=== PATIENT | female | born 1965 | race Caucasian/White ===

== ENCOUNTER → 2019-12-11 15:23 | Outpatient (CLI) | payer OTHER, SELFPAY ==
--- NOTE | ~2019-12-11 | US_ITS ---
EXAMINATION: US venous doppler [facility] DATE: 12/11/2019 15:56 INDICATION: Left lower limb swelling. TECHNIQUE: Grayscale ultrasound images without and with compression and Doppler ultrasound images of the left lower extremity veins were obtained. COMPARISON: None. FINDINGS: The visualized portions of left common femoral vein, profunda (deep) femoral vein, femoral vein, popl iteal vein, peroneal veins, posterior tibial veins, and greater saphenous vein outflow are patent. IMPRESSION: 1. No deep venous thrombosis. Reviewed, dictated and finalized at location A.
== END ==
DX: M79.89 Other specified soft tissue disorders (principal)
CPT/HCPCS: 93971

== ENCOUNTER 2025-04-01 18:01 | Emergency (ER) | payer SELFPAY ==
--- NOTE | ~2025-04-01 | XR_ITS ---
EXAMINATION: XR chest 2V Exam Date/Time: 04/01/2025 18:36 CDT HISTORY: chest pain Comparison: None. RESULT: Lines, tubes, and devices: Cholecystectomy clips. Lungs and pleura: Clear. Cardiomediastinal silhouette: Unremarkable. Other: No acute osseous or upper abdominal finding. IMPRESSION: No acute cardiopulmonary process. Reviewed, dictated and finalized at location K.
--- OUTSIDE RECORDS SUMMARY | 2025-04-01 18:02 | XMS_ITS | Encounter Summary ---
Author Organization [facility] Address [address] [place] [address] Care Team Providers Care Gun Welder Name Role Phone Armando oJhnson MD Primary Care Provider [phone] Encounter Details Date Type Department Care Team (Late st Contact Info) Description 11/25/2003 Emergency [facility] Jhon Paulino MD NO ADDRESS ON FILE Er, Authorized P NO ADDRESS ON FILE PALPITATIONS (Primary Dx) Social History Tobacco Use Types Packs/Day Years Used Date Smoking Tobacco: Never Assessed Comments Unknown Sex and Gender Information Value Date Recorded Sex Assigned at Not on file Legal Sex Female 4:42 AM MOLD PRESSER Gender Identity Not on file Sexual Orientation Not on file documented as of this encounter Plan of Treatment Upcoming Encounters Date Type Department Care Team (Late st Contact Info) Description 08/10/2025 2:15 PM MOLD PRESSER Office Visit [facility] Rheumatology [place] [address] [facility] [address] [place] [address] Ruddy Sánchez [place] [address] [place] [address] documented as of this encounter Visit Diagnoses Diagnosis Palpitations- Primary documented in this encounter Care Teams Gun Welder Relationship Specialty Start Date End Date Armando Johnson MD [address] [place] [address] PCP - General Internal Medicine 11/13/22 documented as of this encounter
--- OUTSIDE RECORDS SUMMARY | 2025-04-01 18:02 | XMS_ITS | Encounter Summary ---
Author Organization [facility] Address [address] [place] [address] Care Team Providers Care Top Cager Name Role Phone Armando Johnson MD Primary Care Provider [phone] Encounter Details Date Type Department Care Team (Late st Contact Info) Description 03/16/2004 Outpatient Historical [facility] Support Serv. (Adt Cardiology-[facility]) [address] [place] [address] Barron Peres MD NO ADDRESS ON FILE Social History Tobacco Use Types Packs/Day Years Used Date Smoking Tobacco: Never Assessed Comments Unknown Sex and Gender Information Value Date Recorded Sex Assigned at Not on file Legal Sex Female 4:42 AM GLASS FORMING CREW MEMBER Gender Identity Not on file Sexual Orientation Not on file documented as of this encounter Plan of Treatment Upcoming Encounters Date Type Department Care Team (Late Contact Info) Description 08/10/2025 2:15 PM GLASS FORMING CREW MEMBER Office Visit [facility] Rheumatology [place] [address] [place] [address] Ruddy Sánchez [place] [address] [place] [address] documented as of this encounter Visit Diagnoses Not on filedocumented in this encounter Care Teams Top Cager Relationship Specialty Start Date End Date Armando Johnson MD [address] [place] [address] PCP - General Internal Medicine 11/13/22 documented as of this encounter
--- OUTSIDE RECORDS SUMMARY | 2025-04-01 18:02 | XMS_ITS | Encounter Summary ---
Author Organization [facility] Address [address] [place] [address] Care Team Providers Care Supervisor Sleeping Bag Department Name Role Phone Armando Johnson MD Primary Care Provider [phone] Encounter Details Date Type Department Care Team (Latest Contact Info) Description 01/10/2009 Outpatient Historical HIS [facility] PRUDENCE Rod, [place] [address] [place] [address] Other Screening Mammogram Social History Tobacco Use Types Packs/Day Years Used Date Smoking Tobacco: Never Alcohol Use Standard Drinks/Week Comments No 0 (1 standard drink = 0.6 oz pur e alcohol) Comments No Sex and Gender Information Value Date Recorded Sex Assigned at Not on file Legal Sex Female 4:42 AM CANVAS PRODUCTS SALES REPRESENTATIVE Gender Identity Not on file Sexual Orientation Not on file documented as of this encounter Plan of Treatment Upcoming Encounters Date Type Department Care Team (Late st Contact Info) Description 08/10/2025 2:15 PM CANVAS PRODUCTS SALES REPRESENTATIVE Office Visit [facility] [place] [address] [place] [address] Ruddy Sánchez [place] [address] [place] [address] documented as of this encounter Procedures Procedure Name Priority Date/Time Associated Diagnosis Comments MAMMO SCREEN BILAT W OR WO CAD Routine 01/10/2009 3:27 PM CDT documented in this encounter Results * MAMMO DIGITAL SCREEN BILAT (01/10/2009 3:27 PM CDT) Anatomical Region Laterality Modality Breast Bilateral Other 01/10/2009 3:27 PM CDT Narrative 01/10/2009 4:20 PM CDT [address] [address] Admit Date: 01/10/2009 JOSE PERRY Sex: F Admit Prov: LIBERTAD ROD Date: 1965 Primary Care Prov: OLGA MARTINArtemio [place] CMRN: [id number] Room: NAKITAYeyo N: [id number] IMAGING SERVICES Ordering Prov: LIBERTAD ROD Sammi Accession Number: [id number] Interpretation DIGITAL SCREENING MAMMOGRAM WITH COMPUTER-ASSISTED DIAGNOSIS Findings: The breasts were imaged with digital mammographic technique. There are scattered fibroglandular densities. No significant mass, malignant calcification or architectural distortion is noted. The CAD system does not highlight any suspicious areas. Summary: No mammographic evidence of malignancy. There has been no significant change from prior study of 12/22. Recommendations: Bilateral yearly screening mammogram is recommended. Assessment BIRADS: 1-Negative Recommendation: Normal interval follow-up Dictated by: ANIKA LOCK Electronically signed by: ANIKA LOCK 01/10/2009 16:20 Transcribed: 01/10/2009 16:20 CXZ Procedure Note Anika Song MD - 01/10/[address] [address] Admit Date: 01/10/2009 JOSE PERRY Sex: F Admit Prov: LIBERTAD ROD Date: 1965 Primary Care Prov: ELIRUSHJOSE MARTINArtemio [place]EN[place]T CMRN: [id number] Room: NORMA SSN: [id number] IMAGING SERVICES Ordering Prov: RODLIBERTAD Interpretation DIGITAL SCREENING MAMMOGRAM WITH COMPUTER-ASSISTED DIAGNOSIS Findings: The breasts were imaged with digital mammographictechnique. There are scattered fibroglandular densities. No significant mass, malignant calcification or architectural distortion is noted. The CAD system does not highlight any suspicious areas. Summary: No mammographic evidence of malignancy. There has been no significant change from prior study of 12/22. Recommendations: Bilateral yearly screening mammogram is recommended. Assessment BIRADS: 1-Negative Recommendation: Normal interval follow-up Dictated by: ANIKA LOCK Electronically signed by: ANIKA LOCK 01/10/2009 16:20 Transcribed: 01/10/2009 16:20 CXZ us Libertad Rod MD MAMMO ORDERABLES Final Result documented in this encounter Visit Diagnoses Diagnosis Other screening mammogram documented in this encounter Care Teams Supervisor Sleeping Bag Department Relationship Specialty Start Date End Date Armando Johnson MD [address] [facility] [address] [place] [address] PCP - General Internal Medicine 11/13/22 documented as of this encounter
--- OUTSIDE RECORDS SUMMARY | 2025-04-01 18:02 | XMS_ITS | Encounter Summary ---
Author Organization [facility] Address [address] [place] [address] Care Team Providers Care Rail Signal Designer Name Role Phone Armando Johnson MD Primary Care Provider [phone] Encounter Details Date Type Department Care Team (Late st Contact Info) Description 12/01/2003 Outpatient Historical [facility] Support Serv. (Adt Cardiology-[facility]) [address] [place] [place] [address] Ho Loyola MD NO ADDRESS ON FILE Social History Tobacco Use Types Packs/Day Years Used Date Smoking Tobacco: Never Assessed Comments Unknown Sex and Gender Information Value Date Recorded Sex Assigned at Not on file Legal Sex Female 4:42 AM CUSTOMER SUCCESS MANAGER Gender Identity Not on file Sexual Orientation Not on file documented as of this encounter Plan of Treatment Upcoming Encounters Date Type Department Care Team (Late Contact Info) Description 08/10/2025 2:15 PM CUSTOMER SUCCESS MANAGER Office Visit [facility] Rheumatology [place] [address] [place] [address] Ruddy Sánchez [place] [address] [place] [address] documented as of this encounter Visit Diagnoses Not on filedocumented in this encounter Care Teams Rail Signal Designer Relationship Specialty Start Date End Date Armando Johnson MD [address] [place] [address] PCP - General Internal Medicine 11/13/22 documented as of this encounter
--- OUTSIDE RECORDS SUMMARY | 2025-04-01 18:03 | XMS_ITS | Encounter Summary ---
Author Organization [facility] Address [address] [place] [address] Care Team Providers Care Silk Screen Printer Machine Name Role Phone Armando Johnson MD Primary Care Provider [phone] Encounter Details Date Type Department Care Team (Latest Contact Info) Description 07/11/2001 Outpatient Historical [facility] PRUDENCE Rod, Josué [place] [address] [place] [address] Screening mammogram for high-risk patient (Primary Dx) Social History Tobacco Use Types Packs/Day Years Used Date Smoking Tobacco: Never Assessed Comments Unknown Sex and Gender Information Value Date Recorded Sex Assigned at Not on file Legal Sex Female 4:42 AM PROJECT MANAGEMENT PROFESSOR Gender Identity Not on file Sexual Orientation Not on file documented as of this encounter Plan of Treatment Upcoming Encounters Date Type Department Care Team (Late st Contact Info) Description 08/10/2025 2:15 PM PROJECT MANAGEMENT PROFESSOR Office Visit [facility] Rheumatology [place] [address] [place] [address] Ruddy Sánchez [place] [address] [address] documented as of this encounter Visit Diagnoses Diagnosis Screening mammogram for high-risk patient- Primary documented in this encounter Care Teams Silk Screen Printer Machine Relationship Specialty Start Date End Date Armando Johnson MD [address] [place] [address] PCP - General Internal Medicine 11/13/22 documented as of this encounter
--- OUTSIDE RECORDS SUMMARY | 2025-04-01 18:03 | XMS_ITS | Encounter Summary ---
Author Organization [facility] Address [address] [place] [address] Care Team Providers Care Energy Manager Name Role Phone Armando Johnson MD Primary Care Provider [phone] Encounter Details Date Type Department Care Team (Late st Contact Info) Description 12/13/2003 Outpatient Historical [facility] Balwinder Hector MD [address] [facility] [address] [place] [address] Social History Tobacco Use Types Packs/Day Years Used Date Smoking Tobacco: Never Assessed Comments Unknown Sex and Gender Information Value Date Recorded Sex Assigned at Not on file Legal Sex Female 4:42 AM CASTING PLUG ASSEMBLER Gender Identity Not on file Sexual Orientation Not on file documented as of this encounter Plan of Treatment Upcoming Encounters Date Type Department Care Team (Late st Contact Info) Description 08/10/2025 2:15 PM CASTING PLUG ASSEMBLER Office Visit [facility] Rheumatology [place] [address] [place] [address] Ruddy Sánchez [place] [address] [place] [address] documented as of this encounter Visit Diagnoses Not on filedocumented in this encounter Care Teams Energy Manager Relationship Specialty Start Date End Date Armando Johnson MD [address] [place] [address] PCP - General Internal Medicine 11/13/22 documented as of this encounter
--- OUTSIDE RECORDS SUMMARY | 2025-04-01 18:03 | XMS_ITS | Encounter Summary ---
Author Organization [facility] Address [address] [place] [address] Care Team Providers Care Tape Deck Installer Name Role Phone Armando Johnson MD Primary Care Provider [phone] Encounter Details Date Type Department Care Team (Late st Contact Info) Description 02/13/2002 Emergency [facility] Bola Saul MD NO ADDRESS ON FILE Er, Authorized P NO ADDRESS ON FILE CONTUSION OF FOOT (Primary Dx) Social History Tobacco Use Types Packs/Day Years Used Date Smoking Tobacco: Never Assessed Comments Unknown Sex and Gender Information Value Date Recorded Sex Assigned at Not on file Legal Sex Female 4:42 AM PHYSICIAN'S ASSISTANT Gender Identity Not on file Sexual Orientation Not on file documented as of this encounter Plan of Treatment Upcoming Encounters Date Type Department Care Team (Late st Contact Info) Description 08/10/2025 2:15 PM PHYSICIAN'S ASSISTANT Office Visit [facility] Rheumatology [place] [address] [place] [address] Ruddy Sánchez [place] [address] [place] [address] documented as of this encounter Visit Diagnoses Diagnosis Contusion of foot- Primary documented in this encounter Care Teams Tape Deck Installer Relationship Specialty Start Date End Date Armando Johnson MD [address] [place] [address] PCP - General Internal Medicine 11/13/22 documented as of this encounter
--- OUTSIDE RECORDS SUMMARY | 2025-04-01 18:03 | XMS_ITS | Clinical Summary ---
Author Organization [facility] Address [address] [place] [address] Care Team Providers Care Public Message Service Supervisor Name Role Phone Unavailable Primary Care Provider Unavailabl e Source Comments [facility],non-owned Affiliates and Associated Physician Practices is amultiple site organization consisting of ambulatory clinics and hospital sitesin [place], [place], [place] and [place]. This disclosure is being madepursuant to the Care Everywhere program and may not contain all information available regarding this patient. Last updated 18.[facility] Immunizations Immunization Administration Dates Next Due INFLUENZA VACCINE, QUADR. (F LUZONE; FLULAVAL; FLUARIX; AFLURIA QUADRIVALENT; 6MO+), 0.5 ML (IIV4) 07/04/2020 Social History Tobacco Use Types Packs/Day Years Used Date Smoking Tobacco: Never Assessed Comments Unknown Sex and Gender Information Value Date Recorded Sex Assigned at Not on file Legal Sex Female 4:04 PM CDT Gender Identity Not on file Sexual Orientation Not on file Plan of Treatment Health Maintenance Due Date Last Done Comments COLOGUARD (AGES 45-75) - COL ON CA SCREENING 1965 COLON MONITORING 1965 COLONOSCOPY - COLON CA SCREENING 1964 CT COLONOGRAPHY - COLON CA SCREENING 1965 Colorectal Cancer Screening 1965 FIT - COLON CA SCREENING 1964 FLEX SIG - COLON CA SCREENING 1965 LIPID TESTING 1965 MAMMOGRAM 1965 HIV SCREENING 1979 HEPATITIS C SCREENING 07/21/1982 DTAP/TDAP/TD VACCINES (1 - Tdap) 1983 PAP SMEAR 1985 PNEUMOCOCCAL VACCINE 50+ (1 of 1 - PCV) 2014 ZOSTER VACCINE (1 of 2) 2014 COVID-19 VACCINE (1 - 2023-2 5 season) 2024 DEPRESSION SCREENING 09/16/2024 INFLUENZA VACCINE (#1) 2025 07/04/2020 Respiratory Syncytial Virus (RSV) Vaccine Pt: or over 60 yrs (1 - 1-dose 75+ series) 2039 HEPATITIS B VACCINE Aged Out No longe r eligible based on patient's age to complete this topic HIB VACCINE Aged Out No longer eligi ble based on patient's age to complete this topic HPV VACCINE Aged Out No longer eligi ble based on patient's age to complete this topic MENINGOCOCCAL (Group B) VACC INE SHARED DECISION-MAKING Aged Out No longer eligibl e based on patient's age to complete this topic MENINGOCOCCAL GROUPS A/C/Y/W VACCINE Aged Out No longer eligible b ased on patient's age to complete this topic Insurance [employer]
--- OUTSIDE RECORDS SUMMARY | 2025-04-01 18:03 | XMS_ITS | Encounter Summary ---
Author Organization [facility] Address [address] [place] [address] Care Team Providers Care Cfa Name Role Phone Armando Johnson MD Primary Care Provider [phone] Encounter Details Date Type Department Care Team (Late st Contact Info) Description 08/24/2002 Outpatient Historical [facility] Support Serv. (Adt Cardiology-[facility]) [address] [place] [address] Lucius Ward MD NO ADDRESS ON FILE Social History Tobacco Use Types Packs/Day Years Used Date Smoking Tobacco: Never Assessed Comments Unknown Sex and Gender Information Value Date Recorded Sex Assigned at Not on file Legal Sex Female 4:42 AM CLAIM MANAGER Gender Identity Not on file Sexual Orientation Not on file documented as of this encounter Plan of Treatment Upcoming Encounters Date Type Department Care Team (Late Contact Info) Description 08/10/2025 2:15 PM CLAIM MANAGER Office Visit [facility] Rheumatology [place] [address] [place] [address] Ruddy Sánchez [place] [address] [place] [address] documented as of this encounter Visit Diagnoses Not on filedocumented in this encounter Care Teams Cfa Relationship Specialty Start Date End Date Armando Johnson MD [address] [place] [address] PCP - General Internal Medicine 11/13/22 documented as of this encounter
--- OUTSIDE RECORDS SUMMARY | 2025-04-01 18:03 | XMS_ITS | Encounter Summary ---
Author Organization [facility] Address [address] [place] [address] Care Team Providers Care Wind Turbine Mechanic Name Role Phone Armando Johnson MD Primary Care Provider Encounter Details Date Type Department Care Team (Late Contact Info) Description 12/07/2003 Outpatient [facility] for [address] [place] [address] [place] [address] [place] [address] [address] Social History Tobacco Use Types Packs/Day Years Used Date Smoking Tobacco: Never Assessed Comments Unknown Sex and Gender Information Value Date Recorded Sex Assigned at Not on file Legal Sex Female 4:42 AM LOG INSPECTOR Gender Identity Not on file Sexual Orientation Not on file documented as of this encounter Plan of Treatment Upcoming Encounters Date Type Department Care Team (Late st Contact Info) Description 08/10/2025 2:15 PM LOG INSPECTOR Office Visit [facility] Rheumatology [place] [address] [place] [address] Ruddy Sánchez [place] [address] [place] [address] documented as of this encounter Visit Diagnoses Not on filedocumented in this encounter Care Teams Wind Turbine Mechanic Relationship Specialty Start Date End Date Armando Johnson MD [address] [place] [address] PCP - General Internal Medicine 11/13/22 documented as of this encounter
--- OUTSIDE RECORDS SUMMARY | 2025-04-01 18:03 | XMS_ITS | Encounter Summary ---
Author Organization [facility] Address [address] [place] [address] Care Team Providers Care Compliance Officer Name Role Phone Armando Johnson MD Primary Care Provider [phone] Encounter Details Date Type Department Care Team (Latest Contact Info) Description 08/10/2002 Outpatient Historical [facility] Nixon Perea MD [address] [facility] [address] [place], [place] [id number] ENTHESOPATHY OF HIP (Primary Dx) Social History Tobacco Use Types Packs/Day Years Used Date Smoking Tobacco: Never Assessed Comments Unknown Sex and Gender Information Value Date Recorded Sex Assigned at Not on file Legal Sex Female 4:42 AM STEAM SHOVEL RUNNER Gender Identity Not on file Sexual Orientation Not on file documented as of this encounter Plan of Treatment Upcoming Encounters Date Type Department Care Team (Late st Contact Info) Description 08/10/2025 2:15 PM STEAM SHOVEL RUNNER Office Visit [facility] Rheumatology [place] [address] [place] [address] Ruddy Sánchez [place] [address] [place] [address] documented as of this encounter Visit Diagnoses Diagnosis Enthesopathy of hip region- Primary documented in this encounter Care Teams Compliance Officer Relationship Specialty Start Date End Date Armando Johnson MD [address] [place] [address] PCP - General Internal Medicine 11/13/22 documented as of this encounter
--- OUTSIDE RECORDS SUMMARY | 2025-04-01 18:03 | XMS_ITS | Encounter Summary ---
Author Organization [facility] Address [address] [place] [address] Care Team Providers Care Jewel Bearing Polisher Name Role Phone Armando Johnson MD Primary Care Provider [phone] Encounter Details Date Type Department Care Team (Late Contact Info) Description 05/08/2006 Outpatient Historical [facility] Internal Medicine Medical [place] [facility] [address] [facility] [address] [address] Balwinder Hector MD [address] [facility] [place] [address] Other and Unspecified Hyperlipidemia (Primary Dx) Social History Tobacco Use Types Packs/Day Years Used Date Smoking Tobacco: Never Assessed Comments Unknown Sex and Gender Information Value Date Recorded Sex Assigned at Not on file Legal Sex Female 4:42 AM PIPE CREW FOREMAN Gender Identity Not on file Sexual Orientation Not on file documented as of this encounter Plan of Treatment Upcoming Encounters Date Type Department Care Team (Late st Contact Info) Description 08/10/2025 2:15 PM PIPE CREW FOREMAN Office Visit [facility] Rheumatology [place] [address] [facility] [address] [place] [address] Ruddy Sán[place] [address] [place] [address] documented as of this encounter Procedures Procedure Name Priority Date/Time Associated Diagnosis Comments TSH REFLEXIVE Routine 05/08/2006 12:18 PM CDT CBC WITH DIFFERENTIAL Routine 05/08/2006 12:18 PM CDT CBC WITH DIFFERENTIAL Routine 05/08/2006 12:18 PM CDT T4 FREE Routine 05/08/2006 12:18 PM CDT LIPID PANEL Routine 05/08/2006 12:18 PM CDT COMPREHENSIVE METABOLIC PANEL Routine 05/08/2006 12:18 PM CDT documented in this encounter Results * T4 FREE (05/08/2006 12:18 PM CDT) T4 FREE 0.9 0.9 - 1.7 ng/dL INTERFACE SYSTEM 05/08/2006 12:1 8 PM CDT Balwinder Hector MD CHEMISTRY ORDERABLES Final Resu lt Performing Organization Address [facility] de Phone Number INTERFACE SYSTEM Refer to clinic/hospital department * CBC WITH DIFFERENTIAL (05/08/2006 12:18 PM CDT) NEUTROPHILS 66 45 - 70 % INTERFAC E SYSTEM LYMPHOCYTES 26 16 - 45 % INTERFAC E SYSTEM MONOCYTES 7 3 - 13 % INTERFACE SYSTEM EOSINOPHILS 1 0 - 7 % INTERFAC E SYSTEM BASOPHILS 0 0 - 2 % INTERFACE SYSTEM NEUTROPHIL ABSOLUTE 3.51 1.90 - 7.00 K/uL INTERFACE SYSTEM LYMPHOCYTE ABSOLUTE 1.38 0.70 - 4.50 K/uL INTERFACE SYSTEM MONOCYTE ABSOLUTE 0.39 0.10 - 1.30 K/uL INTERFACE SYSTEM EOSINOPHIL ABSOLUTE 0.05 0.00 - 0.70 K/uL INTERFACE SYSTEM BASOPHILS ABSOLUTE 0.02 0.00 - 0.20 K/uL INTERFACE SYSTEM 05/08/2006 12:1 8 PM CDT Balwinder Hector MD HEMATOLOGY ORDERABLES Final Res ult Performing Organization Address [facility] de Phone Number INTERFACE SYSTEM Refer to clinic/hospital department * CBC WITH DIFFERENTIAL (05/08/2006 12:18 PM CDT) WBC 5.4 4.0 - 9.8 K/uL INTERFACE SYSTEM RBC 3.99 3.90 - 4.90 M/uL INTERFACE SYSTEM HEMOGLOBIN 11.8 11.8 - 14.8 g/dL INTERFACE SYSTEM HEMATOCRIT 35.7 35.5 - 44.0 % INTERFACE SYSTEM MCV 89.5 82.0 - 99.0 fL INTERFACE SYSTEM MCH 29.6 27.2 - 32.6 pg INTERFACE SYSTEM MCHC 33.1 31.5 - 35.5 % INTERFACE SYSTEM RDW 13.2 11.5 - 14.5 % INTERFACE SYSTEM RDW-STDEV 43.1 37.1 - 48.7 fL INTERFACE SYSTEM PLATELETS 185 140 - 350 K/uL INTERFACE SYSTEM MPV 11.9 9.3 - 12.4 fL INTERFACE SYSTEM 05/08/2006 12:1 8 PM CDT Balwinder Hector MD HEMATOLOGY ORDERABLES Final Res ult Performing Organization Address [facility] Phone Number INTERFACE SYSTEM Refer to clinic/hospital department * (ABNORMAL) TSH REFLEXIVE (05/08/2006 12:18 PM CDT) Pathologist [facility] TSH 5.84(H) 0.27 - 4.20 uU/mL INTERFACE SYSTEM 05/08/2006 12:1 8 PM CDT Balwinder Hector MD CHEMISTRY ORDERABLES Final Resu lt Performing Organization Address [facility] de Phone Number INTERFACE SYSTEM Refer to clinic/hospital department * (ABNORMAL) COMPREHENSIVE METABOLIC PANEL (05/08/2006 12:18 PM CDT) GLUCOSE 107(H) 65 - 99 mg/dL INTERFACE SYSTEM CREATININE 1.0 0.4 - 1.2 mg/dL INTERFACE SYSTEM CALCIUM 9.2 8.6 - 10.2 mg/dL INTERFACE SYSTEM ALKALINE PHOSPHATASE 78 35 - 104 U/L INTERFACE SYSTEM AST 24 12 - 32 U/L INTERFACE SYSTEM ALT 24 0 - 31 U/L INTERFACE SYSTEM TOTAL PROTEIN 7.5 6.3 - 8.6 g/dL INTERFACE SYSTEM ALBUMIN 4.4 3.4 - 4.8 g/dL INTERFACE SYSTEM BILIRUBIN TOTAL 0.3 0.2 - 1.0 mg/dL INTERFACE SYSTEM BUN 12 6 - 20 mg/dL INTERFACE SYSTEM SODIUM 140 135 - 145 mmol/L INTERFACE SYSTEM POTASSIUM 3.7 3.5 - 4.9 mmol/L INTERFACE SYSTEM CHLORIDE 103 96 - 108 mmol/L INTERFACE SYSTEM CO2 26 22 - 30 mmol/L INTERFACE SYSTEM 05/08/2006 12:1 8 PM CDT Balwinder Hector MD CHEMISTRY ORDERABLES Final Resu lt INTERFACE SYSTEM Refer to clinic/hospital department * (ABNORMAL) LIPID PANEL (05/08/2006 12:18 PM CDT) CHOLESTEROL 166 100 - 199 mg/dL INTERFACE SYSTEM TRIGLYCERIDE 153(H) 10 - 149 mg/dL INTERFACE SYSTEM HDL 50 40 - 59 mg/dL INTERFACE SYSTEM CHOL/HDL RATIO 3.3 2.0 - 5.0 INTER FACE SYSTEM LDL CALCULATED 85 <=99 mg/dL INTERFACE SYSTEM LIPID PANEL COMMENT See Below INTERFACE SYSTEM Comment: The adult ATP and pediatric NCEP classifications for lipids are available on the [facility] at: [email or web address] [email or web address] Select: Lab Policies and Procedures Select: Reference Ranges - Lipids 05/08/2006 12:1 8 PM CDT Balwinder Hector MD CHEMISTRY ORDERABLES Final Resu lt INTERFACE SYSTEM Refer to clinic/hospital department documented in this encounter Visit Diagnoses Diagnosis Other and unspecified hyperlipidemia- Primary documented in this encounter Care Teams Jewel Bearing Polisher Relationship Specialty Start Date End Date Armando Johnson MD [address] [place] [address] PCP - General Internal Medicine 11/13/22 documented as of this encounter
--- OUTSIDE RECORDS SUMMARY | 2025-04-01 18:03 | XMS_ITS | Encounter Summary ---
Author Organization [facility] Address [address] [place] [address] Care Team Providers Care [employer] Name Role Phone Armando Johnson MD Primary Care Provider Encounter Details Date Type Department Care Team (Late st Contact Info) Description 06/30/2003 Outpatient Historical HIS [facility] Balwinder Ryder MD [address] [facility] [address] [place] [address] CERVICALGIA (Primary Dx) Social History Tobacco Use Types Packs/Day Years Used Date Smoking Tobacco: Never Assessed Comments Unknown Sex and Gender Information Value Date Recorded Sex Assigned at Not on file Legal Sex Female 4:42 AM TAX COLLECTION COORDINATOR Gender Identity Not on file Sexual Orientation Not on file documented as of this encounter Plan of Treatment Upcoming Encounters Date Type Department Care Team (Late Contact Info) Description 08/10/2025 2:15 PM TAX COLLECTION COORDINATOR Office Visit [facility] Rheumatology [place] [address] [place] [address] Ruddy Sánchez [place] [address] [place] [address] documented as of this encounter Visit Diagnoses Diagnosis Cervicalgia- Primary documented in this encounter Care Teams Teacher [employer] Relationship Specialty Start Date End Date Armando Johnson MD [address] [place] [address] PCP - General Internal Medicine 11/13/22 documented as of this encounter
--- OUTSIDE RECORDS SUMMARY | 2025-04-01 18:03 | XMS_ITS | Encounter Summary ---
Author Organization [facility] Address [address] [place] [address] Care Team Providers Care Court Abstractor Name Role Phone Armando Johnson MD Primary Care Provider [phone] Encounter Details Date Type Department Care Team (Late Contact Info) Description 05/20/2007 Outpatient Historical [facility] Internal Medicine Medical [place] [facility] [address] [id number] Benjamín Haines MD [address] [place] [address] Social History Tobacco Use Types Packs/Day Years Used Date Smoking Tobacco: Never Assessed Comments Unknown Sex and Gender Information Value Date Recorded Sex Assigned at Not on file Legal Sex Female 4:42 AM PACKAGE LINER Gender Identity Not on file Sexual Orientation Not on file documented as of this encounter Plan of Treatment Upcoming Encounters Date Type Department Care Team (Late st Contact Info) Description 08/10/2025 2:15 PM PACKAGE LINER Office Visit [facility] Rheumatology [place] [address] [facility] [address] [place] [address] Ruddy Sánchez [place] [address] [place] [address] documented as of this encounter Visit Diagnoses Not on filedocumented in this encounter Care Teams Court Abstractor Relationship Specialty Start Date End Date Armando Johnson MD [address] [facility] [address] [place] [address] PCP - General Internal Medicine 11/13/22 documented as of this encounter
--- OUTSIDE RECORDS SUMMARY | 2025-04-01 18:03 | XMS_ITS | Encounter Summary ---
Author Organization [facility] Address [address] [place] [address] Care Team Providers Care Director Statistical Programming Name Role Phone Armando Johnson MD Primary Care Provider [phone] Encounter Details Date Type Department Care Team (Late Contact Info) Description 06/02/2004 Outpatient Historical HIS [facility] Balwinder Ryder MD [address] [facility] [address] [place] [address] ABDOMINAL PAIN UNSPEC SITE (Primary Dx) Social History Tobacco Use Types Packs/Day Years Used Date Smoking Tobacco: Never Assessed Comments Unknown Sex and Gender Information Value Date Recorded Sex Assigned at Not on file Legal Sex Female 4:42 AM ELEVATOR CONSTRUCTOR HYDRAULIC Gender Identity Not on file Sexual Orientation Not on file documented as of this encounter Plan of Treatment Upcoming Encounters Date Type Department Care Team (Late Contact Info) Description 08/10/2025 2:15 PM ELEVATOR CONSTRUCTOR HYDRAULIC Office Visit [facility] [place] [address] [place] [address] Ruddy Sánchez [place] [address] [place] [address] documented as of this encounter Visit Diagnoses Diagnosis Abdominal pain, unspecified site- Primary documented in this encounter Care Teams Director Statistical Programming Relationship Specialty Start Date End Date Armando Johnson MD [address] [place] [address] PCP - General Internal Medicine 11/13/22 documented as of this encounter
--- OUTSIDE RECORDS SUMMARY | 2025-04-01 18:03 | XMS_ITS | Encounter Summary ---
Author Organization [facility] Address [address] [place] [address] Care Team Providers Care Oil Burner Servicer And Installer Name Role Phone Armando Johnson MD Primary Care Provider [phone] Encounter Details Date Type Department Care Team (Latest Contact Info) Description 09/25/2004 Outpatient Historical HIS [facility] PRUDENCE Rod, Josué [place] [address] [place] [address] SCREENING MAMM-MAILG NEOPL-OTHER (Primary Dx) Social History Tobacco Use Types Packs/Day Years Used Date Smoking Tobacco: Never Assessed Comments Unknown Sex and Gender Information Value Date Recorded Sex Assigned at Not on file Legal Sex Female 4:42 AM HABILITATION TRAINING SPECIALIST Gender Identity Not on file Sexual Orientation Not on file documented as of this encounter Plan of Treatment Upcoming Encounters Date Type Department Care Team (Late st Contact Info) Description 08/10/2025 2:15 PM HABILITATION TRAINING SPECIALIST Office Visit [facility] Rheumatology [place] [address] [place] [address] Ruddy Sánchez [place] [address] [place] [address] documented as of this encounter Visit Diagnoses Diagnosis Other screening mammogram- Primary documented in this encounter Care Teams Oil Burner Servicer And Installer Relationship Specialty Start Date End Date Amrando Johnson MD [address] [place] [address] PCP - General Internal Medicine 11/13/22 documented as of this encounter
--- OUTSIDE RECORDS SUMMARY | 2025-04-01 18:03 | XMS_ITS | Encounter Summary ---
Author Organization Address [address] [place] [address] Care Team Providers Care Social Media Campaign Manager Name Role Phone Armando Johnson MD Primary Care Provider [phone] Encounter Details Date Type Department Care Team (Late st Contact Info) Description 11/25/2003 Outpatient Historical [facility] [place] [place] Support Serv. (Adt Cardiology-[facility]) [address] [place] [address] Jeny Rodríguez MD Social History Tobacco Use Types Packs/Day Years Used Date Smoking Tobacco: Never Assessed Comments Unknown Sex and Gender Information Value Date Recorded Sex Assigned at Not on file Legal Sex Female 4:42 AM CONSTRUCTION ENGINEERING MANAGER Gender Identity Not on file Sexual Orientation Not on file documented as of this encounter Plan of Treatment Upcoming Encounters Date Type Department Care Team (Late Contact Info) Description 08/10/2025 2:15 PM CONSTRUCTION ENGINEERING MANAGER Office Visit [facility] Rheumatology [place] [address] [place] [address] Ruddy Sánchez [place] [address] [place] [address] documented as of this encounter Visit Diagnoses Not on filedocumented in this encounter Care Teams Social Media Campaign Manager Relationship Specialty Start Date End Date Armando Johnson MD [address] [place] [address] PCP - General Internal Medicine 11/13/22 documented as of this encounter
--- OUTSIDE RECORDS SUMMARY | 2025-04-01 18:03 | XMS_ITS | Encounter Summary ---
Author Organization [facility] Address [address] [place] [address] Care Team Providers Care Flame Gouger Name Role Phone Armando Johnson MD Primary Care Provider [phone] Encounter Details Date Type Department Care Team (Latest Contact Info) Description 08/20/2005 Outpatient Historical HIS [facility] Starks, Wilma Coppola MD [facility] [address] ABDOMINAL PAIN LLQ (Primary Dx) Social History Tobacco Use Types Packs/Day Years Used Date Smoking Tobacco: Never Assessed Comments Unknown Sex and Gender Information Value Date Recorded Sex Assigned at Not on file Legal Sex Female 4:42 AM TEST BORING CREW CHIEF Gender Identity Not on file Sexual Orientation Not on file documented as of this encounter Plan of Treatment Upcoming Encounters Date Type Department Care Team (Late st Contact Info) Description 08/10/2025 2:15 PM TEST BORING CREW CHIEF Office Visit [facility] Rheumatology [place] [address] [facility] [address] [place] [address] Ruddy Sánchez [place] [address] [place] [address] documented as of this encounter Procedures Procedure Name Priority Date/Time Associated Diagnosis Comments CBC WITH DIFFERENTIAL Routine 08/20/2005 3:17 PM TEST BORING CREW CHIEF CBC WITH DIFFERENTIAL Routine 08/20/2005 3:17 PM TEST BORING CREW CHIEF C-REACTIVE PROTEIN Routine 08/20/2005 3: 17 PM TEST BORING CREW CHIEF HCG QUANTITATIVE, BLOOD Routine 08/20/2005 3:17 PM TEST BORING CREW CHIEF documented in this encounter Results * HCG QUANTITATIVE, BLOOD (08/20/2005 3:17 PM TEST BORING CREW CHIEF) HCG QUANT, BLOOD <5 0 - 5 mIU/mL INTERFACE SYSTEM Comment: Result of 5 - 25 mIU/mL is indeterminant for , repeat of test recommemded in 48 hours. Reference Range: Gestational Age: 3 Weeks 5.8 - 71.2 mIU/mL 4 Weeks 9.5 - 750 mIU/mL 5 Weeks 217 - 7138 mIU/mL 6 Weeks 158 - 31,795 mIU/mL 7 Weeks 3697 - 163,563 mIU/mL 8 Weeks 32,065 - 149,571 mIU/mL 9 Weeks 63,803 - 151,410 mIU/mL 10 Weeks 46,509 - 186,977 mIU/mL 12 Weeks 27,832 - 210,612 mIU/mL 14 Weeks 13,950 - 62,530 mIU/mL 15 Weeks 12,039 - 70,971 mIU/mL 16 Weeks 9040 - 56,451 mIU/mL 17 Weeks 8175 - 55,868 mIU/mL 18 Weeks 8099 - 58,176 mIU/mL Heterophile antibodies and other interfering substances in the serum of some patients may cause a false-positive result in this assay. Before making a diagnosis of malignancy or ectopic ,the result of thi s test should be confirmed with a urine HCG test and correlated with other clinical evidence. 08/20/2005 3:17 PM TEST BORING CREW CHIEF us Wilma Starks MD CHEMISTRY ORDERABLES Final R esult INTERFACE SYSTEM Refer to clinic/hospital department * CBC WITH DIFFERENTIAL (08/20/2005 3:17 PM TEST BORING CREW CHIEF) NEUTROPHILS 69 45 - 70 % INTERFAC E SYSTEM LYMPHOCYTES 24 16 - 45 % INTERFAC E SYSTEM MONOCYTES 7 3 - 13 % INTERFACE SYSTEM EOSINOPHILS 1 0 - 7 % INTERFAC E SYSTEM BASOPHILS 0 0 - 2 % INTERFACE SYSTEM NEUTROPHIL ABSOLUTE 5.47 1.90 - 7.00 K/uL INTERFACE SYSTEM LYMPHOCYTE ABSOLUTE 1.91 0.70 - 4.50 K/uL INTERFACE SYSTEM MONOCYTE ABSOLUTE 0.52 0.10 - 1.30 K/uL INTERFACE SYSTEM EOSINOPHIL ABSOLUTE 0.05 0.00 - 0.70 K/uL INTERFACE SYSTEM BASOPHILS ABSOLUTE 0.02 0.00 - 0.20 K/uL INTERFACE SYSTEM 08/20/2005 3:17 PM TEST BORING CREW CHIEF Wilma Starks MD HEMATOLOGY ORDERABLES Final Result Performing Organization Address [facility] de Phone Number INTERFACE SYSTEM Refer to clinic/hospital department * CBC WITH DIFFERENTIAL (08/20/2005 3:17 PM TEST BORING CREW CHIEF) WBC 8.0 4.0 - 9.8 K/uL INTERFACE SYSTEM RBC 4.18 3.90 - 4.90 M/uL INTERFACE SYSTEM HEMOGLOBIN 12.3 11.8 - 14.8 g/dL INTERFACE SYSTEM HEMATOCRIT 37.4 35.5 - 44.0 % INTERFACE SYSTEM MCV 89.5 82.0 - 99.0 fL INTERFACE SYSTEM MCH 29.4 27.2 - 32.6 pg INTERFACE SYSTEM MCHC 32.9 31.5 - 35.5 % INTERFACE SYSTEM RDW 12.8 11.5 - 14.5 % INTERFACE SYSTEM RDW-STDEV 41.2 37.1 - 48.7 fL INTERFACE SYSTEM PLATELETS 200 140 - 350 K/uL INTERFACE SYSTEM MPV 11.7 9.3 - 12.4 fL INTERFACE SYSTEM 08/20/2005 3:17 PM TEST BORING CREW CHIEF Wilma Starks MD HEMATOLOGY ORDERABLES Final Result Performing Organization Address [facility] de Phone Number INTERFACE SYSTEM Refer to clinic/hospital department * C-REACTIVE PROTEIN (08/20/2005 3:17 PM TEST BORING CREW CHIEF) CRP 0.5 0.0 - 0.8 mg/dL INTERFACE SYSTEM 08/20/2005 3:17 PM TEST BORING CREW CHIEF us Wilma Starks MD CHEMISTRY ORDERABLES Final R esult INTERFACE SYSTEM Refer to clinic/hospital department documented in this encounter Visit Diagnoses Diagnosis Abdominal pain, left lower quadrant- Primary documented in this encounter Care Teams Flame Gouger Relationship Specialty Start Date End Date Armando Johnson MD [address] [place] [address] PCP - General Internal Medicine 11/13/22 documented as of this encounter
--- OUTSIDE RECORDS SUMMARY | 2025-04-01 18:03 | XMS_ITS | Encounter Summary ---
Author Organization [facility] Address [address] [place] [address] Care Team Providers Care Machine Whitener Name Role Phone Armando Johnson MD Primary Care Provider [phone] Encounter Details Date Type Department Care Team (Late st Contact Info) Description 04/27/2003 Outpatient Historical HIS MRI DEPT Ludwig Gibbons MD [address] [facility] [address] [place] [address] CERVICAL DISC DISPLACMNT (Primary Dx) Social History Tobacco Use Types Packs/Day Years Used Date Smoking Tobacco: Never Assessed Comments Unknown Sex and Gender Information Value Date Recorded Sex Assigned at Not on file Legal Sex Female 4:42 AM INTELLIGENCE RESEARCH SPECIALIST Gender Identity Not on file Sexual Orientation Not on file documented as of this encounter Plan of Treatment Upcoming Encounters Date Type Department Care Team (Late Contact Info) Description 08/10/2025 2:15 PM INTELLIGENCE RESEARCH SPECIALIST Office Visit [facility] Rheumatology [place] [address] [place] [address] Ruddy Sánchez [place] [address] [place] [address] documented as of this encounter Visit Diagnoses Diagnosis Displacement of cervical intervertebral disc without myelopathy- Primary documented in this encounter Care Teams Machine Whitener Relationship Specialty Start Date End Date Armando Johnson MD [address] [place] [address] PCP - General Internal Medicine 11/13/22 documented as of this encounter
--- OUTSIDE RECORDS SUMMARY | 2025-04-01 18:03 | XMS_ITS | Encounter Summary ---
Author Organization [facility] Address [address] [place] [address] Care Team Providers Care Seasonal Clerk Name Role Phone Armando Johnson MD Primary Care Provider [phone] Encounter Details Date Type Department Care Team (Late st Contact Info) Description 06/07/2000 Outpatient Historical HIS [facility] Social History Tobacco Use Types Packs/Day Years Used Date Smoking Tobacco: Never Assessed Comments Unknown Sex and Gender Information Value Date Recorded Sex Assigned at Not on file Legal Sex Female 4:42 AM BLAST FURNACE HELPER Gender Identity Not on file Sexual Orientation Not on file documented as of this encounter Plan of Treatment Upcoming Encounters Date Type Department Care Team (Late st Contact Info) Description 08/10/2025 2:15 PM BLAST FURNACE HELPER Office Visit [facility] Rheumatology [place] [address] [place] [address] Ruddy Sánchez [place] [address] [place] [address] documented as of this encounter Visit Diagnoses Not on filedocumented in this encounter Care Teams Seasonal Clerk Relationship Specialty Start Date End Date Armando Johnson MD [address] [place] [address] PCP - General Internal Medicine 11/13/22 documented as of this encounter
--- OUTSIDE RECORDS SUMMARY | 2025-04-01 18:03 | XMS_ITS | Encounter Summary ---
Author Organization [facility] Address [address] [place] [address] Care Team Providers Care Clerk Operator Name Role Phone Armando Johnson MD Primary Care Provider [phone] Encounter Details Date Type Department Care Team (Late st Contact Info) Description 03/24/2003 Outpatient Historical [facility] Balwinder Hector MD [address] [facility] [address] [place] [address] GOITER NOS (Primary Dx) Social History Tobacco Use Types Packs/Day Years Used Date Smoking Tobacco: Never Assessed Comments Unknown Sex and Gender Information Value Date Recorded Sex Assigned at Not on file Legal Sex Female 4:42 AM TRAIN PLANNER Gender Identity Not on file Sexual Orientation Not on file documented as of this encounter Plan of Treatment Upcoming Encounters Date Type Department Care Team (Late st Contact Info) Description 08/10/2025 2:15 PM TRAIN PLANNER Office Visit [facility] Rheumatology [place] [address] [place] [address] Ruddy Sánchez [place] [address] [place] [address] documented as of this encounter Visit Diagnoses Diagnosis Goiter, unspecified- Primary documented in this encounter Care Teams Clerk Operator Relationship Specialty Start Date End Date Armando Johnson MD [address] [place] [address] PCP - General Internal Medicine 11/13/22 documented as of this encounter
--- OUTSIDE RECORDS SUMMARY | 2025-04-01 18:03 | XMS_ITS | Encounter Summary ---
Author Organization [facility] Address [address] [place] [address] Care Team Providers Care Pier Master Name Role Phone Armando Johnson MD Primary Care Provider Encounter Details Date Type Department Care Team (Latest Contact Info) Description 10/03/2004 Outpatient Historical HIS [facility] PRUDENCE Rod, Josué [place] [address] [place] [address] SOLITARY CYST OF BREAST (Primary Dx) Social History Tobacco Use Types Packs/Day Years Used Date Smoking Tobacco: Never Assessed Comments Unknown Sex and Gender Information Value Date Recorded Sex Assigned at Not on file Legal Sex Female 4:42 AM PRESIDENT ERGONOMIC CONSULTING Gender Identity Not on file Sexual Orientation Not on file documented as of this encounter Plan of Treatment Upcoming Encounters Date Type Department Care Team (Late st Contact Info) Description 08/10/2025 2:15 PM PRESIDENT ERGONOMIC CONSULTING Office Visit [facility] Rheumatology Enrique Sparks [address] [place] [address] Ruddy Sánchez [place] [address] [place] [address] documented as of this encounter Visit Diagnoses Diagnosis Solitary cyst of breast- Primary documented in this encounter Care Teams Pier Master Relationship Specialty Start Date End Date Armando Johnson MD [address] [place] [address] PCP - General Internal Medicine 11/13/22 documented as of this encounter
--- OUTSIDE RECORDS SUMMARY | 2025-04-01 18:03 | XMS_ITS | Encounter Summary ---
Author Organization [facility] Address [address] [place] [address] Care Team Providers Care Sleep Manager Name Role Phone Armando Johnson MD Primary Care Provider [phone] Encounter Details Date Type Department Care Team (Latest Contact Info) Description 10/22/2008 Outpatient Historical HIS [facility] PRUDENCE Mcdonald, Tanmay Orona MD [address] [address] Unspecified Hypothyroidism Social History Tobacco Use Types Packs/Day Years Used Date Smoking Tobacco: Never Alcohol Use Standard Drinks/Week Comments No 0 (1 standard drink = 0.6 oz pur e alcohol) Comments No Sex and Gender Information Value Date Recorded Sex Assigned at Not on file Legal Sex Female 4:42 AM COFFEE GRINDER Gender Identity Not on file Sexual Orientation Not on file documented as of this encounter Plan of Treatment Upcoming Encounters Date Type Department Care Team (Late st Contact Info) Description 08/10/2025 2:15 PM COFFEE GRINDER Office Visit [facility] Rheumatology Freedom Sparks [address] [place] [address] Ruddy Sánchez [place] [address] [place] [address] documented as of this encounter Visit Diagnoses Diagnosis Unspecified hypothyroidism documented in this encounter Care Teams Sleep Manager Relationship Specialty Start Date End Date Armando Johnson MD [address] [place] [address] PCP - General Internal Medicine 11/13/22 documented as of this encounter
--- OUTSIDE RECORDS SUMMARY | 2025-04-01 18:03 | XMS_ITS | Encounter Summary ---
Author Organization [facility] Address [address] [place] [address] Care Team Providers Care Dinkey Engine Firer Name Role Phone Armando Johnson MD Primary Care Provider [phone] Encounter Details Date Type Department Care Team (Late Contact Info) Description 12/07/2003 Outpatient [facility] for [address] [place] [address] [place] [address] [place] [address] [address] Social History Tobacco Use Types Packs/Day Years Used Date Smoking Tobacco: Never Assessed Comments Unknown Sex and Gender Information Value Date Recorded Sex Assigned at Not on file Legal Sex Female 4:42 AM ELECTROSTATIC PAINT OPERATOR Gender Identity Not on file Sexual Orientation Not on file documented as of this encounter Plan of Treatment Upcoming Encounters Date Type Department Care Team (Late st Contact Info) Description 08/10/2025 2:15 PM ELECTROSTATIC PAINT OPERATOR Office Visit [facility] Rheumatology Freedom Sparks [address] [place] [address] Ruddy Sánchez [place] [address] [place] [address] documented as of this encounter Visit Diagnoses Not on filedocumented in this encounter Care Teams Dinkey Engine Firer Relationship Specialty Start Date End Date Armando Johnson MD [address] [place] [address] PCP - General Internal Medicine 11/13/22 documented as of this encounter
--- OUTSIDE RECORDS SUMMARY | 2025-04-01 18:03 | XMS_ITS | Encounter Summary ---
Author Organization [facility] Address [address] [place] [address] Care Team Providers Care Chief General Pediatric Clinic Name Role Phone Armando Johnson MD Primary Care Provider [phone] Encounter Details Date Type Department Care Team (Late st Contact Info) Description 06/11/2003 Outpatient Historical [facility] Balwinder Hector MD [address] [facility] [address] [place] [address] Social History Tobacco Use Types Packs/Day Years Used Date Smoking Tobacco: Never Assessed Comments Unknown Sex and Gender Information Value Date Recorded Sex Assigned at Not on file Legal Sex Female 4:42 AM HONEY PRODUCER Gender Identity Not on file Sexual Orientation Not on file documented as of this encounter Plan of Treatment Upcoming Encounters Date Type Department Care Team (Late st Contact Info) Description 08/10/2025 2:15 PM HONEY PRODUCER Office Visit [facility] Rheumatology Freedom Sparks [address] [place] [address] Ruddy Sánchez [place] [address] [place] [address] documented as of this encounter Visit Diagnoses Not on filedocumented in this encounter Care Teams Chief General Pediatric Clinic Relationship Specialty Start Date End Date Armando Johnson MD [address] [place] [address] PCP - General Internal Medicine 11/13/22 documented as of this encounter
--- OUTSIDE RECORDS SUMMARY | 2025-04-01 18:03 | XMS_ITS | Encounter Summary ---
Author Organization [facility] Address [address] [place] [address] Care Team Providers Care Senior Reactor Operator Name Role Phone Armando Johnson MD Primary Care Provider [phone] Encounter Details Date Type Department Care Team (Latest Contact Info) Description 04/01/2002 Outpatient Historical [facility] [place] [address] [place] [address] DYSMENORRHEA (Primary Dx) Social History Tobacco Use Types Packs/Day Years Used Date Smoking Tobacco: Never Assessed Comments Unknown Sex and Gender Information Value Date Recorded Sex Assigned at Not on file Legal Sex Female 4:42 AM STUDENT ADMISSIONS CLERK Gender Identity Not on file Sexual Orientation Not on file documented as of this encounter Plan of Treatment Upcoming Encounters Date Type Department Care Team (Late st Contact Info) Description 08/10/2025 2:15 PM STUDENT ADMISSIONS CLERK Office Visit [facility] Rheumatology Enrique Sparks [address] [place] [address] Ruddy Sánchez [place] [address] [place] [address] documented as of this encounter Visit Diagnoses Diagnosis Dysmenorrhea- Primary documented in this encounter Care Teams Senior Reactor Operator Relationship Specialty Start Date End Date Armando Johnson MD [address] [place] [address] PCP - General Internal Medicine 11/13/22 documented as of this encounter
--- OUTSIDE RECORDS SUMMARY | 2025-04-01 18:03 | XMS_ITS | Encounter Summary ---
Author Organization [facility] Address [address] [place] [address] Care Team Providers Care Laboratory Aide Name Role Phone Armando Johnson MD Primary Care Provider [phone] Encounter Details Date Type Department Care Team (Late Contact Info) Description 05/20/2007 Outpatient Historical [facility] Internal Medicine Medical [place] A [facility] [address] [id number] Benjamín Haines MD [address] [place] [address] Social History Tobacco Use Types Packs/Day Years Used Date Smoking Tobacco: Never Assessed Comments Unknown Sex and Gender Information Value Date Recorded Sex Assigned at Not on file Legal Sex Female 4:42 AM FILM WRITER Gender Identity Not on file Sexual Orientation Not on file documented as of this encounter Plan of Treatment Upcoming Encounters Date Type Department Care Team (Late st Contact Info) Description 08/10/2025 2:15 PM FILM WRITER Office Visit [facility] Rheumatology Freedom Sparks [address] [facility] [address] [place] [address] Ruddy Sán[place] [address] [place] [address] documented as of this encounter Visit Diagnoses Not on filedocumented in this encounter Care Teams Laboratory Aide Relationship Specialty Start Date End Date Armando Johnson MD [address] [facility] [address] [place] [address] PCP - General Internal Medicine 11/13/22 documented as of this encounter
--- OUTSIDE RECORDS SUMMARY | 2025-04-01 18:03 | XMS_ITS | Encounter Summary ---
Author Organization [facility] Address [address] [place] [address] Care Team Providers Care Air Conditioning Manager Name Role Phone Armando Johnson MD Primary Care Provider [phone] Encounter Details Date Type Department Care Team (Late st Contact Info) Description 07/20/2003 Outpatient [facility] for [address] & [place] [address] Balwinder Hector MD [address] [facility] [address] [place] [address] ARTHROPATHY NOS-OTHER SITE (Primary Dx) Social History Tobacco Use Types Packs/Day Years Used Date Smoking Tobacco: Never Assessed Comments Unknown Sex and Gender Information Value Date Recorded Sex Assigned at Not on file Legal Sex Female 4:42 AM BAIL BOND AGENT Gender Identity Not on file Sexual Orientation Not on file documented as of this encounter Plan of Treatment Upcoming Encounters Date Type Department Care Team (Late st Contact Info) Description 08/10/2025 2:15 PM BAIL BOND AGENT Office Visit [facility] Rheumatology Freedom Sparks [address] [facility] [address] [place] [address] Ruddy Sánchez [place] [address] [place] [address] documented as of this encounter Visit Diagnoses Diagnosis Arthropathy, unspecified, other specified sites- Primary documented in this encounter Care Teams Air Conditioning Manager Relationship Specialty Start Date End Date Armando Johnson MD [address] [facility] [address] [place] [address] PCP - General Internal Medicine 11/13/22 documented as of this encounter
--- OUTSIDE RECORDS SUMMARY | 2025-04-01 18:03 | XMS_ITS | Encounter Summary ---
Author Organization [facility] Address [address] [place] [address] Care Team Providers Care Continuous Weld Pipe Mill Supervisor Name Role Phone Armando Johnson MD Primary Care Provider [phone] Encounter Details Date Type Department Care Team (Latest Contact Info) Description 04/28/2009 Outpatient Historical [facility], [address] Kelley Bonds MD [address] [place] [address] [place] [address] Routine Gynecological Examination Social History Tobacco Use Types Packs/Day Years Used Date Smoking Tobacco: Never Alcohol Use Standard Drinks/Week Comments No 0 (1 standard drink = 0.6 oz pur e alcohol) Comments No Sex and Gender Information Value Date Recorded Sex Assigned at Not on file Legal Sex Female 4:42 AM MIDDLE SCHOOL RESOURCE TEACHER Gender Identity Not on file Sexual Orientation Not on file documented as of this encounter Plan of Treatment Upcoming Encounters Date Type Department Care Team (Late st Contact Info) Description 08/10/2025 2:15 PM MIDDLE SCHOOL RESOURCE TEACHER Office Visit [facility] Freedom Sparks [address] [place] [address] Ruddy Sánchez [place] [address] [place] [address] documented as of this encounter Visit Diagnoses Diagnosis Routine gynecological examination documented in this encounter Care Teams Continuous Weld Pipe Mill Supervisor Relationship Specialty Start Date End Date Armando Johnson MD [address] [facility] [address] [place] [address] PCP - General Internal Medicine 11/13/22 documented as of this encounter
--- OUTSIDE RECORDS SUMMARY | 2025-04-01 18:03 | XMS_ITS | Encounter Summary ---
Author Organization [facility] Address [address] [place] [address] Care Team Providers Care Frozen Meat Cutter Name Role Phone Armando Johnson MD Primary Care Provider [phone] Encounter Details Date Type Department Care Team (Late st Contact Info) Description 05/20/2007 Orders Only [facility] Internal Medicine Medical [place] A [facility] [address] [phone] Benjamín Haines MD [address] [facility] [address] [place] [address] Social History Tobacco Use Types Packs/Day Years Used Date Smoking Tobacco: Never Assessed Comments Unknown Sex and Gender Information Value Date Recorded Sex Assigned at Not on file Legal Sex Female 4:42 AM PREMIUM CARD CANCELLATION CLERK Gender Identity Not on file Sexual Orientation Not on file documented as of this encounter Progress Notes * Benjamín Haines MD - 01/30/2008 3:39 PM CDT BLOOD PRESSURE: 110/68 Right Arm Sitting TEMPERATURE: 99.2??f Oral PULSE: 80 Right Radial, Regular WEIGHT: 203lbs NURSE NAME: Bill Beckman K ALLERGIES: No known drug allergies. TOBACCO USE Patient does not currently use tobacco. MEDICATIONS: Medication list current. CHIEF COMPLAINT right shoulder pain when lifting away from body, symptoms started 3 weeks ago. she lifts heavy things all day HISTORY: HISTORY OF PRESENT ILLNESS: JOINTS OTHER THAN KNEE: Shoulder pain noted, the right lateral area. The onset was approximately 3 weeks ago. There was no acute injury. The pain is described as shooting, moderate in degree. Stiffness is present. Symptoms are aggravated by lifting. 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 PHYSICAL EXAMINATION: CONSTITUTIONAL: GENERAL APPEARANCE: MILDLY DISTRESSED. MUSCULOSKELETAL EXAM: EXTREMITIES: RIGHT UPPER: SUBACROMIUM BURSA TENDERNESS NOTED, ESPECIALLY ANTERIORLY, WORSE WITH EXTERNAL ROTATION AND ABDUCTION. REDUCED SHOULDER INTERNAL ROTATION, REDUCED SHOULDER EXTERNAL ROTATION. OFFICE PROCEDURES: SKIN CONSENTS/PROCEDURES: An aspiration/injection was recommended. This procedure including risks and potential complications, such as bleeding and infection was explained. The patient understood andwished to proceed with the treatment. The joint to be injected is the shoulder, the skin was prepared with betadine, a 27 gauge needle was introduced, Depo Medrol was injected (1.5 ml at 40mg/ml), Lidocaine 1ml 1% solution (10mg/ml), The patient tolerated procedure well and there were no complications. Patient was instructed to call if pain, redness, swelling or increased warmth should develop. ASSESSMENT/PLAN: 726.11-PERIPHERAL ENTHESOPATHIES AND ALLIED SYNDROMES right ROTATOR CUFF TENDONITIS. ASSESSMENT: The symptoms have improved. (WITH THE LIDOCAINE AFTER 5 MINUTES) LAB ORDERS: Order number: [id number] Test Ordered: JOINT INJECTION LG JOINT Order number: [id number] Test Ordered: INJ-DEPO MEDROL 80 J1040 CLINICAL GUIDELINES: REST , STRETCHING , PHYS THERAPY IF NOT GETTING BETTER, RETURN TO WORK WRITTENFOR 05/26/07. RETURN VISIT : Patient instructed to call in 1 week if not improving. Electronically Signed by: Benjamín Haines MD on Saturday, May 21, 2007 documented in this encounter Plan of Treatment Upcoming Encounters Date Type Department Care Team (Late st Contact Info) Description 08/10/2025 2:15 PM PREMIUM CARD CANCELLATION CLERK Office Visit [facility] Rheumatology Enrique Sparks [address] [place] [address] Ruddy Sánchez [place] [address] [place] [address] documented as of this encounter Visit Diagnoses Not on filedocumented in this encounter Care Teams Frozen Meat Cutter Relationship Specialty Start Date End Date Armando Johnson MD [address] [place] [address] PCP - General Internal Medicine 11/13/22 documented as of this encounter
--- OUTSIDE RECORDS SUMMARY | 2025-04-01 18:03 | XMS_ITS | Encounter Summary ---
Author Organization [facility] Address [address] [place] [address] Care Team Providers Care Almond Huller Name Role Phone Armando Johnson MD Primary Care Provider [phone] Encounter Details Date Type Department Care Team (Late st Contact Info) Description 09/05/2004 Outpatient Historical [facility] Internal Medicine Medical [place] A [facility] [address] [facility] [address] [address] Balwinder Hector MD [address] [facility] [address] [place] [address] Social History Tobacco Use Types Packs/Day Years Used Date Smoking Tobacco: Never Assessed Comments Unknown Sex and Gender Information Value Date Recorded Sex Assigned at Not on file Legal Sex Female 4:42 AM MECHANICAL ASSEMBLY Gender Identity Not on file Sexual Orientation Not on file documented as of this encounter Last Filed Vital Signs Vital Sign Reading Time Taken Comments Blood Pressure 124/76 09/05/2004 3:45 PM MECHANICAL ASSEMBLY Pulse 84 09/05/2004 3:45 PM MECHANICAL ASSEMBLY Temperature 36.7 C (98 F) 09/05/2004 3:45 PM MECHANICAL ASSEMBLY Respiratory Rate 16 09/05/2004 3:45 PM MECHANICAL ASSEMBLY Oxygen Saturation - - Inhaled Oxygen Concentration - - Weight 86.2 kg (190 lb) 09/05/2004 3:45 PM MECHANICAL ASSEMBLY Height 175.3 cm (5' 9) 09/05/2004 3:45 PM MECHANICAL ASSEMBLY Body Mass Index 28.06 09/05/2004 3:45 PM MECHANICAL ASSEMBLY documented in this encounter Plan of Treatment Upcoming Encounters Date Type Department Care Team (Late st Contact Info) Description 08/10/2025 2:15 PM MECHANICAL ASSEMBLY [facility] Visit [facility] Rheumatology Freedom Sparks [address] [place] [address] Ruddy Sán[place] [address] [place] [address] documented as of this encounter Visit Diagnoses Not on filedocumented in this encounter Care Teams Almond Huller Relationship Specialty Start Date End Date Armando Johnson MD [address] [place] [address] PCP - General Internal Medicine 11/13/22 documented as of this encounter
--- OUTSIDE RECORDS SUMMARY | 2025-04-01 18:03 | XMS_ITS | Encounter Summary ---
Author Organization [facility] Address [address] [place] [address] Care Team Providers Care Composing Machine Operator/Tender Name Role Phone Armando Johnson MD Primary Care Provider [phone] Encounter Details Date Type Department Care Team (Latest Contact Info) Description 03/16/2004 Outpatient Historical [facility] Balwinder Hector MD [address] [facility] [address] [place] [address] PALPITATIONS (Primary Dx) Social History Tobacco Use Types Packs/Day Years Used Date Smoking Tobacco: Never Assessed Comments Unknown Sex and Gender Information Value Date Recorded Sex Assigned at Not on file Legal Sex Female 4:42 AM DINING ROOM MANAGER Gender Identity Not on file Sexual Orientation Not on file documented as of this encounter Plan of Treatment Upcoming Encounters Date Type Department Care Team (Late st Contact Info) Description 08/10/2025 2:15 PM DINING ROOM MANAGER Office Visit [facility] Rheumatology Freedom Sparks [address] [place] [address] Ruddy Sánchez [place] [address] [place] [address] documented as of this encounter Visit Diagnoses Diagnosis Palpitations- Primary documented in this encounter Care Teams Composing Machine Operator/Tender Relationship Specialty Start Date End Date Armando Johnson MD [address] [place] [address] PCP - General Internal Medicine 11/13/22 documented as of this encounter
--- OUTSIDE RECORDS SUMMARY | 2025-04-01 18:03 | XMS_ITS | Encounter Summary ---
Author Organization [facility] Address [address] [place] [address] Care Team Providers Care Detention Officer Name Role Phone Armando Johnson MD Primary Care Provider [phone] Encounter Details Date Type Department Care Team (Late Contact Info) Description 04/17/2005 Outpatient Historical [facility] Balwinder Ryder MD [address] [facility] [address] [place] [address] JOINT PAIN-FOREARM (Primary Dx) Social History Tobacco Use Types Packs/Day Years Used Date Smoking Tobacco: Never Assessed Comments Unknown Sex and Gender Information Value Date Recorded Sex Assigned at Not on file Legal Sex Female 4:42 AM COOK FRY Gender Identity Not on file Sexual Orientation Not on file documented as of this encounter Plan of Treatment Upcoming Encounters Date Type Department Care Team (Late Contact Info) Description 08/10/2025 2:15 PM COOK FRY Office Visit [facility] Rheumatology Freedom Sparks [address] [place] [address] Ruddy Sánchez [place] [address] [place] [address] documented as of this encounter Visit Diagnoses Diagnosis Pain in joint, forearm- Primary documented in this encounter Care Teams Detention Officer Relationship Specialty Start Date End Date Armando Johnson MD [address] [place] [address] PCP - General Internal Medicine 11/13/22 documented as of this encounter
--- OUTSIDE RECORDS SUMMARY | 2025-04-01 18:03 | XMS_ITS ---
Author Organization [facility] Address [address] [place], [place] [id number] Care Team Providers Care Gis Coordinator Name Role Phone Armando Johnson Primary Care Provider UnavailJosette Harris Unavailable [phone] MEDICATIONS Medication SIG (Take, Route, Fr equency, Duration) Notes Start Date End Date Status meloxicam 15 mg 1 tab(s) orally once a day for 30 day(s) 04/07/2024 Active Encounters Encounter Location Date Provider Diagnosis [facility] [address] [place], [place] [id number] 04/07/2024 Josette Cardoso PLAN OF TREATMENT Medication Medication Name Sig Start Date Stop Date Notes meloxicam 15 mg 1 tab(s) orally once a day for 30 day(s) 0 04/07/2024
--- OUTSIDE RECORDS SUMMARY | 2025-04-01 18:03 | XMS_ITS | Encounter Summary ---
Author Organization [facility] Address [address] [place] [address] Care Team Providers Care Web Site Project Manager Name Role Phone Armando Johnson MD Primary Care Provider Encounter Details Date Type Department Care Team (Late st Contact Info) Description 09/10/2001 Outpatient Historical [facility] Social History Tobacco Use Types Packs/Day Years Used Date Smoking Tobacco: Never Assessed Comments Unknown Sex and Gender Information Value Date Recorded Sex Assigned at Not on file Legal Sex Female 4:42 AM MARINE EQUIPMENT ENGINEER Gender Identity Not on file Sexual Orientation Not on file documented as of this encounter Plan of Treatment Upcoming Encounters Date Type Department Care Team (Late st Contact Info) Description 08/10/2025 2:15 PM MARINE EQUIPMENT ENGINEER Office Visit [facility] Rheumatology [place] [address] [place] [address] Ruddy Sánchez [place] [address] [place] [address] documented as of this encounter Visit Diagnoses Not on filedocumented in this encounter Care Teams Web Site Project Manager Relationship Specialty Start Date End Date Armando Johnson MD [address] [place] [address] PCP - General Internal Medicine 11/13/22 documented as of this encounter
--- OUTSIDE RECORDS SUMMARY | 2025-04-01 18:03 | XMS_ITS | Encounter Summary ---
Author Organization [facility] Address [address] [place] [address] Care Team Providers Care Radio Operator Ground Name Role Phone Armando Johnson MD Primary Care Provider [phone] Encounter Details Date Type Department Care Team (Late Contact Info) Description 05/14/2006 Outpatient Historical [facility] Internal Medicine Medical [place] [facility] [address] [facility] [address] [address] Balwinder Hector MD [address] [facility] [address] [place] [address] Social History Tobacco Use Types Packs/Day Years Used Date Smoking Tobacco: Never Assessed Comments Unknown Sex and Gender Information Value Date Recorded Sex Assigned at Not on file Legal Sex Female 4:42 AM S IRON WORKER Gender Identity Not on file Sexual Orientation Not on file documented as of this encounter Last Filed Vital Signs Vital Sign Reading Time Taken Comments Blood Pressure 120/64 05/14/2006 3:30 PM CDT Pulse 80 05/14/2006 3:30 PM CDT Temperature 36.8 C (98.2 F) 05/14/2006 3:30 PM CDT Respiratory Rate 16 05/14/2006 3:30 PM CDT Oxygen Saturation - - Inhaled Oxygen Concentration - - Weight 92.5 kg (204 lb) 05/14/2006 3:30 PM CDT Height - - Body Mass Index 30.13 08/20/2005 2:20 PM S IRON WORKER documented in this encounter Plan of Treatment Upcoming Encounters Date Type Department Care Team (Late st Contact Info) Description 08/10/2025 2:15 PM S IRON WORKER Office Visit [facility] Rheumatology [place] [address] [place] [address] Ruddy Sánchez [place] [address] [place] [address] documented as of this encounter Visit Diagnoses Not on filedocumented in this encounter Care Teams Radio Operator Ground Relationship Specialty Start Date End Date Armando Johnson MD [address] [place] [address] PCP - General Internal Medicine 11/13/22 documented as of this encounter
--- OUTSIDE RECORDS SUMMARY | 2025-04-01 18:03 | XMS_ITS | Encounter Summary ---
Author Organization [facility] Address [address] [place] [address] Care Team Providers Care Manager Battery Name Role Phone Armando Johnson MD Primary Care Provider [phone] Encounter Details Date Type Department Care Team (Late st Contact Info) Description 06/02/2004 Outpatient Historical [facility] Balwinder Hector MD [address] [facility] [facility] [address] [place] [address] Social History Tobacco Use Types Packs/Day Years Used Date Smoking Tobacco: Never Assessed Comments Unknown Sex and Gender Information Value Date Recorded Sex Assigned at Not on file Legal Sex Female 4:42 AM CLASSIFICATION ANALYST Gender Identity Not on file Sexual Orientation Not on file documented as of this encounter Plan of Treatment Upcoming Encounters Date Type Department Care Team (Late st Contact Info) Description 08/10/2025 2:15 PM CLASSIFICATION ANALYST Office Visit [facility] Rheumatology [place] [address] [place] [address] Ruddy Sánchez [place] [address] [place] [address] documented as of this encounter Visit Diagnoses Not on filedocumented in this encounter Care Teams Manager Battery Relationship Specialty Start Date End Date Armando Johnson MD [address] [place] [address] PCP - General Internal Medicine 11/13/22 documented as of this encounter
--- OUTSIDE RECORDS SUMMARY | 2025-04-01 18:03 | XMS_ITS | Encounter Summary ---
Author Organization [facility] Address [address] [place] [address] Care Team Providers Care Laboratory Sampler Name Role Phone Armando Johnson MD Primary Care Provider [phone] Encounter Details Date Type Department Care Team (Late Contact Info) Description 01/02/2024 Telephone [facility] Medicine [address] [place] [address] Jhon Cotton MD [address] [facility] [address] [place] [address] Social History Tobacco Use Types Packs/Day Years Used Date Smoking Tobacco: Never Smokeless Tobacco: Never Alcohol Use Standard Drinks/Week Comments Yes 0 (1 standard drink = 0.6 oz pur e alcohol) Comments No Sex and Gender Information Value Date Recorded Sex Assigned at Not on file Legal Sex Female 4:42 AM SALES INTERN Gender Identity Not on file Sexual Orientation Not on file 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 [address] [place] [address] Ruddy Sánchez [place] [address] [place] [address] documented as of this encounter Visit Diagnoses Not on filedocumented in this encounter Care Teams Laboratory Sampler Relationship Specialty Start Date End Date Armando Johnson MD [address] [facility] [address] [place] [address] PCP - General Internal Medicine 11/13/22 documented as of this encounter
--- OUTSIDE RECORDS SUMMARY | 2025-04-01 18:03 | XMS_ITS | Continuity of Care Document ---
Author Organization [facility] Address [address] [place] [address] Phone Care Team Providers Care Behavioral Sciences Department Chair Name Role Phone Chantal Cuadra MD Unavailable Unavailable Allergies, Adverse Reactions, Alerts Substance Reaction Status Criticality No Known Allergies Active No Inform ation Medications Medication Instructions Dosage Effective Dates (start - stop) Status Comments aspirin 325 mg tablet take 1 tablet by o ral route, BID - Active tramadol 50 mg tablet take 1 tablet by o ral route every 6 hours as needed 50 MG - Active indomethacin ER 75 mg capsule,extended release take 1 capsule by oral route 2 times every day with food 75 MG - Active Tirosint 112 mcg capsule take 1 capsule by oral route every day 112 MCG - Active Plaquenil 200 mg tablet take 1 tablet by oral route every day 200 MG - Active Procedures Procedure Date RADEX KNE 1/2 VIEWS POSTOP FOLLOW-UP VISIT RADEX KNE 1/2 VIEWS POSTOP FOLLOW-UP VISIT OFFICE/OUTPATIENT VISIT EST RADEX KNE COMPL 4/MORE VIEWS OFFICE/OUTPATIENT VISIT NEW Advance Directives Directive Yes / No Effective Date File Name No Information Encounters Encounter Description Practice Location Reason(s) For Visit Diagnoses Date Provider Providers Copied on Encounter [facility], [address], [place], [address], tel:[phone] [facility] [place] Nondisplaced fracture of lateral condyle of left femur, subsequent encounter for closed fracture with routine healing 0 Venecia Cornejo. [address], [place], [place], [id number] . tel: [phone] [facility], [address], [place], [address], tel:[phone] [facility] [place] Internal derangement of left kneeClosed nondisplaced fracture of lateral condyle of left femur, initial encounter 0 Venecia Cornejo. [address], [place], [place], [id number] . tel: [phone] OFFICE/OUTPA TIENT VISIT EST [facility], [address], [place], [address], [place] tel:[phone] [facility] No Information 0 Venecia Cornejo. [address], [place], [place], [id number] . tel: [phone] OFFICE/OUTPA TIENT VISIT NEW [facility], [address], [place], [address], tel:[phone] [facility] [place] Left knee pain, unspecified chronicityInterna l derangement of left kneeBody mass index (BMI) 32.0-32.9, adult 0 Venecia Cornejo. [address], [place], [place], [address] . tel: [phone] Family History Family Member Type Diagnosis Age At Onset Problem Family history of Nerve Prob lems Father Problem malignant neoplasm of lung Sister Problem Diabetes mellitus Mother Problem Cardiovascular disease Father Problem LUPUS Problem Family history of Anesthesia Complications Problem Family history of hypertensi on Payers Payer name Insurance type Covered republican ID Authoriza tion(s) [employer] E2 OT [id number] Social History Type Description Quantity Date Captured Comments Alcohol Use Details Caffeine Use Details Unknown Tobacco Use Status Current non-smoker 20 Smoking Status Never smoker Sex Female Chief Complaint And Reason For Visit No Information Reason For Referral Reason For Referral No Information Plan Of Treatment Date Type Action Status Referral Ordered: DXA BONE DENSITY STUDY AXIAL ordered Referral Ordered: RADEX KNE 1/2 VIEWS LT ordered Referral Ordered: MRI ANY JT LXTR C-MATRL LT knee Appointment date/timeframe: 12/28/2019 ordered Referral Ordered: RADEX KNE COMPL 4/MORE VIEWS LT ordered History Of Present Illness Encounter Date Complaint History Of Prese nt Illness No Information Functional Status Date Functional Assessmen t No Information Instructions Date Instruction Additional Infor matgrisel Discussed treatment options Rela srinivasa to Internal derangement of left knee Dietary needs education Related to Body mass index (BMI) 32.0-32.9, adult Assessments Type Assessment Date assessment Nondisplaced fractur e of lateral condyle of left femur, subsequent encounter for closed fracture with routine healing Patient Care Teams Name Effective Dates (start - stop) Status Members No Information
--- OUTSIDE RECORDS SUMMARY | 2025-04-01 18:03 | XMS_ITS | Encounter Summary ---
Author Organization [facility] Address [address] [place] [address] Care Team Providers Care Tumbling And Rolling Supervisor Name Role Phone Armando Johnson MD Primary Care Provider [phone] Encounter Details Date Type Department Care Team (Late st Contact Info) Description 02/26/2003 Outpatient Historical [facility] Balwinder Hector MD [address] [facility] [address] [place] [address] Social History Tobacco Use Types Packs/Day Years Used Date Smoking Tobacco: Never Assessed Comments Unknown Sex and Gender Information Value Date Recorded Sex Assigned at Not on file Legal Sex Female 4:42 AM WIPER BLENDER Gender Identity Not on file Sexual Orientation Not on file documented as of this encounter Plan of Treatment Upcoming Encounters Date Type Department Care Team (Late st Contact Info) Description 08/10/2025 2:15 PM WIPER BLENDER Office Visit [facility] Rheumatology [place] [address] [place] [address] Ruddy Sánchez [place] [address] [place] [address] documented as of this encounter Visit Diagnoses Not on filedocumented in this encounter Care Teams Tumbling And Rolling Supervisor Relationship Specialty Start Date End Date Armando Johnson MD [address] [place] [address] PCP - General Internal Medicine 11/13/22 documented as of this encounter
--- OUTSIDE RECORDS SUMMARY | 2025-04-01 18:03 | XMS_ITS | Encounter Summary ---
Author Organization [facility] Address [address] [place] [address] Care Team Providers Care Groundman Name Role Phone Armando Johnson MD Primary Care Provider [phone] Encounter Details Date Type Department Care Team (Latest Contact Info) Description 12/28/2006 Outpatient Historical [facility] PRUDENCE Rod, Josué [place] [address] [place] [address] Other Screening Mammogram (Primary Dx) Social History Tobacco Use Types Packs/Day Years Used Date Smoking Tobacco: Never Assessed Comments Unknown Sex and Gender Information Value Date Recorded Sex Assigned at Not on file Legal Sex Female 4:42 AM DEVELOPMENT WRITER Gender Identity Not on file Sexual Orientation Not on file documented as of this encounter Plan of Treatment Upcoming Encounters Date Type Department Care Team (Late st Contact Info) Description 08/10/2025 2:15 PM DEVELOPMENT WRITER Office Visit [facility] Rheumatology [place] [address] [place] [address] Ruddy Sánchez [place] [address] [place] [address] documented as of this encounter Visit Diagnoses Diagnosis Other screening mammogram- Primary documented in this encounter Care Teams Groundman Relationship Specialty Start Date End Date Armando Johnson MD [address] [place] [address] PCP - General Internal Medicine 11/13/22 documented as of this encounter
--- OUTSIDE RECORDS SUMMARY | 2025-04-01 18:03 | XMS_ITS | Encounter Summary ---
Author Organization [facility] [employer] [facility] Address [address] [place] [address] Care Team Providers Care System Analyst Name Role Phone Armando Johnson MD Primary Care Provider [phone] Encounter Details Date Type Department Care Team (Late st Contact Info) Description 11/28/2001 Emergency [facility] [place], Authorized P NO ADDRESS ON FILE PAIN IN LIMB (Primary Dx) Social History Tobacco Use Types Packs/Day Years Used Date Smoking Tobacco: Never Assessed Comments Unknown Sex and Gender Information Value Date Recorded Sex Assigned at Not on file Legal Sex Female 4:42 AM BIOMEDICAL INSTRUMENT TECHNICIAN Gender Identity Not on file Sexual Orientation Not on file documented as of this encounter Plan of Treatment Upcoming Encounters Date Type Department Care Team (Late st Contact Info) Description 08/10/2025 2:15 PM BIOMEDICAL INSTRUMENT TECHNICIAN Office Visit [facility] Rheumatology [place] [address] [place] [address] Ruddy Sánchez MD [address] [place] [address] documented as of this encounter Visit Diagnoses Diagnosis Pain in limb- Primary documented in this encounter Care Teams System Analyst Relationship Specialty Start Date End Date Armando Johnson MD [address] [place] [address] PCP - General Internal Medicine 11/13/22 documented as of this encounter
--- OUTSIDE RECORDS SUMMARY | 2025-04-01 18:03 | XMS_ITS | Encounter Summary ---
Author Organization [facility] Address [address] [place] [address] Care Team Providers Care Dental Cream Maker Name Role Phone Armando Johnson MD Primary Care Provider [phone] Encounter Details Date Type Department Care Team (Late Contact Info) Description 08/29/2006 Outpatient Historical [facility] Internal Medicine Medical [place] [address] [facility] [address] [address] Balwinder Hector MD [address] [facility] [address] [place] [address] Social History Tobacco Use Types Packs/Day Years Used Date Smoking Tobacco: Never Assessed Comments Unknown Sex and Gender Information Value Date Recorded Sex Assigned at Not on file Legal Sex Female 4:42 AM ELECTROPHYSIOLOGY TECHNICIAN Gender Identity Not on file Sexual Orientation Not on file documented as of this encounter Plan of Treatment Upcoming Encounters Date Type Department Care Team (Late st Contact Info) Description 08/10/2025 2:15 PM ELECTROPHYSIOLOGY TECHNICIAN Office Visit [facility] Rheumatology [place] [address] [facility] [address] [place] [address] Ruddy Sánchez [place] [address] [place] [address] documented as of this encounter Visit Diagnoses Not on filedocumented in this encounter Care Teams Dental Cream Maker Relationship Specialty Start Date End Date Armando Johnson MD [address] [place] [address] PCP - General Internal Medicine 11/13/22 documented as of this encounter
--- OUTSIDE RECORDS SUMMARY | 2025-04-01 18:03 | XMS_ITS | Encounter Summary ---
Author Organization [facility] Address [address] [place] [address] Care Team Providers Care Service Line Coordinator Name Role Phone Armando Johnson MD Primary Care Provider [phone] Encounter Details Date Type Department Care Team (Latest Contact Info) Description 07/05/2008 Outpatient Historical [facility] Amy Farrell MD NO ADDRESS ON FILE Unspecified Chest Pain Social History Tobacco Use Types Packs/Day Years Used Date Smoking Tobacco: Never Alcohol Use Standard Drinks/Week Comments Not Asked 0 (1 standard drink = 0.6 oz pur e alcohol) Comments No Sex and Gender Information Value Date Recorded Sex Assigned at Not on file Legal Sex Female 4:42 AM RIGGER SUPERVISOR Gender Identity Not on file Sexual Orientation Not on file documented as of this encounter Plan of Treatment Upcoming Encounters Date Type Department Care Team (Late st Contact Info) Description 08/10/2025 2:15 PM RIGGER SUPERVISOR Office Visit [facility] Rheumatology [address] [place] [address] Ruddy Sánchez [place] [address] [place] [address] documented as of this encounter Procedures Procedure Name Priority Date/Time Associated Diagnosis Comments ECHO STRESS TEST EXERCISE WO ECG Routine 07/06/2008 2:29 PM CDT ECHO COMPLETE Routine 07/05/2008 11:59 AM CDT documented in this encounter Results * ECHOCARDIOGRAM STRESS TEST (07/06/2008 2:29 PM CDT) Narrative INTERFACE SYSTEM - 07/06/2008 2:29 PM CDT [facility] [address] [place] [address] [email or web address] Stress Study Patient: Lupe Longoria MRN: Study ID: ADULT STRESS ECH Gender: F : 1965 Age: 42 years Race: 1 Room: Bed: Height: Study Date: July 05, 2008 Patient status: Outpatient Weight: Access. #: [id number] POC: Ordering: [place] Attending MD: [place] Admitting MD: [place] Study Conclusions: SUMMARY - Stress results : Duration of exercise was 9 min. Target heart rate was achieved. There was no chest pain during stress. The stress ECG was negative for ischemia. - Baseline : Estimated left ventricular ejection fraction was in the range of 55 % to 65 %. - Echo image interpretation : There was no diagnostic evidence for stress-induced ischemia. IMPRESSIONS - Normal study after maximal exercise without reproduction of symptoms. History and indications HISTORY - Chest pain status: chest pain. REST ECG - Normal baseline ECG. Treadmill exercise testing was performed, using the Aaron protocol. Stress and rest echocardiographic evaluation with 2D imaging was performed from multiple acoustic windows for evaluation of ventricular function. Stress results Aaron protocol HR bpm SBP mmHg DBP mmHg Symptoms ST change Rhythm/conduct Baseline 96 130 85 none none NSR, no ectopy Peak 171 150 60 none none rare PVC's Recovery 1 109 115 70 none none NSR, no ectopy STRESS RESULTS - Duration of exercise was 9 min. - The patient exercised to protocol stage 3. - Maximal work rate was 10.1 METs. - Functional capacity was normal. - Maximal heart rate during stress was 171 bpm ( 97 % of maximal predicted heart rate). - The heart rate response to stress was normal. - There was normal resting blood pressure with an appropriate response to stress. - The rate-pressure product for the peak heart rate and blood pressure was [address]. - There was no chest pain during stress. - The stress test was terminated due to protocol completion. - There were no stress arrhythmias or conduction abnormalities. - The stress ECG was negative for ischemia. Imaging data IMAGE PROPERTIES - The image quality was good. STRESS 2D ECHOCARDIOGRAPHIC RESULTS Baseline: - There was no diagnostic evidence for left ventricular regional wall motion abnormalities at baseline. - Left ventricular size was normal. - Overall left ventricular systolic function was normal. - Estimated left ventricular ejection fraction was in the range of 55 % to 65 %. Peak stress: - There was no diagnostic evidence for left ventricular regional wall motion abnormalities at peak stress. - There was an appropriate reduction in left ventricular size. - There was an appropriate augmentation in LV function. ECHO IMPRESSIONS - There was no diagnostic evidence for stress-induced ischemia. Prepared and Electronically Authenticated Ho Prince MD Confirmed July 06, 2008 14:07:27 Procedure Note Provider, Historical - 07/06/2008 [facility] [address] [place] [address] [email or web address] Stress Study Patient: Lupe Longoria MRN: Study ID: ADULT STRESS ECH Gender: F : 1965 Age: 42 years Race: 1 Room: Bed: Height: Study Date: July 05, 2008 Patient status: Outpatient Weight: Access. #: [id number] POC: Ordering: [place] Attending MD: [place] Admitting MD: [place] Study Conclusions: SUMMARY - Stress results : Duration of exercise was 9 min. Target heart ratewas achieved. There was no chest pain during stress. The stress ECG was negative for ischemia. - Baseline : Estimated left ventricular ejection fraction was in therange of 55 % to 65 %. - Echo image interpretation : There was no diagnostic evidence for stress-induced ischemia. IMPRESSIONS - Normal study after maximal exercise without reproduction of symptoms. History and indications HISTORY - Chest pain status: chest pain. REST ECG - Normal baseline ECG. Treadmill exercise testing was performed, using the Aaron protocol.Stress and rest echocardiographic evaluation with 2D imaging was performed from multiple acoustic windows for evaluation of ventricular function. Stress results Aaron protocol HR bpm SBP mmHg DBP mmHg Symptoms ST change Rhythm/conduct Baseline 96 130 85 none none NSR, no ectopy Peak 171 150 60 none none rare PVC's Recovery 1 109 115 70 none none NSR, no ectopy STRESS RESULTS - Duration of exercise was 9 min. - The patient exercised to protocol stage 3. - Maximal work rate was 10.1 METs. - Functional capacity was normal. - Maximal heart rate during stress was 171 bpm ( 97 % of maximalpredicted heart rate). - The heart rate response to stress was normal. - There was normal resting blood pressure with an appropriate responseto stress. - The rate-pressure product for the peak heart rate and blood pressurewas 20560. - There was no chest pain during stress. - The stress test was terminated due to protocol completion. - There were no stress arrhythmias or conduction abnormalities. - The stress ECG was negative for ischemia. Imaging data IMAGE PROPERTIES - The image quality was good. STRESS 2D ECHOCARDIOGRAPHIC RESULTS Baseline: - There was no diagnostic evidence for left ventricular regional wall motion abnormalities at baseline. - Left ventricular size was normal. - Overall left ventricular systolic function was normal. - Estimated left ventricular ejection fraction was in the range of 55 %to 65 %. Peak stress: - There was no diagnostic evidence for left ventricular regional wall motion abnormalities at peak stress. - There was an appropriate reduction in left ventricular size. - There was an appropriate augmentation in LV function. ECHO IMPRESSIONS - There was no diagnostic evidence for stress-induced ischemia. Prepared and Electronically Authenticated Ho Prince MD Confirmed July 06, 2008 14:07:27 us Amy Farrell MD ORDERABLES Final Result INTERFACE SYSTEM Refer to clinic/hospital department * ECHOCARDIOGRAM COMPLETE W PW/CF (07/05/2008 11:59 AM CDT) Narrative INTERFACE SYSTEM - 07/05/2008 11:59 AM CDT [facility] [address] [id number] [email or web address] Stress Study Patient: Lupe Longoria MRN: Study ID: Gender: F : 1965 Age: 42 years Race: 1 Room: Bed: Height: Study Date: July 05, 2008 Patient status: Outpatient Weight: Access. #: [id number] POC: Ordering: China Attending MD: [place] Admitting MD: [place] Study Conclusions: SUMMARY - Stress results : Duration of exercise was 9 min. Target heart rate was achieved. There was no chest pain during stress. The stress ECG was negative for ischemia. - Baseline : Estimated left ventricular ejection fraction was in the range of 55 % to 65 %. - Echo image interpretation : There was no diagnostic evidence for stress-induced ischemia. IMPRESSIONS - Normal study after maximal exercise without reproduction of symptoms. History and indications HISTORY - Chest pain status: chest pain. REST ECG - Normal baseline ECG. Treadmill exercise testing was performed, using the Aaron protocol. Stress and rest echocardiographic evaluation with 2D imaging was performed from multiple acoustic windows for evaluation of ventricular function. Stress results Aaron protocol HR bpm SBP mmHg DBP mmHg Symptoms ST change Rhythm/conduct Baseline 96 130 85 none none NSR, no ectopy Peak 171 150 60 none none rare PVC's Recovery 1 109 115 70 none none NSR, no ectopy STRESS RESULTS - Duration of exercise was 9 min. - The patient exercised to protocol stage 3. - Maximal work rate was 10.1 METs. - Functional capacity was normal. - Maximal heart rate during stress was 171 bpm ( 97 % of maximal predicted heart rate). - The heart rate response to stress was normal. - There was normal resting blood pressure with an appropriate response to stress. - The rate-pressure product for the peak heart rate and blood pressure was 85635. - There was no chest pain during stress. - The stress test was terminated due to protocol completion. - There were no stress arrhythmias or conduction abnormalities. - The stress ECG was negative for ischemia. Imaging data IMAGE PROPERTIES - The image quality was good. STRESS 2D ECHOCARDIOGRAPHIC RESULTS Baseline: - There was no diagnostic evidence for left ventricular regional wall motion abnormalities at baseline. - Left ventricular size was normal. - Overall left ventricular systolic function was normal. - Estimated left ventricular ejection fraction was in the range of 55 % to 65 %. Peak stress: - There was no diagnostic evidence for left ventricular regional wall motion abnormalities at peak stress. - There was an appropriate reduction in left ventricular size. - There was an appropriate augmentation in LV function. ECHO IMPRESSIONS - There was no diagnostic evidence for stress-induced ischemia. Prepared and Electronically Authenticated Ho Prince MD Confirmed July 05, 2008 11:37:09 Procedure Note Provider, Historical - 07/05/[address] [address] www.[email or web address] Stress Study Patient: Lupe Longoria MRN: Study ID: Gender: F : 1965 Age: 42 years Race: 1 Room: Bed: Height: Study Date: July 05, 2008 Patient status: Outpatient Weight: Access. #: [id number] POC: Ordering: [place] Attending MD: [place] Admitting MD: [place] Study Conclusions: SUMMARY - Stress results : Duration of exercise was 9 min. Target heart ratewas achieved. There was no chest pain during stress. The stress ECG was negative for ischemia. - Baseline : Estimated left ventricular ejection fraction was in therange of 55 % to 65 %. - Echo image interpretation : There was no diagnostic evidence for stress-induced ischemia. IMPRESSIONS - Normal study after maximal exercise without reproduction of symptoms. History and indications HISTORY - Chest pain status: chest pain. REST ECG - Normal baseline ECG. Treadmill exercise testing was performed, using the Aaron protocol.Stress and rest echocardiographic evaluation with 2D imaging was performed from multiple acoustic windows for evaluation of ventricular function. Stress results Aaron protocol HR bpm SBP mmHg DBP mmHg Symptoms ST change Rhythm/conduct Baseline 96 130 85 none none NSR, no ectopy Peak 171 150 60 none none rare PVC's Recovery 1 109 115 70 none none NSR, no ectopy STRESS RESULTS - Duration of exercise was 9 min. - The patient exercised to protocol stage 3. - Maximal work rate was 10.1 METs. - Functional capacity was normal. - Maximal heart rate during stress was 171 bpm ( 97 % of maximalpredicted heart rate). - The heart rate response to stress was normal. - There was normal resting blood pressure with an appropriate responseto stress. - The rate-pressure product for the peak heart rate and blood pressurewas 51008. - There was no chest pain during stress. - The stress test was terminated due to protocol completion. - There were no stress arrhythmias or conduction abnormalities. - The stress ECG was negative for ischemia. Imaging data IMAGE PROPERTIES - The image quality was good. STRESS 2D ECHOCARDIOGRAPHIC RESULTS Baseline: - There was no diagnostic evidence for left ventricular regional wall motion abnormalities at baseline. - Left ventricular size was normal. - Overall left ventricular systolic function was normal. - Estimated left ventricular ejection fraction was in the range of 55 %to 65 %. Peak stress: - There was no diagnostic evidence for left ventricular regional wall motion abnormalities at peak stress. - There was an appropriate reduction in left ventricular size. - There was an appropriate augmentation in LV function. ECHO IMPRESSIONS - There was no diagnostic evidence for stress-induced ischemia. Prepared and Electronically Authenticated Ho Prinec MD Confirmed July 05, 2008 11:37:09 Amy Farrell MD ORDERABLES Final Result INTERFACE SYSTEM Refer to clinic/hospital department documented in this encounter Visit Diagnoses Diagnosis Chest pain, unspecified documented in this encounter Care Teams Service Line Coordinator Relationship Specialty Start Date End Date Armando Johnson MD [address] [place] [address] PCP - General Internal Medicine 11/13/22 documented as of this encounter
--- OUTSIDE RECORDS SUMMARY | 2025-04-01 18:03 | XMS_ITS | Encounter Summary ---
Author Organization [facility] Address [address] [place] [address] Care Team Providers Care Electric Wheelchair Repairer Name Role Phone Armadno Johnson MD Primary Care Provider [phone] Encounter Details Date Type Department Care Team (Late st Contact Info) Description 08/29/2006 Outpatient Historical [facility] Internal Medicine Medical [place] [facility] [address] [address] Balwinder Hector MD [address] [place] [address] Palpitations (Primary Dx) Social History Tobacco Use Types Packs/Day Years Used Date Smoking Tobacco: Never Assessed Comments Unknown Sex and Gender Information Value Date Recorded Sex Assigned at Not on file Legal Sex Female 4:42 AM TABLEAU REPORT DEVELOPER Gender Identity Not on file Sexual Orientation Not on file documented as of this encounter Plan of Treatment Upcoming Encounters Date Type Department Care Team (Late st Contact Info) Description 08/10/2025 2:15 PM TABLEAU REPORT DEVELOPER Office Visit [facility] Rheumatology [place] [address] [facility] [address] [place] [address] Ruddy Sánchez [place] [address] [place] [address] documented as of this encounter Procedures Procedure Name Priority Date/Time Associated Diagnosis Comments COMPREHENSIVE METABOLIC PANEL Routine 08/29/2006 1:25 PM TABLEAU REPORT DEVELOPER documented in this encounter Results * COMPREHENSIVE METABOLIC PANEL (08/29/2006 1:25 PM TABLEAU REPORT DEVELOPER) GLUCOSE 82 65 - 99 mg/dL INTERFACE SYSTEM CREATININE 0.83 0.51 - 0.95 mg/dL INTERFACE SYSTEM Comment:Note: Effective 07/17 New Methodolgy and Reference Ranges CALCIUM 9.3 8.4 - 10.2 mg/dL INTERFACE SYSTEM ALKALINE PHOSPHATASE 75 35 - 104 U/L INTERFACE SYSTEM AST 23 12 - 32 U/L INTERFACE SYSTEM ALT 24 0 - 31 U/L INTERFACE SYSTEM TOTAL PROTEIN 8.1 6.3 - 8.6 g/dL INTERFACE SYSTEM ALBUMIN 4.6 3.4 - 4.8 g/dL INTERFACE SYSTEM BILIRUBIN TOTAL 0.3 0.2 - 1.0 mg/dL INTERFACE SYSTEM BUN 10 6 - 20 mg/dL INTERFACE SYSTEM SODIUM 140 135 - 145 mmol/L INTERFACE SYSTEM POTASSIUM 4.1 3.5 - 4.9 mmol/L INTERFACE SYSTEM CHLORIDE 103 96 - 108 mmol/L INTERFACE SYSTEM CO2 28 22 - 30 mmol/L INTERFACE SYSTEM GFR, >60 >=60 mL/min/1.7 sq meter INTERFACE SYSTEM GFR >60 >=60 mL/min/1.7 sq meter INTERFACE SYSTEM Comment: Estimated GFR rate interpretative information for both Americans and non- Americans is available on the [facility] Intranet at: [email or web address] Select: Lab Policies and Procedures Select: Reference Ranges - GFR 08/29/2006 1:25 PM TABLEAU REPORT DEVELOPER Balwinder Hector MD CHEMISTRY ORDERABLES Final Resu lt INTERFACE SYSTEM Refer to clinic/hospital department documented in this encounter Visit Diagnoses Diagnosis Palpitations- Primary documented in this encounter Care Teams Electric Wheelchair Repairer Relationship Specialty Start Date End Date Armando Johnson MD [address] [place] [address] PCP - General Internal Medicine 11/13/22 documented as of this encounter
--- OUTSIDE RECORDS SUMMARY | 2025-04-01 18:03 | XMS_ITS | Encounter Summary ---
Author Organization [facility] Address 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) Social History Tobacco Use Types Packs/Day Years Used Date Smoking Tobacco: Never Assessed Comments Unknown Sex and Gender Information Value Date Recorded Sex Assigned at Not on file Legal Sex Female 4:42 AM MEDICAID PLAN COMPLIANCE DIRECTOR Gender Identity Not on file Sexual Orientation Not on file documented as of this encounter Plan of Treatment Upcoming Encounters Date Type Department Care Team (Late st Contact Info) Description 08/10/2025 2:15 PM MEDICAID PLAN COMPLIANCE DIRECTOR Office Visit [facility] Rheumatology [place] [address] [place] [address] Ruddy Sánchez [place] [address] [place] [address] documented as of this encounter Procedures Procedure Name Priority Date/Time Associated Diagnosis Comments POC , URINE Routine 02/21/2006 6:01 AM CDT HEMOGLOBIN AND HEMATOCRIT Routine 02/19/2006 12:18 PM CDT documented in this encounter Results * POC , URINE (02/21/2006 6:01 AM CDT) HCG QUAL URINE Negative Negative INTER FACE SYSTEM SPECIFIC GRAVITY UA 1.020 1.001 - 1.035 INTERFACE SYSTEM 02/21/2006 6:01 AM CDT us Felipe Castro MD POINT OF CARE TESTING Final Res ult Performing Organization Address [facility] de Phone Number INTERFACE SYSTEM Refer to clinic/hospital department * HEMOGLOBIN AND HEMATOCRIT (02/19/2006 12:18 PM CDT) HEMOGLOBIN 12.7 11.8 - 14.8 g/dL INTERFACE SYSTEM HEMATOCRIT 38.4 35.5 - 44.0 % INTERFACE SYSTEM 02/19/2006 12:1 8 PM CDT us Felipe Castro MD HEMATOLOGY ORDERABLES Final Res ult Performing Organization Address [facility] Phone Number INTERFACE SYSTEM Refer to clinic/hospital department documented in this encounter Visit Diagnoses Diagnosis Mixed conductive and sensorineural hearing loss- Primary documented in this encounter Care Teams Carton Forming Machine Helper Relationship Specialty Start Date End Date Armando Johnson MD [address] [place] [address] PCP - General Internal Medicine 11/13/22 documented as of this encounter
--- OUTSIDE RECORDS SUMMARY | 2025-04-01 18:03 | XMS_ITS | Continuity of Care Document ---
Author Organization [facility] Address [address] [place] [address] Phone Care Team Providers Care Plugger Man Name Role Phone Jah PT, DPT, Niels Unavailable Unavailable Procedures Procedure Date Neuromuscular Re-Ed Therapeutic Exercise Neuromuscular Re-Ed Therapeutic Activities Therapeutic Exercise Neuromuscular Re-Ed Therapeutic Activities Therapeutic Exercise Therapeutic Activities Neuromuscular Re-Ed Therapeutic Exercise PT Evaluation Moderate Complexity Therapeutic Activities Neuromuscular Re-Ed Therapeutic Exercise Advance Directives Directive Yes / No Effective Date File Name No Information Encounters Encounter Description Practice Location Reason(s) For Visit Diagnoses Date Provider Providers Copied on Encounter [facility] [address], [place], [place], [id number], tel:[phone] [place] No Information 0 Jah Bowser. . Referring Provider: Faustino [address], [place], [address]. tel:[phone] [facility], [place], [place], [id number], tel:[phone] [place] No Information 0 Jah Bowser. . Referring Provider: Faustino [address], [place], [address]. tel:[phone] [facility] [address], [place], [place], [id number], tel:[phone] [place] No Information 0-202 0 Makler Luke. . Referring Provider: Chantal Cuadra, [address], [place], [address]. tel:[phone] [address] [address], [place], [place], [id number], tel:[phone] [place] No Information Dami-0 3-202 0 Makler Luke. . Referring Provider: Chantal Cuadra [address], [place], [address]. tel:[phone] [address], [place], [place], [id number], tel:[phone] [place] No Information 0 1-202 0 Makler Luke. . Referring Provider: Chantal Cuadra [address], [place], [address]. tel:[phone] Family History Family Member Type Diagnosis Age At Onset No Information Payers Payer name Insurance type Covered alliance party ID Mellisa farmer(danika Canales CI [id number] Social History Type Description Quantity Date Captured Comments Sex Female Smoking Status No Information Chief Complaint And Reason For Visit No Information Reason For Referral Reason For Referral No Information History Of Present Illness Encounter Date Complaint History Of Prese nt Illness No Information Functional Status Date Functional Assessmen t No Information Instructions Date Instruction Additional Infor tamera Giving encouragement to exercise Related to Overweight Assessments Type Assessment Date No Information Patient Care Teams Name Effective Dates (start - stop) Status Members No Information
--- OUTSIDE RECORDS SUMMARY | 2025-04-01 18:03 | XMS_ITS | Encounter Summary ---
Author Organization [facility] Address [address] [place] [address] Care Team Providers Care Cement Sack Breaker Name Role Phone Armando Johnson MD Primary Care Provider [phone] Encounter Details Date Type Department Care Team (Late Contact Info) Description 04/17/2005 Outpatient Historical [facility] Internal Medicine Medical [place] A [facility] [address] [address] [place] [address] [facility] [address] [place] [address] Social History Tobacco Use Types Packs/Day Years Used Date Smoking Tobacco: Never Assessed Comments Unknown Sex and Gender Information Value Date Recorded Sex Assigned at Not on file Legal Sex Female 4:42 AM DENTURE PACKER Gender Identity Not on file Sexual Orientation Not on file documented as of this encounter Last Filed Vital Signs Vital Sign Reading Time Taken Comments Blood Pressure 110/70 04/17/2005 10:15 AM CDT Pulse 66 04/17/2005 10:15 AM CDT Temperature 36.4 C (97.5 F) 04/17/2005 10:15 AM CDT Respiratory Rate - - Oxygen Saturation - - Inhaled Oxygen Concentration - - Weight 90.7 kg (200 lb) 04/17/2005 10:15 AM CDT Height - - Body Mass Index 29.53 09/05/2004 3:45 PM DENTURE PACKER documented in this encounter Plan of Treatment Upcoming Encounters Date Type Department Care Team (Late st Contact Info) Description 08/10/2025 2:15 PM DENTURE PACKER Office Visit [facility] Rheumatology [place] [address] [place] [address] Ruddy Sán[place] [address] [place] [address] documented as of this encounter Visit Diagnoses Not on filedocumented in this encounter Care Teams Cement Sack Breaker Relationship Specialty Start Date End Date Armando Johnson MD [address] [place] [address] PCP - General Internal Medicine 11/13/22 documented as of this encounter
--- OUTSIDE RECORDS SUMMARY | 2025-04-01 18:03 | XMS_ITS | Encounter Summary ---
Author Organization [facility] Address [address] [place] [address] Care Team Providers Care Instrument Repair Supervisor Name Role Phone Armando Johnson MD Primary Care Provider [phone] Encounter Details Date Type Department Care Team (Late Contact Info) Description 06/06/2001 Outpatient Historical [facility] Justin Gongora MD NO ADDRESS ON FILE Abdominal pain, unspecified site (Primary Dx) Social History Tobacco Use Types Packs/Day Years Used Date Smoking Tobacco: Never Assessed Comments Unknown Sex and Gender Information Value Date Recorded Sex Assigned at Not on file Legal Sex Female 4:42 AM LEARNING CENTER INSTRUCTOR Gender Identity Not on file Sexual Orientation Not on file documented as of this encounter Plan of Treatment Upcoming Encounters Date Type Department Care Team (Late st Contact Info) Description 08/10/2025 2:15 PM LEARNING CENTER INSTRUCTOR Office Visit [facility] Rheumatology [place] [address] [place] [address] Ruddy Sánchez [place] [address] [place] [address] documented as of this encounter Visit Diagnoses Diagnosis Abdominal pain, unspecified site- Primary documented in this encounter Care Teams Instrument Repair Supervisor Relationship Specialty Start Date End Date Armando Johnson MD [address] [place] [address] PCP - General Internal Medicine 11/13/22 documented as of this encounter
--- OUTSIDE RECORDS SUMMARY | 2025-04-01 18:03 | XMS_ITS | Encounter Summary ---
Author Organization [facility] Address [address] [place] [address] Care Team Providers Care Processing Manager Name Role Phone Armando Johnson MD Primary Care Provider [phone] Encounter Details Date Type Department Care Team (Latest Contact Info) Description 08/05/2001 Outpatient Historical [facility] Justin Gongora MD NO ADDRESS ON FILE CHRONIC CHOLECYSTITIS NEC (Primary Dx) Social History Tobacco Use Types Packs/Day Years Used Date Smoking Tobacco: Never Assessed Comments Unknown Sex and Gender Information Value Date Recorded Sex Assigned at Not on file Legal Sex Female 4:42 AM MARKETING INSTRUCTOR Gender Identity Not on file Sexual Orientation Not on file documented as of this encounter Plan of Treatment Upcoming Encounters Date Type Department Care Team (Late st Contact Info) Description 08/10/2025 2:15 PM MARKETING INSTRUCTOR Office Visit [facility] Rheumatology [place] [address] [place] [address] Ruddy Sánchez [place] [address] [place] [address] documented as of this encounter Visit Diagnoses Diagnosis Chronic cholecystitis- Primary documented in this encounter Care Teams Processing Manager Relationship Specialty Start Date End Date Armando Johnson MD [address] [place] [address] PCP - General Internal Medicine 11/13/22 documented as of this encounter
--- OUTSIDE RECORDS SUMMARY | 2025-04-01 18:03 | XMS_ITS | Encounter Summary ---
Author Organization [facility] Address [address] [place] [address] Care Team Providers Care Roll Up Guider Operator Name Role Phone Armando Johnson MD Primary Care Provider [phone] Encounter Details Date Type Department Care Team (Late st Contact Info) Description 03/04/2003 Outpatient Historical [facility] Balwinder Hector MD [address] [place] [address] Social History Tobacco Use Types Packs/Day Years Used Date Smoking Tobacco: Never Assessed Comments Unknown Sex and Gender Information Value Date Recorded Sex Assigned at Not on file Legal Sex Female 4:42 AM COLLATERAL ANALYST Gender Identity Not on file Sexual Orientation Not on file documented as of this encounter Plan of Treatment Upcoming Encounters Date Type Department Care Team (Late st Contact Info) Description 08/10/2025 2:15 PM COLLATERAL ANALYST Office Visit [facility] Rheumatology [place] [address] [place] [address] Ruddy Sánchez [place] [address] [place] [address] documented as of this encounter Visit Diagnoses Not on filedocumented in this encounter Care Teams Roll Up Guider Operator Relationship Specialty Start Date End Date Armando Johnson MD [address] [place] [address] PCP - General Internal Medicine 11/13/22 documented as of this encounter
--- OUTSIDE RECORDS SUMMARY | 2025-04-01 18:03 | XMS_ITS | Encounter Summary ---
Author Organization [facility] Address [address] [place] [address] Care Team Providers Care Tar Pot Man Name Role Phone Armando Johnson MD Primary Care Provider [phone] Encounter Details Date Type Department Care Team (Late Contact Info) Description 11/24/2003 Outpatient Historical [facility] Balwinder Ryder MD [address] [place] [address] HYPERLIPIDEMIA NEC/NOS (Primary Dx) Social History Tobacco Use Types Packs/Day Years Used Date Smoking Tobacco: Never Assessed Comments Unknown Sex and Gender Information Value Date Recorded Sex Assigned at Not on file Legal Sex Female 4:42 AM FEED MILLER Gender Identity Not on file Sexual Orientation Not on file documented as of this encounter Plan of Treatment Upcoming Encounters Date Type Department Care Team (Late Contact Info) Description 08/10/2025 2:15 PM FEED MILLER Office Visit [facility] Rheumatology [place] [address] [place] [address] Ruddy Sánchez [place] [address] [place] [address] documented as of this encounter Visit Diagnoses Diagnosis Other and unspecified hyperlipidemia- Primary documented in this encounter Care Teams Tar Pot Man Relationship Specialty Start Date End Date Armando Johnson MD [address] [place] [address] PCP - General Internal Medicine 11/13/22 documented as of this encounter
--- OUTSIDE RECORDS SUMMARY | 2025-04-01 18:03 | XMS_ITS | Encounter Summary ---
Author Organization [facility] Address [address] [place] [address] Care Team Providers Care Fender Repairer Name Role Phone Armando Johnson MD Primary Care Provider [phone] Encounter Details Date Type Department Care Team (Late st Contact Info) Description 01/13/2004 Outpatient Historical [facility] Balwinder Hector MD [address] [place] [address] Social History Tobacco Use Types Packs/Day Years Used Date Smoking Tobacco: Never Assessed Comments Unknown Sex and Gender Information Value Date Recorded Sex Assigned at Not on file Legal Sex Female 4:42 AM NURSERY TECHNICIAN Gender Identity Not on file Sexual Orientation Not on file documented as of this encounter Plan of Treatment Upcoming Encounters Date Type Department Care Team (Late st Contact Info) Description 08/10/2025 2:15 PM NURSERY TECHNICIAN Office Visit [facility] Rheumatology [place] [address] [place] [address] Ruddy Sánchez [place] [address] [place] [address] documented as of this encounter Visit Diagnoses Not on filedocumented in this encounter Care Teams Fender Repairer Relationship Specialty Start Date End Date Armando Johnson MD [address] [place] [address] PCP - General Internal Medicine 11/13/22 documented as of this encounter
--- OUTSIDE RECORDS SUMMARY | 2025-04-01 18:03 | XMS_ITS | Encounter Summary ---
Author Organization [facility] Address [address] [place] [address] Care Team Providers Care Cloth Finishing Range Back Tender Name Role Phone Armando Johnson MD Primary Care Provider [phone] Encounter Details Date Type Department Care Team (Late st Contact Info) Description 07/29/2006 Orders Only [facility] Internal Medicine Medical [place] [facility] [address] [address] Balwinder Hector MD [address] [facility] [address] [place] [address] Social History Tobacco Use Types Packs/Day Years Used Date Smoking Tobacco: Never Assessed Comments Unknown Sex and Gender Information Value Date Recorded Sex Assigned at Not on file Legal Sex Female 4:42 AM TOP EXECUTIVE Gender Identity Not on file Sexual Orientation Not on file documented as of this encounter Progress Notes * Cooper Hector MD - 06/29/2008 11:52 PM CDT TIME:03:54 pm PATIENT`S HOME PHONE: PATIENT`S WORK PHONE: PATIENT`S INSURANCE: [employer] [facility] WHO TOOK THE CALL: Chantale Lemon M GENERAL INFORMATION PATIENT STATUS: Established Patient. ALTERNATIVE PHONE NUMBER: WHO CALLED: Patient called. CURRENT ALLERGY LIST: NONE PROBLEMS: Patient called stating that her stomach pain is still with her.........patient states that she has horrible indigestion........patient states that she has pain in between her shoulder blades........patient states that she has stomach pain that is up high under the ribs..............Patient states that she has been taking Zantac 150 mg once a day...........patient is nauseated........patient states that when she eats, she has problems where the food gets stuck in her esophagus and doesnot want to go anywhere............patient states that this does not happen every time she eats butit happens frequently..........patient states that she has chest pain from the reflux..........Whatto do? Patient states that she is miserable.......... SECTION 1: DOCTOR`S RESPONSE: mely 07/29/06 at 04:03 pm MEDICATIONS: Call in to Pharmacy NEXIUM ORAL CAPSULE DELAYED RELEASE 40 MG, 1 Every Morning, 30 Dispensed, status: NEW PRESCRIPTION,07/29/2006. DOCTOR`S OTHER RESPONSE: this is the only recommendation I have for her. Even if her insurance willnot pay for it, she should go back on the medication. FINAL ACTION: [email or web address] 07/29/06 at 04:13 pm Spoke with patient 07/29/06 at 04:13 pm. Called pharmacy at 07/29/06 at 04:13 pm. documented in this encounter Plan of Treatment Upcoming Encounters Date Type Department Care Team (Late st Contact Info) Description 08/10/2025 2:15 PM TOP EXECUTIVE Office Visit [facility] Rheumatology [place] [address] [place] [address] Ruddy Sán[place] [address] [place] [address] [address] documented as of this encounter Visit Diagnoses Not on filedocumented in this encounter Care Teams Cloth Finishing Range Back Tender Relationship Specialty Start Date End Date Armando Johnson MD [address] [place] [address] PCP - General Internal Medicine 11/13/22 documented as of this encounter
--- OUTSIDE RECORDS SUMMARY | 2025-04-01 18:03 | XMS_ITS | Encounter Summary ---
Author Organization [facility] Address [address] [place] [address] Care Team Providers Care Work Ticket Distributor Name Role Phone Armando Johnson MD Primary Care Provider [phone] Encounter Details Date Type Department Care Team (Late st Contact Info) Description 06/25/2003 Outpatient Historical [facility] [address] [place] [address] Jeny Rodríguez MD Social History Tobacco Use Types Packs/Day Years Used Date Smoking Tobacco: Never Assessed Comments Unknown Sex and Gender Information Value Date Recorded Sex Assigned at Not on file Legal Sex Female 4:42 AM HEAD RESIDENT Gender Identity Not on file Sexual Orientation Not on file documented as of this encounter Plan of Treatment Upcoming Encounters Date Type Department Care Team (Late Contact Info) Description 08/10/2025 2:15 PM HEAD RESIDENT Office Visit [facility] Rheumatology [place] [address] [place] [address] Ruddy Sánchez [place] [address] [place] [address] documented as of this encounter Visit Diagnoses Not on filedocumented in this encounter Care Teams Work Ticket Distributor Relationship Specialty Start Date End Date Armando Johnson MD [address] [place] [address] PCP - General Internal Medicine 11/13/22 documented as of this encounter
--- OUTSIDE RECORDS SUMMARY | 2025-04-01 18:03 | XMS_ITS | Encounter Summary ---
Author Organization [facility] Address [address] [place] [address] Care Team Providers Care Supreme Court Justice Name Role Phone Armando Johnson MD Primary Care Provider [phone] Encounter Details Date Type Department Care Team (Late Contact Info) Description 08/29/2006 Outpatient Historical [facility] Internal Medicine Medical [place] [facility] [address] [address] Balwinder Hector MD [address] [place] [address] Social History Tobacco Use Types Packs/Day Years Used Date Smoking Tobacco: Never Assessed Comments Unknown Sex and Gender Information Value Date Recorded Sex Assigned at Not on file Legal Sex Female 4:42 AM STRUCTURAL ENGINEERING DRAFTING OFFICER Gender Identity Not on file Sexual Orientation Not on file documented as of this encounter Plan of Treatment Upcoming Encounters Date Type Department Care Team (Late st Contact Info) Description 08/10/2025 2:15 PM STRUCTURAL ENGINEERING DRAFTING OFFICER Office Visit [facility] Rheumatology [place] [address] [facility] [address] [place] [address] Ruddy Sánchez [place] [address] [place] [address] documented as of this encounter Visit Diagnoses Not on filedocumented in this encounter Care Teams Supreme Court Justice Relationship Specialty Start Date End Date Armando Johnson MD [address] [place] [address] PCP - General Internal Medicine 11/13/22 documented as of this encounter
--- OUTSIDE RECORDS SUMMARY | 2025-04-01 18:03 | XMS_ITS | Encounter Summary ---
Author Organization [facility] Address [address] [place] [address] Care Team Providers Care Healthcare Management Consultant Name Role Phone Armando Johnson MD Primary Care Provider [phone] Encounter Details Date Type Department Care Team (Latest Contact Info) Description 08/21/2005 Outpatient [facility] [address] [place] [address] ABDOMINAL PAIN LLQ (Primary Dx) Social History Tobacco Use Types Packs/Day Years Used Date Smoking Tobacco: Never Assessed Comments Unknown Sex and Gender Information Value Date Recorded Sex Assigned at Not on file Legal Sex Female 4:42 AM DISTRICT ASSOCIATE JUDGE Gender Identity Not on file Sexual Orientation Not on file documented as of this encounter Plan of Treatment Upcoming Encounters Date Type Department Care Team (Late st Contact Info) Description 08/10/2025 2:15 PM DISTRICT ASSOCIATE JUDGE Office Visit [facility] Rheumatology [place] [address] [place] [address] Ruddy Sánchez [place] [address] [place] [address] documented as of this encounter Visit Diagnoses Diagnosis Abdominal pain, left lower quadrant- Primary documented in this encounter Care Teams Healthcare Management Consultant Relationship Specialty Start Date End Date Armando Johnson MD [address] [place] [address] PCP - General Internal Medicine 11/13/22 documented as of this encounter
--- OUTSIDE RECORDS SUMMARY | 2025-04-01 18:03 | XMS_ITS | Encounter Summary ---
Author Organization [facility] Address [address] [place] [address] Care Team Providers Care Certified Social Workers In Health Care Name Role Phone Armando Johnson MD Primary Care Provider [phone] Encounter Details Date Type Department Care Team (Latest Contact Info) Description 06/25/2003 Outpatient Historical [facility] [place] [place] PAIN IN LIMB (Primary Dx) Social History Tobacco Use Types Packs/Day Years Used Date Smoking Tobacco: Never Assessed Comments Unknown Sex and Gender Information Value Date Recorded Sex Assigned at Not on file Legal Sex Female 4:42 AM CASHIER ASSISTANT Gender Identity Not on file Sexual Orientation Not on file documented as of this encounter Plan of Treatment Upcoming Encounters Date Type Department Care Team (Late st Contact Info) Description 08/10/2025 2:15 PM CASHIER ASSISTANT Office Visit [facility] Rheumatology [place] [address] [place] [address] Ruddy Sánchez [place] [address] [place] [address] documented as of this encounter Visit Diagnoses Diagnosis Pain in limb- Primary documented in this encounter Care Teams Certified Social Workers In Health Care Relationship Specialty Start Date End Date Armando Johnson MD [address] [place] [address] PCP - General Internal Medicine 11/13/22 documented as of this encounter
--- OUTSIDE RECORDS SUMMARY | 2025-04-01 18:03 | XMS_ITS | Encounter Summary ---
Author Organization [facility] Address [address] [place] [address] Care Team Providers Care Digital Content Manager Name Role Phone Armando Johnson MD Primary Care Provider [phone] Encounter Details Date Type Department Care Team (Late st Contact Info) Description 08/20/2005 Outpatient Historical [facility] Internal Medicine Medical [place] A [facility] [address] [facility] [address] [address] Wilma Starks MD [address] [facility] [address] [place] [address] Social History Tobacco Use Types Packs/Day Years Used Date Smoking Tobacco: Never Assessed Comments Unknown Sex and Gender Information Value Date Recorded Sex Assigned at Not on file Legal Sex Female 4:42 AM CLIENT DEVELOPMENT DIRECTOR Gender Identity Not on file Sexual Orientation Not on file documented as of this encounter Last Filed Vital Signs Vital Sign Reading Time Taken Comments Blood Pressure 140/80 08/20/2005 2:20 PM CLIENT DEVELOPMENT DIRECTOR Pulse 80 08/20/2005 2:20 PM CLIENT DEVELOPMENT DIRECTOR Temperature 36.1 C (97 F) 08/20/2005 2:20 PM CLIENT DEVELOPMENT DIRECTOR Respiratory Rate 18 08/20/2005 2:20 PM CLIENT DEVELOPMENT DIRECTOR Oxygen Saturation - - Inhaled Oxygen Concentration - - Weight 92.1 kg (203 lb) 08/20/2005 2:20 PM CLIENT DEVELOPMENT DIRECTOR Height 175.3 cm (5' 9) 08/20/2005 2:20 PM CLIENT DEVELOPMENT DIRECTOR Body Mass Index 29.98 08/20/2005 2:20 PM CLIENT DEVELOPMENT DIRECTOR documented in this encounter Plan of Treatment Upcoming Encounters Date Type Department Care Team (Late st Contact Info) Description 08/10/2025 2:15 PM CLIENT DEVELOPMENT DIRECTOR [facility] Visit [facility] [place] [address] [facility] [place] [address] Ruddy Sánchez [place] [address] [place] [address] documented as of this encounter Visit Diagnoses Not on filedocumented in this encounter Care Teams Digital Content Manager Relationship Specialty Start Date End Date Armando Johnson MD [address] [place] [address] PCP - General Internal Medicine 11/13/22 documented as of this encounter
--- OUTSIDE RECORDS SUMMARY | 2025-04-01 18:03 | XMS_ITS | Encounter Summary ---
Author Organization [facility] Address [address] [place] [address] Care Team Providers Care Ground Support Agent Name Role Phone Armando Johnson MD Primary Care Provider [phone] Encounter Details Date Type Department Care Team (Late Contact Info) Description 03/27/2007 Outpatient Historical [facility] Internal Medicine Medical [place] A [facility] [address] [address] [facility] [address] [address] Balwinder Hector MD [address] [facility] [address] [place] [address] Social History Tobacco Use Types Packs/Day Years Used Date Smoking Tobacco: Never Assessed Comments Unknown Sex and Gender Information Value Date Recorded Sex Assigned at Not on file Legal Sex Female 4:42 AM GEOLOGY TEACHER Gender Identity Not on file Sexual Orientation Not on file documented as of this encounter Last Filed Vital Signs Vital Sign Reading Time Taken Comments Blood Pressure 120/70 03/27/2007 3:30 PM CDT Pulse 68 03/27/2007 3:30 PM CDT Temperature 36.9 C (98.5 F) 03/27/2007 3:30 PM CDT Respiratory Rate 16 03/27/2007 3:30 PM CDT Oxygen Saturation - - Inhaled Oxygen Concentration - - Weight 91.2 kg (201 lb) 03/27/2007 3:30 PM CDT Height - - Body Mass Index 29.68 08/20/2005 2:20 PM GEOLOGY TEACHER documented in this encounter Plan of Treatment Upcoming Encounters Date Type Department Care Team (Late st Contact Info) Description 08/10/2025 2:15 PM GEOLOGY TEACHER [facility] Visit [facility] [place] [address] [place] [address] Ruddy Sánchez [place] [address] [place] [address] documented as of this encounter Visit Diagnoses Not on filedocumented in this encounter Care Teams Ground Support Agent Relationship Specialty Start Date End Date Armando Johnson MD [address] [place] [address] PCP - General Internal Medicine 11/13/22 documented as of this encounter
--- OUTSIDE RECORDS SUMMARY | 2025-04-01 18:03 | XMS_ITS | Encounter Summary ---
Author Organization [facility] Address [address] [place] [address] Care Team Providers Care Day Habilitation Specialist Name Role Phone Armando Johnson MD Primary Care Provider [phone] Encounter Details Date Type Department Care Team (Late st Contact Info) Description 03/24/2002 Outpatient Historical [facility] [place] [address] [place] [address] ABDOMINAL PAIN OTHER SPEC SITE (Primary Dx) Social History Tobacco Use Types Packs/Day Years Used Date Smoking Tobacco: Never Assessed Comments Unknown Sex and Gender Information Value Date Recorded Sex Assigned at Not on file Legal Sex Female 4:42 AM AWS SOLUTION ARCHITECT Gender Identity Not on file Sexual Orientation Not on file documented as of this encounter Plan of Treatment Upcoming Encounters Date Type Department Care Team (Late st Contact Info) Description 08/10/2025 2:15 PM AWS SOLUTION ARCHITECT Office Visit [facility] Rheumatology Enrique Sparks [address] [place] [address] Ruddy Sánchez [place] [address] [place] [address] documented as of this encounter Visit Diagnoses Diagnosis Abdominal pain, other specified site- Primary documented in this encounter Care Teams Day Habilitation Specialist Relationship Specialty Start Date End Date Armando Johnson MD [address] [place] [address] PCP - General Internal Medicine 11/13/22 documented as of this encounter
--- OUTSIDE RECORDS SUMMARY | 2025-04-01 18:03 | XMS_ITS | Encounter Summary ---
Author Organization [facility] Address [address] [place] [address] Care Team Providers Care Sales Floor Associate Name Role Phone Armando Johnson MD Primary Care Provider [phone] Encounter Details Date Type Department Care Team (Late st Contact Info) Description 03/16/2004 Outpatient Historical HIS [facility] PRIMARY CARE Balwinder Hector MD [address] [place] [address] Social History Tobacco Use Types Packs/Day Years Used Date Smoking Tobacco: Never Assessed Comments Unknown Sex and Gender Information Value Date Recorded Sex Assigned at Not on file Legal Sex Female 4:42 AM CRYPTOGRAPHIC CLERK Gender Identity Not on file Sexual Orientation Not on file documented as of this encounter Plan of Treatment Upcoming Encounters Date Type Department Care Team (Late st Contact Info) Description 08/10/2025 2:15 PM CRYPTOGRAPHIC CLERK Office Visit [facility] Rheumatology Freedom Sparks [address] [place] [address] Ruddy Sánchez [place] [address] [place] [address] documented as of this encounter Visit Diagnoses Not on filedocumented in this encounter Care Teams Sales Floor Associate Relationship Specialty Start Date End Date Armando Johnson MD [address] [place] [address] PCP - General Internal Medicine 11/13/22 documented as of this encounter
--- OUTSIDE RECORDS SUMMARY | 2025-04-01 18:03 | XMS_ITS | Encounter Summary ---
Author Organization [facility] Address [address] [place] [address] Care Team Providers Care Slitter Service And Setter Name Role Phone Armando Johnson MD Primary Care Provider [phone] Encounter Details Date Type Department Care Team (Late st Contact Info) Description 02/03/2001 Outpatient Historical [facility] Jayda Chinchilla MD [address] [place] [address] Social History Tobacco Use Types Packs/Day Years Used Date Smoking Tobacco: Never Assessed Comments Unknown Sex and Gender Information Value Date Recorded Sex Assigned at Not on file Legal Sex Female 4:[address] SQL DEVELOPER Gender Identity Not on file Sexual Orientation Not on file documented as of this encounter Plan of Treatment Upcoming Encounters Date Type Department Care Team (Late st Contact Info) Description 08/10/2025 2:[address] SQL DEVELOPER Office Visit [facility] Rheumatology Freedom Sparks [address] [place] [address] Ruddy Sánchez [place] [address] [place] [address] documented as of this encounter Visit Diagnoses Not on filedocumented in this encounter Care Teams Slitter Service And Setter Relationship Specialty Start Date End Date Armando Johnson MD [address] [place] [address] PCP - General Internal Medicine 11/13/22 documented as of this encounter
--- OUTSIDE RECORDS SUMMARY | 2025-04-01 18:03 | XMS_ITS | Encounter Summary ---
Author Organization [facility] Address [address] [place] [address] Care Team Providers Care A R Specialist Name Role Phone Armando Johnson MD Primary Care Provider [phone] Encounter Details Date Type Department Care Team (Late Contact Info) Description 09/17/2006 Outpatient Historical [facility] Chai Oglesby MD [address] [place] [address] [address] [place] [address] Unspecified Esophagitis (Primary Dx) Social History Tobacco Use Types Packs/Day Years Used Date Smoking Tobacco: Never Assessed Comments Unknown Sex and Gender Information Value Date Recorded Sex Assigned at Not on file Legal Sex Female 4:42 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 CASTING 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 Gender Identity Not on file Sexual Orientation Not on file documented as of this encounter Plan of Treatment Upcoming Encounters Date Type Department Care Team (Late Contact Info) Description 08/10/2025 2:15 PM ROTOR CASTING 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 Office Visit [facility] Freedom Sparks [address] [place] [address] Ruddy Sánchez [place] [address] [place] [address] documented as of this encounter Visit Diagnoses Diagnosis Esophagitis, unspecified- Primary documented in this encounter Care Teams A R Specialist Relationship Specialty Start Date End Date Armando Johnson MD [address] [place] [address] PCP - General Internal Medicine 11/13/22 documented as of this encounter
--- OUTSIDE RECORDS SUMMARY | 2025-04-01 18:03 | XMS_ITS | Encounter Summary ---
Author Organization [facility] [place] [facility] Address [address] [place] [address] Care Team Providers Care Pest Control Service Representative Name Role Phone Armando Johnson MD Primary Care Provider [phone] Encounter Details Date Type Department Care Team (Latest Contact Info) Description 12/06/2005 Outpatient Historical HIS [facility] PRUDENCE Rod, Josué [place] [address] [place] [address] Screening Mammogram for High-Risk Patient (Primary Dx) Social History Tobacco Use Types Packs/Day Years Used Date Smoking Tobacco: Never Assessed Comments Unknown Sex and Gender Information Value Date Recorded Sex Assigned at Not on file Legal Sex Female 4:42 AM CAN SEALER Gender Identity Not on file Sexual Orientation Not on file documented as of this encounter Plan of Treatment Upcoming Encounters Date Type Department Care Team (Late st Contact Info) Description 08/10/2025 2:15 PM CAN SEALER Office Visit [facility] Rheumatology Enrique Sparks [address] [place] [address] Ruddy Sánchez [place] [address] [place] [address] documented as of this encounter Visit Diagnoses Diagnosis Screening mammogram for high-risk patient- Primary documented in this encounter Care Teams Pest Control Service Representative Relationship Specialty Start Date End Date Armando Johnson MD [address] [place] [address] PCP - General Internal Medicine 11/13/22 documented as of this encounter
--- OUTSIDE RECORDS SUMMARY | 2025-04-01 18:03 | XMS_ITS | Encounter Summary ---
Author Organization [facility] Address [address] [place] [address] Care Team Providers Care Graves Registration Specialist Name Role Phone Armando Johnson MD Primary Care Provider [phone] Encounter Details Date Type Department Care Team (Late st Contact Info) Description 11/23/2003 Outpatient Historical [facility] PRIMARY CARE Balwinder Hector MD [address] [place] [address] Social History Tobacco Use Types Packs/Day Years Used Date Smoking Tobacco: Never Assessed Comments Unknown Sex and Gender Information Value Date Recorded Sex Assigned at Not on file Legal Sex Female 4:42 AM MOTION PICTURE SET WORKER Gender Identity Not on file Sexual Orientation Not on file documented as of this encounter Plan of Treatment Upcoming Encounters Date Type Department Care Team (Late st Contact Info) Description 08/10/2025 2:15 PM MOTION PICTURE SET WORKER Office Visit [facility] Rheumatology Freedom Sparks [address] [place] [address] Ruddy Sánchez [place] [address] [place] [address] documented as of this encounter Visit Diagnoses Not on filedocumented in this encounter Care Teams Graves Registration Specialist Relationship Specialty Start Date End Date Armando Johnson MD [address] [place] [address] PCP - General Internal Medicine 11/13/22 documented as of this encounter
--- OUTSIDE RECORDS SUMMARY | 2025-04-01 18:03 | XMS_ITS | Continuity of Care Document ---
Author Organization [facility] Address [address] [place] [address] Phone Care Team Providers Care Talent Director Name Role Phone Wayne MS, OTR/L, CHTArlet Unavailable Unavailable Procedures Procedure Date THERAPEUTIC EXERCISES NEUROMUSCULAR RE-ED MANUAL THERAPY FUNC ACTIVITY HOT/COLD PACK ELECTRIC STIMULATION UNATT OT RE-EVALUATION THERAPEUTIC EXERCISES NEUROMUSCULAR RE-ED MANUAL THERAPY FUNC ACTIVITY HOT/COLD PACK ELECTRIC STIMULATION UNATT THERAPEUTIC EXERCISES NEUROMUSCULAR RE-ED MANUAL THERAPY FUNC ACTIVITY HOT/COLD PACK ELECTRIC STIMULATION UNATT THERAPEUTIC EXERCISES NEUROMUSCULAR RE-ED MANUAL THERAPY FUNC ACTIVITY HOT/COLD PACK ELECTRIC STIMULATION UNATT THERAPEUTIC EXERCISES NEUROMUSCULAR RE-ED MANUAL THERAPY FUNC ACTIVITY HOT/COLD PACK ELECTRIC STIMULATION UNATT OT EVALUATION THERAPEUTIC EXERCISES NEUROMUSCULAR RE-ED MANUAL THERAPY FUNC ACTIVITY HOT/COLD PACK Advance Directives Directive Yes / No Effective Date File Name No Information Encounters Encounter Description Practice Location Reason(s) For Visit Diagnoses Date Provider Providers Copied on Encounter [facility] [address], [place], [place], [id number], tel:[phone] [place] No Information 4-201 5 Wayne Nice. [address] [place] [address], [address], [place], [facility], . tel:[phone] Referring Provider: Kwan Hernandez, [address], [place], [address]. tel:[phone] [facility] [address] [place] [address] [address], [place], [place], [id number], tel:[phone] [place] No Information 8-201 5 Wayne Nice. [address] [place] [address], [address], [place], [facility], . tel:[phone] Referring Provider: Kwan Hernandez, [address], [place], [address]. tel:[phone] [facility] [address] [place], [place] [address], [place], [place], [id number], tel:[phone] [place] Muscle weakness (generalized)Pa resthesia of skinPain in right wristPain in left wristEdema, unspecifiedCarp al tunnel syndrome, right upper limbCarpal tunnel syndrome, left upper limb Jun-0 2-201 5 Wayne Nice. [address] [place] [address], [address], [place], [place], [facility], . tel:[phone] Referring Provider: Kwan Hernandez, [address], [place], [address]. tel:[phone] [address], [place], [place], [id number], tel:[phone] [place] No Information 3 0-201 5 Wayne Nice. [address] [place] [address], [address], [place], [place], [facility], . tel:[phone] Referring Provider: Kwan Hernandez, [address] [facility] [address], [place], [address]. tel:[phone], [id number], tel:[phone] [place] No Information Sep-2 -201 5 Wayne Nice. [address] [facility], [place] [address], . tel:[phone] Referring Provider: Kwan Hernandez, [address] [facility] [address], [place], [address]. tel:[phone], [id number], tel:[phone] [place] Pain in joint involving hand Sep-2 5 Wayne Nice. [address] [facility], [facility] [address], [place], [facility], . tel:[phone] Referring Provider: Kwan Hernandez, [address] [facility] [address], [place], [address]. tel:[phone] Family History Family Member Type Diagnosis Age At Onset No Information Payers Payer name Insurance type Covered libertarian ID Authoriza tion(s) No Information Social History Type Description Quantity Date Captured Comments Sex Male Smoking Status No Information Chief Complaint And Reason For Visit No Information Reason For Referral Reason For Referral No Information History Of Present Illness Encounter Date Complaint History Of Prese nt Illness No Information Functional Status Date Functional Assessmen t No Information Instructions Date Instruction Additional Infor mation No Information Assessments Type Assessment Date No Information Patient Care Teams Name Effective Dates (start - stop) Status Members No Information
--- OUTSIDE RECORDS SUMMARY | 2025-04-01 18:03 | XMS_ITS | Encounter Summary ---
Author Organization [facility] Address [address] [place] [address] Care Team Providers Care Medical Doctor Md Name Role Phone Armando Johnson MD Primary Care Provider [phone] Encounter Details Date Type Department Care Team (Latest Contact Info) Description 01/06/2007 Outpatient Historical HIS [facility] PRUDENCE Rod, Josué [place] [address] [place] [address] Diffuse Cystic Mastopathy (Primary Dx) Social History Tobacco Use Types Packs/Day Years Used Date Smoking Tobacco: Never Assessed Comments Unknown Sex and Gender Information Value Date Recorded Sex Assigned at Not on file Legal Sex Female 4:42 AM TILE SETTER SUPERVISOR Gender Identity Not on file Sexual Orientation Not on file documented as of this encounter Plan of Treatment Upcoming Encounters Date Type Department Care Team (Late st Contact Info) Description 08/10/2025 2:15 PM TILE SETTER SUPERVISOR Office Visit [facility] Rheumatology Enrique Sparks [address] [place] [address] Ruddy Sánchez [place] [address] [place] [address] documented as of this encounter Visit Diagnoses Diagnosis Diffuse cystic mastopathy- Primary documented in this encounter Care Teams Medical Doctor Md Relationship Specialty Start Date End Date Armando Johnson MD [address] [place] [address] PCP - General Internal Medicine 11/13/22 documented as of this encounter
--- OUTSIDE RECORDS SUMMARY | 2025-04-01 18:03 | XMS_ITS | Encounter Summary ---
Author Organization [facility] Address [address] [place] [address] Care Team Providers Care Electric Truck Crane Operator Name Role Phone Armando Johnson MD Primary Care Provider [phone] Encounter Details Date Type Department Care Team (Late Contact Info) Description 08/01/2006 Outpatient Historical [facility] Internal Medicine Medical [place] [facility] [address] [facility] [address] [address] Balwinder Hector MD [address] [facility] [address] [place] [address] Unspecified Myalgia and Myositis (Primary Dx) Social History Tobacco Use Types Packs/Day Years Used Date Smoking Tobacco: Never Assessed Comments Unknown Sex and Gender Information Value Date Recorded Sex Assigned at Not on file Legal Sex Female 4:42 AM KITCHEN AIDE Gender Identity Not on file Sexual Orientation Not on file documented as of this encounter Plan of Treatment Upcoming Encounters Date Type Department Care Team (Late st Contact Info) Description 08/10/2025 2:15 PM KITCHEN AIDE Office Visit [facility] Rheumatology Freedom Sparks [address] [facility] [address] [place] [address] Ruddy Sánchez [place] [address] [place] [address] documented as of this encounter Procedures Procedure Name Priority Date/Time Associated Diagnosis Comments TSH REFLEXIVE Routine 08/01/2006 4:13 PM KITCHEN AIDE COMPREHENSIVE METABOLIC PANEL Routine 08/01/2006 4:13 PM KITCHEN AIDE documented in this encounter Results * COMPREHENSIVE METABOLIC PANEL (08/01/2006 4:13 PM KITCHEN AIDE) GLUCOSE 97 65 - 99 mg/dL INTERFACE SYSTEM CREATININE 0.80 0.51 - 0.95 mg/dL INTERFACE SYSTEM Comment:Note: Effective 07/17 New Methodolgy and Reference Ranges CALCIUM 8.8 8.4 - 10.2 mg/dL INTERFACE SYSTEM ALKALINE PHOSPHATASE 81 35 - 104 U/L INTERFACE SYSTEM AST 21 12 - 32 U/L INTERFACE SYSTEM ALT 21 0 - 31 U/L INTERFACE SYSTEM TOTAL PROTEIN 7.5 6.3 - 8.6 g/dL INTERFACE SYSTEM ALBUMIN 4.5 3.4 - 4.8 g/dL INTERFACE SYSTEM BILIRUBIN TOTAL 0.3 0.2 - 1.0 mg/dL INTERFACE SYSTEM BUN 12 6 - 20 mg/dL INTERFACE SYSTEM SODIUM 138 135 - 145 mmol/L INTERFACE SYSTEM POTASSIUM 3.6 3.5 - 4.9 mmol/L INTERFACE SYSTEM CHLORIDE 101 96 - 108 mmol/L INTERFACE SYSTEM CO2 28 22 - 30 mmol/L INTERFACE SYSTEM 08/01/2006 4:13 PM KITCHEN AIDE Balwinder Hector MD CHEMISTRY ORDERABLES Final Resu lt Performing Organization Address City/[facility] Co de Phone Number INTERFACE SYSTEM Refer to clinic/hospital department * TSH REFLEXIVE (08/01/2006 4:13 PM KITCHEN AIDE) TSH 2.20 0.27 - 4.20 uU/mL INTERFACE SYSTEM 08/01/2006 4:13 PM KITCHEN AIDE Balwinder Hector MD CHEMISTRY ORDERABLES Final Resu lt Performing Organization Address City/State/[facility] Co de Phone Number INTERFACE SYSTEM Refer to clinic/hospital department documented in this encounter Visit Diagnoses Diagnosis Myalgia and myositis, unspecified- Primary Mylagia and myositis, unspecified documented in this encounter Care Teams Electric Truck Crane Operator Relationship Specialty Start Date End Date Armando Johnson MD [address] [facility] [address] [place] [address] PCP - General Internal Medicine 11/13/22 documented as of this encounter
--- OUTSIDE RECORDS SUMMARY | 2025-04-01 18:03 | XMS_ITS | Encounter Summary ---
Author Organization [facility] Address [address] Attn: [place] [address] Care Team Providers Care Land Examiner Name Role Phone Armando Johnson MD Primary Care Provider [phone] Encounter Details Date Type Department Care Team (Late st Contact Info) Description 06/07/2000 Outpatient Historical Social History Tobacco Use Types Packs/Day Years Used Date Smoking Tobacco: Never Assessed Comments Unknown Sex and Gender Information Value Date Recorded Sex Assigned at Not on file Legal Sex Female 4:42 AM ASPHALT PLANT WORKER Gender Identity Not on file Sexual Orientation Not on file documented as of this encounter Plan of Treatment Upcoming Encounters Date Type Department Care Team (Late st Contact Info) Description 08/10/2025 2:15 PM ASPHALT PLANT WORKER Office Visit [facility] Rheumatology Freedom Sparks [address] [place] [address] Ruddy Sánchez [place] [address] [place] [address] documented as of this encounter Visit Diagnoses Not on filedocumented in this encounter Care Teams Land Examiner Relationship Specialty Start Date End Date Armando Johnson MD [address] [place] [address] PCP - General Internal Medicine 11/13/22 documented as of this encounter
--- OUTSIDE RECORDS SUMMARY | 2025-04-01 18:04 | XMS_ITS | Clinical Summary ---
Author Organization [facility] Address [address] [place] [address] Phone [email or web address] Care Team Providers Care Placement Secretary Name Role Phone Unavailable Primary Care Provider Unavailabl e Social History Tobacco Use Types Packs/Day Years Used Date Smoking Tobacco: Never Assessed Intimate Partner Violence Answer Date R ecorded Insults You Not on file 06/30/2022 Threatens You Not on file 06/30/2022 Screams at You Not on file 06/30/2022 Physically Hurt Not on file 06/30/2022 Intimate Partner Violence Score Not on file 06/30/2022 Stress Answer Date Recorded Stress in your Life Not on file 07/22/2024 Dealing with Stress 3 07/22/2024 Comments Unknown Sex and Gender Information Value Date Recorded Sex Assigned at Not on file Legal Sex Female 12:26 AM CDT Gender Identity Not on file Sexual Orientation Not on file Plan of Treatment Health Maintenance Due Date Last Done Comments Dental Cleaning/Exam 1964 HIV Screening 1964 Hepatitis C Screening 1964 Cervical Cancer Screening 1980 Annual Preventive Exam 1982 Hep B Infection Screening - Triple Screen 1982 Tetanus Diphtheria and Pertu ssis Immunization (1 - Tdap) 1983 Breast Cancer Screening 1994 Colorectal Cancer Screening 1994 Zoster Immunization (1 of 2) 2014 Covid-19 Immunization (1 - 2 season) 2024 Influenza Immunization (#1) 2025 HIB Immunization Aged Out No longer e ligible based on patient's age to complete this topic HPV Immunization Aged Out No longer e ligible based on patient's age to complete this topic Hepatitis A Immunization Aged Out No longer eligible based on patient's age to complete this topic Hepatitis B Immunization Aged Out No longer eligible based on patient's age to complete this topic Pneumococcal: Ped (0 to 5 Yr s) and At-Risk Member (6 to 64 Yrs) Aged Out No longer e ligible based on patient's age to complete this topic Polio Immunization Aged Out No longer eligible based on patient's age to complete this topic
--- OUTSIDE RECORDS SUMMARY | 2025-04-01 18:04 | XMS_ITS | Encounter Summary ---
Author Organization [facility] Address [address] [place] [address] Care Team Providers Care Jacquard Loom Carpet Weaver Name Role Phone Armando Johnson MD Primary Care Provider [phone] Encounter Details Date Type Department Care Team (Late Contact Info) Description 03/30/2025 External Device Data ST[place] ABSTRACTION Provider, Abstract NO ADDRESS ON FILE Social History Tobacco Use Types Packs/Day Years Used Date Smoking Tobacco: Never Smokeless Tobacco: Never Alcohol Use Standard Drinks/Week Comments Yes 0 (1 standard drink = 0.6 oz pur e alcohol) Comments No Sex and Gender Information Value Date Recorded Sex Assigned at Not on file Legal Sex Female 4:42 AM TYPING ELEMENT 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 Gender Identity Not on file [...] (Late Contact Info) Description 08/10/2025 2:15 PM TYPING ELEMENT 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 Office Visit [facility] Rheumatology Freedom Sparks [address] [place] [address] Ruddy Sánchez [place] [address] [place] [address] documented as of this encounter Visit Diagnoses Not on filedocumented in this encounter Care Teams Jacquard Loom Carpet Weaver Relationship Specialty Start Date End Date Armando Johnson MD [address] [place] [address] PCP - General Internal Medicine 11/13/22 documented as of this encounter
--- OUTSIDE RECORDS SUMMARY | 2025-04-01 18:04 | XMS_ITS | Encounter Summary ---
Author Organization [facility] Address [address] [place] [address] Care Team Providers Care Security System Installer Name Role Phone Armando Johnson MD Primary Care Provider [phone] Encounter Details Date Type Department Care Team (Late st Contact Info) Description 10/01/2007 Outpatient Historical [facility] Internal Medicine Medical [place] A RUST [address] [facility] [address] [address] Balwinder Hector MD [address] [facility] [address] [place] [address] Social History Tobacco Use Types Packs/Day Years Used Date Smoking Tobacco: Never Assessed Comments Unknown Sex and Gender Information Value Date Recorded Sex Assigned at Not on file Legal Sex Female 4:42 AM DOLL MAKER Gender Identity Not on file Sexual Orientation Not on file documented as of this encounter Last Filed Vital Signs Vital Sign Reading Time Taken Comments Blood Pressure 112/76 10/01/2007 3:30 PM DOLL MAKER Pulse 72 10/01/2007 3:30 PM DOLL MAKER Temperature 37.7 C (99.9 F) 10/01/2007 3:30 PM DOLL MAKER Respiratory Rate 16 10/01/2007 3:30 PM DOLL MAKER Oxygen Saturation - - Inhaled Oxygen Concentration - - Weight 91.6 kg (202 lb) 10/01/2007 3:30 PM DOLL MAKER Height - - Body Mass Index 29.83 08/20/2005 2:20 PM DOLL MAKER documented in this encounter Plan of Treatment Upcoming Encounters Date Type Department Care Team (Late st Contact Info) Description 08/10/2025 2:15 PM DOLL MAKER [facility] [place] [address] [place] [address] Ruddy Sán[place] [address] [place] [address] documented as of this encounter Visit Diagnoses Not on filedocumented in this encounter Care Teams Security System Installer Relationship Specialty Start Date End Date Armando Johnson MD [address] [place] [address] PCP - General Internal Medicine 11/13/22 documented as of this encounter
--- OUTSIDE RECORDS SUMMARY | 2025-04-01 18:04 | XMS_ITS | Encounter Summary ---
Author Organization [facility] Address [address] [place] [address] Care Team Providers Care Crane Operator Cab Name Role Phone Armando Johnson MD Primary Care Provider [phone] Encounter Details Date Type Department Care Team (Latest Contact Info) Description 08/24/2002 Outpatient Historical [facility] [place] [address] [place] [address] CHEST PAIN NOS (Primary Dx) Social History Tobacco Use Types Packs/Day Years Used Date Smoking Tobacco: Never Assessed Comments Unknown Sex and Gender Information Value Date Recorded Sex Assigned at Not on file Legal Sex Female 4:42 AM SURGICAL GARMENT INSPECTOR Gender Identity Not on file Sexual Orientation Not on file documented as of this encounter Plan of Treatment Upcoming Encounters Date Type Department Care Team (Late st Contact Info) Description 08/10/2025 2:15 PM SURGICAL GARMENT INSPECTOR Office Visit [facility] [place] [address] [place] [address] Ruddy Sánchez [place] [address] [place] [address] documented as of this encounter Visit Diagnoses Diagnosis Chest pain, unspecified- Primary documented in this encounter Care Teams Crane Operator Cab Relationship Specialty Start Date End Date Armando Johnson MD [address] [place] [address] PCP - General Internal Medicine 11/13/22 documented as of this encounter
--- OUTSIDE RECORDS SUMMARY | 2025-04-01 18:04 | XMS_ITS | Encounter Summary ---
Author Organization [facility] Address [address] [place] [address] Care Team Providers Care Treasury Consultant Name Role Phone Armando Johnson MD Primary Care Provider [phone] Encounter Details Date Type Department Care Team (Late st Contact Info) Description 11/08/2000 Outpatient Historical [facility] Marylu Mckeon MD [address] [place] [address] Social History Tobacco Use Types Packs/Day Years Used Date Smoking Tobacco: Never Assessed Comments Unknown Sex and Gender Information Value Date Recorded Sex Assigned at Not on file Legal Sex Female 4:[address] STENOGRAPHER Gender Identity Not on file Sexual Orientation Not on file documented as of this encounter Plan of Treatment Upcoming Encounters Date Type Department Care Team (Late st Contact Info) Description 08/10/2025 2:[address] STENOGRAPHER Office Visit [facility] [place] [address] [place] [address] Ruddy Sánchez [place] [address] [place] [address] documented as of this encounter Visit Diagnoses Not on filedocumented in this encounter Care Teams Treasury Consultant Relationship Specialty Start Date End Date Armando Johnson MD [address] [place] [address] PCP - General Internal Medicine 11/13/22 documented as of this encounter
--- OUTSIDE RECORDS SUMMARY | 2025-04-01 18:04 | XMS_ITS | Encounter Summary ---
Author Organization [facility] Address 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, Including Hip (Primary Dx) Social History Tobacco Use Types Packs/Day Years Used Date Smoking Tobacco: Never Assessed Comments Unknown Sex and Gender Information Value Date Recorded Sex Assigned at Not on file Legal Sex Female 4:42 AM RETAIL WORKER Gender Identity Not on file Sexual Orientation Not on file documented as of this encounter Plan of Treatment Upcoming Encounters Date Type Department Care Team (Late st Contact Info) Description 08/10/2025 2:15 PM RETAIL WORKER Office Visit [facility] [place] [address] [facility] [address] [place] [address] Ruddy Sánchez [place] [address] [place] [address] documented as of this encounter Visit Diagnoses Diagnosis 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
--- OUTSIDE RECORDS SUMMARY | 2025-04-01 18:04 | XMS_ITS | Encounter Summary ---
Author Organization [facility] Address [address] [place] [address] Care Team Providers Care Production Laborer Name Role Phone Armando Johnson MD Primary Care Provider Encounter Details Date Type Department Care Team (Latest Contact Info) Description 07/17/2000 Outpatient Historical [facility] [place] Hahn [place] [id number] [place] [address] [place] [address] Lumbago (Primary Dx) Social History Tobacco Use Types Packs/Day Years Used Date Smoking Tobacco: Never Assessed Comments Unknown Sex and Gender Information Value Date Recorded Sex Assigned at Not on file Legal Sex Female 4:42 AM CHEF & OWNER Gender Identity Not on file Sexual Orientation Not on file documented as of this encounter Plan of Treatment Upcoming Encounters Date Type Department Care Team (Late st Contact Info) Description 08/10/2025 2:15 PM CHEF & OWNER Office Visit [facility] Rheumatology [place] [address] [place] [address] Ruddy Sánchez [place] [address] [place] [address] documented as of this encounter Visit Diagnoses Diagnosis Lumbago- Primary documented in this encounter Care Teams Production Laborer Relationship Specialty Start Date End Date Armando Johnson MD [address] [place] [address] PCP - General Internal Medicine 11/13/22 documented as of this encounter
--- OUTSIDE RECORDS SUMMARY | 2025-04-01 18:04 | XMS_ITS | Encounter Summary ---
Author Organization [facility] Address [address] [place] [address] Care Team Providers Care Weave Room Supervisor Name Role Phone Armando Johnson MD Primary Care Provider [phone] Encounter Details Date Type Department Care Team (Late st Contact Info) Description 08/24/2002 Outpatient Historical [facility] Support Serv. (Adt Cardiology[facility]) [address] [place] [address] Lucius Ward MD NO ADDRESS ON FILE Social History Tobacco Use Types Packs/Day Years Used Date Smoking Tobacco: Never Assessed Comments Unknown Sex and Gender Information Value Date Recorded Sex Assigned at Not on file Legal Sex Female 4:42 AM STORE STANDARDS ASSOCIATE Gender Identity Not on file Sexual Orientation Not on file documented as of this encounter Plan of Treatment Upcoming Encounters Date Type Department Care Team (Late Contact Info) Description 08/10/2025 2:15 PM STORE STANDARDS ASSOCIATE Office Visit [facility] Rhe[facility] [place] [address] [place] [address] Ruddy Sánchez [place] [address] [place] [address] documented as of this encounter Visit Diagnoses Not on filedocumented in this encounter Care Teams Weave Room Supervisor Relationship Specialty Start Date End Date Armando Johnson MD [address] [place] [address] PCP - General Internal Medicine 11/13/22 documented as of this encounter
--- OUTSIDE RECORDS SUMMARY | 2025-04-01 18:04 | XMS_ITS | Encounter Summary ---
Author Organization [facility] Address [address] [place] [address] Care Team Providers Care Clinical Laboratory Technologist Name Role Phone Armando Johnson MD Primary Care Provider [phone] Encounter Details Date Type Department Care Team (Late st Contact Info) Description 11/22/2000 Outpatient Historical [facility] Jayda Chinchilla MD [address] [place] [address] Social History Tobacco Use Types Packs/Day Years Used Date Smoking Tobacco: Never Assessed Comments Unknown Sex and Gender Information Value Date Recorded Sex Assigned at Not on file Legal Sex Female 4:42 AM RIVER EXPEDITION GUIDE Gender Identity Not on file Sexual Orientation Not on file documented as of this encounter Plan of Treatment Upcoming Encounters Date Type Department Care Team (Late st Contact Info) Description 08/10/2025 2:15 PM RIVER EXPEDITION GUIDE Office Visit [facility] Rheumatology [place] [address] [place] [address] Ruddy Sánchez [place] [address] [place] [address] documented as of this encounter Visit Diagnoses Not on filedocumented in this encounter Care Teams Clinical Laboratory Technologist Relationship Specialty Start Date End Date Armando Johnson MD [address] [place] [address] PCP - General Internal Medicine 11/13/22 documented as of this encounter
--- OUTSIDE RECORDS SUMMARY | 2025-04-01 18:04 | XMS_ITS | Encounter Summary ---
Author Organization [facility] Address [address] [place] [address] Care Team Providers Care Book Illustrator Name Role Phone Armando Johnson MD Primary Care Provider [phone] Encounter Details Date Type Department Care Team (Late st Contact Info) Description 10/07/2007 Outpatient Historical [facility] Internal Medicine Medical [place] [facility] [address] [facility] [address] Balwinder Hector MD [address] [facility] [address] [place] [address] Other and Unspecified Hyperlipidemia Social History Tobacco Use Types Packs/Day Years Used Date Smoking Tobacco: Never Assessed Comments Unknown Sex and Gender Information Value Date Recorded Sex Assigned at Not on file Legal Sex Female 4:42 AM COMPUTER PERIPHERAL EQUIPMENT OPERATOR Gender Identity Not on file Sexual Orientation Not on file documented as of this encounter Plan of Treatment Upcoming Encounters Date Type Department Care Team (Late st Contact Info) Description 08/10/2025 2:15 PM COMPUTER PERIPHERAL EQUIPMENT OPERATOR Office Visit [facility] Rheumat[facility] [place] [address] [facility] [address] [place] [address] Ruddy Sánchez [place] [address] [place] [address] documented as of this encounter Procedures Procedure Name Priority Date/Time Associated Diagnosis Comments TSH WITH REFLEX FT4 AND FT3 Routine 10/07/2007 7:30 AM COMPUTER PERIPHERAL EQUIPMENT OPERATOR T4 FREE Routine 10/07/2007 7:30 AM COMPUTER PERIPHERAL EQUIPMENT OPERATOR LIPID PANEL Routine 10/07/2007 7:30 AM COMPUTER PERIPHERAL EQUIPMENT OPERATOR COMPREHENSIVE METABOLIC PANEL Routine 10/07/2007 7:30 AM COMPUTER PERIPHERAL EQUIPMENT OPERATOR documented in this encounter Results * T4 FREE (10/07/2007 7:30 AM COMPUTER PERIPHERAL EQUIPMENT OPERATOR) FREE T4E,THYROID SCREEN 0.9 0.9 - 1.7 ng/dL INTERFACE SYSTEM 10/07/2007 7:30 AM COMPUTER PERIPHERAL EQUIPMENT OPERATOR Balwinder Hector MD CHEMISTRY ORDERABLES Edited Performing Organization Address [facility] Phone Number INTERFACE SYSTEM Refer to clinic/hospital department * (ABNORMAL) TSH WITH REFLEX FT4 AND FT3 (10/07/2007 7:30 AM COMPUTER PERIPHERAL EQUIPMENT OPERATOR) Pathologist [facility] TSH 7.70(H) 0.27 - 4.20 uU/mL INTERFACE SYSTEM 10/07/2007 7:30 AM COMPUTER PERIPHERAL EQUIPMENT OPERATOR Balwinder Hector MD CHEMISTRY ORDERABLES Edited Performing Organization Address [facility] Phone Number INTERFACE SYSTEM Refer to clinic/hospital department * COMPREHENSIVE METABOLIC PANEL (10/07/2007 7:30 AM COMPUTER PERIPHERAL EQUIPMENT OPERATOR) GLUCOSE 88 65 - 99 mg/dL INTERFACE SYSTEM CREATININE 0.80 0.51 - 0.95 mg/dL INTERFACE SYSTEM CALCIUM 8.9 8.4 - 10.2 mg/dL INTERFACE SYSTEM ALKALINE PHOSPHATASE 59 35 - 104 U/L INTERFACE SYSTEM AST 18 12 - 32 U/L INTERFACE SYSTEM ALT 17 0 - 31 U/L INTERFACE SYSTEM TOTAL PROTEIN 7.3 6.3 - 8.6 g/dL INTERFACE SYSTEM ALBUMIN 4.2 3.4 - 4.8 g/dL INTERFACE SYSTEM BILIRUBIN TOTAL 0.4 0.2 - 1.0 mg/dL INTERFACE SYSTEM BUN 14 6 - 20 mg/dL INTERFACE SYSTEM SODIUM 139 135 - 145 mmol/L INTERFACE SYSTEM POTASSIUM 4.2 3.5 - 4.9 mmol/L INTERFACE SYSTEM CHLORIDE 105 96 - 108 mmol/L INTERFACE SYSTEM CO2 27 22 - 30 mmol/L INTERFACE SYSTEM GFR, >60 >=60 mL/min/1.7 sq meter INTERFACE SYSTEM GFR >60 >=60 mL/min/1.7 sq meter INTERFACE SYSTEM Comment: Estimated GFR rate interpretative information for both Americans and non- Americans is available on the [facility] Intranet at: [email or web address] Select: Lab Policies and Procedures Select: Reference Ranges - GFR 10/07/2007 7:30 AM COMPUTER PERIPHERAL EQUIPMENT OPERATOR Balwinder Hector MD CHEMISTRY ORDERABLES Edited Performing Organization Address [facility] Co de Phone Number INTERFACE SYSTEM Refer to clinic/hospital department * LIPID PANEL (10/07/2007 7:30 AM COMPUTER PERIPHERAL EQUIPMENT OPERATOR) CHOLESTEROL 151 100 - 199 mg/dL INTERFACE SYSTEM TRIGLYCERIDE 81 10 - 149 mg/dL INTERFACE SYSTEM HDL 41 40 - 59 mg/dL INTERFACE SYSTEM CHOL/HDL RATIO 3.7 2.0 - 5.0 INTER FACE SYSTEM LDL CALCULATED 94 <=99 mg/dL INTERFACE SYSTEM LIPID PANEL COMMENT See Below INTERFACE SYSTEM Comment: The adult ATP and pediatric NCEP classifications for lipids are available on the [facility] Intranet at: [email or web address] Select: Lab Policies and Procedures,Current Select: Lipid Panel Interpretation 10/07/2007 7:30 AM COMPUTER PERIPHERAL EQUIPMENT OPERATOR us Balwinder Hector MD CHEMISTRY ORDERABLES Edited Performing Organization Address City/[facility] Co de Phone Number INTERFACE SYSTEM Refer to clinic/hospital department documented in this encounter Visit Diagnoses Diagnosis Other and unspecified hyperlipidemia documented in this encounter Care Teams Book Illustrator Relationship Specialty Start Date End Date Armando Johnson MD [address] [place] [address] PCP - General Internal Medicine 11/13/22 documented as of this encounter
--- OUTSIDE RECORDS SUMMARY | 2025-04-01 18:04 | XMS_ITS | Encounter Summary ---
Author Organization [facility] Address [address] [place] [address] Care Team Providers Care Tank Processor Name Role Phone Armando Johnson MD Primary Care Provider Encounter Details Date Type Department Care Team (Latest Contact Info) Description 07/10/2000 Outpatient Historical HIS [facility] PRUDENCE Rod, Josué [place] [address] [place] [address] Other screening mammogram (Primary Dx) Social History Tobacco Use Types Packs/Day Years Used Date Smoking Tobacco: Never Assessed Comments Unknown Sex and Gender Information Value Date Recorded Sex Assigned at Not on file Legal Sex Female 4:42 AM AMUSEMENT RIDE INSPECTOR Gender Identity Not on file Sexual Orientation Not on file documented as of this encounter Plan of Treatment Upcoming Encounters Date Type Department Care Team (Late st Contact Info) Description 08/10/2025 2:15 PM AMUSEMENT RIDE INSPECTOR Office Visit [facility] Rheumatology [place] [address] [place] [address] Ruddy Sánchez [place] [address] [place] [address] documented as of this encounter Visit Diagnoses Diagnosis Other screening mammogram- Primary documented in this encounter Care Teams Tank Processor Relationship Specialty Start Date End Date Armando Johnson MD [address] [place] [address] PCP - General Internal Medicine 11/13/22 documented as of this encounter
--- OUTSIDE RECORDS SUMMARY | 2025-04-01 18:04 | XMS_ITS | Continuity of Care Document ---
Author Organization [facility] Address [address] [id number] Phone Care Team Providers Care Industrial Economics Teacher Name Role Phone Chai Garcia MD Unavailable Unavailable Allergies, Adverse Reactions, Alerts Substance Reaction Status Criticality No Known Allergies Active No Inform ation Medications Medication Instructions Dosage Effective Dates (start - stop) Status Comments Voltaren 1 % topical gel apply (2G) by topical route 4 times every day to the affected area(s) - Active SYNTHROID (unknown strength) Not Available - Active Procedures Procedure Date OFFICE/OUTPATIENT VISIT EST OFFICE/OUTPATIENT VISIT EST OFFICE/OUTPATIENT VISIT EST POSTOP FOLLOW-UP VISIT POSTOP FOLLOW-UP VISIT OFFICE/OUTPATIENT VISIT EST OFFICE/OUTPATIENT VISIT EST OFFICE/OUTPATIENT VISIT [facility] Advance Directives Directive Yes / No Effective Date File Name No Information Encounters Encounter Description Practice Location Reason(s) For Visit Diagnoses Date Provider Providers Copied on Encounter OFFICE/OUTPA TIENT VISIT EST [facility], [address] [place] [address], [address], [place] tel:[phone] [facility] Trigger middle finger of right handPrimary osteoarthritis of first carpometacarpal joint of left hand 6 Jose Paula. [address] [place], [place], [id number] . tel: [phone] OFFICE/OUTPA TIENT VISIT EST [facility], [address] [place] [address], [address], [place] tel:[phone] [facility] Trigger ring finger of right hand Nov-0 9-201 5 Jose Paula. [address] [place], [place], [id number] . tel: [phone] OFFICE/OUTPA TIENT VISIT EST [facility], [address] [place] [address], [address], [place] tel: [phone] [facility] Carpal tunnel syndrome on both sidesCarpal tunnel syndrome, left upper limbTrigger finger, left middle finger Oct-1 2-201 5 Jose Paula. [address] [place], [place], [id number] . tel: [phone] [facility], [address] [place] [address], [address], [place] tel: [phone] [facility] F/U B CTR'S (chief complaint) Carpal tunnel syndromeTrigger finger Sep-2 8-201 5 Jose Paula. [address] [place], [place], [id number] . tel: [phone] [facility], [address] [place] [address], [address], [place] tel: [phone] [facility] 1st post op L CTR (chief complaint) Carpal tunnel syndrome Sep-1 5-201 5 David Johnson. [address] [place] [address] [address], [place], [place], [id number] , [place]. tel: [phone] [facility], [address] [place] [address], [address], [place] tel:[phone] [facility] Carpal tunnel syndrome Aug-0 7- 5 Jose Paula. [address] [place], [place], [id number] . tel: [phone] OFFICE/OUTPA TIENT VISIT EST [facility], [address] [place] [address], [address], [place] tel:[phone] [facility] Carpal tunnel syndrome Aug-0 7-201 5 Jose Paula. [address] [place], [place], [id number] . tel: [phone] [facility], [address] [place] [address], [address], [place] [phone] [facility] emg/ncs (chief complaint) Carpal tunnel syndrome 0 5 Melanie Ferreira. [address] [place] [address], [id number] . tel: [phone] Referring Provider: Chai Garcia, [address] [facility] [address], [place], [address]. tel:[phone] [facility], [address] [place] [address], [address], [place] tel:[phone] [facility] Carpal tunnel syndrome 2 5 Jose Paula. [address] [place] [address], [id number] . tel: [phone] OFFICE/OUTPA TIENT VISIT [facility], [address] [place] [address], [address], [place] tel:[phone] [facility] Carpal tunnel syndromeArthrit is, degenerative, localized, primary, hand 5 Jose Paula. [address] [place] [address], [id number] . tel: [phone] [facility], [address] [place] [address], [address], [place] tel:[phone] [facility] Lt thumb cmc (chief complaint) Arthritis, degenerative, localized, primary, hand Jun- 4 Jose Paula. [address] [place] [address], [id number] . tel: [phone] OFFICE/OUTPA TIENT VISIT [facility], [address] [place] [address], [address], [place] tel:[phone] [facility] Arthritis, degenerative, localized, primary, hand Sep- 8 3 Jose Paula. [address] [facility], [place], [place], [id number] . tel: [phone] Family History Family Member Type Diagnosis Age At Onset No Information Payers Payer name Insurance type Covered constitution party ID Mellisa farmer(s) [facility] ASO - PPO [id number] Social History Type Description Quantity Date Captured Comments Alcohol Use Details Unknown Caffeine Use Details Unknown Tobacco Use Status No Information Smoking Status No Information Sex Female Chief Complaint And Reason For Visit No Information Reason For Referral Reason For Referral No Information Plan Of Treatment Date Type Action Status Referral Ordered: ELECTROCARDIOGRAM COMPLETE ordered Referral Ordered: MUSC TEST DONE W/N TEST COMP (EMG/NCS) RT arm ordered Referral Ordered: RADEX FNGR MINIMUM 2 VIEWS LT ordered History Of Present Illness Encounter Date Complaint History Of Prese nt Illness F/U B CTR'S 1st post op L CTR emg/ncs Lt thumb cmc Functional Status Date Functional Assessmen t No Information Instructions Date Instruction Additional Infor mation Activity as tolerated. Related t o Trigger ring finger of right hand Apply ice as instructed. Related to Trigger ring finger of right hand activity as tolerated Related to Carpal tunnel syndrome elevate higher than your heart R elated to Carpal tunnel syndrome apply heating pad or ice as tole rated Related to Carpal tunnel syndrome Activity as tolerated. Related t o Arthritis, degenerative, localized, primary, hand Apply ice as instructed. Related to Arthritis, degenerative, localized, primary, hand Wear brace as instructed Assessments Type Assessment Date assessment Trigger middle finger of right h and assessment Primary osteoarthrit is of first carpometacarpal joint of left hand Patient Care Teams Name Effective Dates (start - stop) Status Members No Information
--- OUTSIDE RECORDS SUMMARY | 2025-04-01 18:04 | XMS_ITS ---
Author Organization [facility] Address [address] [place], [place] [id number] Care Team Providers Care Snack Bar Cashier Name Role Phone EusebioSa rehanaqib Primary Care Provider UnavailJosette Harris Unavailable [phone] REASON FOR VISIT 4 mo f/u MEDICATIONS Medication SIG (Take, Route, Frequency, Duration) Notes Start Date End Date Status Synthroid 75 mcg (0.075 mg) 1 tab(s) ora lly once a day Active meloxicam 15 mg 1 tab(s) orally once a day for 30 day(s) 04/07/2024 Active metoprolol 25 mg 1 tab(s) orally once a day Active DULoxetine Hydrochloride 30 mg 1 cap(s) orally once a day 12/11/2023 Active hydroxychloroquine 200 mg 1 tab(s) orall y 2 times a day Active Encounters Encounter Location Date Provider Diagnosis [facility] [address], [facility] [address] [place], [place] [id number] 07/17/2024 Josette Cardoso Primary generalized (osteo)arthritis M15.0 ; Meron's thyroiditis E06.3 ; Positive LIZBETH R76.8 and Other diabetes solutions specialist (current) drug therapy Z79.899 ASSESSMENTS Encounter Date Diagnosis Assessment Notes Treatment Notes Treatment Clinical Notes Section Notes 07/17/2024 Primary generalized (osteo)arthritis (ICD-10 - M15.0) Hx of undiff CTD/SLE with DJD-fluctuatin g LIZBETH, with flucuating positive dsDNA, DIAMOND PICKER positive and arthritis on exam. Back on HCQ. Reminded to have an eye exam. Seeing NSG for Syrinx. Discussed that this is not related to SLE. I do not recommend use of steroids. Will add in Meloxicam 15mg for discomfort. Avoid OTC NSAIDS. Check labs today. F/u scheduled. 07/17/2024 Meron's thyroiditis (ICD-10 - E06.3) Hx of undiff CTD/SLE with DJD-fluctuatin g LIZBETH, with flucuating positive dsDNA, DIAMOND PICKER positive and arthritis on exam. Back on HCQ. Reminded to have an eye exam. Seeing NSG for Syrinx. Discussed that this is not related to SLE. I do not recommend use of steroids. Will add in Meloxicam 15mg for discomfort. Avoid OTC NSAIDS. Check labs today. F/u scheduled. 07/17/2024 Positive LIZBETH (ICD-10 - R76.8) Hx of undiff CTD/SLE with DJD-fluctuatin g LIZBETH, with flucuating positive dsDNA, DIAMOND PICKER positive and arthritis on exam. Back on HCQ. Reminded to have an eye exam. Seeing NSG for Syrinx. Discussed that this is not related to SLE. I do not recommend use of steroids. Will add in Meloxicam 15mg for discomfort. Avoid OTC NSAIDS. Check labs today. F/u scheduled. 07/17/2024 Other skilled nursing (current) drug therapy (ICD-10 - Z79.899) Hx of undiff CTD/SLE with DJD-fluctuatin g LIZBETH, with flucuating positive dsDNA, DIAMOND PICKER positive and arthritis on exam. Back on HCQ. Reminded to have an eye exam. Seeing NSG for Syrinx. Discussed that this is not related to SLE. I do not recommend use of steroids. Will add in Meloxicam 15mg for discomfort. Avoid OTC NSAIDS. Check labs today. F/u scheduled. PLAN OF TREATMENT Medication Medication Name Sig Start Date Stop Date Notes Synthroid 75 mcg (0.075 mg) 1 tab(s) orally once a day hydroxychloroquine 200 mg 1 tab(s) orally 2 times a day Next Appt Details Follow Up: 4 Months Lexie, Reason: Progress Notes * Examination Category Sub-Category Detail Notes Category Not es Rheumatology Cervical Spine normal range of motion Lumbar spine: normal forward and l ateral bending Thoracic Spine: Right paraspinal [place] to palpation Sacroiliac: normal Fibromyalgia Tender Points: none General Constitutional: No acute distress HEENT: PERRLA, Neck supple, Normal sclerae and conjunctivae Abdomen: soft, no organomegal y or masses /Rectal: not done Skin: No cutaneous lesions . No subcutaneous nodules noted in the 4 extremities Neurological: No focal neurologica l findings Heme/Lymphatic: No cervical, axillar y, or inguinal adenopathy Psych: Alert, oriented x 3, Normal affect Musculoskeletal: Normal strength. No muscle atrophy Joint Exam Shoulders No swelling. No tenderness. NROM., No instability or deformity. Elbows No swelling. No tend erness. NROM., No instability or deformity. Wrists No swelling. No tend erness. NROM. MCP2 bilateral Fullness MCP3 bilateral fullness Hips No tenderness, NROM. , No instability or deformity. Knees bilateral, Crepitus with motion Ankles No swelling, no tend erness, NROM., No instability or deformity. All IPs No swelling, no tend erness, NROM, no deformity unless noted below. All MCPs No swelling, no tend erness, no deformity unless noted below. All DIPs No swelling, no tend erness, no deformity unless noted below. All MTPs bilateral, hallux va lgus deformity History and Physical Notes * HPI (History of Present Illness) Category Sub-Category Detail Notes Category Not es Rheumatology Alopecia Lupe returns today for follow up and treatment for SLE. No issues with HCQ but is due for an eye exam. Biggest issue is back pain. She has a syrinx that has grown a bit in size. 1.8 to 2.2mm. Seeing NSG and pain mgmnt. NSG mentioned low dose prednisone, but was worried about this with her SLE. Using IBU and alternating with Tylenol does help some. She is getting trigger point injections. She is using a heating pad and taking baclofen. Both help some. Using TENS machine. She denies any rashes, mouth sores, infections, raynauds, hair loss. Does see Dr. Burciaga for hx of episcleritis- has been quiet. Chest pain Discoloration of fingers Dryness Fatigue Fevers Joint pain bilateral Joint stiffness bilateral, 2-4 hours Joint swelling Morning stiffness 30 - 60 minute Muscle ache/pain Thoracic Oral sores nasal sores also Photosensitivity Previous DMARDS Plaquenil Previous NSAIDS/Aceto Aleve, Celebrex an d Voltaren. Previous surgery Bilateral Carpal nelida nayeli Rash Raynauds phenomena Psoriasis Back pain Crohn's or Ulcerative colitis tattoos family history of rheumatic disease Sist er has Lupus Gout shortness of breath carpal tunnel
--- OUTSIDE RECORDS SUMMARY | 2025-04-01 18:04 | XMS_ITS | Encounter Summary ---
Author Organization [facility] Address [address] [place] [address] Care Team Providers Care Endoscope Technician Name Role Phone Armando Johnson MD Primary Care Provider [phone] Encounter Details Date Type Department Care Team (Late Contact Info) Description 07/03/2000 Outpatient Historical [facility] Tenzin Cheung MD [address] [facility] [address] [place] [address] Sprain of lumbar region (Primary Dx) Social History Tobacco Use Types Packs/Day Years Used Date Smoking Tobacco: Never Assessed Comments Unknown Sex and Gender Information Value Date Recorded Sex Assigned at Not on file Legal Sex Female 4:42 AM AIRCRAFT SEAT UPHOLSTERER Gender Identity Not on file Sexual Orientation Not on file documented as of this encounter Plan of Treatment Upcoming Encounters Date Type Department Care Team (Late Contact Info) Description 08/10/2025 2:15 PM AIRCRAFT SEAT UPHOLSTERER Office Visit [facility] Rheumatology Enrique Sparks [address] [place] [address] Ruddy Sán[place] [address] [place] [address] documented as of this encounter Visit Diagnoses Diagnosis Sprain of lumbar region- Primary documented in this encounter Care Teams Endoscope Technician Relationship Specialty Start Date End Date Armando Johnson MD [address] [place] [id number] PCP - General Internal Medicine 11/13/22 documented as of this encounter
--- OUTSIDE RECORDS SUMMARY | 2025-04-01 18:04 | XMS_ITS | Patient Health Record ---
Author Organization [facility] Address [address] [place] [address] Support Name Relationship Address Phone Lupe Castaneda Guarantor Unknown Allergies No Known Allergies Reason For Referral No Information Medications Medication SIG (Take, Route, Fr equency, Duration) Notes Start Date End Date Status Singulair 10 MG Oral Acti ve Synthroid 50 MCG Oral Act hipolito Omeprazole 20 MG Oral Act hipolito Tish Allergy 180 MG Oral Active Problems Problem Type SNOMED Code ICD Code Onset Dates Problem Status W/U Status Risk Notes Problem Hypothyroidism (15094412) Hypothyroidism, unspecified (E03.9) Active confirmed Plan Of Treatment No Information Insurance Providers Payer Name Payer Address Payer Phone Subscriber Number Group Number Insured Name Patient Relationship to Insured Coverage Start Date Coverage End Date DO NOT USE [id number] Lupe Crawford Self - patient is the insured 5 DO NOT USE 0 Lupe Crawford Self - patient is the insured Medical (General) History Surgical History Surgery Date(Month/Year) Gallbladder Removed; 2015-03-10 tarsal tunnel release; 2015-03-10 Hysterectomy; 2015-03-10
--- OUTSIDE RECORDS SUMMARY | 2025-04-01 18:04 | XMS_ITS | Encounter Summary ---
Author Organization [facility] Address [address] [place] [address] Care Team Providers Care Morgue Keeper Name Role Phone Armando Johnson MD Primary Care Provider [phone] Reason for Visit * Reason Comments Provider Call Encounter Details Date Type Department Care Team (Late st Contact Info) Description 10/29/2024 Telephone [facility] Internal Medicine Medical [facility] [address] [address] Armando Johnson MD [address] [place] [address] Provider Call Social History Tobacco Use Types Packs/Day Years Used Date Smoking Tobacco: Never Smokeless Tobacco: Never Alcohol Use Standard Drinks/Week Comments Yes 0 (1 standard drink = 0.6 oz pur e alcohol) Comments No Sex and Gender Information Value Date Recorded Sex Assigned at Not on file Legal Sex Female 4:42 AM EDUCATION DIAGNOSTICIAN Gender Identity Not on file Sexual Orientation Not on file 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 ATION DIAGNOSTICIAN * Telephone Encounter - Juan Wellington - 10/29/2024 1:40 PM CST Copied from [facility] #[id number]. Topic: [id number] Call >> Oct 29, 2024 1:38 PM Juan Umana wrote: Caller is requesting to speak with Clinical Care Team. Caller Name: [facility] Callback Number: [phone] Clinician Type: Other healthcare professional not listed above Call Notes: Denial letter faxed already. Would Armando Johnson MD do a peer to peer to get denial appealed? Please advise. Is this addressing an immediate patient care need? No ATION DIAGNOSTICIAN documented in this encounter Plan of Treatment Upcoming Encounters Date Type Department Care Team (Late st Contact Info) Description 08/10/2025 2:15 PM EDUCATION DIAGNOSTICIAN Office Visit [facility] Rheumatology [address] [place] [address] Ruddy Sán[place] [address] [place] [address] [address] documented as of this encounter Visit Diagnoses Not on filedocumented in this encounter Care Teams Morgue Keeper Relationship Specialty Start Date End Date Armando Johnson MD [address] [place] [id number] PCP - General Internal Medicine 11/13/22 documented as of this encounter
--- OUTSIDE RECORDS SUMMARY | 2025-04-01 18:04 | XMS_ITS | Clinical Summary ---
Author Organization [facility] Address [address] [place] [address] Phone Care Team Providers Care Senior Cost Analyst Name Role Phone Armando Johnson MD Primary Care Provider [phone] Allergies Active Allergy Reactions Criticality Noted Date Comments Doxycycline Nausea and Vomiting Low 01/03/2015 Tramadol Nausea and Vomiting Low 01/08/2020 Medications cholecalciferol, vitamin D3, 1,000 unit Take 2 Tablets (2,000 Units) by mouth daily. 04/14/20 20 Active hydrOXYchloroQUIN E (PLAQUENIL) 200 mg tabletIndications :Systemic involvement of connective tissue, unspecified Take 1 Tablet (200 mg) by mouth 2 times daily. 180 Tablet 1 09/21/19 21 Active Additional Information Patient not taking.Reported on 03/11/2025 prednisoLONE acetate (PRED FORTE) 1 % suspensionIndicat ions:Episcleritis of right eye Administer 1 Drop in right eye 3 times daily. 5 mL 1 03/02/20 21 Active Additional Information Patient not taking.Reported on 03/11/2025 lidocaine (LIDODERM) 5 % Adhesive Patch, Medicated Apply 1 Patch to affected area every 24 hours. 10 Patch 1 07/26/20 22 Active Additional Information Patient not taking.Reported on 12/08/2024 acetaminophen ER 650 mg tablet,extended release Take 650 mg by mouth every 6 hours as needed for Pain. Active ibuprofen 200 mg tablet Take 800 mg by mouth every 6 hours as needed for Pain, Mild. Active cannabidiol, CBD, product, for documentation purposes, Apply to affected area. Active baclofen (LIORESAL) 10 mg tablet Take 5 mg by mouth 2 times daily. Active Saccharomyces boulardii (FLORASTOR) 250 mg Capsule Take by mouth. Acti ve amLODIPine (Norvasc) 2.5 mg tablet Take 1 Tablet (2.5 mg) by mouth daily. 100 Tablet 3 03/11/20 25 Active levothyroxine 112 mcg tablet Take 1 Tablet (112 mcg) by mouth daily. 100 Tablet 3 03/11/20 25 Active levothyroxine 112 mcg tablet Take 1 Tablet (112 mcg) by mouth daily. 90 Tablet 3 01/09/20 025 Discontin ued(Reord er) amLODIPine (Norvasc) 2.5 mg tablet Take 1 Tablet (2.5 mg) by mouth daily. 100 Tablet 3 02/18/20 025 Discontin ued(Reord er) Active Problems Problem Noted Date Diagnosed Date HTN (hypertension), benign 03/12/2025 Other forms of systemic lupu s erythematosus (CMS/HCC) -sees rheumatology 10/22/2024 Severe obesity (BMI 35.0-39.9) with comorbidity 10/22/2024 Elevated blood pressure read ing without diagnosis of hypertension 08/19/2023 Obesity (BMI 35.0-39.9 without comorbidity) 12/2022 Osteopenia of multiple sites 01/27/2023 Hemangioma of vertebral body 11/15/2022 Syrinx of spinal cord 11/15/2022 Meron's thyroiditis 08/28/2022 Positive antinuclear antibody 08/28/2022 Polyarthritis 08/28/2022 Myalgia 08/28/2022 Idiopathic osteoarthritis 08/28/2022 Elevated d-dimer 07/20/2022 Elevated hemidiaphragm 07/20/2022 Thoracic kyphosis 07/20/2022 DDD (degenerative disc disease), cervical 2021 DDD (degenerative disc disea se), thoracic - as per CT scan chest 07/20/2022 Closed nondisplaced fracture of lateral condyle of left femur 05/08/2021 Flank pain 05/08/2021 Hair loss 10/15/2019 Chronic eczematous otitis externa of left ear Hearing loss, right 12/22/2018 Overview (12/22/2018): From trauma Thyroid nodule - advised follow-up with ENT 11/14 Connective tissue disease -a dvised follow-up with rheumatology 11/08/2017 Tarsal tunnel syndrome - S/P release 11/08/2017 S/P carpal tunnel release 09/02/2015 Hypothyroidism 09/02/2015 DOUG (generalized anxiety disorder) 03/20/2011 S/p robotic hysterectomy, 09/2209/22/2010 FHx: breast cancer in first degree relative 09/16 Allergic rhinitis 09/30/2008 GERD (gastroesophageal reflux disease) - on Rxc PRN 09/30/2008 Thoracic back pain 04/17/2005 Hyperlipidemia 09/05/2004 Resolved Problems Problem Noted Date Diagnosed Date Resolved Date Dyspnea 07/20/2022 10/19/2022 Pain of right scapula 07/20/20222022 Obesity (BMI 30.0-34.9) 07/19/2022 02/0 02/2025 Rib pain 07/19/2022 10/19/2022 Dandruff 10/15/2019 10/31/2022 Thyroid fullness 11/24/2018 10/15/2019 Hyperkalemia 11/24/2018 10/15/2019 Tendonitis 09/02/2015 10/20/2015 Cellulitis of wrist 09/02/2015 10/20/19 16 Hand pain, right 02/03/2015 10/20/2015 Hand weakness 02/03/2015 10/20/2015 Dizziness 03/27/2012 10/20/2015 Anxiety state 09/30/2008 10/09/2016 Routine general medical exam ination at a health care facility 09/30/2008 10/20/2015 Unspecified hypothyroidism 05/14/2006 0 10/20/2015 Encounters Date Type Department Care Team Description 03/30/2025 External Device Data STL ABSTRACTION Provider, Abstract 03/11/2025 3:30 PM CDT Office Visit [facility] Internal Medicine Medical [facility] [address] [address] Armando Johnson MD Obesity (BMI 35.0-39.9 without comorbidity) (Primary Dx); Severe obesity (BMI 35.0-39.9) with comorbidity (CMS/HCC); Hyperlipidemia, unspecified hyperlipidemia type; HTN (hypertension), benign; Hypothyroidism, unspecified type; Well woman exam with routine gynecological exam; Screening for colon cancer 02/17/2025 Refill [facility] Internal Medicine Medical [facility] [address] [address] Armando Johnson MD 02/11/2025 Results Follow-Up [facility] [address] [facility] [address] [place] [address] Ruddy Sánchez MD COMPLEMENT C3/C4 PANEL, DNA AUTOABS DOUBLE STRANDED, CBC WITH DIFFERENTIAL, Additional followed-up results: 2 02/10/2025 3:15 PM CDT Office Visit [facility] [address] [address] [place] [address] Armando Johnson MD Hendin, Joshua O, MD Systemic lupus erythematosus, unspecified SLE type, unspecified organ involvement status (CMS/[facility]) (Primary Dx); Syrinx [facility] spinal cord ([facility]) 02/03/2025 External Device Data STL ABSTRACTION Provider, Abstract 02/02/2025 External Device Data STL ABSTRACTION Provider, Abstract 01/06/2025 2:07 PM CDT - 01/06/2025 11:59 PM CDT Hospital Encounter [address] [facility] [address] [place] [id number] Mike Eugene MD Discharge Disposition: Home or Self Care from Last 3 Months Immunizations Immunization Administration Dates Next Due (ADACEL/BOOSTRIX)(10 YR UP) TDAP VACCINE, 0.5ML, IM 01/02/2008 (PFIZER)(12 YR UP) COVID-19 VACCINE - EMERGENCY USE AUTHORIZATION, MRNA, [id number](PF) 30 MCG/0.3 ML IM SUSP 04/29/2021 (TENIVAC)(7 YRS UP) TETANUS AND DIPHTHERIA TOXOIDS, ADSORBED (5 LF OF TETANUS TOXOID AND 2 LF OF DIPHTHERIA TOXOID), 0.5ML (PF), IM 11/24/2018 INFLUENZA VACCINE QUADRIVALE NT 6 MOS UP IM 07/14/2021 INFLUENZA VACCINE QUADRIVALE NT 6 MOS UP PF IM 06/27/2023 INFLUENZA VACCINE TRIVALENT MDCK, (6 MOS UP), 0.5ML (PF), IM 06/16/2024 Influenza Seasonal Unspecifi ed Formulation IM 06/16/2019,06/11/2019,07/10/2018,2016,06/16/2013,06/16/2012,06/13/2012,1 ,07/13/2010 Influenza Vaccine Quad Split 3+ Yrs Im 07/05/2016,06/22/2014 Influenza Vaccine Split 3+ Yrs IM 07/04/2015 Family History Medical History Relation Name Comments Blood Clots Father Diabetes Father Heart Attack Father Heart Disease Father Cataract Mother Toshia Sparuperto Diabetes Mother Toshia Sparuperto Hypertension Mother Toshia Sparuperto Lung Cancer Mother Toshia Vasquez Smoker Respiratory Disease Mother Toshia Vasquez Breast Cancer Sister 1 Karyna Kaba 38 a t 42 Thyroid Disease Sister 1 Karyna Kaba Colon Cancer Neg Hx Macular Degen Neg Hx Ovarian Cancer Neg Hx Relation Name Status Comments Father Alive Mother Toshia Vasquez Alive Sister 1 Karyna Kaba Alive Sister 2 Velma Larose Social History Tobacco Use Types Packs/Day Years Used Date Smoking Tobacco: Never Smokeless Tobacco: Never Tobacco Cessation:Counseling Given: Not Answered Alcohol Use Standard Drinks/Week Comments Yes 0 (1 standard drink = 0.6 oz pur e alcohol) Comments No Sex and Gender Information Value Date Recorded Sex Assigned at Not on file Legal Sex Female 4:42 AM SUPPLY TECH Gender Identity Not on file Sexual Orientation Not on file 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 Not on file Not on file Not on file Not on file Not on file Last Filed Vital Signs Vital Sign Reading Time Taken Comments Blood Pressure 118/70 03/11/2025 3:32 PM CDT Pulse 68 03/11/2025 3:32 PM CDT Temperature 36 C (96.8 F) 03/11/2025 3:32 PM CDT Respiratory Rate 16 03/11/2025 3:32 PM CDT Oxygen Saturation 97% 03/11/2025 3:32 PM CDT Inhaled Oxygen Concentration - - Weight 107.5 kg (237 lb) 03/11/2025 3:32 PM CDT Height 175.3 cm (5' 9) 03/11/2025 3:32 PM CDT Body Mass Index 35 03/11/2025 3:32 PM CDT Plan of Treatment Upcoming Encounters Date Type Department Care Team (Late st Contact Info) Description 08/10/2025 2:15 PM SUPPLY TECH Office Visit [facility] [place] [address] [place] [address] Ruddy Sán[place] [address] [place] [address] [address] Health Maintenance Due Date Last Done Comments ZOSTER VACCINE (1 of 2) 1983 FIT-DNA Q 3 years 2009 FIT/FOBT Q 1 year 2009 Flex Sig/CT Colonography Q 5 years 2009 COVID-19 Vaccine (2 - Pfizer risk series) 05/20/2021 04/29/2021 RSV VACCINE (60+ or ) (1 - Risk 60-74 years 1-dose series) 2024 INFLUENZA VACCINE (#1) 2025 , 06/16/2024, 06/27/2023, Additional history exists COLORECTAL SCREENING 08/15/2025 08/15/2015, 08/15/20 Colorectal Cancer Screening 08/15/2025 Preventative Visit- Commercial 10/12/2025 08/19/2023, 10/31/2022, 10/19/2022, Additional history exists Postponed from 09/16/2024 (Therapeutic Plan Prohibits) BREAST CANCER SCREENING 11/21/2025 11/22/19, 11/12/2022, 02/06/2019, Additional history exists Pre-Diabetes and Diabetes Screening 11/22/2027 11/21/2024, 05/08/2019, 05/08/2019, Additional history exists DTAP/TDAP/TD VACCINES (3 - Td or Tdap) 11/24/2028 11/24/2018, 01/02/2008 HEPATITIS B VACCINES Aged Out No long er eligible based on patient's age to complete this topic Procedures Procedure Name Priority Date/Time Associated Diagnosis Comments PROTEIN , RANDOM URINE Routine 4:30 PM CDT URINALYSIS DIPSTICK ONLY Routine 02/10/2025 4:30 PM CDT COMPREHENSIVE METABOLIC PANEL Routine 02/10/2025 4:30 PM CDT Systemic lupus erythematosus, unspecified SLE type, unspecified organ involvement status (CMS/HCC) CBC WITH DIFFERENTIAL Routine 02/10/2025 4:30 PM CDT Systemic lupus erythematosus, unspecified SLE type, unspecified organ involvement status (CMS/HCC) DNA AUTOABS DOUBLE STRANDED Routine 02/10/2025 4:30 PM CDT Systemic lupus erythematosus, unspecified SLE type, unspecified organ involvement status (CMS/HCC) COMPLEMENT C3/C4 PANEL Routine 4:30 PM CDT Systemic lupus erythematosus, unspecified SLE type, unspecified organ involvement status (CMS/HCC) US HEAD NECK TISSUES Routine 01/06/2025 2:38 PM CDT Nontoxic single thyroid nodule HEMOGLOBIN A1C Routine 11/21/2024 8:50 AM SUPPLY TECH Screening for diabetes mellitus MAMMO 3D ZEYENP SCREEN BILAT W OR WO CAD Routine 11/21/2024 8:27 AM SUPPLY TECH Encounter for mammogram to establish baseline mammogram from Last 3 Months or Most Recently Relevant to Health Maintenance Results * URINALYSIS DIPSTICK ONLY (02/10/2025 4:30 PM CDT) COLOR UA YELLOW YELLOW [facility] CLARITY UA CLEAR CLEAR [facility] SPECIFIC GRAVITY UA 1.014 1.001 - 1.035 [facility] PH UA 5.5 5.0 - 8.0 [facility] GLUCOSE UA NEGATIVE NEGATIVE [facility] BILIRUBIN UA NEGATIVE NEGATIVE [facility] KETONES UA NEGATIVE NEGATIVE [facility] BLOOD UA NEGATIVE NEGATIVE [facility] PROTEIN UA NEGATIVE NEGATIVE [facility] NITRITE UA NEGATIVE NEGATIVE [facility] LEUKOCYTE ESTERASE UA NEGATIVE NEGATIVE [facility] Comment: FASTING:NO FASTING: NO Test Performed at: [facility] [address] [place] [address] Dez Feliciano 02/10/2025 4:30 PM CDT 02/10/2025 4:31 PM CDT Ruddy Sánchez MD URINE ORDERABLES Final Result [facility] [phone] [place] [address] [place] [address] * COMPLEMENT C3/C4 PANEL (02/10/2025 4:30 PM CDT) Pathologist [facility] COMPLEMENT C3 165 83 - 193 mg/dL [facility] COMPLEMENT C4 37 15 - 57 mg/dL [facility] Comment: FASTING:NO FASTING: NO Test Performed at: [facility] [address] [place] [address] ZeinaMadeline Feliciano MD Blood 02/10/2025 4:30 PM CDT 02/10/2025 4:31 PM CDT Ruddy Sánchez MD CHEMISTRY ORDERABLES Final Re sult [facility] [phone] [facility] [address] [place] [address] * DNA AUTOABS DOUBLE STRANDED (02/10/2025 4:30 PM CDT) Pathologist [facility] DNA AUTOABS DOUBLE STRANDED 1 IU/mL [facility] Comment: IU/mL Interpretation < or = 4 Negative 5-9 Indeterminate > or = 10 Positive FASTING:NO FASTING: NO Test Performed at: [facility] [address] [place] [place] [address] ZeinaMadeline Feliciano MD Blood 02/10/2025 4:30 PM CDT 02/10/2025 4:31 PM CDT us Ruddy Sánchez MD CHEMISTRY ORDERABLES Final Re sult [facility] [phone] [facility] [address] [place] [address] * (ABNORMAL) CBC WITH DIFFERENTIAL (02/10/2025 4:30 PM CDT) Pathologist [facility] WBC 6.9 3.8 - 10.8 Thousand/ uL [facility] RBC 4.20 3.80 - 5.10 Million/u L [facility] HEMOGLOBIN 12.9 11.7 - 15.5 g/dL [facility] HEMATOCRIT 40.3 35.0 - 45.0 % [facility] MCV 96.0 80.0 - 100.0 fL [facility] MCH 30.7 27.0 - 33.0 pg [facility] MCHC 32.0 32.0 - 36.0 g/dL [facility] Comment: For adults, a slight decrease in the calculated MCHC value (in the range of 30 to 32 g/dL) is most likely not clinically significant; however, it should be interpreted with caution in correlation with other red cell parameters and the patient's clinical condition. RDW 12.4 11.0 - 15.0 % [facility] PLATELETS 186 140 - 400 Thousand/ uL [facility] MPV 12.6(H) 7.5 - 12.5 fL [facility] NEUTROPHIL ABSOLUTE 4,423 1,500 - 7,800 cells/uL [facility] LYMPHOCYTE ABSOLUTE 1,842 850 - 3,900 cells/uL [facility] MONOCYTE ABSOLUTE 524 200 - 950 cells/uL [facility] EOSINOPHIL ABSOLUTE 83 15 - 500 cells/uL [facility] BASOPHILS ABSOLUTE 28 0 - 200 cells/uL [facility] NEUTROPHIL 64.1 % [facility] LYMPHOCYTES 26.7 % [facility] MONOCYTE 7.6 % [facility] EOSINOPHILS 1.2 % [facility] BASOPHILS 0.4 % [facility] Comment: FASTING:NO FASTING: NO Test Performed at: [facility] [address] [place] [address] [facility] Blood 02/10/2025 4:30 PM CDT 02/10/2025 4:31 PM CDT Ruddy Sánchez MD HEMATOLOGY ORDERABLES Final R esult Performing Organization Address [facility] Code Phone Number [facility] [phone] [facility] [address] [place] [address] * (ABNORMAL) PROTEIN , RANDOM URINE (02/10/2025 4:30 PM CDT) CREATININE, URINE 76 20 - 275 mg/dL [facility] PROTEIN/CREATININE RATIO, URINE 53 24 - 184 mg/g creat [facility] PROTEIN/CREATININE RATIO, URINE 0.053 0.024 - 0.184 mg/mg creat [facility] PROTEIN TOTAL, URINE 4(L) 5 - 24 mg/dL [facility] Comment: FASTING:NO FASTING: NO Test Performed at: [facility] [address] [place] [address] [facility] 02/10/2025 4:30 PM CDT 02/10/2025 4:31 PM CDT Ruddy Sánchez MD URINE ORDERABLES Final Result Performing Organization Address [facility] Code Phone Number [facility] [phone] [facility] [place] [address] [place] [address] * COMPREHENSIVE METABOLIC PANEL (02/10/2025 4:30 PM CDT) GLUCOSE 84 65 - 99 mg/dL [facility] Comment: Specimen hemolyzed. The test(s) ordered were performed. Hemolysis has been known to affect the results of the following analytes: potassium, glucose, inorganic phosphorus, lactate dehydrogenase and iron. Fasting reference interval BUN 17 7 - 25 mg/dL [facility] CREATININE 0.91 0.50 - 1.05 mg/dL [facility] GFR 72 > OR = 60 mL/min/1. 73m2 [facility] BUN/CREAT RATIO SEE NOTE: 6 - 22 (calc) [facility] Comment: Not Reported: BUN and Creatinine are within reference range. SODIUM 136 135 - 146 mmol/L [facility] POTASSIUM 4.7 3.5 - 5.3 mmol/L [facility] CHLORIDE 100 98 - 110 mmol/L [facility] CO2 27 20 - 32 mmol/L [facility] CALCIUM 10.3 8.6 - 10.4 mg/dL [facility] TOTAL PROTEIN 7.7 6.1 - 8.1 g/dL [facility] ALBUMIN 4.9 3.6 - 5.1 g/dL [facility] GLOBULIN 2.8 1.9 - 3.7 g/dL (calc) [facility] ALBUMIN/GLOBULIN RATIO 1.8 1.0 - 2.5 (calc) [facility] BILIRUBIN TOTAL 0.4 0.2 - 1.2 mg/dL [facility] ALKALINE PHOSPHATASE 89 37 - 153 U/L [facility] AST 28 10 - 35 U/L [facility] ALT 25 6 - 29 U/L [facility] Comment: Test Performed at: [facility] [place] [address] [place] [address] [facility] Blood 02/10/2025 4:30 PM CDT 02/10/2025 4:31 PM CDT us Ruddy Sánchez MD CHEMISTRY ORDERABLES Final Re sult [facility] [phone] [facility] [place] [address] [place] [address] * US HEAD NECK TISSUES (01/06/2025 2:38 PM CDT) Anatomical Region Laterality Modality Head Ultrasound 01/06/2025 2:39 PM CDT Impressions 01/06/2025 5:01 PM CDT IMPRESSION: 1. Stable bilateral TI-RADS 3 and TI-RADS 4 nodules for which continued follow-up is recommended. DICTATION LOCATION: Location 1 - [facility] ACR 2017 TI-RADS Recommendations Narrative 01/06/2025 5:01 PM CDT US HEAD NECK TISSUES DATE: 01/06/2025 2:38 PM HISTORY: 59-year-old female with thyroid nodule TECHNIQUE: Thyroid ultrasound performed by an research technologist in multiple projections. COMPARISON: Ultrasound 12/10/2023 FINDINGS: Right lobe measures 5.3 x 2 x 2.7 cm (CC x AP x TRV). Left lobe measures 4.1 x 1.1 x 1.3 cm (CC x AP x TRV). Isthmus measures 0.4 cm (AP). The right lobe is enlarged. No lymphadenopathy in the adjacent neck. NODULE 1: Stable Right lobe mid pole measures 2.2 x 1.3 x 2 cm (CC x AP x TRV). Composition: Mixed cystic and solid - 1 point Echogenicity: Hypoechoic: 2 points Shape: Wider than tall: 0 points Margin: Smooth: 0 points Echogenic foci: None: 0 points Total points: 3 ACR TI-RADS risk category: TR3: 3 points - Mildly suspicious If nodule greater than or equal to 1.5 cm - followup. If nodule greater than or equal to 2.5 cm - FNA - Followup: 1, 3 and 5 years NODULE 2: Stable Right lobe inferior pole measures 2.2 x 1.6 x 2.2 cm (CC x AP x TRV). Composition: Solid or almost completely solid - 2 points Echogenicity: Hyper- or isoechoic: 1 point Shape: Wider than tall: 0 points Margin: Smooth: 0 points Echogenic foci: None: 0 points Total points: 3 ACR TI-RADS risk category: TR3: 3 points - Mildly suspicious If nodule is greater than or equal to 1.5 cm - followup If nodule is greater than or equal to 2.5 cm - FNA. - Followup: 1, 3 and 5 years NODULE 3: Left lobe superior to mid pole measures 0.9 x 0.5 x 1 cm (CC x AP x TRV). Composition: Solid or almost completely solid - 2 points Echogenicity: Hypoechoic: 2 points Shape: Wider than tall: 0 points Margin: Smooth: 0 points Echogenic foci: None: 0 points Total points: 4 ACR TI-RADS risk category: TR4: 4-6 points - Moderately suspicious If nodule is greater than or equal to 1 cm -followup. If nodule is greater than or equal to 1.5 cm - FNA. - Followup: 1, 2, 3 and 5 years Procedure Note Edmar Mckeon MD - 01/06/2025 US HEAD NECK TISSUES DATE: 01/06/2025 2:38 PM HISTORY: 59-year-old female with thyroid nodule TECHNIQUE: Thyroid ultrasound performed by an research technologist in multiple projections. COMPARISON: Ultrasound 12/10/2023 FINDINGS: Right lobe measures 5.3 x 2 x 2.7 cm (CC x AP x TRV). Left lobe measures 4.1 x 1.1 x 1.3 cm (CC x AP x TRV). Isthmus measures 0.4 cm (AP). The right lobe is enlarged. No lymphadenopathy in the adjacent neck. NODULE 1: Stable Right lobe mid pole measures 2.2 x 1.3 x 2 cm (CC x AP x TRV). Composition: Mixed cystic and solid - 1 point Echogenicity: Hypoechoic: 2 points Shape: Wider than tall: 0 points Margin: Smooth: 0 points Echogenic foci: None: 0 points Total points: 3 ACR TI-RADS risk category: TR3: 3 points - Mildly suspicious If nodule greater than or equal to 1.5 cm - followup. If nodule greater than or equal to 2.5 cm - FNA - Followup: 1, 3 and 5 years NODULE 2: Stable Right lobe inferior pole measures 2.2 x 1.6 x 2.2 cm (CC x AP x TRV). Composition: Solid or almost completely solid - 2 points Echogenicity: Hyper- or isoechoic: 1 point Shape: Wider than tall: 0 points Margin: Smooth: 0 points Echogenic foci: None: 0 points Total points: 3 ACR TI-RADS risk category: TR3: 3 points - Mildly suspicious If nodule is greater than or equal to 1.5 cm - followup If nodule is greater than or equal to 2.5 cm - FNA. - Followup: 1, 3 and 5 years NODULE 3: Left lobe superior to mid pole measures 0.9 x 0.5 x 1 cm (CC x AP x TRV). Composition: Solid or almost completely solid - 2 points Echogenicity: Hypoechoic: 2 points Shape: Wider than tall: 0 points Margin: Smooth: 0 points Echogenic foci: None: 0 points Total points: 4 ACR TI-RADS risk category: TR4: 4-6 points - Moderately suspicious If nodule is greater than or equal to 1 cm -followup. If nodule is greater than or equal to 1.5 cm - FNA. - Followup: 1, 2, 3 and 5 years IMPRESSION: 1. Stable bilateral TI-RADS 3 and TI-RADS 4 nodules for which continued follow-up is recommended. DICTATION LOCATION: Location 1 - [facility] ACR 2017 TI-RADS Recommendations Mike Eugene MD ORDERABLES Final Result * HEMOGLOBIN A1C (11/21/2024 8:50 AM SUPPLY TECH) HEMOGLOBIN A1C 5.6 <5.7 % of total Hgb [facility] Comment: For the purpose of screening for the presence of diabetes: <5.7% Consistent with the absence of diabetes 5.7-6.4% Consistent with increased risk for diabetes (prediabetes) > or =6.5% Consistent with diabetes This assay result is consistent with a decreased risk of diabetes. Currently, no consensus exists regarding use of hemoglobin A1c for diagnosis of diabetes in children. According to [place] Diabetes Association (ADA) guidelines, hemoglobin A1c <7.0% represents optimal control in non- diabetic patients. Different metrics may apply to specific patient populations. Standards of Medical Care in Diabetes(ADA). ESTIMATED AVERAGE GLUCOSE (MG/DL) 114 mg/dL [facility] ESTIMATED AVERAGE GLUCOSE (MMOL/L) 6.3 mmol/L [facility] Comment: FASTING:YES FASTING: YES Test Performed at: [facility] [address] [place] [address] Dez Morse Vo Blood 11/21/2024 8:50 AM SUPPLY TECH 11/21/2024 8:53 AM SUPPLY TECH Farida Pastor NP CHEMISTRY ORDERABLE S Final Result [facility] [phone] [facility] [address] [place] [address] * MAMMO 3D ZEYNEP SCREEN BILAT W OR WO CAD (11/21/2024 8:27 AM SUPPLY TECH) Anatomical Region Laterality Modality Breast Bilateral Mammography 11/21/2024 8:27 AM SUPPLY TECH Impressions 11/21/2024 1:55 PM SUPPLY TECH IMPRESSION: No mammographic evidence of malignancy in the bilateral breasts. Routine screening mammography is recommended in one year. OVERALL FINAL ASSESSMENT: BI-RADS CATEGORY 1 - Negative DICTATION LOCATION: [facility] Narrative 11/21/2024 1:55 PM SUPPLY TECH EXAMINATION: BILATERAL SCREENING DIGITAL MAMMOGRAPHY WITH TOMOSYNTHESIS AND CAD DATE: 11/21/2024 8:27 AM HISTORY: Routine screening mammography. COMPARISON: Mammography with dates ranging from 11/12/2022 to 08/12/2013. TECHNIQUE: A bilateral screening mammogram was performed. Low-dose full-field digital breast tomosynthesis examination was performed with 2D and 3D acquisitions. Examination is read in conjunction with computer aided detection. BREAST COMPOSITION: There are scattered areas of fibroglandular density. FINDINGS: There are no suspicious masses, suspicious calcifications, or other suspicious findings in either breast. There has been no suspicious interval change. Computer aided detection was used in the interpretation of this examination. Armando Johnson MD MAMMO ORDERABLES Final Result from Last 3 Months or Most Recently Relevant to Health Maintenance Insurance [facility] [id number] [employer] Commercial RX [employer] RX Member Subscriber Plan / Payer (Ef fective 2020-Present) Name:Longoria, Lupe Ribera Relation to Subscriber:Self Name:Longoria, Lupe Ribera Subscriber ID:Not on file Payer ID:Not on file Group ID:[id number] Type:RX Commercial Address: [place] [employer] [id number] Advance Directives For more information, please contact: [phone] * Full Code (Latest Code Status on File) Date Activated Date Inactivated Comments 09/02/2015 10:50 PM 09/03/2015 6:20 PM * Full Code Date Activated Date Inactivated Comments 08/15/2015 10:37 AM 08/15/2015 2:26 PM * Full Code Date Activated Date Inactivated Comments 09/22/2010 9:50 AM 09/23/2010 3:06 PM * Full Code Date Activated Date Inactivated Comments 09/22/2010 5:34 AM 09/22/2010 9:50 AM Care Teams Senior Cost Analyst Relationship Specialty Start Date End Date Armando Johnson MD [address] [facility] [address] [place] [address] PCP - General Internal Medicine 11/13/22
--- OUTSIDE RECORDS SUMMARY | 2025-04-01 18:04 | XMS_ITS | Encounter Summary ---
Author Organization [facility] Address [address] [place] [address] Care Team Providers Care Optometry Doctor Name Role Phone Armando Johnson MD Primary Care Provider [phone] Encounter Details Date Type Department Care Team (Late st Contact Info) Description 08/02/2000 Outpatient Historical [facility] Marylu Mckeon MD [address] [place] [address] Social History Tobacco Use Types Packs/Day Years Used Date Smoking Tobacco: Never Assessed Comments Unknown Sex and Gender Information Value Date Recorded Sex Assigned at Not on file Legal Sex Female 4:42 AM WARDROBE ASSISTANT Gender Identity Not on file Sexual Orientation Not on file documented as of this encounter Plan of Treatment Upcoming Encounters Date Type Department Care Team (Late st Contact Info) Description 08/10/2025 2:15 PM WARDROBE ASSISTANT Office Visit [facility] Rheumatology [place] [address] [place] [address] Ruddy Sánchez [place] [address] [place] [address] documented as of this encounter Visit Diagnoses Not on filedocumented in this encounter Care Teams Optometry Doctor Relationship Specialty Start Date End Date Armando Johnson MD [address] [place] [address] PCP - General Internal Medicine 11/13/22 documented as of this encounter
--- OUTSIDE RECORDS SUMMARY | 2025-04-01 18:04 | XMS_ITS | Encounter Summary ---
Author Organization [facility] Address [address] [place] [address] Care Team Providers Care Financial Aid Advisor Name Role Phone Armando Johnson MD Primary Care Provider [phone] Encounter Details Date Type Department Care Team (Late st Contact Info) Description 08/18/2000 Outpatient Historical [facility] Melba Hahn MD [address] [place] [address] [place] [address] Social History Tobacco Use Types Packs/Day Years Used Date Smoking Tobacco: Never Assessed Comments Unknown Sex and Gender Information Value Date Recorded Sex Assigned at Not on file Legal Sex Female 4:42 AM HAY CHOPPER Gender Identity Not on file Sexual Orientation Not on file documented as of this encounter Plan of Treatment Upcoming Encounters Date Type Department Care Team (Late st Contact Info) Description 08/10/2025 2:15 PM HAY CHOPPER Office Visit [facility] Rheumatology [place] [address] [place] [address] Ruddy Sánchez [place] [address] [place] [address] documented as of this encounter Visit Diagnoses Not on filedocumented in this encounter Care Teams Financial Aid Advisor Relationship Specialty Start Date End Date Armando Johnson MD [address] [place] [address] PCP - General Internal Medicine 11/13/22 documented as of this encounter
--- OUTSIDE RECORDS SUMMARY | 2025-04-01 18:04 | XMS_ITS | Encounter Summary ---
Author Organization [facility] Address [address] [place] [address] Care Team Providers Care Back Stayer Name Role Phone Armando Johnson MD Primary Care Provider [phone] Encounter Details Date Type Department Care Team (Late st Contact Info) Description 11/18/2000 Emergency [facility] Jhon Paulino MD NO ADDRESS ON FILE Er, Authorized P NO ADDRESS ON FILE Other malaise and fatigue (Primary Dx) Social History Tobacco Use Types Packs/Day Years Used Date Smoking Tobacco: Never Assessed Comments Unknown Sex and Gender Information Value Date Recorded Sex Assigned at Not on file Legal Sex Female 4:42 AM PRINTING 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 TAPE RULES Gender Identity Not on file Sexual Orientation Not on file documented as of this encounter Plan of Treatment Upcoming Encounters Date Type Department Care Team (Late st Contact Info) Description 08/10/2025 2:15 PM PRINTING 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 TAPE RULES Office Visit [facility] Rheumatology [place] [address] [place] [address] Ruddy Sánchez [place] [address] [place] [address] documented as of this encounter Visit Diagnoses Diagnosis Other malaise and fatigue- Primary documented in this encounter Care Teams Back Stayer Relationship Specialty Start Date End Date Armando Johnson MD [address] [place] [address] PCP - General Internal Medicine 11/13/22 documented as of this encounter
--- OUTSIDE RECORDS SUMMARY | 2025-04-01 18:04 | XMS_ITS | Clinical Summary ---
Author Organization [facility] [address] Address [address] [place] [address] Care Team Providers Care Vp Informatics Name Role Phone Unknown, Notinfile Primary Care Provider Unavail able Allergies Active Allergy Reactions Criticality Noted Date Comments Dicyclomine Unknown 09/21/2020 Doxycycline Nausea And Vomiting Low 01/03/2015 Tramadol Nausea And Vomiting Low 01/08/2020 Medications baclofen (LIORESAL) 10 mg tablet Take 10 mg by mouth 3 (three) times a day as needed for pain 2 Active celecoxib (CeleBREX) 200 mg capsule daily Active cholecalciferol (VITAMIN D-3) 25 mcg (1,000 unit) tablet Take 2,000 Units by mouth daily 0 Active erythromycin (ILOTYCIN) ophthalmic ointment 0.25 inches nightly as needed 1 Active levothyroxine (SYNTHROID) 112 mcg tablet TAKE 1 TABLET BY MOUTH ONCE DAILY . APPOINTMENT REQUIRED FOR FUTURE REFILLS 2 Active hydrOXYchloroQU INE (PLAQUENIL) 200 mg tablet every 12 hours 1 Active levothyroxine (SYNTHROID) 75 mcg tablet daily Active levothyroxine (SYNTHROID) 112 mcg tablet TAKE 1 TABLET BY MOUTH ONCE DAILY. 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 08/28/2022 Myalgia 08/28/2022 Polyarthritis 08/28/2022 Positive antinuclear antibody 08/28/2022 DDD (degenerative disc disease), thoracic 2021 Dyspnea 07/20/2022 Elevated d-dimer 07/20/2022 Elevated hemidiaphragm 07/20/2022 Pain of right scapula 07/20/2022 Thoracic kyphosis 07/20/2022 Obesity (BMI 30.0-34.9) 07/19/2022 Rib pain 07/19/2022 Closed nondisplaced fracture of lateral condyle of left femur 05/08/2021 Flank pain 05/08/2021 Dandruff 10/15/2019 Hair loss 10/15/2019 Chronic eczematous otitis externa of left ear Hearing loss, right 12/22/2018 Overview (08/28/2022): From trauma Thyroid nodule 12/02/2018 Systemic lupus erythematosus 11/08/2017 Tarsal tunnel syndrome 11/08/2017 Hypothyroidism (acquired) 09/02/2015 DOUG (generalized anxiety disorder) 03/20/2011 S/P hysterectomy 09/22/2010 Allergic rhinitis 09/30/2008 GERD (gastroesophageal reflux disease) 9 Thoracic back pain 04/17/2005 Hyperlipidemia 09/05/2004 Social History Tobacco Use Types Packs/Day Years Used Date Smoking Tobacco: Never Assessed Comments Unknown Sex and Gender Information Value Date Recorded Sex Assigned at Not on file Legal Sex Female 6:25 PM CHIEF OF SAFETY AND PROTECTION Gender Identity Not on file Sexual Orientation Not on file Obstetrics History Last Filed Vital Signs Vital Sign Reading Time Taken Comments Blood Pressure 126/76 08/28/2022 10:20 AM CHIEF OF SAFETY AND PROTECTION Pulse 77 08/28/2022 10:20 AM CHIEF OF SAFETY AND PROTECTION Temperature 37.2 C (99 F) 08/28/2022 10:20 AM CHIEF OF SAFETY AND PROTECTION Respiratory Rate 18 08/28/2022 10:20 AM CHIEF OF SAFETY AND PROTECTION Oxygen Saturation 98% 08/28/2022 10:20 AM CHIEF OF SAFETY AND PROTECTION Inhaled Oxygen Concentration - - Weight 105.7 kg (233 lb) 08/28/2022 10:20 AM CHIEF OF SAFETY AND PROTECTION Height 175.3 cm (5' 9) 08/28/2022 10:20 AM CHIEF OF SAFETY AND PROTECTION Body Mass Index 34.41 08/28/2022 10:20 AM CHIEF OF SAFETY AND PROTECTION Plan of Treatment Health Maintenance Due Date Last Done Comments Breast Cancer Screening-Mammogram 1964 Cervical Cancer Screening 1964 Colon Cancer Screening-Colonoscopy 1964 Depression Screening 1964 Hepatitis C Screening 1964 Hepatitis B Screening 1982 Regular Well Visit/Exam 18-64 1982 Pneumococcal vaccine <65 (1 of 2 - PCV) 1983 Zoster Vaccine (1 of 2) 1983 Covid-19 Vaccine (3 - Pfizer risk series) 06/17/2021 05/20/2021, 04/29/2021 Influenza Vaccine (Season Ended) 2025 07/14/2021, 07/04/2020, 06/16/2019, Additional history exists DTaP/Tdap/Td Vaccine (3 - Td or Tdap) 11/24/2028 11/24/2018, 01/02/2008 Insurance [facility] CHO[facility] PL[facility] Care Teams Vp Informatics Relationship Specialty Start Date End Date Unknown, Notinfile PCP - General 08/28/22
--- OUTSIDE RECORDS SUMMARY | 2025-04-01 18:04 | XMS_ITS | Encounter Summary ---
Author Organization [facility] Address [address] [place] [address] Care Team Providers Care Restaurant Hourly Manager Name Role Phone Armando Johnson MD Primary Care Provider [phone] Encounter Details Date Type Department Care Team (Latest Contact Info) Description 07/17/2000 Outpatient Historical [facility] [place] [place]ba Hahn [place] [id number] [place] [address] [place] [address] Lumbago (Primary Dx) Social History Tobacco Use Types Packs/Day Years Used Date Smoking Tobacco: Never Assessed Comments Unknown Sex and Gender Information Value Date Recorded Sex Assigned at Not on file Legal Sex Female 4:42 AM SUPERVISOR GROVE Gender Identity Not on file Sexual Orientation Not on file documented as of this encounter Plan of Treatment Upcoming Encounters Date Type Department Care Team (Late st Contact Info) Description 08/10/2025 2:15 PM SUPERVISOR GROVE Office Visit [facility] Rheumatology [place] [address] [place] [address] Ruddy Sánchez [place] [address] [place] [address] documented as of this encounter Visit Diagnoses Diagnosis Lumbago- Primary documented in this encounter Care Teams Restaurant Hourly Manager Relationship Specialty Start Date End Date Armando Johnson MD [address] [place] [address] PCP - General Internal Medicine 11/13/22 documented as of this encounter
--- OUTSIDE RECORDS SUMMARY | 2025-04-01 18:04 | XMS_ITS | Encounter Summary ---
Author Organization [facility] Address [address] [place] [address] Care Team Providers Care Cad Designer Drafter Name Role Phone Armando Johnson MD Primary Care Provider [phone] Encounter Details Date Type Department Care Team (Latest Contact Info) Description 02/11/2025 Results Follow-Up [facility] [place] [address] [facility] [address] [place] [address] Ruddy Sánchez [place] [address] [place] [address] COMPLEMENT C3/C4 PANEL, DNA AUTOABS DOUBLE STRANDED, CBC WITH DIFFERENTIAL, Additional followed-up results: 2 Social History Tobacco Use Types Packs/Day Years Used Date Smoking Tobacco: Never Smokeless Tobacco: Never Alcohol Use Standard Drinks/Week Comments Yes 0 (1 standard drink = 0.6 oz pur e alcohol) Comments No Sex and Gender Information Value Date Recorded Sex Assigned at Not on file Legal Sex Female 4:42 AM AUTOMOBILE SEAT COVER INSTALLER Gender Identity Not on file Sexual Orientation Not on file 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 Not on file Not on file Not on file Not on file Not on file documented as of this encounter Plan of Treatment Upcoming Encounters Date Type Department Care Team (Late st Contact Info) Description 08/10/2025 2:15 PM AUTOMOBILE SEAT COVER INSTALLER Office Visit [facility] [place] [address] [place] [address] Ruddy Sánchez [place] [address] [place] [address] documented as of this encounter Visit Diagnoses Not on filedocumented in this encounter Care Teams Cad Designer Drafter Relationship Specialty Start Date End Date Armando Johnson MD [address] [place] [address] PCP - General Internal Medicine 11/13/22 documented as of this encounter
--- OUTSIDE RECORDS SUMMARY | 2025-04-01 18:04 | XMS_ITS | Encounter Summary ---
Author Organization [facility] Address [address] [place] [address] Care Team Providers Care Irrigation Equipment Remover Name Role Phone Armando Johnson MD Primary Care Provider [phone] Encounter Details Date Type Department Care Team (Late Contact Info) Description 08/04/2000 Outpatient Historical [facility] Tenzin Cheung MD [address] [facility] [address] [place] [address] Sprain of lumbar region (Primary Dx) Social History Tobacco Use Types Packs/Day Years Used Date Smoking Tobacco: Never Assessed Comments Unknown Sex and Gender Information Value Date Recorded Sex Assigned at Not on file Legal Sex Female 4:42 AM MANAGER OF BROADCAST CONTENT Gender Identity Not on file Sexual Orientation Not on file documented as of this encounter Plan of Treatment Upcoming Encounters Date Type Department Care Team (Late Contact Info) Description 08/10/2025 2:15 PM MANAGER OF BROADCAST CONTENT Office Visit [facility] Rheumatology [place] [address] [place] [address] Ruddy Sánchez [place] [address] [place] [address] documented as of this encounter Visit Diagnoses Diagnosis Sprain of lumbar region- Primary documented in this encounter Care Teams Irrigation Equipment Remover Relationship Specialty Start Date End Date Armando Johnson MD [address] [place] [address] PCP - General Internal Medicine 11/13/22 documented as of this encounter
--- OUTSIDE RECORDS SUMMARY | 2025-04-01 18:05 | XMS_ITS | Encounter Summary ---
Author Organization [facility] Address [address] [place] [address] Care Team Providers Care Extruder Operator Name Role Phone Armando Johnson MD Primary Care Provider [phone] Encounter Details Date Type Department Care Team (Late Contact Info) Description 11/03/[address] [facility] Internal Medicine Medical [place] [email or web address] [address] [facility] [address] [address] Wilma Starks MD [facility] [facility] [address] [place] [address] Social History Tobacco Use Types Packs/Day Years Used Date Smoking Tobacco: Never Assessed Comments Unknown Sex and Gender Information Value Date Recorded Sex Assigned at Not on file Legal Sex Female 4:42 AM CUPOLA CHARGER Gender Identity Not on file Sexual Orientation Not on file documented as of this encounter Plan of Treatment Upcoming Encounters Date Type Department Care Team (Late st Contact Info) Description 08/10/2025 2:15 PM CUPOLA CHARGER Office Visit [facility] Rheumatology [place] [address] [facility] [[email or web address] [address] [place] [address] Ruddy Sánchez [place] [address] [place] [address] documented as of this encounter Visit Diagnoses Not on filedocumented in this encounter Care Teams Extruder Operator Relationship Specialty Start Date End Date Armando Johnson MD [address] [facility] [address] [place] [address] PCP - General Internal Medicine 11/13/22 documented as of this encounter
--- OUTSIDE RECORDS SUMMARY | 2025-04-01 18:05 | XMS_ITS | Encounter Summary ---
Author Organization [facility] Address [address] [place] [address] Care Team Providers Care Theatre Professor Name Role Phone Armando Johnson MD Primary Care Provider [phone] Encounter Details Date Type Department Care Team (Late Contact Info) Description 11/03/2007 Outpatient Historical [facility] Internal Medicine Medical [place] [facility] [address] [facility] [address] [address] Wilma Starks MD [facility] [address] [place] [address] Social History Tobacco Use Types Packs/Day Years Used Date Smoking Tobacco: Never Assessed Comments Unknown Sex and Gender Information Value Date Recorded Sex Assigned at Not on file Legal Sex Female 4:42 AM WATCHER LOOKOUT TOWER Gender Identity Not on file Sexual Orientation Not on file documented as of this encounter Plan of Treatment Upcoming Encounters Date Type Department Care Team (Late st Contact Info) Description 08/10/2025 2:15 PM WATCHER LOOKOUT TOWER Office Visit [facility] Rheumatology [place] [address] [facility] [address] [place] [address] Ruddy Sánchez [place] [address] [place] [address] documented as of this encounter Visit Diagnoses Not on filedocumented in this encounter Care Teams Theatre Professor Relationship Specialty Start Date End Date Armando Johnson MD [address] [facility] [address] [place] [address] PCP - General Internal Medicine 11/13/22 documented as of this encounter
--- OUTSIDE RECORDS SUMMARY | 2025-04-01 18:05 | XMS_ITS | Encounter Summary ---
Author Organization [facility] Address [address] [place] [address] Care Team Providers Care Tea Bag Machine Tender Name Role Phone Armando Johnson MD Primary Care Provider [phone] Encounter Details Date Type Department Care Team (Late st Contact Info) Description 02/25/2003 Outpatient Historical [facility] MRI DEPT Balwinder Hector MD [address] [facility] [address] [place] [address] JOINT PAIN-PELVIS (Primary Dx) Social History Tobacco Use Types Packs/Day Years Used Date Smoking Tobacco: Never Assessed Comments Unknown Sex and Gender Information Value Date Recorded Sex Assigned at Not on file Legal Sex Female 4:42 AM FAMILY LAW LEGAL ASSISTANT Gender Identity Not on file Sexual Orientation Not on file documented as of this encounter Plan of Treatment Upcoming Encounters Date Type Department Care Team (Late st Contact Info) Description 08/10/2025 2:15 PM FAMILY LAW LEGAL ASSISTANT Office Visit [facility] Rheumatology [place] [address] [place] [address] Ruddy Sánchez [place] [address] [place] [address] documented as of this encounter Visit Diagnoses Diagnosis Pain in joint, pelvic region and thigh- Primary documented in this encounter Care Teams Tea Bag Machine Tender Relationship Specialty Start Date End Date Armando Johnson MD [address] [place] [address] PCP - General Internal Medicine 11/13/22 documented as of this encounter
--- OUTSIDE RECORDS SUMMARY | 2025-04-01 18:05 | XMS_ITS | Encounter Summary ---
Author Organization [facility] Address [address] [place] [address] Care Team Providers Care Data Control Clerk Supervisor Name Role Phone Armando Johnson MD Primary Care Provider [phone] Encounter Details Date Type Department Care Team (Late st Contact Info) Description 01/25/2003 Outpatient Historical [facility] Balwinder Hector MD [address] [facility] [address] [place] [address] JOINT PAIN-PELVIS (Primary Dx) Social History Tobacco Use Types Packs/Day Years Used Date Smoking Tobacco: Never Assessed Comments Unknown Sex and Gender Information Value Date Recorded Sex Assigned at Not on file Legal Sex Female 4:42 AM WEB APPLICATION TESTER Gender Identity Not on file Sexual Orientation Not on file documented as of this encounter Plan of Treatment Upcoming Encounters Date Type Department Care Team (Late st Contact Info) Description 08/10/2025 2:15 PM WEB APPLICATION TESTER Office Visit [facility] Rheumatology [place] [address] [place] [address] Ruddy Sánchez [place] [address] [place] [address] documented as of this encounter Visit Diagnoses Diagnosis Pain in joint, pelvic region and thigh- Primary documented in this encounter Care Teams Data Control Clerk Supervisor Relationship Specialty Start Date End Date Armando Johnson MD [address] [place] [address] PCP - General Internal Medicine 11/13/22 documented as of this encounter
--- OUTSIDE RECORDS SUMMARY | 2025-04-01 18:05 | XMS_ITS | Encounter Summary ---
Author Organization [facility] Address [address] [place] [address] Care Team Providers Care Material Handler 2Nd Shift Name Role Phone Armando Johnson MD Primary Care Provider [phone] Encounter Details Date Type Department Care Team (Latest Contact Info) Description 01/08/2008 Outpatient Historical HIS [facility] PRUDENCE Rod, [place] [address] [place] [address] Other Screening Mammogram Social History Tobacco Use Types Packs/Day Years Used Date Smoking Tobacco: Never Assessed Comments Unknown Sex and Gender Information Value Date Recorded Sex Assigned at Not on file Legal Sex Female 4:42 AM JOB PLACEMENT COUNSELOR Gender Identity Not on file Sexual Orientation Not on file documented as of this encounter Plan of Treatment Upcoming Encounters Date Type Department Care Team (Late st Contact Info) Description 08/10/2025 2:15 PM JOB PLACEMENT COUNSELOR Office Visit [facility] Rheumatology [place] [address] [facility] [address] [place] [address] Ruddy Sánchez [place] [address] [place] [address] documented as of this encounter Procedures Procedure Name Priority Date/Time Associated Diagnosis Comments MAMMO SCREEN BILAT W OR WO CAD Routine 01/08/2008 9:03 AM CDT documented in this encounter Results * MAMMO DIGITAL SCREEN BILAT (01/08/2008 9:03 AM CDT) Anatomical Region Laterality Modality Breast Bilateral Other 01/08/2008 9:03 AM CDT Narrative 01/08/2008 4:25 PM CDT [place] [address] [place], [place] [address] Admit Date: 01/08/2008 JOSE PERRY Sex: F Admit Prov: LIBERTAD ROD Date: 1965 Primary Care Prov: BETTY CULLEN CMRN: [id number] [facility] [id number] IMAGING SERVICES Ordering Prov: LIBERTAD ROD Accession Number: [id number] Interpretation BILATERAL FULL FIELD DIGITAL SCREENING MAMMOGRAM WITH CAD. Date: 01/08/2008 History: Routine Screening. Technique: Full field digital craniocaudal and mediolateral oblique projections of both breasts were obtained. Computer aided diagnosis was performed. Comparison: 12/2006, 11/2005 Breast Parenchymal Composition: Heterogeneously dense, which lowers the sensitivity of mammography. Findings: No suspicious mass, suspicious microcalcifications, or architectural distortion in either breast is identified. Since the prior study, there has been no significant interval change. The computer aided diagnosis detects no significant abnormality. Overall Assessment: BI-RADS category 1: Negative. Recommendation: Annual mammography is recommended. Assessment BIRADS: 1-Negative Recommendation: Normal interval follow-up Dictated by: BETSEY CHADWICK Electronically signed by: BETSEY CHADWICK 01/08/2008 16:25 Transcribed: 01/08/2008 16:23 AMK Procedure Note Betsey Chadwick - 01/08/2008 [place] [address] [place], [place] [address] Admit Date: 01/08/2008 JOSE PERRY Sex: F Admit Prov: LIBERTAD ROD Date: 1965 Primary Care Prov: ALYSEBETTY PEOPLES CMRN: [id number] Room: A N: [id number] IMAGING SERVICES Ordering Prov: LIBERTAD ROD Interpretation BILATERAL FULL FIELD DIGITAL SCREENING MAMMOGRAM WITH CAD. Date: 01/08/2008 History: Routine Screening. Technique: Full field digital craniocaudal and mediolateral oblique projections of both breasts were obtained. Computer aided diagnosiswas performed. Comparison: 12/2006, 11/2005 Breast Parenchymal Composition: Heterogeneously dense, which lowersthe sensitivity of mammography. Findings: No suspicious mass, suspicious microcalcifications, or architectural distortion in either breast is identified. Since theprior study, there has been no significant interval change. The computeraided diagnosis detects no significant abnormality. Overall Assessment: BI-RADS category 1: Negative. Recommendation: Annual mammography is recommended. Assessment BIRADS: 1-Negative Recommendation: Normal interval follow-up Dictated by: BETSEY CHADWICK Electronically signed by: BETSEY CHADWICK 01/08/2008 16:25 Transcribed: 01/08/2008 16:23 AMK Libertad Rod MD MAMMO ORDERABLES Final Result documented in this encounter Visit Diagnoses Diagnosis Other screening mammogram documented in this encounter Care Teams Material Handler 2Nd Shift Relationship Specialty Start Date End Date Armando Johnson MD [address] [facility] [address] [place] [address] PCP - General Internal Medicine 11/13/22 documented as of this encounter
--- OUTSIDE RECORDS SUMMARY | 2025-04-01 18:05 | XMS_ITS | Encounter Summary ---
Author Organization [facility] Address [address] [place] [address] Care Team Providers Care Client Support Professional Name Role Phone Armando Johnson MD Primary Care Provider [phone] Encounter Details Date Type Department Care Team (Late Contact Info) Description 08/24/2002 Outpatient Historical HIS [place] [address] [facility] [address] [place] [address] [place] Denise MD NO ADDRESS ON FILE CHEST PAIN NEC (Primary Dx) Social History Tobacco Use Types Packs/Day Years Used Date Smoking Tobacco: Never Assessed Comments Unknown Sex and Gender Information Value Date Recorded Sex Assigned at Not on file Legal Sex Female 4:42 AM RECORD TABULATING CLERK Gender Identity Not on file Sexual Orientation Not on file documented as of this encounter Plan of Treatment Upcoming Encounters Date Type Department Care Team (Late Contact Info) Description 08/10/2025 2:15 PM RECORD TABULATING CLERK Office Visit [facility] Rheumatology [place] [address] [facility] [address] [place] [address] Ruddy Sánchez [place] [address] [place] [address] documented as of this encounter Visit Diagnoses Diagnosis Other chest pain- Primary documented in this encounter Care Teams Client Support Professional Relationship Specialty Start Date End Date Armando Johnson MD [address] [place] [address] PCP - General Internal Medicine 11/13/22 documented as of this encounter
--- OUTSIDE RECORDS SUMMARY | 2025-04-01 18:05 | XMS_ITS | Encounter Summary ---
Author Organization [facility] Address [address] [place] [address] Care Team Providers Care Automatic Drilling Machine Operator Name Role Phone Armando Johnson MD Primary Care Provider [phone] Encounter Details Date Type Department Care Team (Late st Contact Info) Description 12/24/2002 Outpatient Historical [facility] PRIMARY CARE Balwinder Hector MD [address] [facility] [address] [place] [address] Social History Tobacco Use Types Packs/Day Years Used Date Smoking Tobacco: Never Assessed Comments Unknown Sex and Gender Information Value Date Recorded Sex Assigned at Not on file Legal Sex Female 4:42 AM EXHIBIT DESIGNER Gender Identity Not on file Sexual Orientation Not on file documented as of this encounter Plan of Treatment Upcoming Encounters Date Type Department Care Team (Late st Contact Info) Description 08/10/2025 2:15 PM EXHIBIT DESIGNER Office Visit [facility] Rheumatology [place] [address] [place] [address] Ruddy Sánchez [place] [address] [place] [address] documented as of this encounter Visit Diagnoses Not on filedocumented in this encounter Care Teams Automatic Drilling Machine Operator Relationship Specialty Start Date End Date Armando Johnson MD [address] [place] [address] PCP - General Internal Medicine 11/13/22 documented as of this encounter
--- OUTSIDE RECORDS SUMMARY | 2025-04-01 18:05 | XMS_ITS | Encounter Summary ---
Author Organization [facility] Address [address] [place] [address] Care Team Providers Care Body Builder Apprentice Name Role Phone Armando Johnson MD Primary Care Provider [phone] Encounter Details Date Type Department Care Team (Latest Contact Info) Description 10/28/2002 Outpatient Historical HIS [facility] PRUDENCE Rod, Josué [place] [address] [place] [address] SCREENING MAMM-MAILG NEOPL-OTHER (Primary Dx) Social History Tobacco Use Types Packs/Day Years Used Date Smoking Tobacco: Never Assessed Comments Unknown Sex and Gender Information Value Date Recorded Sex Assigned at Not on file Legal Sex Female 4:42 AM POSTAL CLERK Gender Identity Not on file Sexual Orientation Not on file documented as of this encounter Plan of Treatment Upcoming Encounters Date Type Department Care Team (Late st Contact Info) Description 08/10/2025 2:15 PM POSTAL CLERK Office Visit [facility] Rheumatology [place] [address] [place] [address] Ruddy Sánchez [place] [address] [place] [address] documented as of this encounter Visit Diagnoses Diagnosis Other screening mammogram- Primary documented in this encounter Care Teams Body Builder Apprentice Relationship Specialty Start Date End Date Armando Johnson MD [address] [place] [address] PCP - General Internal Medicine 11/13/22 documented as of this encounter
--- OUTSIDE RECORDS SUMMARY | 2025-04-01 18:05 | XMS_ITS | Encounter Summary ---
Author Organization [facility] Address [address] [place] [address] Care Team Providers Care Landing Scaler Name Role Phone Armando Johnson MD Primary Care Provider [phone] Encounter Details Date Type Department Care Team (Late st Contact Info) Description 08/25/2002 Outpatient Historical [facility] Support Serv. (Adt Cardiology-[facility]) [address] [place] [address] Gurvinder Townsend Social History Tobacco Use Types Packs/Day Years Used Date Smoking Tobacco: Never Assessed Comments Unknown Sex and Gender Information Value Date Recorded Sex Assigned at Not on file Legal Sex Female 4:42 AM PLANISHING PRESS OPERATOR Gender Identity Not on file Sexual Orientation Not on file documented as of this encounter Plan of Treatment Upcoming Encounters Date Type Department Care Team (Late Contact Info) Description 08/10/2025 2:15 PM PLANISHING PRESS OPERATOR Office Visit [facility] Rheumatology [place] [address] [place] [address] Ruddy Sánchez [place] [address] [place] [address] documented as of this encounter Visit Diagnoses Not on filedocumented in this encounter Care Teams Landing Scaler Relationship Specialty Start Date End Date Armando Johnson MD [address] [place] [address] PCP - General Internal Medicine 11/13/22 documented as of this encounter
--- OUTSIDE RECORDS SUMMARY | 2025-04-01 18:05 | XMS_ITS | Encounter Summary ---
Author Organization [facility] Address [address] [place] [address] Care Team Providers Care Public Works Commissioner Name Role Phone Armando Johnson MD Primary Care Provider [phone] Encounter Details Date Type Department Care Team (Late Contact Info) Description 02/09/2003 Outpatient Historical HIS [facility] Balwinder Ryder MD [address] [facility] [address] [place] [address] JOINT PAIN-PELVIS (Primary Dx) Social History Tobacco Use Types Packs/Day Years Used Date Smoking Tobacco: Never Assessed Comments Unknown Sex and Gender Information Value Date Recorded Sex Assigned at Not on file Legal Sex Female 4:42 AM LIFT DRIVER Gender Identity Not on file Sexual Orientation Not on file documented as of this encounter Plan of Treatment Upcoming Encounters Date Type Department Care Team (Late Contact Info) Description 08/10/2025 2:15 PM LIFT DRIVER Office Visit [facility] Rheumatology [place] [address] [place] [address] Ruddy Sánchez [place] [address] [place] [address] documented as of this encounter Visit Diagnoses Diagnosis Pain in joint, pelvic region and thigh- Primary documented in this encounter Care Teams Public Works Commissioner Relationship Specialty Start Date End Date Armando Johnson MD [address] [place] [address] PCP - General Internal Medicine 11/13/22 documented as of this encounter
--- OUTSIDE RECORDS SUMMARY | 2025-04-01 18:05 | XMS_ITS | Encounter Summary ---
Author Organization [facility] Address [address] [place] [address] Care Team Providers Care Ice Sculptor Name Role Phone Armando Johnson MD Primary Care Provider [phone] Encounter Details Date Type Department Care Team (Late Contact Info) Description 11/03/2007 Outpatient Historical [facility] Internal Medicine Medical [place] [facility] [address] [facility] [address] [address] Wilma Starks MD [facility] [facility] [address] [place] [address] Social History Tobacco Use Types Packs/Day Years Used Date Smoking Tobacco: Never Assessed Comments Unknown Sex and Gender Information Value Date Recorded Sex Assigned at Not on file Legal Sex Female 4:42 AM WIRELESS SALES EXPERT Gender Identity Not on file Sexual Orientation Not on file documented as of this encounter Plan of Treatment Upcoming Encounters Date Type Department Care Team (Late st Contact Info) Description 08/10/2025 2:15 PM WIRELESS SALES EXPERT Office Visit [facility] Rheumatology [place] [address] [facility] [address] [place] [address] Ruddy Sánchez [place] [address] [place] [address] documented as of this encounter Visit Diagnoses Not on filedocumented in this encounter Care Teams Ice Sculptor Relationship Specialty Start Date End Date Armando Johnson MD [address] [facility] [address] [place] [address] PCP - General Internal Medicine 11/13/22 documented as of this encounter
--- OUTSIDE RECORDS SUMMARY | 2025-04-01 18:05 | XMS_ITS | Encounter Summary ---
Author Organization [facility] Address [address] [place] [address] Care Team Providers Care Linoleum Layer Name Role Phone Armando Johnson MD Primary Care Provider [phone] Encounter Details Date Type Department Care Team (Late st Contact Info) Description 11/26/2007 Orders Only [facility] Internal Medicine Medical [place] [facility] [address] [facility] [address] [address] [place] [address] [facility] [address] [place] [address] Social History Tobacco Use Types Packs/Day Years Used Date Smoking Tobacco: Never Assessed Comments Unknown Sex and Gender Information Value Date Recorded Sex Assigned at Not on file Legal Sex Female 4:42 AM CNA HOSPICE Gender Identity Not on file Sexual Orientation Not on file documented as of this encounter Progress Notes * Cooper Hector MD - 02/19/2008 6:08 PM CDT TIME:02:14 pm PATIENT`S HOME PHONE: PATIENT`S WORK PHONE: PATIENT`S INSURANCE: [employer] WHO TOOK THE CALL: Talia Barry GENERAL INFORMATION ALTERNATIVE PHONE NUMBER: [phone] WHO CALLED: Patient called. CURRENT ALLERGY LIST: NONE PHARMACY NUMBER: [phone] SECTION 1: Pt is calling and still having some issue with her tennis elbow. Pain is in the R and has purchase a brace and it;s not helping and has used it for about a few months. She would like something for the pain. she is taking tylenol and not helping. pt would like something generic is possible karlos DOCTOR`S RESPONSE: mely 11/26/07 at 03:11 pm MEDICATIONS: Call in to Pharmacy DICLOFENAC SODIUM ORAL TABLET ENTERIC COATED 75 MG, 1 Two Times A Day, 60 Dispensed, status: NEW PRESCRIPTION, 11/26/2007. FINAL ACTION: luca 11/26/07 at 03:56 pm Spoke with patient 11/26/07 at 03:56 pm. Called pharmacy at 11/26/07 at 03:56 pm. documented in this encounter Plan of Treatment Upcoming Encounters Date Type Department Care Team (Late st Contact Info) Description 08/10/2025 2:15 PM CNA HOSPICE Office Visit [facility] Rheumatology [place] [address] [place] [address] Ruddy Sánchez [place] [address] [place] [address] documented as of this encounter Visit Diagnoses Not on filedocumented in this encounter Care Teams Linoleum Layer Relationship Specialty Start Date End Date Armando Johnson MD [address] [place] [address] PCP - General Internal Medicine 11/13/22 documented as of this encounter
--- OUTSIDE RECORDS SUMMARY | 2025-04-01 18:05 | XMS_ITS ---
Author Organization [facility] Address [address] [place], [place] [address] Care Team Providers Care Magnetic Healer Name Role Phone rAmando Johnson Primary Care Provider Unavailabl e Josetet Cardoso Unavailable [phone] Encounters Encounter Location Date Provider Diagnosis [facility] [address] [place], [place] [id number] 09/08/2024 Josette Cardoso PLAN OF TREATMENT No Information
--- OUTSIDE RECORDS SUMMARY | 2025-04-01 18:05 | XMS_ITS | Encounter Summary ---
Author Organization [facility] Address [address] [place] [address] Care Team Providers Care Engineering Consultant Name Role Phone Armando Johnson MD Primary Care Provider [phone] Encounter Details Date Type Department Care Team (Late st Contact Info) Description 12/25/[address] [facility] Balwinder Ryder MD [address] [facility] [address] [place] [address] JOINT SYMPT NEC-UNSP JOINT (Primary Dx) Social History Tobacco Use Types Packs/Day Years Used Date Smoking Tobacco: Never Assessed Comments Unknown Sex and Gender Information Value Date Recorded Sex Assigned at Not on file Legal Sex Female 4:42 AM LOADER TECHNICIAN Gender Identity Not on file Sexual Orientation Not on file documented as of this encounter Plan of Treatment Upcoming Encounters Date Type Department Care Team (Late Contact Info) Description 08/10/2025 2:15 PM LOADER TECHNICIAN Office Visit [facility] Rheumatology [place] [address] [place] [address] Ruddy Sán[place] [address] [place] [address] [address] documented as of this encounter Visit Diagnoses Diagnosis Other symptoms referable to joint, site unspecified- Primary documented in this encounter Care Teams Engineering Consultant Relationship Specialty Start Date End Date Armando Johnson MD [address] [facility] [address] [place] [address] PCP - General Internal Medicine 11/13/22 documented as of this encounter
--- OUTSIDE RECORDS SUMMARY | 2025-04-01 18:05 | XMS_ITS | Patient Health Record ---
Author Organization [facility] Address [address] [facility] [address] [place], [place] [address] Care Team Providers Care Press Tender Name Role Phone Sa Alexqib Primary Care Provider UnavailJosette Harris Unavailable [phone] Lexie Johns Unavailable [phone] ALLERGIES Allergen (clinical drug ingredient) Drug/Non Drug Allergy documented on EMR Reaction Allergy Type Onset Date Status dicyclomine Unknown Drug Allergy Activ e RESULTS Component Value Reference Range Notes AST (SGOT) Reviewed date:04/08/2024 10:22:09 AM Interpretation: Performing Lab:[facility], [address] [place] [address], Phone - [phone], Director - [facility] Notes/Report: AST (SGOT) 25 0-40 IU/L Creatinine, Serum Reviewed date:04/08/2024 10:22:09 AM Interpretation: Performing Lab:[facility], [address] [place] [address], Phone - [phone], Director - [facility]DAsc[facility] Notes/Report: Creatinine 0.88 0.57-1.00 mg/dL eGFR 76 >59 mL/min/1.73 ALT (SGPT) Reviewed date:04/08/2024 10:22:09 AM Interpretation: Performing Lab:[facility] [place], [address] [facility], Phone - [phone], Director - PhDAsc[facility] Notes/Report: ALT (SGPT) 26 0-32 IU/L CBC With Differential/Platel et Reviewed date:04/08/2024 10:22:09 AM Interpretation: Performing [facility], [address] [place] [address], Phone - [phone], [facility] - [facility] Notes/Report: WBC 6.8 3.4-10.8 x10E3/uL RBC 4.06 3.77-5.28 x10E6/uL Hemoglobin 12.1 11.1-15.9 g/dL Hematocrit 37.3 34.0-46.6 % MCV 92 79-97 fL MCH 29.8 26.6-33.0 pg MCHC 32.4 31.5-35.7 g/dL RDW 13.1 11.7-15.4 % Platelets 223 150-450 x10E3/uL Neutrophils 63 Not Estab. % Lymphs 27 Not Estab. % Monocytes 8 Not Estab. % Eos 1 Not Estab. % Basos 0 Not Estab. % Immature Cells Neutrophils (Absolute) 4.3 1.4-7.0 x10E3/uL Lymphs (Absolute) 1.9 0.7-3.1 x10E3/uL Monocytes(Absolute) 0.6 0.1-0.9 x10E3/uL Eos (Absolute) 0.1 0.0-0.4 x10E3/uL Baso (Absolute) 0.0 0.0-0.2 x10E3/uL Immature Granulocytes 1 Not Estab. % Immature Grans (Abs) 0.0 0.0-0.1 x10E3/uL NRBC Hematology Comments: Sed Rate - [place] Reviewed date:04/08/2024 10:22:09 AM Interpretation: Performing Lab:[facility] [address], Phone - [phone], Director - [facility] Notes/Report: Sedimentation Rate-[place] 16 0-40 mm/hr C-Reactive Protein, Quant Reviewed date:04/08/2024 10:22:09 AM Interpretation: Performing Lab:[facility], Phone - [phone], Director - [facility] Notes/Report: C-Reactive Protein, Quant 6 0-10 mg/L REASON FOR REFERRAL No Information MEDICATIONS Medication SIG (Take, Route, Frequency, Duration) [...] orall y 2 times a day Active SOCIAL HISTORY Tobacco Use: Social History Observation Description Date Details (start date - stop date) Never Smoker NA - NA Sex Assigned At : Social History Observation Description Sex Assigned At Unknown Tobacco Use: Question Answer Notes Smoking Status nonsmoker PROBLEMS Problem Type ICD Code Onset Dates Problem Status W/U Status Risk SNOMED Code Notes Problem Other fdc (current) drug therapy (Z79.899) Active confirmed 160926898 Problem Connective tissue disease (M35.9) Active confirmed 066453292 Problem Polyarthritis (M13.0) Active confirmed 06264341 Problem Myalgia (M79.1) Active confirmed Myalgi a (58902478) Problem Primary generalized (osteo)arthritis (M15.0) Active confirmed 686901017 Problem Positive LIZBETH (R76.8) Active confirmed Anti-nuclear factor positive (979074552) Problem Never smoked cigarettes (Z78.9) Active confirmed 692358610 Problem SLE (systemic lupus erythematosus related syndrome) (M32.9) Active confirmed 843264928 Problem Meron's thyroiditis (E06.3) Active confirmed 44786329 VITAL SIGNS Heart Rate 76 /min 04/07/2024 Blood pressure diastolic 84 mm Hg 04/07/2024 Height 69 in 04/07/2024 Blood pressure systolic 128 mm Hg 04/07/2024 Weight 234 lbs 04/07/2024 BMI 34.55 kg/m2 04/07/2024 Encounters Encounter Location Date Provider Diagnosis [facility], [address], [address] [place], [place] [id number] 04/07/2024 Lexie Johns Primary generalized (osteo)arthritis M15.0 ; Meron's thyroiditis E06.3 ; Positive LIZBETH R76.8 and Other terminal superintendent (current) drug therapy Z79.899 [facility], [address], [address] [place], [place] [id number] 07/17/2024 Josette Cardoso Primary generalized (osteo)arthritis M15.0 ; Meron's thyroiditis E06.3 ; Positive LIZBETH R76.8 and Other fdc (current) drug therapy Z79.899 [facility] [address] [facility] [place], [place] [id number] 09/08/2024 Josette Cardoso [facility] [address] [facility], [facility] [address] [place], [place] [id number] 04/07/2024 Josette Cardoso ASSESSMENTS Encounter Date Diagnosis Assessment Notes Treatment Notes Treatment Clinical Notes Section Notes 04/07/2024 Primary generalized (osteo)arthritis (ICD-10 - M15.0) Hx of undiff CTD/SLE with DJD-fluctuatin g LIZBETH, with flucuating positive dsDNA, SHOE CASER positive and arthritis on exam. Back on HCQ. Reminded to have an eye exam. Seeing NSG for Syrinx. Discussed that this is not related to SLE. I do not recommend use of steroids. Will add in Meloxicam 15mg for discomfort. Avoid OTC NSAIDS. Check labs today. F/u scheduled. 04/07/2024 Meron's thyroiditis (ICD-10 - E06.3) Hx of undiff CTD/SLE with DJD-fluctuatin g LIZBETH, with flucuating positive dsDNA, SHOE CASER positive and arthritis on exam. Back on HCQ. Reminded to have an eye exam. Seeing NSG for Syrinx. Discussed that this is not related to SLE. I do not recommend use of steroids. Will add in Meloxicam 15mg for discomfort. Avoid OTC NSAIDS. Check labs today. F/u scheduled. 07/17/2024 Primary generalized (osteo)arthritis (ICD-10 - M15.0) Hx of undiff CTD/SLE with DJD-fluctuatin g LIZBETH, with flucuating positive dsDNA, SHOE CASER positive and arthritis on exam. Back on [...] DJD-fluctuatin g LIZBETH, with flucuating positive dsDNA, SHOE CASER positive and arthritis on exam. Back on HCQ. Reminded to have an eye exam. Seeing NSG for Syrinx. Discussed that this is not related to SLE. I do not recommend use of steroids. Will add in Meloxicam 15mg for discomfort. Avoid OTC NSAIDS. Check labs today. F/u scheduled. 04/07/2024 Positive LIZBETH (ICD-10 - R76.8) Hx of undiff CTD/SLE with DJD-fluctuatin g LIZBETH, with flucuating positive dsDNA, SHOE CASER positive and arthritis on exam. Back on [...] DJD-fluctuatin g LIZBETH, with flucuating positive dsDNA, SHOE CASER positive and arthritis on exam. Back on HCQ. Reminded to have an eye exam. Seeing NSG for Syrinx. Discussed that this is not related to SLE. I do not recommend use of steroids. Will add in Meloxicam 15mg for discomfort. Avoid OTC NSAIDS. Check labs today. F/u scheduled. 04/07/2024 Other fdc (current) drug therapy (ICD-10 - Z79.899) Hx of undiff CTD/SLE with DJD-fluctuatin g LIZBETH, with flucuating positive dsDNA, SHOE CASER positive and arthritis on exam. Back on HCQ. Reminded to have an eye exam. Seeing NSG for Syrinx. Discussed that this is not related to SLE. I do not recommend use of steroids. Will add in Meloxicam 15mg for discomfort. Avoid OTC NSAIDS. Check labs today. F/u scheduled. 07/17/2024 Other terminal superintendent (current) drug therapy (ICD-10 - Z79.899) Hx of undiff CTD/SLE with DJD-fluctuatin g LIZBETH, with flucuating positive dsDNA, SHOE CASER positive and arthritis on exam. Back on HCQ. Reminded to have an eye exam. Seeing NSG for Syrinx. Discussed that this is not related to SLE. I do not recommend use of steroids. Will add in Meloxicam 15mg for discomfort. Avoid OTC NSAIDS. Check labs today. F/u scheduled. PLAN OF TREATMENT Pending Test Test Name Order Date LIZBETH Panel (LIZBETH+GERARDO+Scl 70+SjoSSA+SjoSSB) 06/26/2016 LIZBETH Panel (LIZBETH+GERARDO+Scl 70+SjoSSA+SjoSSB) 09/19/2015 INJ TRIAMCINOLONE ACETONIDE 10 MG 2018 Joint Injection - MCP, RIGHT 03/21/2016 Eye exam - Plaquenil 06/04/2019 Eye exam - Plaquenil 07/09/2017 - dsDNA (nDNA) Scrn by Kayla 016 - dsDNA (nDNA) Scrn by Kayla 016 Lab slip given 06/04/2019 Lab slip given 07/09/2017 lab slip given 06/26/2016 lab slip given 09/19/2015 lab slip given 03/21/2016 Pulmonary Function Test (PFT) w/DLCO 09/2019 MISCELLANEOUS LAB TEST 06/04/2019 URINALYSIS 05/03/2020 DS DNA ANTIBODY, CRITHIDIA, IFA W/REFL Q UEST 09/12/2023 Insurance Providers Payer Name Payer Address Payer Phone Subscriber Number Group Number Insured Name Patient Relationship to Insured Coverage Start Date Coverage End Date [facility] CHOICE PLUS [address] [place] [address] [id number] Lupe Longoria Self - patient is the insured 3 MEDICAL (GENERAL) HISTORY Medical History History ICD Code tension headaches dizziness sinus problems thyroid disease/nodule indigestion Lack of bladder control Hot Flashes irregular heart beat irritable bowel syndrome anxiety depression Surgical History Surgery Date(Month/Year) hysterectomy Carpal Tunnel surgery both hands two ear surgerys tarsels tunnel on right foot
--- OUTSIDE RECORDS SUMMARY | 2025-04-01 18:05 | XMS_ITS | Encounter Summary ---
Author Organization [facility] Address [address] [place] [address] Care Team Providers Care Medical Housekeeper Name Role Phone Armando Johnson MD Primary Care Provider [phone] Encounter Details Date Type Department Care Team (Late Contact Info) Description 12/10/2007 Outpatient Historical [facility] Internal Medicine Medical [place] A [facility] [address] [address] Gabriella Noel MD Riordan, Tracy M, MD [address] [place] [address] Social History Tobacco Use Types Packs/Day Years Used Date Smoking Tobacco: Never Assessed Comments Unknown Sex and Gender Information Value Date Recorded Sex Assigned at Not on file Legal Sex Female 4:42 AM REPORTER ANCHOR Gender Identity Not on file Sexual Orientation Not on file documented as of this encounter Plan of Treatment Upcoming Encounters Date Type Department Care Team (Late st Contact Info) Description 08/10/2025 2:15 PM REPORTER ANCHOR Office Visit [facility] [place] [address] [facility] [address] [place] [address] Ruddy Sánchez [place] [address] [place] [address] documented as of this encounter Visit Diagnoses Not on filedocumented in this encounter Care Teams Medical Housekeeper Relationship Specialty Start Date End Date Armando Johnson MD [address] [place] [address] PCP - General Internal Medicine 11/13/22 documented as of this encounter
--- OUTSIDE RECORDS SUMMARY | 2025-04-01 18:05 | XMS_ITS | Encounter Summary ---
Author Organization [facility] Address [address] [place] [address] Care Team Providers Care Felt Hat Inspector And Packer Name Role Phone Armando Johnson MD Primary Care Provider [phone] Encounter Details Date Type Department Care Team (Late Contact Info) Description 10/12/2007 Orders Only [facility] Internal Medicine Medical [place] A [facility] [address] [address] Balwinder Hector MD [address] [facility] [address] [facility] [address] [place] [address] Social History Tobacco Use Types Packs/Day Years Used Date Smoking Tobacco: Never Assessed Comments Unknown Sex and Gender Information Value Date Recorded Sex Assigned at Not on file Legal Sex Female 4:42 AM GILL BOX TENDER Gender Identity Not on file Sexual Orientation Not on file documented as of this encounter Plan of Treatment Upcoming Encounters Date Type Department Care Team (Late st Contact Info) Description 08/10/2025 2:15 PM GILL BOX TENDER Office Visit [facility] Rheumatology [place] [address] [facility] [address] [place] [address] Ruddy Sánchez [place] [address] [place] [address] documented as of this encounter Visit Diagnoses Not on filedocumented in this encounter Care Teams Felt Hat Inspector And Packer Relationship Specialty Start Date End Date Armando Johnson MD [address] [place] [address] PCP - General Internal Medicine 11/13/22 documented as of this encounter
--- OUTSIDE RECORDS SUMMARY | 2025-04-01 18:05 | XMS_ITS | Encounter Summary ---
Author Organization [facility] Address [address] [place] [address] Care Team Providers Care Acid Polymerization Operator Name Role Phone Armando Johnson MD Primary Care Provider [phone] Encounter Details Date Type Department Care Team (Late st Contact Info) Description 12/10/2007 Outpatient Historical [facility] Internal Medicine Medical [place] A [facility] [address] [address] Gabriella Noel MD Social History Tobacco Use Types Packs/Day Years Used Date Smoking Tobacco: Never Assessed Comments Unknown Sex and Gender Information Value Date Recorded Sex Assigned at Not on file Legal Sex Female 4:42 AM BUFFING 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 SEMIAUTOMATIC Gender Identity Not on file Sexual Orientation Not on file documented as of this encounter Plan of Treatment Upcoming Encounters Date Type Department Care Team (Late st Contact Info) Description 08/10/2025 2:15 PM BUFFING 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 SEMIAUTOMATIC Office Visit [facility]umatology [place] [address] [facility] [address] [place] [address] Ruddy Sánchez [place] [address] [place] [address] documented as of this encounter Visit Diagnoses Not on filedocumented in this encounter Care Teams Acid Polymerization Operator Relationship Specialty Start Date End Date Armando Johnson MD [address] [place] [address] PCP - General Internal Medicine 11/13/22 documented as of this encounter
--- OUTSIDE RECORDS SUMMARY | 2025-04-01 18:05 | XMS_ITS | Referral Summary ---
Author Organization [facility] [address] Address [address] [place] [address] Care Team Providers Care Bicycle Repairman Name Role Phone Unknown, Notinfile Primary Care [...] on file Legal Sex Female 6:25 PM X RAY CONSULTANT Gender Identity Not on file Sexual Orientation Not on file Last Filed Vital Signs Vital Sign Reading Time Taken Comments Blood Pressure 126/76 08/28/2022 10:20 AM X RAY CONSULTANT Pulse 77 08/28/2022 10:20 AM X RAY CONSULTANT Temperature 37.2 C (99 F) 08/28/2022 10:20 AM X RAY CONSULTANT Respiratory Rate 18 08/28/2022 10:20 AM X RAY CONSULTANT Oxygen Saturation 98% 08/28/2022 10:20 AM X RAY CONSULTANT Inhaled Oxygen Concentration - - Weight 105.7 kg (233 lb) 08/28/2022 10:20 AM X RAY CONSULTANT Height 175.3 cm (5' 9) 08/28/2022 10:20 AM X RAY CONSULTANT Body Mass Index 34.41 08/28/2022 10:20 AM X RAY CONSULTANT Plan of Treatment Not on file Insurance [facility] [place] [address] Care Teams Bicycle Repairman Relationship Specialty Start Date End Date Unknown, Notinfile PCP - General 08/28/22
--- OUTSIDE RECORDS SUMMARY | 2025-04-01 18:05 | XMS_ITS | Encounter Summary ---
Author Organization [facility] Address [address] [place] [address] Care Team Providers Care Log Rafter Name Role Phone Armando Johnson MD Primary Care Provider [phone] Encounter Details Date Type Department Care Team (Late Contact Info) Description 12/10/2007 Outpatient Historical [facility] Internal Medicine Medical [place] A [facility] [address] [address] Balwinder Hector MD [address] [facility] [address] [place] [address] Unspecified Hypothyroidism Social History Tobacco Use Types Packs/Day Years Used Date Smoking Tobacco: Never Assessed Comments Unknown Sex and Gender Information Value Date Recorded Sex Assigned at Not on file Legal Sex Female 4:42 AM PREFORM PLATE MAKER Gender Identity Not on file Sexual Orientation Not on file documented as of this encounter Plan of Treatment Upcoming Encounters Date Type Department Care Team (Late st Contact Info) Description 08/10/2025 2:15 PM PREFORM PLATE MAKER Office Visit [facility] Rheumatology [place] [address] [facility] [address] [place] [address] Ruddy Sánchez [place] [address] [place] [address] documented as of this encounter Procedures Procedure Name Priority Date/Time Associated Diagnosis Comments T3 FREE Routine 12/10/2007 4:34 PM CDT TSH Routine 12/10/2007 4:34 PM CDT T4 FREE Routine 12/10/2007 4:34 PM CDT documented in this encounter Results * TSH (12/10/2007 4:34 PM CDT) TSH 2.47 0.27 - 4.20 uU/mL [facility] Blood specimen (specimen) 12/10/2007 4:34 PM CDT 12/10/2007 5:03 PM CDT us Balwinder Hector MD CHEMISTRY ORDERABLES Final Resu lt Performing Organization Address [facility] Co de Phone Number [facility] [address] [place] [address] * T3 FREE (12/10/2007 4:34 PM CDT) T3 FREE 2.8 2.5 - 4.4 pg/mL [facility] Blood specimen (specimen) 12/10/2007 4:34 PM CDT 12/10/2007 5:03 PM CDT us Balwinder Hector MD CHEMISTRY ORDERABLES Final Resu lt Performing Organization Address [facility] Co de Phone Number [facility] [address] [facility] [place] [address] * T4 FREE (12/10/2007 4:34 PM CDT) T4 FREE 1.1 0.9 - 1.7 ng/dL [facility] Blood specimen (specimen) 12/10/2007 4:34 PM CDT 12/10/2007 5:03 PM CDT us Balwinder Hector MD CHEMISTRY ORDERABLES Final Resu lt Performing Organization Address City/[facility]/ZIP Co de Phone Number [facility] [address] [place] [address] documented in this encounter Visit Diagnoses Diagnosis Unspecified hypothyroidism documented in this encounter Care Teams Log Rafter Relationship Specialty Start Date End Date Armando Johnson MD [address] [place] [address] PCP - General Internal Medicine 11/13/22 documented as of this encounter
--- OUTSIDE RECORDS SUMMARY | 2025-04-01 18:05 | XMS_ITS | Encounter Summary ---
Author Organization [facility] Address [address] [place] [address] Care Team Providers Care House Wirer Name Role Phone Armando Johnson MD Primary Care Provider [phone] Encounter Details Date Type Department Care Team (Late st Contact Info) Description 11/03/2007 Orders Only [facility] Internal Medicine Medical [place] A [facility] [address] [facility] [address] [address] Wilma Starks MD [facility] [facility] [address] [place] [address] Social History Tobacco Use Types Packs/Day Years Used Date Smoking Tobacco: Never Assessed Comments Unknown Sex and Gender Information Value Date Recorded Sex Assigned at Not on file Legal Sex Female 4:42 AM PRODUCTION GRADER Gender Identity Not on file Sexual Orientation Not on file documented as of this encounter Progress Notes * Wilma Starks MD - 01/28/2008 1:36 PM CDT BLOOD PRESSURE: 130/82 Right Arm Sitting PULSE: 60 Right Radial, Regular RESPIRATIONS: 16 TEMPERATURE: 98.5??f Oral WEIGHT: 204lbs NURSE NAME: Talia Barry ALLERGIES: No known drug allergies. MEDICATIONS: Medication list current. 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 LAB ORDERS: Order number: [id number] Test Ordered: INJ-TDAP 11 YRS OR OLDER [address] Order number: [id number] Test Ordered: IMMUNIZATION ADMIN SINGLE [id number] documented in this encounter Plan of Treatment Upcoming Encounters Date Type Department Care Team (Late st Contact Info) Description 08/10/2025 2:15 PM PRODUCTION GRADER Office Visit [facility] Rheumatology [place] [address] [place] [address] Ruddy Sánchez [place] [address] [place] [address] documented as of this encounter Visit Diagnoses Not on filedocumented in this encounter Care Teams House Wirer Relationship Specialty Start Date End Date Armando Johnson MD [address] [place] [address] PCP - General Internal Medicine 11/13/22 documented as of this encounter
--- OUTSIDE RECORDS SUMMARY | 2025-04-01 18:05 | XMS_ITS | Encounter Summary ---
Author Organization [facility] Address [address] [place] [address] Care Team Providers Care Press Hand Name Role Phone Armando Johnson MD Primary Care Provider [phone] Encounter Details Date Type Department Care Team (Late st Contact Info) Description 11/20/2007 Orders Only [facility] Internal Medicine Medical [place] A [facility] [address] [facility] [address] [address] Balwinder Hector MD [address] [facility] [address] [place] [address] Social History Tobacco Use Types Packs/Day Years Used Date Smoking Tobacco: Never Assessed Comments Unknown Sex and Gender Information Value Date Recorded Sex Assigned at Not on file Legal Sex Female 4:42 AM DIE WELDER Gender Identity Not on file Sexual Orientation Not on file documented as of this encounter Progress Notes * Cooper Hector MD - 02/19/2008 5:50 PM CDT TIME:09:16 am PATIENT`S HOME PHONE: PATIENT`S WORK PHONE: PATIENT`S INSURANCE: [employer] [facility] WHO TOOK THE CALL: Malgorzata Murphy R GENERAL INFORMATION ALTERNATIVE PHONE NUMBER: [phone] WHO CALLED: Patient called. CURRENT ALLERGY LIST: NONE PHARMACY NUMBER: [phone] PROBLEMS: has been taking wal-fed, amoxicillin...which has not helped at all. Patient was given augmentin for cat bite few weeks ago was wondering if that would be more effective or should she be seen instead. CONGESTION: Patient complains of sinus congestion. The symptoms began approximately 3 weeks ago. sinus pressure, facial & jaw pain, sinus drainage... COUGH:Patient complains of cough. The symptoms began approximately 3 weeks ago. not productive DIZZINESS:Patient complains of dizziness. FEVER: Patient complains of fever. temp was 100, sweats and chills, body aches HEADACHE: . head pounds when she bends down, light sensitive, eye pain RUNNY NOSE: Patient complains of runny nose. SHORTNESS OF BREATH: Patient complains of shortness of breath. SECTION 1: Lets go ahead and try the Augmentin DOCTOR`S RESPONSE: mely 11/20/07 at 09:41 am MEDICATIONS: Call in to Pharmacy AUGMENTIN ORAL TABLET 875-125 MG, 1 Two Times A Day, 14 Dispensed, status: NEW PRESCRIPTION, 11/20/2007. FINAL ACTION: laura 11/20/07 at 10:37 am Spoke with patient 11/20/07 at 10:37 am. Called pharmacy at 11/20/07 at 10:37 am. SECTION 2: Electronically Signed by: Alem Rutledge on November documented in this encounter Plan of Treatment Upcoming Encounters Date Type Department Care Team (Late st Contact Info) Description 08/10/2025 2:15 PM DIE WELDER Office Visit [facility] Rheumatology [place] [address] [place] [address] Ruddy Sánchez [place] [address] [place] [address] documented as of this encounter Visit Diagnoses Not on filedocumented in this encounter Care Teams Press Hand Relationship Specialty Start Date End Date Armando Johnson MD [address] [place] [address] PCP - General Internal Medicine 11/13/22 documented as of this encounter
--- OUTSIDE RECORDS SUMMARY | 2025-04-01 18:05 | XMS_ITS | Encounter Summary ---
Author Organization [facility] Address [address] [facility] Attn: Epic Prelude ADT NADIR[place] [address] Care Team Providers Care Chinese Medicine Practitioner Name Role Phone Armando Johnson MD Primary Care Provider [phone] Encounter Details Date Type Department Care Team (Latest Contact Info) Description 12/10/2007 Orders Only Gabriella Noel MD Social History Tobacco Use Types Packs/Day Years Used Date Smoking Tobacco: Never Assessed Comments Unknown Sex and Gender Information Value Date Recorded Sex Assigned at Not on file Legal Sex Female 4:42 AM DEPARTMENTAL BUYER Gender Identity Not on file Sexual Orientation Not on file documented as of this encounter Plan of Treatment Upcoming Encounters Date Type Department Care Team (Late st Contact Info) Description 08/10/2025 2:15 PM DEPARTMENTAL BUYER Office Visit [facility] Rheumatology [place] [address] [place] [address] Ruddy Sánchez [place] [address] [place] [address] documented as of this encounter Visit Diagnoses Not on filedocumented in this encounter Care Teams Chinese Medicine Practitioner Relationship Specialty Start Date End Date Armando Johnson MD [address] [place] [address] PCP - General Internal Medicine 11/13/22 documented as of this encounter
--- OUTSIDE RECORDS SUMMARY | 2025-04-01 18:05 | XMS_ITS | Encounter Summary ---
Author Organization [facility] Address [address] [place] [address] Care Team Providers Care Buttonhole Maker Hand Name Role Phone Armando Johnson MD Primary Care Provider [phone] Encounter Details Date Type Department Care Team (Late st Contact Info) Description 11/11/2007 Orders Only [facility] Internal Medicine Medical [place] A [facility] [address] [facility] [address] [address] Balwinder Hector MD [address] [facility] [address] [place] [address] Social History Tobacco Use Types Packs/Day Years Used Date Smoking Tobacco: Never Assessed Comments Unknown Sex and Gender Information Value Date Recorded Sex Assigned at Not on file Legal Sex Female 4:42 AM CREDIT RISK MODELER Gender Identity Not on file Sexual Orientation Not on file documented as of this encounter Progress Notes * Cooper Hector MD - 01/28/2008 2:40 PM CDT TIME:12:02 pm PATIENT`S HOME PHONE: PATIENT`S WORK PHONE: PATIENT`S INSURANCE: [employer] [facility] WHO TOOK THE CALL: Malgorzata Murphy R GENERAL INFORMATION ALTERNATIVE PHONE NUMBER: [phone] WHO CALLED: Patient called. CURRENT ALLERGY LIST: NONE PHARMACY NUMBER: [phone] PROBLEMS: has taken sudafed, tylenol, cough drops... CONGESTION: Patient complains of head congestion. The symptoms began approximately 6 days ago. COUGH:Patient complains of cough. The symptoms began approximately 6 days ago. severe and productive....phlegm yellow and thick DIZZINESS:Patient complains of dizziness. HEADACHE: Patient complains of tension headache. The symptoms began approximately 6 days ago. NAUSEA: Patient complains of nausea. RUNNY NOSE: Patient complains of runny nose. feels dry at times and barbour SHORTNESS OF BREATH: Patient complains of shortness of breath. SORE THROAT: Patient complains of sore throat. The sore throat began approximately 6 days ago. fromcoughing VOMITING: Patient complains of vomiting. from coughing so hard SECTION 1: DOCTOR`S RESPONSE: mely 11/11/07 at 01:18 pm MEDICATIONS: Call in to Pharmacy TESMOHAMUD PERLES ORAL CAPSULE CONVENTIONAL 100 MG, 2 Every Six Hours, As Needed, 30 Dispensed, status: NEW PRESCRIPTION, 11/11/2007. AMOXICILLIN ORAL TABLET 500 MG, 1 Three Times A Day, 30 Dispensed, status: NEW PRESCRIPTION, 11/11/2007. FINAL ACTION: goodm1 11/11/07 at 01:36 pm Spoke with patient 11/11/07 at 01:36 pm. Called pharmacy at 11/11/07 at 01:36 pm. documented in this encounter Plan of Treatment Upcoming Encounters Date Type Department Care Team (Late st Contact Info) Description 08/10/2025 2:15 PM CREDIT RISK MODELER Office Visit [facility] Rheumatology [place] [address] [facility] [address] [place] [address] Ruddy Sánchez [place] [address] [place] [address] documented as of this encounter Visit Diagnoses Not on filedocumented in this encounter Care Teams Buttonhole Maker Hand Relationship Specialty Start Date End Date Armando Johnson MD [address] [place] [address] PCP - General Internal Medicine 11/13/22 documented as of this encounter
--- OUTSIDE RECORDS SUMMARY | 2025-04-01 18:05 | XMS_ITS | Encounter Summary ---
Author Organization [facility] Address [address] [place] [address] Care Team Providers Care Wheel Press Operator Name Role Phone Armando Johnson MD Primary Care Provider [phone] Encounter Details Date Type Department Care Team (Late st Contact Info) Description 09/11/2002 Outpatient Historical [facility] Nixon Perea MD [address] [facility] [address] [place], [place] [id number] Social History Tobacco Use Types Packs/Day Years Used Date Smoking Tobacco: Never Assessed Comments Unknown Sex and Gender Information Value Date Recorded Sex Assigned at Not on file Legal Sex Female 4:42 AM FOOD SAFETY OFFICER Gender Identity Not on file Sexual Orientation Not on file documented as of this encounter Plan of Treatment Upcoming Encounters Date Type Department Care Team (Late st Contact Info) Description 08/10/2025 2:15 PM FOOD SAFETY OFFICER Office Visit [facility] Rheumatology [place] [address] [place] [address] Ruddy Sánchez [place] [address] [place] [address] documented as of this encounter Visit Diagnoses Not on filedocumented in this encounter Care Teams Wheel Press Operator Relationship Specialty Start Date End Date Armando Johnson MD [address] [place] [address] PCP - General Internal Medicine 11/13/22 documented as of this encounter
--- NOTE | 2025-04-01 18:09 | ECG_ITS ---
Test Date: 2025-04-01 18:13:27 Measurements Intervals [place] Rate: 77 P: 44 NC: 172 QRS: 1 QRSD: 86 T: 48 QT: 358 QTc: 407 Interpretive Statements SINUS RHYTHM NORMAL ELECTROCARDIOGRAM No previous ECG available for comparison Electronically Signed On 04-02-2025 07:38:20 CDT by Jordan Astorga M.D.
[2025-04-01 18:30] VITALS: BP 165/93; PULSE 80; RESP 16; TEMP 36.7; O2SAT 100
[2025-04-01 18:39] LABS: Hematocrit 37.1 % (37.0-47.0); Hemoglobin 12.3 g/dL (12.0-15.0); Immature Granulocyte Percent A 0.4 % (0-0.5); Lymphocytes Absolute Auto 1.99 K/mm3 (0.9-3.2); Mean Corpuscular HGB Conc 33.2 g/dl (32-36); Mean Corpuscular Hemoglobin 30.2 pg (26-34); Mean Corpuscular Volume 91.2 fl (80-100); Nucleated Red Blood Cells Absolute Auto 0.000 K/mm3 (0.0-0.012); Nucleated Red Blood Cells Perc 0.0 % (0.0-0.2); Platelet Count Result 196 k/mm3 (150-375); Red Blood Count 4.07 M/mm3 (4.2-5.4); White Blood Count 7.4 K/mm3 (4.5-10.0)
[2025-04-01 18:51] LABS: INR 0.9; Prothrombin Time 12.7 Seconds (11.1-14.7)
[2025-04-01 18:52] LABS: Partial Thromboplastin Time 31.5 Seconds (22.3-36.8)
[2025-04-01 20:00] LABS: Alanine Aminotransferase 39 U/L (6-35); Albumin Level 4.6 g/dL (3.5-5.1); Alkaline Phosphatase 78 U/L (38-126); Anion Gap 12 mmol/L (4-12); Aspartate Amino Transferase 40 U/L (14-36); Bilirubin,Total 0.4 mg/dL (0.2-1.3); Blood Urea Nitrogen 10 mg/dL (7-17); Calcium 10.3 mg/dL (8.4-10.2); Carbon Dioxide 24 mmol/L (22-30); Chloride 105 mmol/L (98-107); Estimated CRCL calculation 78 ml/min; Estimated Glomerular Filt Rate > 60; Glucose 107 mg/dL (65-110); Lipase 99 U/L (23-300); Potassium 4.1 mmol/L (3.4-5.0); Sodium 141 mmol/L (137-145); Total Protein 8.2 g/dL (6.3-8.2)
[2025-04-01 20:12] LABS: Troponin I < 0.012 ng/mL (0.000-0.034)
--- NOTE | 2025-04-01 21:43 | PC.NURSE ---
Pt ambulatory to intake desk with steady gait. Pt asks lead vulcanizing operator for a wait time. RN explained we don't give out wait times. Pt states multiple people are just sitting here. This RN states all ER rooms are full at this time and we are doing the best we can to get pts back. Pt states well i am leaving, this was a waste of my time:. Pt exited ED with no difficulties. Pt left without being seen by provider.
--- OUTSIDE RECORDS SUMMARY | 2025-04-01 22:51 | XMS_ITS | Encounter Summary ---
Author Organization [facility] Address [address] [place] [address] Care Team Providers Care Education Research Analyst Name Role Phone Armando Johnson MD Primary Care Provider Encounter Details Date Type Department Care Team (Late st Contact Info) Description 03/16/2004 Outpatient Historical [facility] Support Serv. (Adt Cardiology-[facility]) [address] [place] [address] Barron Peres MD NO ADDRESS ON FILE Social History Tobacco Use Types Packs/Day Years Used Date Smoking Tobacco: Never Assessed Comments Unknown Sex and Gender Information Value Date Recorded Sex Assigned at Not on file Legal Sex Female 4:42 AM HOUSE PRINCIPAL Gender Identity Not on file Sexual Orientation Not on file documented as of this encounter Plan of Treatment Upcoming Encounters Date Type Department Care Team (Late Contact Info) Description 08/10/2025 2:15 PM HOUSE PRINCIPAL Office Visit [facility] Rheumatology [place] [address] [place] [address] Ruddy Sánchez [place] [address] [place] [address] documented as of this encounter Visit Diagnoses Not on filedocumented in this encounter Care Teams Education Research Analyst Relationship Specialty Start Date End Date Armando Johnson MD [address] [place] [address] PCP - General Internal Medicine 11/13/22 documented as of this encounter
--- OUTSIDE RECORDS SUMMARY | 2025-04-01 22:51 | XMS_ITS | Encounter Summary ---
Author Organization [facility] Address [address] [place] [address] Care Team Providers Care Manual Lathe Operator Name Role Phone Armando Johnson MD Primary Care Provider [phone] Encounter Details Date Type Department Care Team (Latest Contact Info) Description 10/22/2008 Outpatient Historical [facility] Mcdonald, Tanmay Orona MD [address] [address] Unspecified Hypothyroidism Social History Tobacco Use Types Packs/Day Years Used Date Smoking Tobacco: Never Alcohol Use Standard Drinks/Week Comments No 0 (1 standard drink = 0.6 oz pur e alcohol) Comments No Sex and Gender Information Value Date Recorded Sex Assigned at Not on file Legal Sex Female 4:42 AM ENTERPRISE PROJECT MANAGER Gender Identity Not on file Sexual Orientation Not on file documented as of this encounter Plan of Treatment Upcoming Encounters Date Type Department Care Team (Late st Contact Info) Description 08/10/2025 2:15 PM ENTERPRISE PROJECT MANAGER Office Visit [facility] Rheumatology [place] [address] [place] [address] Ruddy Sánchez [place] [address] [place] [address] documented as of this encounter Visit Diagnoses Diagnosis Unspecified hypothyroidism documented in this encounter Care Teams Manual Lathe Operator Relationship Specialty Start Date End Date Armando Johnson MD [address] [place] [address] PCP - General Internal Medicine 11/13/22 documented as of this encounter
--- OUTSIDE RECORDS SUMMARY | 2025-04-01 22:51 | XMS_ITS | Encounter Summary ---
Author Organization [facility] Address [address] [place] [address] Shaft And Steering Post Repairer Name Role Phone Armando Johnson MD Primary Care Provider [phone] Encounter Details Date Type Department Care Team (Late st Contact Info) Description 12/01/2003 Outpatient Historical [facility] Support Serv. (Adt Cardiology-[facility]) [address] [place] [address] Ho Loyola MD NO ADDRESS ON FILE Social History Tobacco Use Types Packs/Day Years Used Date Smoking Tobacco: Never Assessed Comments Unknown Sex and Gender Information Value Date Recorded Sex Assigned at Not on file Legal Sex Female 4:42 AM SKIN CARE SPECIALIST Gender Identity Not on file Sexual Orientation Not on file documented as of this encounter Plan of Treatment Upcoming Encounters Date Type Department Care Team (Late Contact Info) Description 08/10/2025 2:15 PM SKIN CARE SPECIALIST Office Visit [facility] Rheumatology [place] [address] [place] [address] Ruddy Sánchez [place] [address] [place] [address] documented as of this encounter Visit Diagnoses Not on filedocumented in this encounter Care Teams Drive Shaft And Steering Post Repairer Relationship Specialty Start Date End Date Armando Johnson MD [address] [place] [address] PCP - General Internal Medicine 11/13/22 documented as of this encounter
--- OUTSIDE RECORDS SUMMARY | 2025-04-01 22:51 | XMS_ITS | Encounter Summary ---
Author Organization [facility] Address [address] [place] [address] Care Team Providers Care Communication Assistant Name Role Phone Armando Johnson MD Primary Care Provider [phone] Encounter Details Date Type Department Care Team (Late st Contact Info) Description 11/25/2003 Outpatient Historical [facility] Support [facility] (Adt Cardiology-[facility]) [address] [place] [address] Jeny Rodríguez MD Social History Tobacco Use Types Packs/Day Years Used Date Smoking Tobacco: Never Assessed Comments Unknown Sex and Gender Information Value Date Recorded Sex Assigned at Not on file Legal Sex Female 4:42 AM EXECUTIVE PRODUCER PROMOS Gender Identity Not on file Sexual Orientation Not on file documented as of this encounter Plan of Treatment Upcoming Encounters Date Type Department Care Team (Late Contact Info) Description 08/10/2025 2:15 PM EXECUTIVE PRODUCER PROMOS Office Visit [facility] Rheumatology [place] [address] [place] [address] Ruddy Sánchez [place] [address] [place] [address] documented as of this encounter Visit Diagnoses Not on filedocumented in this encounter Care Teams Communication Assistant Relationship Specialty Start Date End Date Armando Johnson MD [address] [place] [address] PCP - General Internal Medicine 11/13/22 documented as of this encounter
--- OUTSIDE RECORDS SUMMARY | 2025-04-01 22:51 | XMS_ITS | Encounter Summary ---
Author Organization [facility] Address [address] [place] [address] Care Team Providers Care [place]. Representative Name Role Phone Armando Johnson MD Primary Care Provider [phone] Encounter Details Date Type Department Care Team (Late Contact Info) Description 11/24/2003 Outpatient Historical [facility] Balwinder Ryder MD [address] [facility] [address] [place] [address] HYPERLIPIDEMIA NEC/NOS (Primary Dx) Social History Tobacco Use Types Packs/Day Years Used Date Smoking Tobacco: Never Assessed Comments Unknown Sex and Gender Information Value Date Recorded Sex Assigned at Not on file Legal Sex Female 4:42 AM CANNERY TENDER ENGINEER Gender Identity Not on file Sexual Orientation Not on file documented as of this encounter Plan of Treatment Upcoming Encounters Date Type Department Care Team (Late Contact Info) Description 08/10/2025 2:15 PM CANNERY TENDER ENGINEER Office Visit [facility] Rheumatology [place] [address] [place] [address] Ruddy Sánchez [place] [address] [place] [address] documented as of this encounter Visit Diagnoses Diagnosis Other and unspecified hyperlipidemia- Primary documented in this encounter Care Teams U.[place]. Representative Relationship Specialty Start Date End Date Armando Johnson MD [address] [place] [address] PCP - General Internal Medicine 11/13/22 documented as of this encounter
--- OUTSIDE RECORDS SUMMARY | 2025-04-01 22:51 | XMS_ITS | Encounter Summary ---
Author Organization [facility] Address [address] [place] [address] Care Team Providers Care Composition Molder Name Role Phone Armando Johnson MD Primary Care Provider [phone] Encounter Details Date Type Department Care Team [...] on file Legal Sex Female 4:42 AM PUMP ATTENDANT Gender Identity Not on file Sexual Orientation Not on file documented as of this encounter Plan of Treatment Upcoming Encounters Date Type Department Care Team (Late st Contact Info) Description 08/10/2025 2:15 PM PUMP ATTENDANT Office Visit [facility] Rheumatology [place] [address] [facility] [address] [place] [address] Ruddy Sánchez [place] [address] [place] [address] documented as of this encounter Visit Diagnoses Diagnosis Palpitations- Primary documented in this encounter Care Teams Composition Molder Relationship Specialty Start Date End Date Armando Johnson MD [address] [place] [address] PCP - General Internal Medicine 11/13/22 documented as of this encounter
--- OUTSIDE RECORDS SUMMARY | 2025-04-01 22:51 | XMS_ITS | Encounter Summary ---
Author Organization [facility] Address [address] [place] [address] Care Team Providers Care Network Support Administrator Name Role Phone Armando Johnson MD Primary Care Provider [phone] Encounter Details Date Type Department Care Team (Latest Contact Info) Description 01/10/2009 Outpatient Historical [facility] Rod, [place] [address] [place] [address] Other Screening Mammogram Social History Tobacco Use Types Packs/Day Years Used Date Smoking Tobacco: Never Alcohol Use Standard Drinks/Week Comments No 0 (1 standard drink = 0.6 oz pur e alcohol) Comments No Sex and Gender Information Value Date Recorded Sex Assigned at Not on file Legal Sex Female 4:42 AM RIG BUILDER Gender Identity Not on file Sexual Orientation Not on file documented as of this encounter Plan of Treatment Upcoming Encounters Date Type Department Care Team (Late st Contact Info) Description 08/10/2025 2:15 PM RIG BUILDER Office Visit [facility] [place] [address] [place] [address] Ruddy Sánchez [place] [address] [place] [address] documented as of this encounter Procedures Procedure Name Priority Date/Time Associated Diagnosis Comments MAMMO SCREEN BILAT W OR WO CAD Routine 01/10/2009 3:27 PM CDT documented in this encounter Results * MAMMO DIGITAL SCREEN BILAT (01/10/2009 3:27 PM CDT) Anatomical Region Laterality Modality Breast Bilateral Other 01/10/2009 3:27 PM CDT Narrative 01/10/2009 4:20 PM CDT [address] [address] Admit Date: 01/10/2009 JOSE PERRY Sex: F Admit Prov: LIBERTAD ROD Date: 1965 Primary Care Prov: OLGA MARTINArtemio BENNETT CMRN: [id number] Room: NAKITAYeyo N: [id number] IMAGING SERVICES Ordering Prov: LIBERTAD ROD Sammi Accession Number: [id number] Interpretation DIGITAL SCREENING MAMMOGRAM WITH COMPUTER-ASSISTED DIAGNOSIS [...] Procedure Note Anika Song MD - 01/10/[address] [address] Admit Date: 01/10/2009 JOSE PERRY Sex: F Admit Prov: LIBERTAD ROD Date: 1965 Primary Care Prov: ELIRUSHJOSE MARTINArtemio BENNETT CMRN: [id number] Room: NORMA SSN: [id number] IMAGING SERVICES Ordering Prov: RODLIBERTAD Interpretation DIGITAL [...] mammogram documented in this encounter Care Teams Network Support Administrator Relationship Specialty Start Date End Date Armando Johnson MD [address] [facility] [address] [place] [address] PCP - General Internal Medicine 11/13/22 documented as of this encounter
--- OUTSIDE RECORDS SUMMARY | 2025-04-01 22:52 | XMS_ITS | Encounter Summary ---
Author Organization [facility] Address [address] [place] [address] Care Team Providers Care Laster Hand Name Role Phone Armando Johnson MD Primary Care Provider [phone] Encounter Details Date Type Department Care Team (Late st Contact Info) Description 11/28/2001 Emergency [facility] [place], Authorized P NO ADDRESS ON FILE PAIN IN LIMB (Primary Dx) Social History Tobacco Use Types Packs/Day Years Used Date Smoking Tobacco: Never Assessed Comments Unknown Sex and Gender Information Value Date Recorded Sex Assigned at Not on file Legal Sex Female 4:42 AM FLIGHT COORDINATOR Gender Identity Not on file Sexual Orientation Not on file documented as of this encounter Plan of Treatment Upcoming Encounters Date Type Department Care Team (Late st Contact Info) Description 08/10/2025 2:15 PM FLIGHT COORDINATOR Office Visit [facility] Rheumatology [place] [address] [place] [address] Ruddy Sánchez [place] [address] [place] [address] documented as of this encounter Visit Diagnoses Diagnosis Pain in limb- Primary documented in this encounter Care Teams Laster Hand Relationship Specialty Start Date End Date Armando Johnson MD [address] [place] [address] PCP - General Internal Medicine 11/13/22 documented as of this encounter
--- OUTSIDE RECORDS SUMMARY | 2025-04-01 22:52 | XMS_ITS | Encounter Summary ---
Author Organization [facility] Address [address] [place] [address] Care Team Providers Care Portable Machine Sander Name Role Phone Armando Johnson MD Primary Care Provider [phone] Encounter Details Date Type Department Care Team (Late Contact Info) Description 04/17/2005 Outpatient Historical [facility] Internal Medicine Medical [place] [facility] [address] [facility] [address] [address] Balwinder Hector MD [address] [facility] [address] [place] [address] Social History Tobacco Use Types Packs/Day Years Used Date Smoking Tobacco: Never Assessed Comments Unknown Sex and Gender Information Value Date Recorded Sex Assigned at Not on file Legal Sex Female 4:42 AM SURVEYING CREW RODMAN Gender Identity Not on file Sexual Orientation [...] Body Mass Index 29.53 09/05/2004 3:45 PM SURVEYING CREW RODMAN documented in this encounter Plan of Treatment Upcoming Encounters Date Type Department Care Team (Late st Contact Info) Description 08/10/2025 2:15 PM SURVEYING CREW RODMAN Office Visit [facility] Rheumatology [place] [address] [place] [address] Ruddy Sán[place] [address] [place] [address] documented as of this encounter Visit Diagnoses Not on filedocumented in this encounter Care Teams Portable Machine Sander Relationship Specialty Start Date End Date Armando Johnson MD [address] [place] [address] PCP - General Internal Medicine 11/13/22 documented as of this encounter
--- OUTSIDE RECORDS SUMMARY | 2025-04-01 22:52 | XMS_ITS | Encounter Summary ---
Author Organization [facility] Address [address] [place] [address] Care Team Providers Care Director Long Term Care Name Role Phone Armando Johnson MD Primary Care Provider [phone] Encounter Details Date Type Department Care Team (Late st Contact Info) Description 08/18/2000 Outpatient Historical [facility] Melba Hahn MD [address] [place] [address] [place] [address] Social History Tobacco Use Types Packs/Day Years Used Date Smoking Tobacco: Never Assessed Comments Unknown Sex and Gender Information Value Date Recorded Sex Assigned at Not on file Legal Sex Female 4:42 AM CHEESEMAKER Gender Identity Not on file Sexual Orientation Not on file documented as of this encounter Plan of Treatment Upcoming Encounters Date Type Department Care Team (Late st Contact Info) Description 08/10/2025 2:15 PM CHEESEMAKER Office Visit [facility] Rheumatology [place] [address] [place] [address] Ruddy Sánchez [place] [address] [place] [address] documented as of this encounter Visit Diagnoses Not on filedocumented in this encounter Care Teams Director Long Term Care Relationship Specialty Start Date End Date Armando Johnson MD [address] [place] [address] PCP - General Internal Medicine 11/13/22 documented as of this encounter
--- OUTSIDE RECORDS SUMMARY | 2025-04-01 22:52 | XMS_ITS | Encounter Summary ---
Author Organization [facility] Address [address] [place] [address] Care Team Providers Care Chef German Name Role Phone Armando Johnson MD Primary Care Provider [phone] Encounter Details Date Type Department Care Team (Late st Contact Info) Description 02/03/2001 Outpatient Historical [facility] Jayda Chinchilla MD [address] [place] [address] Social History Tobacco Use Types Packs/Day Years Used Date Smoking Tobacco: Never Assessed Comments Unknown Sex and Gender Information Value Date Recorded Sex Assigned at Not on file Legal Sex Female 4:42 AM GUEST SERVICES AGENT Gender Identity Not on file Sexual Orientation Not on file documented as of this encounter Plan of Treatment Upcoming Encounters Date Type Department Care Team (Late st Contact Info) Description 08/10/2025 2:15 PM GUEST SERVICES AGENT Office Visit [facility] Rheumatology [place] [address] [place] [address] Ruddy Sán[place] [address] [place] [address] documented as of this encounter Visit Diagnoses Not on filedocumented in this encounter Care Teams Chef German Relationship Specialty Start Date End Date Armando Johnson MD [address] [place] [address] PCP - General Internal Medicine 11/13/22 documented as of this encounter
--- OUTSIDE RECORDS SUMMARY | 2025-04-01 22:52 | XMS_ITS | Encounter Summary ---
Author Organization [facility] Address [address] [place] [address] Care Team Providers Care Community Health Worker Name Role Phone Armando Johnson MD Primary Care Provider [phone] Encounter Details Date Type Department Care Team (Late Contact Info) Description 01/02/2024 Telephone [facility] at [facility] [place] [facility] 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 Not on file Not on file Not on file Not on file Not on file documented as of this encounter Plan of Treatment Upcoming Encounters Date Type Department Care Team (Late st Contact Info) Description 08/10/2025 2:15 PM TAB CUTTER Office Visit [facility] Rheumatology [place] [address] [facility] [address] [place] [address] Ruddy Sánchez [place] [address] [place] [address] documented as of this encounter Visit Diagnoses Not on filedocumented in this encounter Care Teams Community Health Worker Relationship Specialty Start Date End Date Armando Johnson MD [address] [place] [address] PCP - General Internal Medicine 11/13/22 documented as of this encounter
--- OUTSIDE RECORDS SUMMARY | 2025-04-01 22:52 | XMS_ITS | Encounter Summary ---
Author Organization [facility] Address [address] [place] [address] Care Team Providers Care Textile Conservator Name Role Phone Armando Johnson MD Primary Care Provider [phone] Encounter Details Date Type Department Care Team (Late st Contact Info) Description 03/16/2004 Outpatient Historical [facility] PRIMARY CARE Balwinder Hector MD [address] [facility] [address] [place] [address] Social History Tobacco Use Types Packs/Day Years Used Date Smoking Tobacco: Never Assessed Comments Unknown Sex and Gender Information Value Date Recorded Sex Assigned at Not on file Legal Sex Female 4:42 AM CLERICAL AND OFFICE SUPPORT WORKERS Gender Identity Not on file Sexual Orientation Not on file documented as of this encounter Plan of Treatment Upcoming Encounters Date Type Department Care Team (Late st Contact Info) Description 08/10/2025 2:15 PM CLERICAL AND OFFICE SUPPORT WORKERS Office Visit [facility] Rheumatology [place] [address] [place] [address] Ruddy Sánchez [place] [address] [place] [address] documented as of this encounter Visit Diagnoses Not on filedocumented in this encounter Care Teams Textile Conservator Relationship Specialty Start Date End Date Armando Johnson MD [address] [place] [address] PCP - General Internal Medicine 11/13/22 documented as of this encounter
--- OUTSIDE RECORDS SUMMARY | 2025-04-01 22:52 | XMS_ITS | Encounter Summary ---
Author Organization [facility] Address [address] [place] [address] Care Team Providers Care Relay Worker Name Role Phone Armando Johnson MD Primary Care Provider [phone] Encounter Details Date Type Department Care Team (Late st Contact Info) Description 08/24/2002 Outpatient Historical [facility] Support Serv. (Adt Cardiology-[facility]) [address] [place] [address] Lucius Ward MD NO ADDRESS ON FILE Social History Tobacco Use Types Packs/Day Years Used Date Smoking Tobacco: Never Assessed Comments Unknown Sex and Gender Information Value Date Recorded Sex Assigned at Not on file Legal Sex Female 4:42 AM PRODUCT MARKETING ANALYST Gender Identity Not on file Sexual Orientation Not on file documented as of this encounter Plan of Treatment Upcoming Encounters Date Type Department Care Team (Late Contact Info) Description 08/10/2025 2:15 PM PRODUCT MARKETING ANALYST Office Visit [facility] Rheumatology [place] [address] [place] [address] Ruddy Sánchez [place] [address] [place] [address] documented as of this encounter Visit Diagnoses Not on filedocumented in this encounter Care Teams Relay Worker Relationship Specialty Start Date End Date Armando Johnson MD [address] [place] [address] PCP - General Internal Medicine 11/13/22 documented as of this encounter
--- OUTSIDE RECORDS SUMMARY | 2025-04-01 22:52 | XMS_ITS | Encounter Summary ---
Author Organization [facility] Address [address] [place] [address] Care Team Providers Care Pollution Control Technician Name Role Phone Armando Johnson MD Primary Care Provider [phone] Encounter Details Date Type Department Care Team (Latest Contact Info) Description 08/21/2005 [facility] [address] [place] [address] ABDOMINAL PAIN LLQ (Primary Dx) Social History Tobacco Use Types Packs/Day Years Used Date Smoking Tobacco: Never Assessed Comments Unknown Sex and Gender Information Value Date Recorded Sex Assigned at Not on file Legal Sex Female 4:42 AM TERRITORY SALES EXECUTIVE Gender Identity Not on file Sexual Orientation Not on file documented as of this encounter Plan of Treatment Upcoming Encounters Date Type Department Care Team (Late st Contact Info) Description 08/10/2025 2:15 PM TERRITORY SALES EXECUTIVE Office Visit [facility] Rheumatology [place] [address] [place] [address] Ruddy Sánchez [place] [address] [place] [address] documented as of this encounter Visit Diagnoses Diagnosis Abdominal pain, left lower quadrant- Primary documented in this encounter Care Teams Pollution Control Technician Relationship Specialty Start Date End Date Armando Johnson MD [address] [place] [address] PCP - General Internal Medicine 11/13/22 documented as of this encounter
--- OUTSIDE RECORDS SUMMARY | 2025-04-01 22:52 | XMS_ITS | Encounter Summary ---
Author Organization [facility] Address [address] [place] [address] Care Team Providers Care Licensed Practical Vocational Nurse Name Role Phone Armando Johnson MD Primary Care Provider Encounter Details Date Type Department Care Team (Late Contact Info) Description 03/27/[address] [facility] Internal Medicine Medical [place] [facility] [address] [facility] [address] [address] Balwinder Hector MD [address] [facility] [address] [place] [address] Social History Tobacco Use Types Packs/Day Years Used Date Smoking Tobacco: Never Assessed Comments Unknown Sex and Gender Information Value Date Recorded Sex Assigned at Not on file Legal Sex Female 4:42 AM DIRECTOR OF PROMOTIONS Gender Identity Not on file Sexual Orientation [...] Body Mass Index 29.68 08/20/2005 2:20 PM DIRECTOR OF PROMOTIONS documented in this encounter Plan of Treatment Upcoming Encounters Date Type Department Care Team (Late st Contact Info) Description 08/10/2025 2:15 PM DIRECTOR OF PROMOTIONS [facility] Rheumatology [place] [address] [place] [address] Ruddy Sánchez [place] [address] [place] [address] documented as of this encounter Visit Diagnoses Not on filedocumented in this encounter Care Teams Licensed Practical Vocational Nurse Relationship Specialty Start Date End Date Armando Johnson MD [address] [place] [address] PCP - General Internal Medicine 11/13/22 documented as of this encounter
--- OUTSIDE RECORDS SUMMARY | 2025-04-01 22:52 | XMS_ITS | Encounter Summary ---
Author Organization [facility] Address [address] [place] [address] Care Team Providers Care Mounted Police Name Role Phone Armando Johnson MD Primary Care Provider [phone] Encounter Details Date Type Department Care Team (Late Contact Info) Description 12/07/2003 Outpatient [facility] Center for [address] [place] [address] [place] [address] [address] Social History Tobacco Use Types Packs/Day Years Used Date Smoking Tobacco: Never Assessed Comments Unknown Sex and Gender Information Value Date Recorded Sex Assigned at Not on file Legal Sex Female 4:42 AM TRACKLESS TROLLEY DRIVER Gender Identity Not on file Sexual Orientation Not on file documented as of this encounter Plan of Treatment Upcoming Encounters Date Type Department Care Team (Late st Contact Info) Description 08/10/2025 2:15 PM TRACKLESS TROLLEY DRIVER Office Visit [facility] Rheumatology [place] [address] [place] [address] Ruddy Sánchez [place] [address] [place] [address] documented as of this encounter Visit Diagnoses Not on filedocumented in this encounter Care Teams Mounted Police Relationship Specialty Start Date End Date Armando Johnson MD [address] [place] [address] PCP - General Internal Medicine 11/13/22 documented as of this encounter
--- OUTSIDE RECORDS SUMMARY | 2025-04-01 22:52 | XMS_ITS | Encounter Summary ---
Author Organization [facility] Address [address] [place] [address] Care Team Providers Care Corner Former Name Role Phone Armando Johnson MD Primary Care Provider [phone] Encounter Details Date Type Department Care Team (Late st Contact Info) Description 02/26/2003 Outpatient Historical [facility] Balwinder Hector MD [address] [facility] [address] [place] [address] Social History Tobacco Use Types Packs/Day Years Used Date Smoking Tobacco: Never Assessed Comments Unknown Sex and Gender Information Value Date Recorded Sex Assigned at Not on file Legal Sex Female 4:42 AM LIBRARY ACQUISITIONS TECHNICIAN Gender Identity Not on file Sexual Orientation Not on file documented as of this encounter Plan of Treatment Upcoming Encounters Date Type Department Care Team (Late st Contact Info) Description 08/10/2025 2:15 PM LIBRARY ACQUISITIONS TECHNICIAN Office Visit [facility] Rheumatology [place] [address] [place] [address] Ruddy Sánchez [place] [address] [place] [address] documented as of this encounter Visit Diagnoses Not on filedocumented in this encounter Care Teams Corner Former Relationship Specialty Start Date End Date Armando Johnson MD [address] [place] [address] PCP - General Internal Medicine 11/13/22 documented as of this encounter
--- OUTSIDE RECORDS SUMMARY | 2025-04-01 22:52 | XMS_ITS | Encounter Summary ---
Author Organization [facility] Address [address] [place] [address] Care Team Providers Care Design Engineering Technician Name Role Phone Armando Johnson MD Primary Care Provider Encounter Details Date Type Department Care Team (Late st Contact Info) Description 09/05/2004 Outpatient Historical [facility] Internal Medicine Medical [place] [facility] [address] [facility] [address] [address] Balwinder Hector MD [address] [facility] [address] [place] [address] Social History Tobacco Use Types Packs/Day Years Used Date Smoking Tobacco: Never Assessed Comments Unknown Sex and Gender Information Value Date Recorded Sex Assigned at Not on file Legal Sex Female 4:42 AM CASE THERAPIST Gender Identity Not on file Sexual Orientation Not on file documented as of this encounter Last Filed Vital Signs Vital Sign Reading Time Taken Comments Blood Pressure 124/76 09/05/2004 3:45 PM CASE THERAPIST Pulse 84 09/05/2004 3:45 PM CASE THERAPIST Temperature 36.7 C (98 F) 09/05/2004 3:45 PM CASE THERAPIST Respiratory Rate 16 09/05/2004 3:45 PM CASE THERAPIST Oxygen Saturation - - Inhaled Oxygen Concentration - - Weight 86.2 kg (190 lb) 09/05/2004 3:45 PM CASE THERAPIST Height 175.3 cm (5' 9) 09/05/2004 3:45 PM CASE THERAPIST Body Mass Index 28.06 09/05/2004 3:45 PM CASE THERAPIST documented in this encounter Plan of Treatment Upcoming Encounters Date Type Department Care Team (Late st Contact Info) Description 08/10/2025 2:15 PM CASE THERAPIST [facility] [place] [address] [place] [address] Ruddy Sán[place] [address] [place] [address] documented as of this encounter Visit Diagnoses Not on filedocumented in this encounter Care Teams Design Engineering Technician Relationship Specialty Start Date End Date Armando Johnson MD [address] [place] [address] PCP - General Internal Medicine 11/13/22 documented as of this encounter
--- OUTSIDE RECORDS SUMMARY | 2025-04-01 22:52 | XMS_ITS | Encounter Summary ---
Author Organization [facility] Address [address] [place] [address] Care Team Providers Care Signal And Communications Maintainer Name Role Phone Armando Johnson MD Primary Care Provider [phone] Encounter Details Date Type Department Care Team (Latest Contact Info) Description 12/28/2006 Outpatient Historical [facility] Rod, Josué [place] [address] [place] [address] Other Screening Mammogram (Primary Dx) Social History Tobacco Use Types Packs/Day Years Used Date Smoking Tobacco: Never Assessed Comments Unknown Sex and Gender Information Value Date Recorded Sex Assigned at Not on file Legal Sex Female 4:42 AM TIRE CORD WEAVER Gender Identity Not on file Sexual Orientation Not on file documented as of this encounter Plan of Treatment Upcoming Encounters Date Type Department Care Team (Late st Contact Info) Description 08/10/2025 2:15 PM TIRE CORD WEAVER Office Visit [facility] Rheumatology [place] [address] [place] [address] Ruddy Sánchez [place] [address] [place] [address] documented as of this encounter Visit Diagnoses Diagnosis Other screening mammogram- Primary documented in this encounter Care Teams Signal And Communications Maintainer Relationship Specialty Start Date End Date Armando Johnson MD [address] [place] [address] PCP - General Internal Medicine 11/13/22 documented as of this encounter
--- OUTSIDE RECORDS SUMMARY | 2025-04-01 22:52 | XMS_ITS | Encounter Summary ---
Author Organization [facility] Address [address] [place] [address] Care Team Providers Care Merchandising Representative Name Role Phone Armando Johnson MD Primary Care Provider [phone] Encounter Details Date Type Department Care Team (Late st Contact Info) Description 06/11/2003 Outpatient Historical [facility] PRIMARY [facility] Balwinder Hector MD [address] [facility] [address] [place] [address] Social History Tobacco Use Types Packs/Day Years Used Date Smoking Tobacco: Never Assessed Comments Unknown Sex and Gender Information Value Date Recorded Sex Assigned at Not on file Legal Sex Female 4:42 AM SPINNING LATHE OPERATOR AUTOMATIC Gender Identity Not on file Sexual Orientation Not on file documented as of this encounter Plan of Treatment Upcoming Encounters Date Type Department Care Team (Late st Contact Info) Description 08/10/2025 2:15 PM SPINNING LATHE OPERATOR AUTOMATIC Office Visit [facility] Rheumatology [place] [address] [place] [address] Ruddy Sánchez [place] [address] [place] [address] documented as of this encounter Visit Diagnoses Not on filedocumented in this encounter Care Teams Merchandising Representative Relationship Specialty Start Date End Date Armando Johnson MD [address] [place] [address] PCP - General Internal Medicine 11/13/22 documented as of this encounter
--- OUTSIDE RECORDS SUMMARY | 2025-04-01 22:52 | XMS_ITS | Encounter Summary ---
Author Organization [facility] Address [address] [place] [address] Care Team Providers Care Window Installation Subcontractor Name Role Phone Armando Johnson MD Primary Care Provider [phone] Encounter Details Date Type Department Care Team (Latest Contact Info) Description 07/11/2001 Outpatient Historical HIS [facility] Rod, Josué [place] [address] [place] [address] Screening mammogram for high-risk patient (Primary Dx) Social History Tobacco Use Types Packs/Day Years Used Date Smoking Tobacco: Never Assessed Comments Unknown Sex and Gender Information Value Date Recorded Sex Assigned at Not on file Legal Sex Female 4:42 AM FELT CHECKER Gender Identity Not on file Sexual Orientation Not on file documented as of this encounter Plan of Treatment Upcoming Encounters Date Type Department Care Team (Late st Contact Info) Description 08/10/2025 2:15 PM FELT CHECKER Office Visit [facility] Rheumatology [place] [address] [place] [address] Ruddy Sánchez [place] [address] [place] [address] documented as of this encounter Visit Diagnoses Diagnosis Screening mammogram for high-risk patient- Primary documented in this encounter Care Teams Window Installation Subcontractor Relationship Specialty Start Date End Date Armando Johnson MD [address] [place] [address] PCP - General Internal Medicine 11/13/22 documented as of this encounter
--- OUTSIDE RECORDS SUMMARY | 2025-04-01 22:52 | XMS_ITS | Encounter Summary ---
Author Organization [facility] Address 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 Not on file Not on file Not on file Not on file Not on file documented as of this encounter Plan of Treatment Upcoming Encounters Date Type Department Care Team (Late Contact Info) Description 08/10/2025 2:15 PM BORDEREAU CLERK Office Visit [facility] Rheumatology [place] [address] [place] [address] Ruddy Sán[place] [address] [place] [address] documented as of this encounter Visit Diagnoses Not on filedocumented in this encounter Care Teams Water Hauler Relationship Specialty Start Date End Date Armando Johnson MD [address] [place] [address] PCP - General Internal Medicine 11/13/22 documented as of this encounter
--- OUTSIDE RECORDS SUMMARY | 2025-04-01 22:52 | XMS_ITS | Encounter Summary ---
Author Organization [facility] Address [address] [place] [address] Care Team Providers Care Wound Care Physician Name Role Phone Armando Johnson MD Primary Care Provider [phone] Encounter Details Date Type Department Care Team (Late Contact Info) Description 08/29/2006 Outpatient Historical [facility] Internal Medicine Medical [place] [facility] [address] [facility] [address] [address] Balwinder Hector MD [address] [facility] [address] [place] [address] Social History Tobacco Use Types Packs/Day Years Used Date Smoking Tobacco: Never Assessed Comments Unknown Sex and Gender Information Value Date Recorded Sex Assigned at Not on file Legal Sex Female 4:42 AM SURGICAL GARMENT ASSEMBLY SUPERVISOR Gender Identity Not on file Sexual Orientation Not on file documented as of this encounter Plan of Treatment Upcoming Encounters Date Type Department Care Team (Late st Contact Info) Description 08/10/2025 2:15 PM SURGICAL GARMENT ASSEMBLY SUPERVISOR Office Visit [facility] Rheumatology [place] [address] [facility] [address] [place] [address] Ruddy Sánchez [place] [address] [place] [address] documented as of this encounter Visit Diagnoses Not on filedocumented in this encounter Care Teams Wound Care Physician Relationship Specialty Start Date End Date Armando Johnson MD [address] [facility] [address] [place] [address] PCP - General Internal Medicine 11/13/22 documented as of this encounter
--- OUTSIDE RECORDS SUMMARY | 2025-04-01 22:52 | XMS_ITS | Encounter Summary ---
Author Organization [facility] Address [address] [place] [address] Care Team Providers Care Health Care Legal Assistant Name Role Phone Armando Johnson MD Primary Care Provider [phone] Encounter Details Date Type Department Care Team (Latest Contact Info) Description 02/11/2025 Results Follow-Up [facility] [place] [address] [facility] [address] [place] [address] Ruddy Sánchez [place] [address] [place] [address] COMPLEMENT C3/C4 PANEL, DNA AUTOABS [...] on file Legal Sex Female 4:42 AM PROSPECTING OBSERVER Gender Identity Not on file Sexual Orientation Not on file 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 Not on file Not on file Not on file Not on file Not on file documented as of this encounter Plan of Treatment Upcoming Encounters Date Type Department Care Team (Late st Contact Info) Description 08/10/2025 2:15 PM PROSPECTING OBSERVER Office Visit [facility] [place] [address] [facility] [address] [place] [address] Ruddy Sánchez MD [address] [place] [address] documented as of this encounter Visit Diagnoses Not on filedocumented in this encounter Care Teams Health Care Legal Assistant Relationship Specialty Start Date End Date Armando Johnson MD [address] [place] [address] PCP - General Internal Medicine 11/13/22 documented as of this encounter
--- OUTSIDE RECORDS SUMMARY | 2025-04-01 22:52 | XMS_ITS | Clinical Summary ---
Author Organization [facility] Address [address] [facility] [place] [address] Care Team Providers Care Contracts Attorney Name Role Phone Unavailable Primary Care Provider Unavailabl e Source Comments [facility],non-owned Affiliates and Associated Physician Practices is amultiple site organization consisting of ambulatory clinics and hospital sitesin [place], [place], [place] and [place]. This disclosure is being madepursuant to the Care Everywhere program and may not contain all information available regarding this patient. Last updated 18.[facility] Immunizations Immunization Administration Dates Next Due INFLUENZA [...]
--- OUTSIDE RECORDS SUMMARY | 2025-04-01 22:52 | XMS_ITS | Encounter Summary ---
Author Organization [facility] Address [address] [place] [address] Care Team Providers Care Varnish Finisher Name Role Phone Armando Johnson MD Primary Care Provider [phone] Encounter Details Date Type Department Care Team (Late st Contact Info) Description 04/27/2003 Outpatient Historical [facility] DEPT Ludwig Gibbons MD [address] [facility] [address] [place] [address] CERVICAL DISC DISPLACMNT (Primary Dx) Social History Tobacco Use Types Packs/Day Years Used Date Smoking Tobacco: Never Assessed Comments Unknown Sex and Gender Information Value Date Recorded Sex Assigned at Not on file Legal Sex Female 4:42 AM LENS AND FRAMES PRESCRIPTION CLERK Gender Identity Not on file Sexual Orientation Not on file documented as of this encounter Plan of Treatment Upcoming Encounters Date Type Department Care Team (Late Contact Info) Description 08/10/2025 2:15 PM LENS AND FRAMES PRESCRIPTION CLERK Office Visit [facility] Rheumatology [place] [address] [place] [address] Ruddy Sánchez [place] [address] [place] [address] documented as of this encounter Visit Diagnoses Diagnosis Displacement of cervical intervertebral disc without myelopathy- Primary documented in this encounter Care Teams Varnish Finisher Relationship Specialty Start Date End Date Armando Johnson MD [address] [place] [address] PCP - General Internal Medicine 11/13/22 documented as of this encounter
--- OUTSIDE RECORDS SUMMARY | 2025-04-01 22:52 | XMS_ITS | Encounter Summary ---
Author Organization [facility] Address [address] [place] [address] Care Team Providers Care Aeronautical Engineering Professor Name Role Phone Armando Johnson MD Primary Care Provider [phone] Encounter Details Date Type Department Care Team (Late st Contact Info) Description 12/13/2003 Outpatient Historical [facility] PRIMARY CARE Balwinder Hector MD [address] [facility] [address] [place] [address] Social History Tobacco Use Types Packs/Day Years Used Date Smoking Tobacco: Never Assessed Comments Unknown Sex and Gender Information Value Date Recorded Sex Assigned at Not on file Legal Sex Female 4:42 AM PICK AND SHOVEL WORKER Gender Identity Not on file Sexual Orientation Not on file documented as of this encounter Plan of Treatment Upcoming Encounters Date Type Department Care Team (Late st Contact Info) Description 08/10/2025 2:15 PM PICK AND SHOVEL WORKER Office Visit [facility] Rheumatology [place] [address] [place] [address] Ruddy Sánchez [place] [address] [place] [address] documented as of this encounter Visit Diagnoses Not on filedocumented in this encounter Care Teams Aeronautical Engineering Professor Relationship Specialty Start Date End Date Armando Johnson MD [address] [place] [address] PCP - General Internal Medicine 11/13/22 documented as of this encounter
--- OUTSIDE RECORDS SUMMARY | 2025-04-01 22:52 | XMS_ITS | Encounter Summary ---
Author Organization [facility] Address [address] [place] [address] Care Team Providers Care Toy Assembly Supervisor Name Role Phone Armando Johnson MD Primary Care Provider [phone] Encounter Details Date Type Department Care Team (Latest Contact Info) Description 04/28/2009 Outpatient Historical [facility], [address] Kelley Bonds MD [address] [place] [address] Routine Gynecological Examination Social History Tobacco Use Types Packs/Day Years Used Date Smoking Tobacco: Never Alcohol Use Standard Drinks/Week Comments No 0 (1 standard drink = 0.6 oz pur e alcohol) Comments No Sex and Gender Information Value Date Recorded Sex Assigned at Not on file Legal Sex Female 4:42 AM VERIFICATION REP Gender Identity Not on file Sexual Orientation Not on file documented as of this encounter Plan of Treatment Upcoming Encounters Date Type Department Care Team (Late st Contact Info) Description 08/10/2025 2:15 PM VERIFICATION REP Office Visit [facility] [place] [address] [place] [address] Ruddy Sánchez [place] [address] [place] [address] documented as of this encounter Visit Diagnoses Diagnosis Routine gynecological examination documented in this encounter Care Teams Toy Assembly Supervisor Relationship Specialty Start Date End Date Armando Johnson MD [address] [facility] [address] [place] [address] PCP - General Internal Medicine 11/13/22 documented as of this encounter
--- OUTSIDE RECORDS SUMMARY | 2025-04-01 22:52 | XMS_ITS | Encounter Summary ---
Author Organization [facility] Address [address] [place] [address] Care Team Providers Care Yam Curer Name Role Phone Armando Johnson MD Primary Care Provider [phone] Encounter Details Date Type Department Care Team (Late st Contact Info) Description 09/10/2001 Outpatient Historical [facility] Social History Tobacco Use Types Packs/Day Years Used Date Smoking Tobacco: Never Assessed Comments Unknown Sex and Gender Information Value Date Recorded Sex Assigned at Not on file Legal Sex Female 4:42 AM ARCHITECTURAL EXAMINER Gender Identity Not on file Sexual Orientation Not on file documented as of this encounter Plan of Treatment Upcoming Encounters Date Type Department Care Team (Late st Contact Info) Description 08/10/2025 2:15 PM ARCHITECTURAL EXAMINER Office Visit [facility] Rheumatology [place] [address] [place] [address] Ruddy Sán[place] [address] [place] [address] documented as of this encounter Visit Diagnoses Not on filedocumented in this encounter Care Teams Yam Curer Relationship Specialty Start Date End Date Armando Johnson MD [address] [place] [address] PCP - General Internal Medicine 11/13/22 documented as of this encounter
--- OUTSIDE RECORDS SUMMARY | 2025-04-01 22:52 | XMS_ITS | Continuity of Care Document ---
Author Organization [facility] Address [address] [facility] [address] [place] [address] Phone Care Team Providers Care Dry Chain Worker Name Role Phone Jah PT, DPT, Niels Unavailable Unavailable Procedures Procedure Date Neuromuscular Re-Ed Therapeutic Exercise Therapeutic Activities Neuromuscular Re-Ed Therapeutic Exercise Neuromuscular Re-Ed Therapeutic Activities Therapeutic Exercise Therapeutic Activities Neuromuscular Re-Ed Therapeutic Exercise PT Evaluation Moderate Complexity Therapeutic Activities Neuromuscular Re-Ed Therapeutic Exercise Advance Directives Directive Yes / No Effective Date File Name No Information Encounters Encounter Description Practice Location Reason(s) For Visit Diagnoses Date Provider Providers Copied on Encounter [facility] [address], [place], [place], [id number], tel:[phone] [place] No Information 0 Jah Bowser. . Referring Provider: Faustino Minor [address], [place], [address]. tel:[phone] [facility], [place], [place], [id number], tel:[phone] [place] No Information 0 Jah Bowser. . Referring Provider: Faustino [address], [place], [address]. tel:[phone] [facility] [address] [facility] [address], [place], [place], [id number], tel:[phone] [place] No Information 0-202 0 Makler Luke. . Referring Provider: Chantal Cuadra, [address], [place], [address]. tel:[phone] [address] [address], [place], [place], [id number], tel:[phone] [place] No Information Dami-0 3-202 0 Makler Luke. . Referring Provider: Chantal Cuadra [address], [place], [address]. tel:[phone] [address], [place], [place], [id number], tel:[phone] [place] No Information 0 1-202 0 Makler Luke. . Referring Provider: Chantal Cuadra [address], [place], [address]. tel:[phone] Family History Family Member Type Diagnosis Age At Onset No Information Payers Payer name Insurance type Covered green party ID Mellisa farmer(danika Canales CI [id number] Social History Type Description Quantity Date Captured [...]
--- OUTSIDE RECORDS SUMMARY | 2025-04-01 22:52 | XMS_ITS | Encounter Summary ---
Author Organization [facility] Address [address] [place] [address] Care Team Providers Care Diesel Power Shovel Operator Name Role Phone Armando Johnson MD Primary Care Provider [phone] Encounter Details Date Type Department Care Team (Late st Contact Info) Description 08/20/2005 Outpatient Historical [facility] Internal Medicine Medical [place] [facility] [address] [facility] [address] [address] Wilma Starks MD [address] [facility] [address] [place] [address] Social History Tobacco Use Types Packs/Day Years Used Date Smoking Tobacco: Never Assessed Comments Unknown Sex and Gender Information Value Date Recorded Sex Assigned at Not on file Legal Sex Female 4:42 AM HORSE RACE STARTER Gender Identity Not on file Sexual Orientation Not on file documented as of this encounter Last Filed Vital Signs Vital Sign Reading Time Taken Comments Blood Pressure 140/80 08/20/2005 2:20 PM HORSE RACE STARTER Pulse 80 08/20/2005 2:20 PM HORSE RACE STARTER Temperature 36.1 C (97 F) 08/20/2005 2:20 PM HORSE RACE STARTER Respiratory Rate 18 08/20/2005 2:20 PM HORSE RACE STARTER Oxygen Saturation - - Inhaled Oxygen Concentration - - Weight 92.1 kg (203 lb) 08/20/2005 2:20 PM HORSE RACE STARTER Height 175.3 cm (5' 9) 08/20/2005 2:20 PM HORSE RACE STARTER Body Mass Index 29.98 08/20/2005 2:20 PM HORSE RACE STARTER documented in this encounter Plan of Treatment Upcoming Encounters Date Type Department Care Team (Late st Contact Info) Description 08/10/2025 2:15 PM HORSE RACE STARTER [facility] Rheumatology [place] [address] [facility] [place] [place] [address] Ruddy Sán[place] [address] [place] [address] documented as of this encounter Visit Diagnoses Not on filedocumented in this encounter Care Teams Diesel Power Shovel Operator Relationship Specialty Start Date End Date Armando Johnson MD [address] [place] [address] PCP - General Internal Medicine 11/13/22 documented as of this encounter
--- OUTSIDE RECORDS SUMMARY | 2025-04-01 22:52 | XMS_ITS | Encounter Summary ---
Author Organization [facility] Address [address] [place] [address] Care Team Providers Care Fire Control Officer Name Role Phone Armando Johnson MD Primary Care Provider [phone] Encounter Details Date Type Department Care Team (Late Contact Info) Description 08/29/[address] [facility] Internal Medicine Medical [place] [facility] [address] [facility] [address] [address] Balwinder Hector MD [address] [facility] [address] [place] [address] Social History Tobacco Use Types Packs/Day Years Used Date Smoking Tobacco: Never Assessed Comments Unknown Sex and Gender Information Value Date Recorded Sex Assigned at Not on file Legal Sex Female 4:42 AM CARROT GRADER INSPECTOR Gender Identity Not on file Sexual Orientation Not on file documented as of this encounter Plan of Treatment Upcoming Encounters Date Type Department Care Team (Late st Contact Info) Description 08/10/2025 2:15 PM CARROT GRADER INSPECTOR Office Visit [facility] Rheumatology [place] [address] [place] [address] Ruddy Sánchez [place] [address] [place] [address] documented as of this encounter Visit Diagnoses Not on filedocumented in this encounter Care Teams Fire Control Officer Relationship Specialty Start Date End Date Armando Johnson MD [address] [facility] [address] [place] [address] PCP - General Internal Medicine 11/13/22 documented as of this encounter
--- OUTSIDE RECORDS SUMMARY | 2025-04-01 22:52 | XMS_ITS | Encounter Summary ---
Author Organization [facility] Address [address] [place] [address] Care Team Providers Care Semi Truck Driver Name Role Phone Armando Johnson MD Primary Care Provider [phone] Encounter Details Date Type Department Care Team (Late st Contact Info) Description 08/29/2006 Outpatient Historical [facility] Internal Medicine Medical [place] [facility] [address] [facility] [address] [address] Balwinder Hector MD [address] [facility] [address] [place] [address] Palpitations (Primary Dx) Social History Tobacco Use Types Packs/Day Years Used Date Smoking Tobacco: Never Assessed Comments Unknown Sex and Gender Information Value Date Recorded Sex Assigned at Not on file Legal Sex Female 4:42 AM PETROLEUM TERMINAL PLANT OPERATOR Gender Identity Not on file Sexual Orientation Not on file documented as of this encounter Plan of Treatment Upcoming Encounters Date Type Department Care Team (Late st Contact Info) Description 08/10/2025 2:15 PM PETROLEUM TERMINAL PLANT OPERATOR Office Visit [facility] Rheumatology [place] [address] [facility] [address] [place] [address] Ruddy Sánchez [place] [address] [place] [address] documented as of this encounter Procedures Procedure Name Priority Date/Time Associated Diagnosis Comments COMPREHENSIVE METABOLIC PANEL Routine 08/29/2006 1:25 PM PETROLEUM TERMINAL PLANT OPERATOR documented in this encounter Results * COMPREHENSIVE METABOLIC PANEL (08/29/2006 1:25 PM PETROLEUM TERMINAL PLANT OPERATOR) GLUCOSE 82 65 - 99 mg/dL INTERFACE [...] and non- Americans is available on the [facility] Intranet at: [email or web address] Select: Lab Policies and Procedures Select: Reference Ranges - GFR 08/29/2006 1:25 PM PETROLEUM TERMINAL PLANT OPERATOR Balwinder Hector MD CHEMISTRY ORDERABLES Final Resu lt INTERFACE SYSTEM Refer to clinic/hospital department documented in this encounter Visit Diagnoses Diagnosis Palpitations- Primary documented in this encounter Care Teams Semi Truck Driver Relationship Specialty Start Date End Date Armando Johnson MD [address] [facility] [address] [place] [address] PCP - General Internal Medicine 11/13/22 documented as of this encounter
--- OUTSIDE RECORDS SUMMARY | 2025-04-01 22:52 | XMS_ITS | Encounter Summary ---
Author Organization [facility] Address [address] [place] [address] Care Team Providers Care Customer Accounts Advisor Name Role Phone Armando Johnson MD Primary Care Provider [phone] Encounter Details Date Type Department Care Team (Latest Contact Info) Description 01/06/2007 Outpatient Historical [facility] PR[address] Rod, Josué [place] [address] [place] [address] Diffuse Cystic Mastopathy (Primary Dx) Social History Tobacco Use Types Packs/Day Years Used Date Smoking Tobacco: Never Assessed Comments Unknown Sex and Gender Information Value Date Recorded Sex Assigned at Not on file Legal Sex Female 4:42 AM CONSUMER AFFAIRS SPECIALIST Gender Identity Not on file Sexual Orientation Not on file documented as of this encounter Plan of Treatment Upcoming Encounters Date Type Department Care Team (Late st Contact Info) Description 08/10/2025 2:15 PM CONSUMER AFFAIRS SPECIALIST Office Visit [facility] Rheumatology [place] [address] [place] [address] Ruddy Sánchez [place] [address] [place] [address] documented as of this encounter Visit Diagnoses Diagnosis Diffuse cystic mastopathy- Primary documented in this encounter Care Teams Customer Accounts Advisor Relationship Specialty Start Date End Date Armando Johnson MD [address] [place] [address] PCP - General Internal Medicine 11/13/22 documented as of this encounter
--- OUTSIDE RECORDS SUMMARY | 2025-04-01 22:52 | XMS_ITS | Encounter Summary ---
Author Organization [facility] Address [address] [place] [address] Care Team Providers Care Erp Technical Lead Name Role Phone Armando Johnson MD Primary Care Provider [phone] Encounter Details Date Type Department Care Team (Late Contact Info) Description 05/20/2007 Outpatient Historical [facility] Internal Medicine Medical [place] [facility] [address] [phone] Benjamín Haines MD [address] [place] [address] Social History Tobacco Use Types Packs/Day Years Used Date Smoking Tobacco: Never Assessed Comments Unknown Sex and Gender Information Value Date Recorded Sex Assigned at Not on file Legal Sex Female 4:42 AM HORSE STUD WORKER Gender Identity Not on file Sexual Orientation Not on file documented as of this encounter Plan of Treatment Upcoming Encounters Date Type Department Care Team (Late st Contact Info) Description 08/10/2025 2:15 PM HORSE STUD WORKER Office Visit [facility] Rheumatology [place] [address] [facility] [address] [place] [address] Ruddy Sán[place] [address] [place] [address] documented as of this encounter Visit Diagnoses Not on filedocumented in this encounter Care Teams Erp Technical Lead Relationship Specialty Start Date End Date Armando Johnson MD [address] [facility] [address] [place] [address] PCP - General Internal Medicine 11/13/22 documented as of this encounter
--- OUTSIDE RECORDS SUMMARY | 2025-04-01 22:52 | XMS_ITS | Encounter Summary ---
Author Organization [facility] Address [address] [place] [address] Care Team Providers Care Label Folder Name Role Phone Armando Johnson MD Primary Care Provider [phone] Encounter Details Date Type Department Care Team (Late Contact Info) Description 05/14/2006 Outpatient Historical [facility] Internal Medicine Medical [place] [facility] [address] [address] [address] Balwinder Hector MD [address] [facility] [address] [place] [address] Social History Tobacco Use Types Packs/Day Years Used Date Smoking Tobacco: Never Assessed Comments Unknown Sex and Gender Information Value Date Recorded Sex Assigned at Not on file Legal Sex Female 4:42 AM APPLICATION DEVELOPER MANAGER Gender Identity Not on file Sexual [...] Body Mass Index 30.13 08/20/2005 2:20 PM APPLICATION DEVELOPER MANAGER documented in this encounter Plan of Treatment Upcoming Encounters Date Type Department Care Team (Late st Contact Info) Description 08/10/2025 2:15 PM APPLICATION DEVELOPER MANAGER [facility] Visit [facility] [place] [address] [place] [address] Ruddy Sán[place] [address] [place] [address] documented as of this encounter Visit Diagnoses Not on filedocumented in this encounter Care Teams Label Folder Relationship Specialty Start Date End Date Armando Johnson MD [address] [place] [address] PCP - General Internal Medicine 11/13/22 documented as of this encounter
--- OUTSIDE RECORDS SUMMARY | 2025-04-01 22:52 | XMS_ITS | Encounter Summary ---
Author Organization [facility] Address [address] [place] [address] Care Team Providers Care Peer Educator Name Role Phone Armando Johnson MD Primary Care Provider [phone] Encounter Details Date Type Department Care Team (Late st Contact Info) Description 05/20/2007 Orders Only [facility] Internal Medicine Medical [place] [facility] [address] [phone] Benjamín Haines MD [address] 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 PHYSICAL [...] AFTER 5 MINUTES) LAB ORDERS: Order number: [id number] Test Ordered: JOINT INJECTION LG JOINT Order number: [id number] Test Ordered: INJ-DEPO MEDROL 80 J1040 CLINICAL [...] st Contact Info) Description 08/10/2025 2:15 PM PENCIL SORTER Office Visit [facility] Rheumatology Enrique Sparks [address] [place] [address] Ruddy Sánchez [place] [address] [place] [address] documented as of this encounter Visit Diagnoses Not on filedocumented in this encounter Care Teams Peer Educator Relationship Specialty Start Date End Date Armando Johnson MD [address] [place] [address] PCP - General Internal Medicine 11/13/22 documented as of this encounter
--- OUTSIDE RECORDS SUMMARY | 2025-04-01 22:52 | XMS_ITS | Encounter Summary ---
Author Organization [facility] Address [address] [place] [address] Care Team Providers Care Tariff Supervisor Name Role Phone Armando Johnson MD Primary Care Provider [phone] Encounter Details Date Type Department Care Team (Late Contact Info) Description 06/06/2001 Outpatient Historical [facility] Justin Gongora MD NO ADDRESS ON FILE Abdominal pain, unspecified site (Primary Dx) Social History Tobacco Use Types Packs/Day Years Used Date Smoking Tobacco: Never Assessed Comments Unknown Sex and Gender Information Value Date Recorded Sex Assigned at Not on file Legal Sex Female 4:42 AM STORAGE BATTERY INSPECTOR Gender Identity Not on file Sexual Orientation Not on file documented as of this encounter Plan of Treatment Upcoming Encounters Date Type Department Care Team (Late st Contact Info) Description 08/10/2025 2:15 PM STORAGE BATTERY INSPECTOR Office Visit [facility] Rheumatology [place] [address] [place] [address] Ruddy Sánchez [place] [address] [place] [address] documented as of this encounter Visit Diagnoses Diagnosis Abdominal pain, unspecified site- Primary documented in this encounter Care Teams Tariff Supervisor Relationship Specialty Start Date End Date Armando Johnson MD [address] [place] [address] PCP - General Internal Medicine 11/13/22 documented as of this encounter
--- OUTSIDE RECORDS SUMMARY | 2025-04-01 22:52 | XMS_ITS | Encounter Summary ---
Author Organization [facility] Address 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, Including Hip (Primary Dx) Social History Tobacco Use Types Packs/Day Years Used Date Smoking Tobacco: Never Assessed Comments Unknown Sex and Gender Information Value Date Recorded Sex Assigned at Not on file Legal Sex Female 4:42 AM ASPNET DEVELOPER Gender Identity Not on file Sexual Orientation Not on file documented as of this encounter Plan of Treatment Upcoming Encounters Date Type Department Care Team (Late st Contact Info) Description 08/10/2025 2:15 PM ASPNET DEVELOPER Office Visit [facility] Rheumatology [place] [address] [facility] [address] [place] [address] Ruddy Sánchez [place] [address] [place] [address] documented as of this encounter Visit Diagnoses Diagnosis Benign neoplasm of skin of lower limb, including hip- Primary documented in this encounter Care Teams Dry Kiln Worker Relationship Specialty Start Date End Date Armando Johnson MD [address] [facility] [address] [place] [address] PCP - General Internal Medicine 11/13/22 documented as of this encounter
--- OUTSIDE RECORDS SUMMARY | 2025-04-01 22:52 | XMS_ITS | Encounter Summary ---
Author Organization [facility] Address [address] [place] [address] Care Team Providers Care Aircraft Cabin Cleaner Name Role Phone Armando Johnson MD Primary Care Provider [phone] Encounter Details Date Type Department Care Team (Late st Contact Info) Description 06/25/2003 Outpatient Historical [facility] Support Serv. (Adt Cardiology-[facility]) [address] [place] [address] Jeny Rodríguez MD Social History Tobacco Use Types Packs/Day Years Used Date Smoking Tobacco: Never Assessed Comments Unknown Sex and Gender Information Value Date Recorded Sex Assigned at Not on file Legal Sex Female 4:42 AM PLACEMENT INTERVIEWER Gender Identity Not on file Sexual Orientation Not on file documented as of this encounter Plan of Treatment Upcoming Encounters Date Type Department Care Team (Late Contact Info) Description 08/10/2025 2:15 PM PLACEMENT INTERVIEWER Office Visit [facility] Rheumatology [place] [address] [place] [address] Ruddy Sánchez [place] [address] [place] [address] documented as of this encounter Visit Diagnoses Not on filedocumented in this encounter Care Teams Aircraft Cabin Cleaner Relationship Specialty Start Date End Date Armando Johnson MD [address] [place] [address] PCP - General Internal Medicine 11/13/22 documented as of this encounter
--- OUTSIDE RECORDS SUMMARY | 2025-04-01 22:52 | XMS_ITS | Encounter Summary ---
Author Organization [facility] Address [address] [place] [address] Care Team Providers Care Explosive Operator Grenade Name Role Phone Armando Johnson MD Primary Care Provider [phone] Encounter Details Date Type Department Care Team [...] on file Legal Sex Female 4:42 AM CIVIL SERVICE CLERK Gender Identity Not on file Sexual Orientation Not on file documented as of this encounter Plan of Treatment Upcoming Encounters Date Type Department Care Team (Late st Contact Info) Description 08/10/2025 2:15 PM CIVIL SERVICE CLERK Office Visit [facility] Rheumatology [place] [address] [place] [address] Ruddy Sánchez [place] [address] [place] [address] documented as of this encounter [...] TESTING Final Res ult Performing Organization Address [facility] de Phone Number INTERFACE SYSTEM Refer to clinic/hospital department * HEMOGLOBIN AND HEMATOCRIT (02/19/2006 12:18 PM CDT) HEMOGLOBIN 12.7 11.8 - 14.8 g/dL INTERFACE SYSTEM HEMATOCRIT 38.4 35.5 - 44.0 % INTERFACE SYSTEM 02/19/2006 12:1 8 PM CDT us Felipe Castro MD HEMATOLOGY ORDERABLES Final Res ult Performing Organization Address 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
--- OUTSIDE RECORDS SUMMARY | 2025-04-01 22:52 | XMS_ITS | Continuity of Care Document ---
Author Organization [facility] Address [address] [place] [address] Phone Care Team Providers Care Plastering Supervisor Name Role Phone Chantal Cuadra MD Unavailable [...] Providers Copied on Encounter [facility], [address], [place], [address], tel:[phone] [facility] Lyly Nondisplaced fracture of lateral condyle of left femur, subsequent encounter for closed fracture with routine healing 0 Venecia Cornejo. [address], [place], [place], [address] . tel: [phone] [facility], [address], [place], [address], tel:[phone] [facility] Gary Internal derangement of left kneeClosed nondisplaced fracture of lateral condyle of left femur, initial encounter 0 Venecia Cornejo. [address], [place], [place], [address] . tel: [phone] OFFICE/OUTPA TIENT VISIT EST [facility], [address], [place], [address], [place] tel:[phone] [facility] Lyly No Information 0 Venecia Cornejo. [address], [place], [place], [address] . tel: [phone] OFFICE/OUTPA TIENT VISIT NEW [facility], [address], [place], [address], tel:[phone] [facility] Lyly Left knee pain, unspecified chronicityInterna l derangement of left kneeBody mass index (BMI) 32.0-32.9, adult 0 Venecia Cornejo. [address], [place], [place], [address] . tel: [phone] Family History Family Member Type Diagnosis Age At Onset Problem Family history of Nerve Prob lems Father Problem malignant neoplasm of lung Sister Problem Diabetes mellitus Mother Problem Cardiovascular disease Father Problem LUPUS Problem Family history of Anesthesia Complications Problem Family history of hypertensi on Payers Payer name Insurance type Covered libertarian ID Authoriza tion(s) [employer] E2 OT [id number] Social History Type Description Quantity Date Captured [...]
--- OUTSIDE RECORDS SUMMARY | 2025-04-01 22:52 | XMS_ITS | Encounter Summary ---
Author Organization [facility] Address [address] [place] [address] Care Team Providers Care Sales Relationship Manager Name Role Phone rAmando Johnson MD Primary Care Provider [phone] Encounter Details Date Type Department Care Team (Late Contact Info) Description 07/03/2000 Outpatient Historical [facility] Tenzin Cheung MD [address] [facility] [address] [place] [address] Sprain of lumbar region (Primary Dx) Social History Tobacco Use Types Packs/Day Years Used Date Smoking Tobacco: Never Assessed Comments Unknown Sex and Gender Information Value Date Recorded Sex Assigned at Not on file Legal Sex Female 4:42 AM SENIOR STRATEGY MANAGER Gender Identity Not on file Sexual Orientation Not on file documented as of this encounter Plan of Treatment Upcoming Encounters Date Type Department Care Team (Late Contact Info) Description 08/10/2025 2:15 PM SENIOR STRATEGY MANAGER Office Visit [facility] Rheumatology Enrique Sparks [address] [place] [address] Ruddy Sánchez [place] [address] [place] [address] documented as of this encounter Visit Diagnoses Diagnosis Sprain of lumbar region- Primary documented in this encounter Care Teams Sales Relationship Manager Relationship Specialty Start Date End Date Armando Johnson MD [address] [place] [address] PCP - General Internal Medicine 11/13/22 documented as of this encounter
--- OUTSIDE RECORDS SUMMARY | 2025-04-01 22:52 | XMS_ITS | Encounter Summary ---
Author Organization [employer] Address [address] [place] [address] Care Team Providers Care Painter Drum Name Role Phone Armando Johnson MD Primary Care Provider [phone] Encounter Details Date Type Department Care Team (Latest Contact Info) Description 06/25/2003 Outpatient Historical [facility] CARDIOPULMONARY Sadie, Chantale PAIN IN LIMB (Primary Dx) Social History Tobacco Use Types Packs/Day Years Used Date Smoking Tobacco: Never Assessed Comments Unknown Sex and Gender Information Value Date Recorded Sex Assigned at Not on file Legal Sex Female 4:42 AM SIGNAL FITTER Gender Identity Not on file Sexual Orientation Not on file documented as of this encounter Plan of Treatment Upcoming Encounters Date Type Department Care Team (Late st Contact Info) Description 08/10/2025 2:15 PM SIGNAL FITTER Office Visit [facility] Rheumatology [place] [address] [place] [address] Ruddy Sánchez [place] [address] [place] [address] documented as of this encounter Visit Diagnoses Diagnosis Pain in limb- Primary documented in this encounter Care Teams Painter Drum Relationship Specialty Start Date End Date Armando Johnson MD [address] [place] [address] PCP - General Internal Medicine 11/13/22 documented as of this encounter
--- OUTSIDE RECORDS SUMMARY | 2025-04-01 22:52 | XMS_ITS | Encounter Summary ---
Author Organization [facility] Address [address] [place] [address] Care Team Providers Care Psychological Operations Specialist Name Role Phone Armando Johnson MD Primary Care Provider [phone] Encounter Details Date Type Department Care Team (Latest Contact Info) Description 08/20/2005 Outpatient Historical [facility] Starks, Wilma Coppola MD [facility] [address] ABDOMINAL PAIN LLQ (Primary Dx) Social History Tobacco Use Types Packs/Day Years Used Date Smoking Tobacco: Never Assessed Comments Unknown Sex and Gender Information Value Date Recorded Sex Assigned at Not on file Legal Sex Female 4:42 AM RESPIRATORY THERAPY INSTRUCTOR Gender Identity Not on file Sexual Orientation Not on file documented as of this encounter Plan of Treatment Upcoming Encounters Date Type Department Care Team (Late st Contact Info) Description 08/10/2025 2:15 PM RESPIRATORY THERAPY INSTRUCTOR Office Visit [facility] Rheumatology [place] [address] [facility] [address] [place] [address] Ruddy Sánchez [place] [address] [place] [address] documented as of this encounter Procedures Procedure Name Priority Date/Time Associated Diagnosis Comments CBC WITH DIFFERENTIAL Routine 08/20/2005 3:17 PM RESPIRATORY THERAPY INSTRUCTOR CBC WITH DIFFERENTIAL Routine 08/20/2005 3:17 PM RESPIRATORY THERAPY INSTRUCTOR C-REACTIVE PROTEIN Routine 08/20/2005 3: 17 PM RESPIRATORY THERAPY INSTRUCTOR HCG QUANTITATIVE, BLOOD Routine 08/20/2005 3:17 PM RESPIRATORY THERAPY INSTRUCTOR documented in this encounter Results * HCG QUANTITATIVE, BLOOD (08/20/2005 3:17 PM RESPIRATORY THERAPY INSTRUCTOR) HCG QUANT, BLOOD <5 0 - 5 [...] with other clinical evidence. 08/20/2005 3:17 PM RESPIRATORY THERAPY INSTRUCTOR us Wilma Starks MD CHEMISTRY ORDERABLES Final R esult INTERFACE SYSTEM Refer to clinic/hospital department * CBC WITH DIFFERENTIAL (08/20/2005 3:17 PM RESPIRATORY THERAPY INSTRUCTOR) NEUTROPHILS 69 45 - 70 % INTERFAC [...] 0.20 K/uL INTERFACE SYSTEM 08/20/2005 3:17 PM RESPIRATORY THERAPY INSTRUCTOR Wilma Starks MD HEMATOLOGY ORDERABLES Final Result Performing Organization Address [facility] de Phone Number INTERFACE SYSTEM Refer to clinic/hospital department * CBC WITH DIFFERENTIAL (08/20/2005 3:17 PM RESPIRATORY THERAPY INSTRUCTOR) WBC 8.0 4.0 - 9.8 K/uL INTERFACE [...] 12.4 fL INTERFACE SYSTEM 08/20/2005 3:17 PM RESPIRATORY THERAPY INSTRUCTOR Wilma Starks MD HEMATOLOGY ORDERABLES Final Result Performing Organization Address [facility] de Phone Number INTERFACE SYSTEM Refer to clinic/hospital department * C-REACTIVE PROTEIN (08/20/2005 3:17 PM RESPIRATORY THERAPY INSTRUCTOR) CRP 0.5 0.0 - 0.8 mg/dL INTERFACE SYSTEM 08/20/2005 3:17 PM RESPIRATORY THERAPY INSTRUCTOR us Wilma Starks MD CHEMISTRY ORDERABLES Final R esult INTERFACE SYSTEM Refer to clinic/hospital department documented in this encounter Visit Diagnoses Diagnosis Abdominal pain, left lower quadrant- Primary documented in this encounter Care Teams Psychological Operations Specialist Relationship Specialty Start Date End Date Armando Johnson MD [address] [place] [address] PCP - General Internal Medicine 11/13/22 documented as of this encounter
--- OUTSIDE RECORDS SUMMARY | 2025-04-01 22:52 | XMS_ITS | Encounter Summary ---
Author Organization [facility] Address [address] [place] [address] Care Team Providers Care Can Piler Name Role Phone Armando Johnson MD Primary Care Provider [phone] Encounter Details Date Type Department Care Team (Late st Contact Info) Description 03/04/[address] [facility] PRIMARY [facility] Balwinder Hector MD [address] [facility] [address] [place] [address] Social History Tobacco Use Types Packs/Day Years Used Date Smoking Tobacco: Never Assessed Comments Unknown Sex and Gender Information Value Date Recorded Sex Assigned at Not on file Legal Sex Female 4:42 AM CARBON PRINTER Gender Identity Not on file Sexual Orientation Not on file documented as of this encounter Plan of Treatment Upcoming Encounters Date Type Department Care Team (Late st Contact Info) Description 08/10/2025 2:15 PM CARBON PRINTER Office Visit [facility] Rheumatology [place] [address] [place] [address] Ruddy Sánchez [place] [address] [place] [address] documented as of this encounter Visit Diagnoses Not on filedocumented in this encounter Care Teams Can Piler Relationship Specialty Start Date End Date Armando Johnson MD [address] [place] [address] PCP - General Internal Medicine 11/13/22 documented as of this encounter
--- OUTSIDE RECORDS SUMMARY | 2025-04-01 22:52 | XMS_ITS | Encounter Summary ---
Author Organization [facility] Address [address] [place] [address] Care Team Providers Care Pollution Control Engineer Name Role Phone Armando Johnson MD Primary Care Provider [phone] Encounter Details Date Type Department Care Team (Late st Contact Info) Description 07/20/2003 Outpatient [facility] for [address] [place] [address] Balwinder Hector MD [address] [facility] [address] [place] [address] ARTHROPATHY NOS-OTHER SITE (Primary Dx) Social History Tobacco Use Types Packs/Day Years Used Date Smoking Tobacco: Never Assessed Comments Unknown Sex and Gender Information Value Date Recorded Sex Assigned at Not on file Legal Sex Female 4:42 AM STERILIZATION TECHNICIAN Gender Identity Not on file Sexual Orientation Not on file documented as of this encounter Plan of Treatment Upcoming Encounters Date Type Department Care Team (Late st Contact Info) Description 08/10/2025 2:15 PM STERILIZATION TECHNICIAN Office Visit [facility] Rheumatology [place] [address] [facility] [address] [place] [address] Ruddy Sánchez [place] [address] [place] [address] documented as of this encounter Visit Diagnoses Diagnosis Arthropathy, unspecified, other specified sites- Primary documented in this encounter Care Teams Pollution Control Engineer Relationship Specialty Start Date End Date Armando Johnson MD [address] [facility] [address] [place] [address] PCP - General Internal Medicine 11/13/22 documented as of this encounter
--- OUTSIDE RECORDS SUMMARY | 2025-04-01 22:52 | XMS_ITS | Encounter Summary ---
Author Organization [facility] Address [address] [place] [address] Care Team Providers Care Pocket Machine Operator Name Role Phone Armando Johnson MD Primary Care Provider [phone] Encounter Details Date Type Department Care Team (Late st Contact Info) Description 11/23/2003 Outpatient Historical [facility] PRIMARY CARE Balwinder Hector MD [address] [facility] [address] [place] [address] Social History Tobacco Use Types Packs/Day Years Used Date Smoking Tobacco: Never Assessed Comments Unknown Sex and Gender Information Value Date Recorded Sex Assigned at Not on file Legal Sex Female 4:42 AM FASHION MODEL Gender Identity Not on file Sexual Orientation Not on file documented as of this encounter Plan of Treatment Upcoming Encounters Date Type Department Care Team (Late st Contact Info) Description 08/10/2025 2:15 PM FASHION MODEL Office Visit [facility] Rheumatology Feredom Sparks [address] [place] [address] Ruddy Sánchez [place] [address] [place] [address] documented as of this encounter Visit Diagnoses Not on filedocumented in this encounter Care Teams Pocket Machine Operator Relationship Specialty Start Date End Date Armando Johnson MD [address] [place] [address] PCP - General Internal Medicine 11/13/22 documented as of this encounter
--- OUTSIDE RECORDS SUMMARY | 2025-04-01 22:52 | XMS_ITS | Encounter Summary ---
Author Organization [facility] Address [address] [place] [address] Care Team Providers Care Web Designer Name Role Phone Armando Johnson MD Primary Care Provider Encounter Details Date Type Department Care Team (Latest Contact Info) Description 07/17/2000 Outpatient Historical [facility] [place] Melba Hahn [place] [id number] [place] [address] [place] [address] Lumbago (Primary Dx) Social History Tobacco Use Types Packs/Day Years Used Date Smoking Tobacco: Never Assessed Comments Unknown Sex and Gender Information Value Date Recorded Sex Assigned at Not on file Legal Sex Female 4:42 AM HUMAN PROJECTILE Gender Identity Not on file Sexual Orientation Not on file documented as of this encounter Plan of Treatment Upcoming Encounters Date Type Department Care Team (Late st Contact Info) Description 08/10/2025 2:15 PM HUMAN PROJECTILE Office Visit [facility] Rheumatology [place] [address] [place] [address] Ruddy Sán[place] [address] [place] [address] documented as of this encounter Visit Diagnoses Diagnosis Lumbago- Primary documented in this encounter Care Teams Web Designer Relationship Specialty Start Date End Date Armando Johnson MD [address] [place] [address] PCP - General Internal Medicine 11/13/22 documented as of this encounter
--- OUTSIDE RECORDS SUMMARY | 2025-04-01 22:52 | XMS_ITS | Encounter Summary ---
Author Organization [facility] Address [address] [place] [address] Care Team Providers Care Physical Education Specialist Name Role Phone Armando Johnson MD Primary Care Provider [phone] Encounter Details Date Type Department Care Team (Late st Contact Info) Description 06/30/2003 Outpatient Historical HIS [facility] Balwinder Ryder MD [address] [facility] [place] [address] CERVICALGIA (Primary Dx) Social History Tobacco Use Types Packs/Day Years Used Date Smoking Tobacco: Never Assessed Comments Unknown Sex and Gender Information Value Date Recorded Sex Assigned at Not on file Legal Sex Female 4:42 AM CLOTH BOLT BANDER Gender Identity Not on file Sexual Orientation Not on file documented as of this encounter Plan of Treatment Upcoming Encounters Date Type Department Care Team (Late Contact Info) Description 08/10/2025 2:15 PM CLOTH BOLT BANDER Office Visit [facility] Rheumatology [place] [address] [place] [address] Ruddy Sánchez [place] [address] [place] [address] documented as of this encounter Visit Diagnoses Diagnosis Cervicalgia- Primary documented in this encounter Care Teams Physical Education Specialist Relationship Specialty Start Date End Date Armando Johnson MD [address] [place] [address] PCP - General Internal Medicine 11/13/22 documented as of this encounter
--- OUTSIDE RECORDS SUMMARY | 2025-04-01 22:52 | XMS_ITS | Encounter Summary ---
Author Organization [facility] Address [address] [place] [address] Care Team Providers Care Coin Machine Mechanic Name Role Phone Armando Johnson MD Primary Care Provider [phone] Encounter Details Date Type Department Care Team (Late st Contact Info) Description 11/08/2000 Outpatient Historical HIS [facility] Marylu Mckeon MD [address] [place] [address] Social History Tobacco Use Types Packs/Day Years Used Date Smoking Tobacco: Never Assessed Comments Unknown Sex and Gender Information Value Date Recorded Sex Assigned at Not on file Legal Sex Female 4:42 AM BOAT RENTAL CLERK Gender Identity Not on file Sexual Orientation Not on file documented as of this encounter Plan of Treatment Upcoming Encounters Date Type Department Care Team (Late st Contact Info) Description 08/10/2025 2:15 PM BOAT RENTAL CLERK Office Visit [facility] Rheumatology [place] [address] [place] [address] Ruddy Sán[place] [address] [place] [address] documented as of this encounter Visit Diagnoses Not on filedocumented in this encounter Care Teams Coin Machine Mechanic Relationship Specialty Start Date End Date Armando Johnson MD [address] [place] [address] PCP - General Internal Medicine 11/13/22 documented as of this encounter
--- OUTSIDE RECORDS SUMMARY | 2025-04-01 22:52 | XMS_ITS | Encounter Summary ---
Author Organization [facility] Address [address] [place] [address] Care Team Providers Care Supervisor Paint Department Name Role Phone Armando Johnson MD Primary Care Provider [phone] Encounter Details Date Type Department Care Team (Late Contact Info) Description 06/02/2004 Outpatient Historical HIS [facility] Balwinder Ryder MD [address] [facility] [address] [place] [address] ABDOMINAL PAIN UNSPEC SITE (Primary Dx) Social History Tobacco Use Types Packs/Day Years Used Date Smoking Tobacco: Never Assessed Comments Unknown Sex and Gender Information Value Date Recorded Sex Assigned at Not on file Legal Sex Female 4:42 AM WIRE BRUSHER Gender Identity Not on file Sexual Orientation Not on file documented as of this encounter Plan of Treatment Upcoming Encounters Date Type Department Care Team (Late Contact Info) Description 08/10/2025 2:15 PM WIRE BRUSHER Office Visit [facility] [place] [address] [place] [address] Ruddy Sánchez [place] [address] [place] [address] documented as of this encounter Visit Diagnoses Diagnosis Abdominal pain, unspecified site- Primary documented in this encounter Care Teams Supervisor Paint Department Relationship Specialty Start Date End Date Armando Johnson MD [address] [place] [address] PCP - General Internal Medicine 11/13/22 documented as of this encounter
--- OUTSIDE RECORDS SUMMARY | 2025-04-01 22:52 | XMS_ITS | Encounter Summary ---
Author Organization [facility] Address [address] [place] [address] Care Team Providers Care Organizational Development Specialist Name Role Phone Armando Johnson MD Primary Care Provider [phone] Encounter Details Date Type Department Care Team (Latest Contact Info) Description 12/06/2005 Outpatient Historical HIS [facility] [place] Rod, Josué [place] [address] [place] [address] Screening Mammogram for High-Risk Patient (Primary Dx) Social History Tobacco Use Types Packs/Day Years Used Date Smoking Tobacco: Never Assessed Comments Unknown Sex and Gender Information Value Date Recorded Sex Assigned at Not on file Legal Sex Female 4:42 AM OFFICE MACHINE INSPECTOR Gender Identity Not on file Sexual Orientation Not on file documented as of this encounter Plan of Treatment Upcoming Encounters Date Type Department Care Team (Late st Contact Info) Description 08/10/2025 2:15 PM OFFICE MACHINE INSPECTOR Office Visit [facility] Rheumatology [place] [address] [place] [address] Ruddy Sánchez [place] [address] [place] [address] documented as of this encounter Visit Diagnoses Diagnosis Screening mammogram for high-risk patient- Primary documented in this encounter Care Teams Organizational Development Specialist Relationship Specialty Start Date End Date Armando Johnson MD [address] [place] [address] PCP - General Internal Medicine 11/13/22 documented as of this encounter
--- OUTSIDE RECORDS SUMMARY | 2025-04-01 22:52 | XMS_ITS | Encounter Summary ---
Author Organization [facility] Address [address] [place] [address] Care Team Providers Care Maturity Checker Name Role Phone Armando Johnson MD Primary Care Provider [phone] Encounter Details Date Type Department Care Team (Late Contact Info) Description 04/17/2005 Outpatient Historical HIS [facility] Balwinder Ryder MD [address] [facility] [place] [address] JOINT PAIN-FOREARM (Primary Dx) Social History Tobacco Use Types Packs/Day Years Used Date Smoking Tobacco: Never Assessed Comments Unknown Sex and Gender Information Value Date Recorded Sex Assigned at Not on file Legal Sex Female 4:42 AM TIMBER SURVEYOR Gender Identity Not on file Sexual Orientation Not on file documented as of this encounter Plan of Treatment Upcoming Encounters Date Type Department Care Team (Late Contact Info) Description 08/10/2025 2:15 PM TIMBER SURVEYOR Office Visit [facility] Rheumatology [place] [address] [place] [address] Ruddy Sánchez [place] [address] [place] [address] documented as of this encounter Visit Diagnoses Diagnosis Pain in joint, forearm- Primary documented in this encounter Care Teams Maturity Checker Relationship Specialty Start Date End Date Armando Johnson MD [address] [place] [address] PCP - General Internal Medicine 11/13/22 documented as of this encounter
--- OUTSIDE RECORDS SUMMARY | 2025-04-01 22:52 | XMS_ITS | Encounter Summary ---
Author Organization [facility] Address [address] [facility] Attn: [place] [address] Care Team Providers Care Exhauster Name Role Phone Armando Johnson MD Primary Care Provider [phone] Encounter Details Date Type Department Care Team (Late st Contact Info) Description 06/07/2000 Outpatient Historical Social History Tobacco Use Types Packs/Day Years Used Date Smoking Tobacco: Never Assessed Comments Unknown Sex and Gender Information Value Date Recorded Sex Assigned at Not on file Legal Sex Female 4:42 AM RED HAT OPEN STACK ADMINISTRATOR Gender Identity Not on file Sexual Orientation Not on file documented as of this encounter Plan of Treatment Upcoming Encounters Date Type Department Care Team (Late st Contact Info) Description 08/10/2025 2:15 PM RED HAT OPEN STACK ADMINISTRATOR Office Visit [facility] Rheumatology [place] [address] [place] [address] Ruddy Sánchez [place] [address] [place] [address] documented as of this encounter Visit Diagnoses Not on filedocumented in this encounter Care Teams Exhauster Relationship Specialty Start Date End Date Armando Johnson MD [address] [place] [address] PCP - General Internal Medicine 11/13/22 documented as of this encounter
--- OUTSIDE RECORDS SUMMARY | 2025-04-01 22:52 | XMS_ITS | Encounter Summary ---
Author Organization [facility] Address [address] [place] [address] Care Team Providers Care Packager Name Role Phone Armando Johnson MD Primary Care Provider [phone] Encounter Details Date Type Department Care Team (Latest Contact Info) Description 07/10/2000 Outpatient Historical HIS [facility] PR[facility] Rod, Josué [place] [address] [place] [address] Other screening mammogram (Primary Dx) Social History Tobacco Use Types Packs/Day Years Used Date Smoking Tobacco: Never Assessed Comments Unknown Sex and Gender Information Value Date Recorded Sex Assigned at Not on file Legal Sex Female 4:42 AM LEAD AUDITOR Gender Identity Not on file Sexual Orientation Not on file documented as of this encounter Plan of Treatment Upcoming Encounters Date Type Department Care Team (Late st Contact Info) Description 08/10/2025 2:15 PM LEAD AUDITOR Office Visit [facility] Rheumatology [place] [address] [place] [address] Ruddy Sánchez [place] [address] [place] [address] documented as of this encounter Visit Diagnoses Diagnosis Other screening mammogram- Primary documented in this encounter Care Teams Packager Relationship Specialty Start Date End Date Armando Johnson MD [address] [place] [address] PCP - General Internal Medicine 11/13/22 documented as of this encounter
--- OUTSIDE RECORDS SUMMARY | 2025-04-01 22:52 | XMS_ITS | Encounter Summary ---
Author Organization [facility] Address [address] [place] [address] Care Team Providers Care Town Clerk Name Role Phone Armando Johnson MD Primary Care Provider [phone] Encounter Details Date Type Department Care Team (Late Contact Info) Description 09/17/2006 Outpatient Historical HIS [facility] Chai Oglesby MD [address] [place] [address] [address] [place] [address] Unspecified Esophagitis (Primary Dx) Social History Tobacco Use Types Packs/Day Years Used Date Smoking Tobacco: Never Assessed Comments Unknown Sex and Gender Information Value Date Recorded Sex Assigned at Not on file Legal Sex Female 4:42 AM SURVEY AND MAPPING TECHNICIAN Gender Identity Not on file Sexual Orientation Not on file documented as of this encounter Plan of Treatment Upcoming Encounters Date Type Department Care Team (Late Contact Info) Description 08/10/2025 2:15 PM SURVEY AND MAPPING TECHNICIAN Office Visit [facility] [place] [address] [place] [address] Ruddy Sánchez [place] [address] [place] [address] documented as of this encounter Visit Diagnoses Diagnosis Esophagitis, unspecified- Primary documented in this encounter Care Teams Town Clerk Relationship Specialty Start Date End Date Armando Johnson MD [address] [place] [address] PCP - General Internal Medicine 11/13/22 documented as of this encounter
--- OUTSIDE RECORDS SUMMARY | 2025-04-01 22:52 | XMS_ITS | Encounter Summary ---
Author Organization [facility] Address [address] [place] [address] Care Team Providers Care Mine Inspector Name Role Phone Armando Johnson MD Primary [...] Legal Sex Female 4:42 AM DIRECTOR OF PSYCHOLOGY Gender Identity Not on file Sexual Orientation Not on file documented as of this encounter Plan of Treatment Upcoming Encounters Date Type Department Care Team (Late st Contact Info) Description 08/10/2025 2:15 PM DIRECTOR OF PSYCHOLOGY Office Visit [facility] Rheumatology [place] [address] [place] [address] Ruddy Sán[place] [address] [place] [address] documented as of this encounter Procedures Procedure Name Priority Date/Time Associated Diagnosis Comments ECHO STRESS TEST EXERCISE WO ECG Routine 07/06/2008 2:29 PM CDT ECHO COMPLETE Routine 07/05/2008 11:59 AM CDT documented in this encounter Results * ECHOCARDIOGRAM STRESS TEST (07/06/2008 2:29 PM CDT) Narrative INTERFACE SYSTEM - 07/06/2008 2:29 PM CDT [facility] [address] [place] [address] [email or web address] Stress Study Patient: Lupe Longoria MRN: Study ID: ADULT STRESS ECH Gender: F : 1965 Age: 42 years Race: 1 Room: Bed: Height: Study Date: July 05, 2008 Patient status: Outpatient Weight: Access. #: [id number] POC: Ordering: [place] Attending MD: [place] Admitting [...] peak heart rate and blood pressure was 67074. - There was no chest pain during [...] 14:07:27 Procedure Note Provider, Historical - 07/06/2008 [facility] [address] [place] [address] [email or web address] Stress Study Patient: Lupe Longoria MRN: Study ID: ADULT STRESS ECH Gender: F : 1965 Age: 42 years Race: 1 Room: Bed: Height: Study Date: July 05, 2008 Patient status: Outpatient Weight: Access. #: [id number] POC: Ordering: [place] Attending MD: [place] Admitting [...] the peak heart rate and blood pressurewas 49366. - There was no chest pain during [...] INTERFACE SYSTEM - 07/05/2008 11:59 AM CDT [facility] [address] [id number] [email or web address] Stress Study Patient: Lupe Longoria MRN: Study ID: Gender: F : 1965 Age: 42 years Race: 1 Room: Bed: Height: Study Date: July 05, 2008 Patient status: Outpatient Weight: Access. #: [id number] POC: Ordering: [place] Attending MD: [place] Admitting [...] peak heart rate and blood pressure was [address]. - There was no chest pain during [...] 11:37:09 Procedure Note Provider, Historical - 07/05/[address] [address] [email or web address] Stress Study Patient: Lupe Longoria MRN: Study ID: Gender: F : 1965 Age: 42 years Race: 1 Room: Bed: Height: Study Date: July 05, 2008 Patient status: Outpatient Weight: Access. #: [id number] POC: Ordering: [place] Attending MD: [place] Admitting [...] the peak heart rate and blood pressurewas 32206. - There was no chest pain during [...] Prince MD Confirmed July 05, 2008 11:37:09 Amy Farrell MD ORDERABLES Final Result INTERFACE SYSTEM Refer to clinic/hospital department documented in this encounter Visit Diagnoses Diagnosis Chest pain, unspecified documented in this encounter Care Teams Mine Inspector Relationship Specialty Start Date End Date Armando Johnson MD [address] [facility] [address] [place] [address] PCP - General Internal Medicine 11/13/22 documented as of this encounter
--- OUTSIDE RECORDS SUMMARY | 2025-04-01 22:52 | XMS_ITS | Encounter Summary ---
Author Organization [facility] Address [address] [place] [address] Care Team Providers Care Commercial Green Building Designer Name Role Phone Armando Johnson MD Primary Care Provider Encounter Details Date Type Department Care Team (Late st Contact Info) Description 06/07/2000 Outpatient Historical HIS [facility] Social History Tobacco Use Types Packs/Day Years Used Date Smoking Tobacco: Never Assessed Comments Unknown Sex and Gender Information Value Date Recorded Sex Assigned at Not on file Legal Sex Female 4:42 AM TOWER DRAGLINE OPERATOR Gender Identity Not on file Sexual Orientation Not on file documented as of this encounter Plan of Treatment Upcoming Encounters Date Type Department Care Team (Late st Contact Info) Description 08/10/2025 2:15 PM TOWER DRAGLINE OPERATOR Office Visit [facility] Rheumatology [place] [address] [place] [address] Ruddy Sánchez [place] [address] [place] [address] documented as of this encounter Visit Diagnoses Not on filedocumented in this encounter Care Teams Commercial Green Building Designer Relationship Specialty Start Date End Date Armando Johnson MD [address] [place] [address] PCP - General Internal Medicine 11/13/22 documented as of this encounter
--- OUTSIDE RECORDS SUMMARY | 2025-04-01 22:52 | XMS_ITS | Encounter Summary ---
Author Organization [facility] Address [address] [place] [address] Care Team Providers Care Assembler Engine Name Role Phone Armando Johnson MD Primary Care Provider [phone] Encounter Details Date Type Department Care Team (Latest Contact Info) Description 03/16/2004 Outpatient Historical HIS [facility] Balwinder Hetcor MD [address] [facility] [address] [place] [address] PALPITATIONS (Primary Dx) Social History Tobacco Use Types Packs/Day Years Used Date Smoking Tobacco: Never Assessed Comments Unknown Sex and Gender Information Value Date Recorded Sex Assigned at Not on file Legal Sex Female 4:42 AM SLD EDUCATIONAL AIDE Gender Identity Not on file Sexual Orientation Not on file documented as of this encounter Plan of Treatment Upcoming Encounters Date Type Department Care Team (Late st Contact Info) Description 08/10/2025 2:15 PM SLD EDUCATIONAL AIDE Office Visit [facility] Rheumatology [place] [address] [place] [address] Ruddy Sánchez [place] [address] [place] [address] documented as of this encounter Visit Diagnoses Diagnosis Palpitations- Primary documented in this encounter Care Teams Assembler Engine Relationship Specialty Start Date End Date Armando Johnson MD [address] [place] [address] PCP - General Internal Medicine 11/13/22 documented as of this encounter
--- OUTSIDE RECORDS SUMMARY | 2025-04-01 22:52 | XMS_ITS | Encounter Summary ---
Author Organization [facility] Address [address] [place] [address] Care Team Providers Care Management Liaison Name Role Phone Armando Johnson MD Primary Care Provider [phone] Encounter Details Date Type Department Care Team (Late st Contact Info) Description 06/02/2004 Outpatient Historical HIS [facility] Balwinder Hector MD [address] [place] [address] Social History Tobacco Use Types Packs/Day Years Used Date Smoking Tobacco: Never Assessed Comments Unknown Sex and Gender Information Value Date Recorded Sex Assigned at Not on file Legal Sex Female 4:42 AM HEEL ROOM SUPERVISOR Gender Identity Not on file Sexual Orientation Not on file documented as of this encounter Plan of Treatment Upcoming Encounters Date Type Department Care Team (Late st Contact Info) Description 08/10/2025 2:15 PM HEEL ROOM SUPERVISOR Office Visit [facility] Rheumatology [place] [address] [place] [address] Ruddy Sánchez [place] [address] [place] [address] documented as of this encounter Visit Diagnoses Not on filedocumented in this encounter Care Teams Management Liaison Relationship Specialty Start Date End Date Armando Johnson MD [address] [place] [address] PCP - General Internal Medicine 11/13/22 documented as of this encounter
--- OUTSIDE RECORDS SUMMARY | 2025-04-01 22:52 | XMS_ITS | Encounter Summary ---
Author Organization [facility] Address [address] [place] [address] Care Team Providers Care Radio Division Lieutenant Name Role Phone Armando Johnson MD Primary Care Provider [phone] Encounter Details Date Type Department Care Team (Late Contact Info) Description 12/07/2003 Outpatient [facility] Center for [address] [place] [address] [place] [address] [place] [address] [address] Social History Tobacco Use Types Packs/Day Years Used Date Smoking Tobacco: Never Assessed Comments Unknown Sex and Gender Information Value Date Recorded Sex Assigned at Not on file Legal Sex Female 4:42 AM ULTRA SOUND TECHNICIAN Gender Identity Not on file Sexual Orientation Not on file documented as of this encounter Plan of Treatment Upcoming Encounters Date Type Department Care Team (Late st Contact Info) Description 08/10/2025 2:15 PM ULTRA SOUND TECHNICIAN Office Visit [facility] Rheumatology [place] [address] [place] [address] Ruddy Sánchez [place] [address] [place] [address] documented as of this encounter Visit Diagnoses Not on filedocumented in this encounter Care Teams Radio Division Lieutenant Relationship Specialty Start Date End Date Armando Johnson MD [address] [place] [address] PCP - General Internal Medicine 11/13/22 documented as of this encounter
--- OUTSIDE RECORDS SUMMARY | 2025-04-01 22:52 | XMS_ITS | Encounter Summary ---
Author Organization [facility] Address [address] [place] [address] Care Team Providers Care Local Company Hazmat Driver Name Role Phone Armando Johnson MD Primary Care Provider [phone] Encounter Details Date Type Department Care Team (Late Contact Info) Description 05/08/2006 Outpatient Historical [place] [facility] Internal Medicine Medical [place] [facility] [address] [facility] [address] [address] Balwinder Hector MD [address] [facility] [address] [place] [address] Other and Unspecified Hyperlipidemia (Primary [...] 08/10/2025 2:15 PM CASHIER ASSISTANT Office Visit [facility] Rheumatology [place] Sparks [address] [facility] [address] [place] [address] Ruddy Sán[place] [address] [place] [address] documented as of this encounter [...] ORDERABLES Final Resu lt Performing Organization Address [facility] de Phone Number INTERFACE SYSTEM [...] ORDERABLES Final Res ult Performing Organization Address [facility] de Phone Number INTERFACE SYSTEM [...] ORDERABLES Final Res ult Performing Organization Address [facility] Phone Number INTERFACE SYSTEM Refer to clinic/hospital department * (ABNORMAL) TSH REFLEXIVE (05/08/2006 12:18 PM CDT) Pathologist [facility] TSH 5.84(H) 0.27 - 4.20 uU/mL INTERFACE SYSTEM 05/08/2006 12:1 8 PM CDT Balwinder Hector MD CHEMISTRY ORDERABLES Final Resu lt Performing Organization Address [facility] de Phone Number INTERFACE SYSTEM [...] classifications for lipids are available on the [facility] Intranet at: [email or web address] Select: Lab Policies and Procedures Select: Reference Ranges - Lipids 05/08/2006 12:1 8 PM CDT Balwinder Hector MD CHEMISTRY ORDERABLES Final Resu lt INTERFACE SYSTEM Refer to clinic/hospital department documented in this encounter Visit Diagnoses Diagnosis Other and unspecified hyperlipidemia- Primary documented in this encounter Care Teams Local Company Hazmat Driver Relationship Specialty Start Date End Date Armando Johnson MD [address] [facility] [address] [place] [address] PCP - General Internal Medicine 11/13/22 documented as of this encounter
--- OUTSIDE RECORDS SUMMARY | 2025-04-01 22:52 | XMS_ITS | Encounter Summary ---
Author Organization [facility] Address [address] [place] [address] Care Team Providers Care Integrated Marketing Manager Name Role Phone Armando Johnson MD Primary Care Provider [phone] Encounter Details Date Type Department Care Team (Latest Contact Info) Description 04/01/2002 Outpatient Historical [facility] [place] [address] [place] [address] DYSMENORRHEA (Primary Dx) Social History Tobacco Use Types Packs/Day Years Used Date Smoking Tobacco: Never Assessed Comments Unknown Sex and Gender Information Value Date Recorded Sex Assigned at Not on file Legal Sex Female 4:42 AM HAND UPPER AND BOTTOM LACER Gender Identity Not on file Sexual Orientation Not on file documented as of this encounter Plan of Treatment Upcoming Encounters Date Type Department Care Team (Late st Contact Info) Description 08/10/2025 2:15 PM HAND UPPER AND BOTTOM LACER Office Visit [facility] Rheumatology Enrique Sparks [address] [place] [address] Ruddy Sánchez [place] [address] [place] [address] documented as of this encounter Visit Diagnoses Diagnosis Dysmenorrhea- Primary documented in this encounter Care Teams Integrated Marketing Manager Relationship Specialty Start Date End Date Armando Johnson MD [address] [place] [address] PCP - General Internal Medicine 11/13/22 documented as of this encounter
--- OUTSIDE RECORDS SUMMARY | 2025-04-01 22:52 | XMS_ITS | Continuity of Care Document ---
Author Organization [facility] Address [address] [place] [address] Phone Care Team Providers Care Ostomy Rn Name Role Phone Wayne MS, OTR/L, CHTArlet [...] Diagnoses Date Provider Providers Copied on Encounter [facility] [address], [place], [place], [id number], tel:[phone] [place] No Information 4-201 5 Wayne Nice. [address] [place] [address], [address], [place], [facility], . tel:[phone] Referring Provider: Kwan Hernandez, [address], [place], [address]. tel:[phone] [facility] [address] [place] [address] [address], [place], [place], [id number], tel:[phone] D[place]ey No Information 8-201 5 Wayne Nice. [address] [place] [address], [address], [place], [facility], . tel:[phone] Referring Provider: Kwan Hernandez, [address], [place], [address]. tel:[phone] [facility] [address] [place], [place] [address], [place], [place], [id number], tel:[phone] D[place] Muscle weakness (generalized)Pa resthesia of skinPain in right wristPain in left wristEdema, unspecifiedCarp al tunnel syndrome, right upper limbCarpal tunnel syndrome, left upper limb Jun-0 2-201 5 Wayne Nice. [address] [place] [address], [address], [place], [place], [facility], . tel:[phone] Referring Provider: Kwan Hernandez, [address], [place], [address]. tel:[phone] [address], [place], [place], [id number], tel:[phone] D[place] No Information 3 0-201 5 Wayne Nice. [address] [place] [address], [address], [place], [place], [facility], . tel:[phone] Referring Provider: Kwan Hernandez, [address] [facility] [address], [place], [address]. tel:[phone], [id number], tel:[phone] [place] No Information Sep-2 -201 5 Wayne Nice. [address] [facility], [place] [address], . tel:[phone] Referring Provider: Kwan Hernandez, [address] [facility] [address], [place], [address]. tel:[phone], [id number], tel:[phone] [place] Pain in joint involving hand Sep-2 5 Wayne Nice. [address] [facility] [address], [place], [facility], . tel:[phone] Referring Provider: Kwan Hernandez, [address] [facility] [facility] [address], [place], [address]. tel:[phone] Family History Family Member Type Diagnosis Age At Onset No Information Payers Payer name Insurance type Covered republican ID Authoriza tion(s) No Information Social History [...]
--- OUTSIDE RECORDS SUMMARY | 2025-04-01 22:52 | XMS_ITS | Encounter Summary ---
Author Organization [facility] Address [address] [place] [address] Care Team Providers Care Tire Man Name Role Phone Armando Johnson MD Primary Care Provider [phone] Encounter Details Date Type Department Care Team (Late Contact Info) Description 08/01/2006 Outpatient Historical [facility] Internal Medicine Medical [place] [facility] [address] [facility] [address] [address] Balwinder Hector MD [address] [facility] [address] [place] [address] Unspecified Myalgia and Myositis (Primary Dx) Social History Tobacco Use Types Packs/Day Years Used Date Smoking Tobacco: Never Assessed Comments Unknown Sex and Gender Information Value Date Recorded Sex Assigned at Not on file Legal Sex Female 4:42 AM BAR BACK Gender Identity Not on file Sexual Orientation Not on file documented as of this encounter Plan of Treatment Upcoming Encounters Date Type Department Care Team (Late st Contact Info) Description 08/10/2025 2:15 PM BAR BACK Office Visit [facility] Rheumatology [place]ks [address] [facility] [address] [place] [address] Ruddy Sánchez [place] [address] [place] [address] documented as of this encounter Procedures Procedure Name Priority Date/Time Associated Diagnosis Comments TSH REFLEXIVE Routine 08/01/2006 4:13 PM BAR BACK COMPREHENSIVE METABOLIC PANEL Routine 08/01/2006 4:13 PM BAR BACK documented in this encounter Results * COMPREHENSIVE METABOLIC PANEL (08/01/2006 4:13 PM BAR BACK) GLUCOSE 97 65 - 99 mg/dL INTERFACE [...] 30 mmol/L INTERFACE SYSTEM 08/01/2006 4:13 PM BAR BACK Balwinder Hector MD CHEMISTRY ORDERABLES Final Resu lt Performing Organization Address City/[facility] Co de Phone Number INTERFACE SYSTEM Refer to clinic/hospital department * TSH REFLEXIVE (08/01/2006 4:13 PM BAR BACK) TSH 2.20 0.27 - 4.20 uU/mL INTERFACE SYSTEM 08/01/2006 4:13 PM BAR BACK Balwinder Hector MD CHEMISTRY ORDERABLES Final Resu lt Performing Organization Address City/State/[facility] Co de Phone Number INTERFACE SYSTEM Refer to clinic/hospital department documented in this encounter Visit Diagnoses Diagnosis Myalgia and myositis, unspecified- Primary Mylagia and myositis, unspecified documented in this encounter Care Teams Tire Man Relationship Specialty Start Date End Date Armando Johnson MD [address] [facility] [address] [place] [address] PCP - General Internal Medicine 11/13/22 documented as of this encounter
--- OUTSIDE RECORDS SUMMARY | 2025-04-01 22:52 | XMS_ITS | Encounter Summary ---
Author Organization [facility] Address [address] [place] [address] Care Team Providers Care Plaster Mechanic Name Role Phone Armando Johnson MD Primary Care Provider [phone] Encounter Details Date Type Department Care Team (Late Contact Info) Description 08/04/2000 Outpatient Historical [facility] Tenzin Cheung MD [address] [facility] [address] [place] [address] Sprain of lumbar region (Primary Dx) Social History Tobacco Use Types Packs/Day Years Used Date Smoking Tobacco: Never Assessed Comments Unknown Sex and Gender Information Value Date Recorded Sex Assigned at Not on file Legal Sex Female 4:42 AM CHARGE GANG WEIGHER Gender Identity Not on file Sexual Orientation Not on file documented as of this encounter Plan of Treatment Upcoming Encounters Date Type Department Care Team (Late Contact Info) Description 08/10/2025 2:15 PM CHARGE GANG WEIGHER Office Visit [facility] Rheumatology Enrique Sparks [address] [place] [address] Ruddy Sán[place] [address] [place] [address] documented as of this encounter Visit Diagnoses Diagnosis Sprain of lumbar region- Primary documented in this encounter Care Teams Plaster Mechanic Relationship Specialty Start Date End Date Armando Johnson MD [address] [place] [address] PCP - General Internal Medicine 11/13/22 documented as of this encounter
--- OUTSIDE RECORDS SUMMARY | 2025-04-01 22:52 | XMS_ITS | Encounter Summary ---
Author Organization [facility] Address [address] [place] [address] Care Team Providers Care Environmental Education Specialist Name Role Phone Armando Johnson MD Primary Care Provider [phone] Encounter Details Date Type Department Care Team (Latest Contact Info) Description 08/10/2002 Outpatient Historical [facility] Nixon Perea MD [address] [facility] [address] [place], [place] [id number] ENTHESOPATHY OF HIP (Primary Dx) Social History Tobacco Use Types Packs/Day Years Used Date Smoking Tobacco: Never Assessed Comments Unknown Sex and Gender Information Value Date Recorded Sex Assigned at Not on file Legal Sex Female 4:42 AM RADIAL ARM SAW OPERATOR Gender Identity Not on file Sexual Orientation Not on file documented as of this encounter Plan of Treatment Upcoming Encounters Date Type Department Care Team (Late st Contact Info) Description 08/10/2025 2:15 PM RADIAL ARM SAW OPERATOR Office Visit [facility] Rheumatology Freedom Sparks [address] [place] [address] Ruddy Sánchez [place] [address] [place] [address] documented as of this encounter Visit Diagnoses Diagnosis Enthesopathy of hip region- Primary documented in this encounter Care Teams Environmental Education Specialist Relationship Specialty Start Date End Date Armando Johnson MD [address] [place] [address] PCP - General Internal Medicine 11/13/22 documented as of this encounter
--- OUTSIDE RECORDS SUMMARY | 2025-04-01 22:52 | XMS_ITS | Encounter Summary ---
Author Organization [facility] Address [address] [place] [address] Care Team Providers Care Sharemilker Name Role Phone Armando Johnson MD Primary Care Provider [phone] Reason for Visit * Reason Comments Provider Call Encounter Details Date Type Department Care Team (Late st Contact Info) Description 10/29/2024 Telephone [facility] Internal Medicine Medical [facility] [address] [facility] [address] [address] Armando Johnson MD [address] [place] [address] Provider Call Social History Tobacco Use Types Packs/Day Years Used Date Smoking Tobacco: Never Smokeless Tobacco: Never Alcohol Use Standard Drinks/Week Comments Yes 0 (1 standard drink = 0.6 oz pur e alcohol) Comments No Sex and Gender Information Value Date Recorded Sex Assigned at Not on file Legal Sex Female 4:42 AM IN CLASS SPECIAL EDUCATION TEACHER Gender Identity Not on file Sexual [...] for the denial of the provider imaging CLASS SPECIAL EDUCATION TEACHER * Telephone Encounter - Armando Johnson MD - 10/29/2024 4:17 PM CST You can provide the number for peer to peer Thank you CLASS SPECIAL EDUCATION TEACHER * Telephone Encounter - Armando Johnson MD - 10/29/2024 3:37 PM CST Denial for what study? CLASS SPECIAL EDUCATION TEACHER * Telephone Encounter - Juan Wellington - 10/29/2024 1:40 PM CST Copied from [facility] #[id number]. Topic: [id number] Call >> Oct 29, 2024 1:38 PM Juan Umana wrote: Caller is requesting to speak with Clinical Care Team. Caller Name: [facility] Callback Number: [phone] Clinician Type: Other healthcare professional not listed above Call Notes: Denial letter faxed already. Would Armando Johnson MD do a peer to peer to get denial appealed? Please advise. Is this addressing an immediate patient care need? No CLASS SPECIAL EDUCATION TEACHER documented in this encounter Plan of Treatment Upcoming Encounters Date Type Department Care Team (Late st Contact Info) Description 08/10/2025 2:15 PM IN CLASS SPECIAL EDUCATION TEACHER Office Visit [facility] Rheumatology Enrique Sparks [address] [place] [address] Ruddy Sán[place] [address] [place] [place] [address] documented as of this encounter Visit Diagnoses Not on filedocumented in this encounter Care Teams Sharemilker Relationship Specialty Start Date End Date Armando Johnson MD [address] [place] [address] PCP - General Internal Medicine 11/13/22 documented as of this encounter
--- OUTSIDE RECORDS SUMMARY | 2025-04-01 22:52 | XMS_ITS | Encounter Summary ---
Author Organization [facility] Address [address] [place] [address] Care Team Providers Care Binding Printer Name Role Phone Armando Johnson MD Primary Care Provider [phone] Encounter Details Date Type Department Care Team (Late Contact Info) Description 05/20/2007 Outpatient Historical [facility] Internal Medicine Medical [place] [facility] [address] [id number] Benjamín Haines MD [address] [place] [address] Social History Tobacco Use Types Packs/Day Years Used Date Smoking Tobacco: Never Assessed Comments Unknown Sex and Gender Information Value Date Recorded Sex Assigned at Not on file Legal Sex Female 4:42 AM LICENSED PLUMBER Gender Identity Not on file Sexual Orientation Not on file documented as of this encounter Plan of Treatment Upcoming Encounters Date Type Department Care Team (Late st Contact Info) Description 08/10/2025 2:15 PM LICENSED PLUMBER Office Visit [facility] Rheumatology Freedom Sparks [address] [facility] [address] [place] [address] Ruddy Sán[place] [address] [place] [address] documented as of this encounter Visit Diagnoses Not on filedocumented in this encounter Care Teams Binding Printer Relationship Specialty Start Date End Date Armando Johnson MD [address] [facility] [address] [place] [address] PCP - General Internal Medicine 11/13/22 documented as of this encounter
--- OUTSIDE RECORDS SUMMARY | 2025-04-01 22:52 | XMS_ITS | Encounter Summary ---
Author Organization [facility] Address [address] [place] [address] Care Team Providers Care Printed Circuit Boards Contact Printer Name Role Phone Armando Johnson MD Primary Care Provider [phone] Encounter Details Date Type Department Care Team (Late st Contact Info) Description 11/22/2000 Outpatient Historical [facility] Jayda Chinchilla MD [address] [place] [address] Social History Tobacco Use Types Packs/Day Years Used Date Smoking Tobacco: Never Assessed Comments Unknown Sex and Gender Information Value Date Recorded Sex Assigned at Not on file Legal Sex Female 4:42 AM FUSE MAKER Gender Identity Not on file Sexual Orientation Not on file documented as of this encounter Plan of Treatment Upcoming Encounters Date Type Department Care Team (Late st Contact Info) Description 08/10/2025 2:15 PM FUSE MAKER Office Visit [facility] Rheumatology Freedom Sparks [address] [place] [address] Ruddy Sánchez [place] [address] [place] [address] documented as of this encounter Visit Diagnoses Not on filedocumented in this encounter Care Teams Printed Circuit Boards Contact Printer Relationship Specialty Start Date End Date Armando Johnson MD [address] [place] [address] PCP - General Internal Medicine 11/13/22 documented as of this encounter
--- OUTSIDE RECORDS SUMMARY | 2025-04-01 22:52 | XMS_ITS | Encounter Summary ---
Author Organization [facility] Address [address] [place] [address] Care Team Providers Care Sack Sorter Name Role Phone Armando Johnson MD Primary Care Provider [phone] Encounter Details Date Type Department Care Team (Late st Contact Info) Description 01/13/2004 Outpatient Historical [facility] PRIMARY CARE Balwinder Hector MD [address] [facility] [address] [place] [address] Social History Tobacco Use Types Packs/Day Years Used Date Smoking Tobacco: Never Assessed Comments Unknown Sex and Gender Information Value Date Recorded Sex Assigned at Not on file Legal Sex Female 4:42 AM MANAGER NURSING Gender Identity Not on file Sexual Orientation Not on file documented as of this encounter Plan of Treatment Upcoming Encounters Date Type Department Care Team (Late st Contact Info) Description 08/10/2025 2:15 PM MANAGER NURSING Office Visit [facility] Rheumatology Freedom Sparks [address] [place] [address] Ruddy Sánchez [place] [address] [place] [address] documented as of this encounter Visit Diagnoses Not on filedocumented in this encounter Care Teams Sack Sorter Relationship Specialty Start Date End Date Armando Johnson MD [address] [place] [address] PCP - General Internal Medicine 11/13/22 documented as of this encounter
--- OUTSIDE RECORDS SUMMARY | 2025-04-01 22:52 | XMS_ITS | Encounter Summary ---
Author Organization [facility] Address [address] [place] [address] Care Team Providers Care Cut Off Sawyer Log Name Role Phone Armando Johnson MD Primary Care Provider [phone] Encounter Details Date Type Department Care Team (Late st Contact Info) Description 03/24/2002 Outpatient Historical [facility] [place] [address] [place] [address] ABDOMINAL PAIN OTHER SPEC SITE (Primary Dx) Social History Tobacco Use Types Packs/Day Years Used Date Smoking Tobacco: Never Assessed Comments Unknown Sex and Gender Information Value Date Recorded Sex Assigned at Not on file Legal Sex Female 4:42 AM POSTMASTER Gender Identity Not on file Sexual Orientation Not on file documented as of this encounter Plan of Treatment Upcoming Encounters Date Type Department Care Team (Late st Contact Info) Description 08/10/2025 2:15 PM POSTMASTER Office Visit [facility] Rheumatology Enrique Sparks [address] [place] [address] Ruddy Sánchez [place] [address] [place] [address] documented as of this encounter Visit Diagnoses Diagnosis Abdominal pain, other specified site- Primary documented in this encounter Care Teams Cut Off Sawyer Log Relationship Specialty Start Date End Date Armando Johnson MD [address] [place] [address] PCP - General Internal Medicine 11/13/22 documented as of this encounter
--- OUTSIDE RECORDS SUMMARY | 2025-04-01 22:52 | XMS_ITS | Encounter Summary ---
Author Organization [facility] Address [address] [place] [address] Care Team Providers Care Roll Tube Setter Name Role Phone Armando Johnson MD Primary Care Provider [phone] Encounter Details Date Type Department Care Team (Latest Contact Info) Description 08/24/2002 Outpatient Historical [facility] [address] [place] [address] CHEST PAIN NOS (Primary Dx) Social History Tobacco Use Types Packs/Day Years Used Date Smoking Tobacco: Never Assessed Comments Unknown Sex and Gender Information Value Date Recorded Sex Assigned at Not on file Legal Sex Female 4:42 AM TIP BANDING 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 Gender Identity Not on file Sexual Orientation Not on file documented as of this encounter Plan of Treatment Upcoming Encounters Date Type Department Care Team (Late st Contact Info) Description 08/10/2025 2:15 PM TIP BANDING 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 Office Visit [facility] Rheumatology Freedom Sparks [address] [place] [address] Ruddy Sánchez [place] [address] [place] [address] documented as of this encounter Visit Diagnoses Diagnosis Chest pain, unspecified- Primary documented in this encounter Care Teams Roll Tube Setter Relationship Specialty Start Date End Date Armando Johnson MD [address] [place] [address] PCP - General Internal Medicine 11/13/22 documented as of this encounter
--- OUTSIDE RECORDS SUMMARY | 2025-04-01 22:52 | XMS_ITS | Encounter Summary ---
Author Organization [facility] Address [address] [place] [address] Care Team Providers Care Filer Repairer Name Role Phone Armando Johnson MD Primary Care Provider [phone] Encounter Details Date Type Department Care Team (Latest Contact Info) Description 10/03/2004 Outpatient Historical HIS [facility] PRUDENCE Rod, Josué [place] [address] [place] [address] SOLITARY CYST OF BREAST (Primary Dx) Social History Tobacco Use Types Packs/Day Years Used Date Smoking Tobacco: Never Assessed Comments Unknown Sex and Gender Information Value Date Recorded Sex Assigned at Not on file Legal Sex Female 4:42 AM LINK AND LINK KNITTING 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 Gender Identity Not on file Sexual Orientation Not on file documented as of this encounter Plan of Treatment Upcoming Encounters Date Type Department Care Team (Late st Contact Info) Description 08/10/2025 2:15 PM LINK AND LINK KNITTING 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 Office Visit [facility] Rheumatology Enrique Sparks [address] [place] [address] Ruddy Sánchez [place] [address] [place] [address] documented as of this encounter Visit Diagnoses Diagnosis Solitary cyst of breast- Primary documented in this encounter Care Teams Filer Repairer Relationship Specialty Start Date End Date Armando Johnson MD [address] [place] [address] PCP - General Internal Medicine 11/13/22 documented as of this encounter
--- OUTSIDE RECORDS SUMMARY | 2025-04-01 22:52 | XMS_ITS | Encounter Summary ---
Author Organization [facility] Address [address] [place] [address] Care Team Providers Care Drill Instructor Name Role Phone Armando Johnson MD Primary Care Provider [phone] Encounter Details Date Type Department Care Team (Late st Contact Info) Description 08/02/2000 Outpatient Historical HIS [facility] Marylu Mckeon MD [address] [place] [address] Social History Tobacco Use Types Packs/Day Years Used Date Smoking Tobacco: Never Assessed Comments Unknown Sex and Gender Information Value Date Recorded Sex Assigned at Not on file Legal Sex Female 4:42 AM COMMERCIAL KITCHEN SERVICE TECHNICIAN Gender Identity Not on file Sexual Orientation Not on file documented as of this encounter Plan of Treatment Upcoming Encounters Date Type Department Care Team (Late st Contact Info) Description 08/10/2025 2:15 PM COMMERCIAL KITCHEN SERVICE TECHNICIAN Office Visit [facility] Rheumatology [place] Sparks [address] [place] [address] Ruddy Sánchez [place] [address] [place] [address] documented as of this encounter Visit Diagnoses Not on filedocumented in this encounter Care Teams Drill Instructor Relationship Specialty Start Date End Date Armando Johnson MD [address] [place] [address] PCP - General Internal Medicine 11/13/22 documented as of this encounter
--- OUTSIDE RECORDS SUMMARY | 2025-04-01 22:52 | XMS_ITS | Encounter Summary ---
Author Organization [facility] Address [address] [place] [address] Care Team Providers Care Welt Maker Name Role Phone Armando Johnson MD Primary Care Provider [phone] Encounter Details Date Type Department Care Team (Late st Contact Info) Description 07/29/2006 Orders Only [facility] Internal Medicine Medical [place] [facility] [address] [facility] [address] [address] Balwinder Hector MD [address] [facility] [address] [place] [address] Social History Tobacco Use Types Packs/Day Years Used Date Smoking Tobacco: Never Assessed Comments Unknown Sex and Gender Information Value Date Recorded Sex Assigned at Not on file Legal Sex Female 4:42 AM LANGUAGE INTERPRETER Gender Identity Not on file Sexual Orientation Not on file documented as of this encounter Progress Notes * Cooper Hector MD - 06/29/2008 11:52 PM CDT TIME:03:54 pm PATIENT`S HOME PHONE: PATIENT`S WORK PHONE: PATIENT`S INSURANCE: [employer] [facility] WHO TOOK THE CALL: Chantale Lemon M [...] st Contact Info) Description 08/10/2025 2:15 PM LANGUAGE INTERPRETER Office Visit [facility] Rheumatology [place] Sparks [address] [place] [address] Ruddy Sánchez [place] [address] [place] [address] documented as of this encounter Visit Diagnoses Not on filedocumented in this encounter Care Teams Welt Maker Relationship Specialty Start Date End Date Armando Johnson MD [address] [place] [address] PCP - General Internal Medicine 11/13/22 documented as of this encounter
--- OUTSIDE RECORDS SUMMARY | 2025-04-01 22:52 | XMS_ITS | Encounter Summary ---
Author Organization [facility] Address [address] [place] [address] Care Team Providers Care Shuttle Truck Driver Name Role Phone Armando Johnson MD Primary Care Provider [phone] Encounter Details Date Type Department Care Team (Latest Contact Info) Description 09/25/2004 Outpatient Historical HIS [facility] PRUDENCE Rod, Josué [place] [address] [place] [address] SCREENING MAMM-MAILG NEOPL-OTHER (Primary Dx) Social History Tobacco Use Types Packs/Day Years Used Date Smoking Tobacco: Never Assessed Comments Unknown Sex and Gender Information Value Date Recorded Sex Assigned at Not on file Legal Sex Female 4:42 AM PULLMAN CLERK Gender Identity Not on file Sexual Orientation Not on file documented as of this encounter Plan of Treatment Upcoming Encounters Date Type Department Care Team (Late st Contact Info) Description 08/10/2025 2:15 PM PULLMAN CLERK Office Visit [facility] Rheumatology Enrique Sparks [address] [place] [address] Ruddy Sánchez [place] [address] [place] [address] documented as of this encounter Visit Diagnoses Diagnosis Other screening mammogram- Primary documented in this encounter Care Teams Shuttle Truck Driver Relationship Specialty Start Date End Date Armando Johnson MD [address] [place] [address] PCP - General Internal Medicine 11/13/22 documented as of this encounter
--- OUTSIDE RECORDS SUMMARY | 2025-04-01 22:52 | XMS_ITS | Encounter Summary ---
Author Organization [facility] Address [address] [place] [address] Care Team Providers Care Roof Tiler Name Role Phone Armando Johnson MD Primary Care Provider [phone] Encounter Details Date Type Department Care Team (Latest Contact Info) Description 08/05/2001 Outpatient Historical [facility] Justin Gongora MD NO ADDRESS ON FILE CHRONIC CHOLECYSTITIS NEC (Primary Dx) Social History Tobacco Use Types Packs/Day Years Used Date Smoking Tobacco: Never Assessed Comments Unknown Sex and Gender Information Value Date Recorded Sex Assigned at Not on file Legal Sex Female 4:42 AM PEDIATRIC MEDICAL ASSISTANT Gender Identity Not on file Sexual Orientation Not on file documented as of this encounter Plan of Treatment Upcoming Encounters Date Type Department Care Team (Late st Contact Info) Description 08/10/2025 2:15 PM PEDIATRIC MEDICAL ASSISTANT Office Visit [facility] Rheumatology Freedom Sparks [address] [place] [address] Ruddy Sánchez [place] [address] [place] [address] documented as of this encounter Visit Diagnoses Diagnosis Chronic cholecystitis- Primary documented in this encounter Care Teams Roof Tiler Relationship Specialty Start Date End Date Armando Johnson MD [address] [place] [address] PCP - General Internal Medicine 11/13/22 documented as of this encounter
--- OUTSIDE RECORDS SUMMARY | 2025-04-01 22:52 | XMS_ITS | Encounter Summary ---
Author Organization [facility] Address [address] [place] [address] Care Team Providers Care Wind Farm Electrical Systems Designer Name Role Phone Armando Johnson MD Primary Care Provider [phone] Encounter Details Date Type Department Care Team [...] on file Legal Sex Female 4:42 AM STRADDLE BUG OPERATOR Gender Identity Not on file Sexual Orientation Not on file documented as of this encounter Plan of Treatment Upcoming Encounters Date Type Department Care Team (Late st Contact Info) Description 08/10/2025 2:15 PM STRADDLE BUG OPERATOR Office Visit [facility] Rheumatology Freedom Sparks [address] [place] [address] Ruddy Sánchez [place] [address] [place] [address] documented as of this encounter Visit Diagnoses Diagnosis Other malaise and fatigue- Primary documented in this encounter Care Teams Wind Farm Electrical Systems Designer Relationship Specialty Start Date End Date Armando Johnson MD [address] [place] [address] PCP - General Internal Medicine 11/13/22 documented as of this encounter
--- OUTSIDE RECORDS SUMMARY | 2025-04-01 22:52 | XMS_ITS | Encounter Summary ---
Author Organization [facility] Address [address] [place] [address] Care Team Providers Care Beef Trimmer Name Role Phone Armando Johnson MD Primary Care Provider [phone] Encounter Details Date Type Department Care Team (Late st Contact Info) Description 08/24/2002 Outpatient Historical [facility] [address] [place] [address] Lucius Ward MD NO ADDRESS ON FILE Social History Tobacco Use Types Packs/Day Years Used Date Smoking Tobacco: Never Assessed Comments Unknown Sex and Gender Information Value Date Recorded Sex Assigned at Not on file Legal Sex Female 4:42 AM HOTEL OPERATIONS MANAGER Gender Identity Not on file Sexual Orientation Not on file documented as of this encounter Plan of Treatment Upcoming Encounters Date Type Department Care Team (Late Contact Info) Description 08/10/2025 2:15 PM HOTEL OPERATIONS MANAGER Office Visit [facility] Rheumatology Freedom Sparks [address] [place] [address] Ruddy Sánchez [place] [address] [place] [address] documented as of this encounter Visit Diagnoses Not on filedocumented in this encounter Care Teams Beef Trimmer Relationship Specialty Start Date End Date Armando Johnson MD [address] [place] [address] PCP - General Internal Medicine 11/13/22 documented as of this encounter
--- OUTSIDE RECORDS SUMMARY | 2025-04-01 22:52 | XMS_ITS | Encounter Summary ---
Author Organization [facility] Address [address] [place] [address] Care Team Providers Care E Commerce Marketing Manager Name Role Phone Armando Johnson MD Primary Care Provider [phone] Encounter Details Date Type Department Care Team (Late st Contact Info) Description 03/24/2003 Outpatient Historical [facility] Balwinder Hector MD [address] [facility] [address] [place] [address] GOITER NOS (Primary Dx) Social History Tobacco Use Types Packs/Day Years Used Date Smoking Tobacco: Never Assessed Comments Unknown Sex and Gender Information Value Date Recorded Sex Assigned at Not on file Legal Sex Female 4:42 AM DAY CARE WORKER Gender Identity Not on file Sexual Orientation Not on file documented as of this encounter Plan of Treatment Upcoming Encounters Date Type Department Care Team (Late st Contact Info) Description 08/10/2025 2:15 PM DAY CARE WORKER Office Visit [facility] Rheumatology Freedom Sparks [address] [place] [address] Ruddy Sánchez [place] [address] [place] [address] documented as of this encounter Visit Diagnoses Diagnosis Goiter, unspecified- Primary documented in this encounter Care Teams E Commerce Marketing Manager Relationship Specialty Start Date End Date Armando Johnson MD [address] [place] [address] PCP - General Internal Medicine 11/13/22 documented as of this encounter
--- OUTSIDE RECORDS SUMMARY | 2025-04-01 22:52 | XMS_ITS | Continuity of Care Document ---
Author Organization [facility] Address [address] [phone] Phone Care Team Providers Care Scow Derrick Operator Name Role Phone Chai Garcia MD Unavailable [...] VISIT EST OFFICE/OUTPATIENT VISIT EST OFFICE/OUTPATIENT VISIT [facility] Advance Directives Directive Yes / No Effective Date File Name No Information Encounters Encounter Description Practice Location Reason(s) For Visit Diagnoses Date Provider Providers Copied on Encounter OFFICE/OUTPA TIENT VISIT EST [facility], [address] [place] [address], [address], [place] tel:[phone] [facility] Trigger middle finger of right handPrimary osteoarthritis of first carpometacarpal joint of left hand 6 Jose Paula. [address] [place], [place], [id number] . tel: [phone] OFFICE/OUTPA TIENT VISIT EST [facility], [address] [place] [address], [address], [place] tel:[phone] [facility] Trigger ring finger of right hand Nov-0 9-201 5 Jose Paula. [address] [place], [place], [id number] . tel: [phone] OFFICE/OUTPA TIENT VISIT EST [facility], [address] [place] [address], [address], [place] tel: [phone] [facility] Carpal tunnel syndrome on both sidesCarpal tunnel syndrome, left upper limbTrigger finger, left middle finger Oct-1 2-201 5 Jose Paula. [address] [place], [place], [id number] . tel: [phone] [facility], [address] [place] [address], [address], [place] tel: [phone] [facility] F/U B CTR'S (chief complaint) Carpal tunnel syndromeTrigger finger Sep-2 8-201 5 Jose Paula. [address] [place], [place], [id number] . tel: [phone] [facility], [address] [place] [address], [address], [place] tel: [phone] [facility] 1st post op L CTR (chief complaint) Carpal tunnel syndrome Sep-1 5-201 5 David Johnson. [address] [place] [address] [address], [place], [place], [id number] , [place]. tel: [phone] [facility], [address] [place] [address], [address], [place] tel:[phone] [facility] Carpal tunnel syndrome Aug-0 7- 5 Jose Paula. [address] [place], [place], [id number] . tel: [phone] OFFICE/OUTPA TIENT VISIT EST [facility], [address] [place] [address], [address], [place] tel:[phone] [facility] Carpal tunnel syndrome Aug-0 7-201 5 Jose Paula. [address] [place], [place], [id number] . tel: [phone] [facility], [address] [place] [address], [address], [place] [phone] [facility] emg/ncs (chief complaint) Carpal tunnel syndrome 0 5 Melanie Ferreira. [address] [place] [address], [id number] . tel: [phone] Referring Provider: Chai Garcia, [address] [facility] [address], [place], [address]. tel:[phone] [facility], [address] [place] [address], [address], [place] tel:[phone] [facility] Carpal tunnel syndrome 2 5 Jose Paula. [address] [place] [address], [id number] . tel: [phone] OFFICE/OUTPA TIENT VISIT [facility], [address] [place] [address], [address], [place] tel:[phone] [facility] Carpal tunnel syndromeArthrit is, degenerative, localized, primary, hand 5 Jose Paula. [address] [place] [address], [id number] . tel: [phone] [facility], [address] [place] [address], [address], [place] tel:[phone] [facility] Lt thumb cmc (chief complaint) Arthritis, degenerative, localized, primary, hand Jun- 4 Jose Paula. [address] [place] [address], [id number] . tel: [phone] OFFICE/OUTPA TIENT VISIT [facility], [address] [place] [address], [address], [place] tel:[phone] [facility] Arthritis, degenerative, localized, primary, hand Sep- 8 3 Jose Paula. [address] [facility], [place], [place], [id number] . tel: [phone] Family History Family Member Type Diagnosis Age At Onset No Information Payers Payer name Insurance type Covered libertarian ID Mellisa farmer(s) [facility] - PPO [id number] Social History Type Description Quantity Date [...] Information Instructions Date Instruction Additional Infor mation Apply ice as instructed. Related to Trigger ring finger of right hand Activity as tolerated. Related t o Trigger ring finger of right hand activity as tolerated Related to Carpal tunnel syndrome apply heating pad or ice as tole rated Related to Carpal tunnel syndrome elevate higher than your heart R elated to Carpal tunnel syndrome Apply ice as instructed. Related to Arthritis, degenerative, localized, primary, hand Activity as tolerated. Related t o Arthritis, degenerative, localized, primary, hand Wear brace as instructed Assessments Type Assessment Date assessment Trigger middle finger of right h and assessment Primary osteoarthrit is of first carpometacarpal joint of left hand Patient Care Teams Name Effective Dates (start - stop) Status Members No Information
--- OUTSIDE RECORDS SUMMARY | 2025-04-01 22:52 | XMS_ITS | Encounter Summary ---
Author Organization [facility] Address [address] [place] [address] Care Team Providers Care Childcare Center Director Name Role Phone Armando Johnson MD Primary Care Provider [phone] Encounter Details Date Type Department Care Team [...] file Legal Sex Female 4:42 AM TIMBER SELECTOR Gender Identity Not on file Sexual Orientation Not on file documented as of this encounter Plan of Treatment Upcoming Encounters Date Type Department Care Team (Late st Contact Info) Description 08/10/2025 2:15 PM TIMBER SELECTOR Office Visit [facility] Rheumatology Freedom Sparks [address] [place] [address] Ruddy Sánchez [place] [address] [place] [address] documented as of this encounter Visit Diagnoses Diagnosis Contusion of foot- Primary documented in this encounter Care Teams Childcare Center Director Relationship Specialty Start Date End Date Armando Johnson MD [address] [place] [address] PCP - General Internal Medicine 11/13/22 documented as of this encounter
--- OUTSIDE RECORDS SUMMARY | 2025-04-01 22:52 | XMS_ITS | Encounter Summary ---
Author Organization [facility] Address [address] [place] [address] Care Team Providers Care Fiber Machine Tender Name Role Phone Armando Johnson MD Primary Care Provider [phone] Encounter Details Date Type Department Care Team (Latest Contact Info) Description 07/17/2000 Outpatient Historical [facility] [place] [place]ba Hahn [place] [id number] [place] [address] [place] [address] Lumbago (Primary Dx) Social History Tobacco Use Types Packs/Day Years Used Date Smoking Tobacco: Never Assessed Comments Unknown Sex and Gender Information Value Date Recorded Sex Assigned at Not on file Legal Sex Female 4:42 AM REIMBURSEMENT LIAISON Gender Identity Not on file Sexual Orientation Not on file documented as of this encounter Plan of Treatment Upcoming Encounters Date Type Department Care Team (Late st Contact Info) Description 08/10/2025 2:15 PM REIMBURSEMENT LIAISON Office Visit [facility] Rheumatology Freedom Sparks [address] [place] [address] Ruddy Sánchez [place] [address] [place] [address] documented as of this encounter Visit Diagnoses Diagnosis Lumbago- Primary documented in this encounter Care Teams Fiber Machine Tender Relationship Specialty Start Date End Date Armando Johnson MD [address] [place] [address] PCP - General Internal Medicine 11/13/22 documented as of this encounter
--- OUTSIDE RECORDS SUMMARY | 2025-04-01 22:53 | XMS_ITS | Clinical Summary ---
Author Organization [facility] [address] Address [address] [place] [address] Care Team Providers Care Probate Judge Name Role Phone Unknown, Notinfile Primary Care [...] on file Legal Sex Female 6:25 PM NURSE RECRUITER Gender Identity Not on file Sexual Orientation Not on file Obstetrics History Last Filed Vital Signs Vital Sign Reading Time Taken Comments Blood Pressure 126/76 08/28/2022 10:20 AM NURSE RECRUITER Pulse 77 08/28/2022 10:20 AM NURSE RECRUITER Temperature 37.2 C (99 F) 08/28/2022 10:20 AM NURSE RECRUITER Respiratory Rate 18 08/28/2022 10:20 AM NURSE RECRUITER Oxygen Saturation 98% 08/28/2022 10:20 AM NURSE RECRUITER Inhaled Oxygen Concentration - - Weight 105.7 kg (233 lb) 08/28/2022 10:20 AM NURSE RECRUITER Height 175.3 cm (5' 9) 08/28/2022 10:20 AM NURSE RECRUITER Body Mass Index 34.41 08/28/2022 10:20 AM NURSE RECRUITER Plan of Treatment Health Maintenance Due Date [...] Td or Tdap) 11/24/2028 11/24/2018, 01/02/2008 Insurance [employer] Care Teams Probate Judge Relationship Specialty Start Date End Date Unknown, Notinfile PCP - General 08/28/22
--- OUTSIDE RECORDS SUMMARY | 2025-04-01 22:53 | XMS_ITS | Encounter Summary ---
Author Organization [facility] Address [address] [place] [address] Care Team Providers Care Instructional Services Specialist Name Role Phone Armando Johnson MD Primary Care Provider [phone] Encounter Details Date Type Department Care Team (Late Contact Info) Description 08/24/2002 Outpatient Historical HIS [place] [address] [facility] [address] [place] [address] Carroll Denise MD NO ADDRESS ON FILE CHEST PAIN NEC (Primary Dx) Social History Tobacco Use Types Packs/Day Years Used Date Smoking Tobacco: Never Assessed Comments Unknown Sex and Gender Information Value Date Recorded Sex Assigned at Not on file Legal Sex Female 4:42 AM FLAT IRONER Gender Identity Not on file Sexual Orientation Not on file documented as of this encounter Plan of Treatment Upcoming Encounters Date Type Department Care Team (Late Contact Info) Description 08/10/2025 2:15 PM FLAT IRONER Office Visit [facility] Rheumatology Freedom Sparks [address] [facility] [address] [place] [address] Ruddy Sánchez [place] [address] [place] [address] documented as of this encounter Visit Diagnoses Diagnosis Other chest pain- Primary documented in this encounter Care Teams Instructional Services Specialist Relationship Specialty Start Date End Date Armando Johnson MD [address] [facility] [place] [address] PCP - General Internal Medicine 11/13/22 documented as of this encounter
--- OUTSIDE RECORDS SUMMARY | 2025-04-01 22:53 | XMS_ITS | Encounter Summary ---
Author Organization [facility] Address [address] [place] [address] Care Team Providers Care Senior Linux Systems Administrator Name Role Phone Armando Johnson MD Primary Care Provider [phone] Encounter Details Date Type Department Care Team (Latest Contact Info) Description 01/08/2008 Outpatient Historical HIS [facility] PRUDENCE Rod, [place] [address] [place] [address] Other Screening Mammogram Social History Tobacco Use Types Packs/Day Years Used Date Smoking Tobacco: Never Assessed Comments Unknown Sex and Gender Information Value Date Recorded Sex Assigned at Not on file Legal Sex Female 4:42 AM CORE ANALYSIS OPERATOR Gender Identity Not on file Sexual Orientation Not on file documented as of this encounter Plan of Treatment Upcoming Encounters Date Type Department Care Team (Late st Contact Info) Description 08/10/2025 2:15 PM CORE ANALYSIS OPERATOR Office Visit [facility] Rheumatology [place] Sparks [address] [facility] [address] [place] [address] Ruddy Sán[place] [address] [place] [address] documented as of this encounter Procedures Procedure Name Priority Date/Time Associated Diagnosis Comments MAMMO SCREEN BILAT W OR WO CAD Routine 01/08/2008 9:03 AM CDT documented in this encounter Results * MAMMO DIGITAL SCREEN BILAT (01/08/2008 9:03 AM CDT) Anatomical Region Laterality Modality Breast Bilateral Other 01/08/2008 9:03 AM CDT Narrative 01/08/2008 4:25 PM CDT [place] [address] [place], [place] [address] Admit Date: 01/08/2008 JOSE PERRY Sex: F Admit Prov: LIBERTAD ROD Date: 1965 Primary Care Prov: BETTY CULLEN CMRN: [id number] [id number] Ordering Prov: LIBERTAD ROD Accession Number: [id number] Interpretation BILATERAL FULL FIELD DIGITAL SCREENING MAMMOGRAM [...] AMK Procedure Note Betsey Chadwick - 01/08/2008 [place] [address] [place], [place] [address] Admit Date: 01/08/2008 JOSE PERRY Sex: F Admit Prov: LIBERTAD ROD Date: 1965 Primary Care Prov: ALYSEBETTY PEOPLES CMRN: [id number] Room: A N: [id number] IMAGING SERVICES Ordering Prov: LIBERTAD ROD Interpretation [...] mammogram documented in this encounter Care Teams Senior Linux Systems Administrator Relationship Specialty Start Date End Date Armando Johnosn MD [address] [place] [address] PCP - General Internal Medicine 11/13/22 documented as of this encounter
--- OUTSIDE RECORDS SUMMARY | 2025-04-01 22:53 | XMS_ITS | Encounter Summary ---
Author Organization [facility] Address [address] [place] [address] Care Team Providers Care Camp Director Name Role Phone Armando Johnson MD Primary Care Provider [phone] Encounter Details Date Type Department Care Team (Late st Contact Info) Description 12/24/2002 Outpatient Historical [facility] Balwinder Hector MD [address] [facility] [address] [place] [address] Social History Tobacco Use Types Packs/Day Years Used Date Smoking Tobacco: Never Assessed Comments Unknown Sex and Gender Information Value Date Recorded Sex Assigned at Not on file Legal Sex Female 4:42 AM FOOD AIDE Gender Identity Not on file Sexual Orientation Not on file documented as of this encounter Plan of Treatment Upcoming Encounters Date Type Department Care Team (Late st Contact Info) Description 08/10/2025 2:15 PM FOOD AIDE Office Visit [facility] Rheumatology [place] [address] [place] [address] Ruddy Sánchez [place] [address] [place] [address] documented as of this encounter Visit Diagnoses Not on filedocumented in this encounter Care Teams Camp Director Relationship Specialty Start Date End Date Armando Johnson MD [address] [place] [address] PCP - General Internal Medicine 11/13/22 documented as of this encounter
--- OUTSIDE RECORDS SUMMARY | 2025-04-01 22:53 | XMS_ITS | Encounter Summary ---
Author Organization [facility] Address [address] [place] [address] Care Team Providers Care Rn Security Name Role Phone Armando Johnson MD Primary Care Provider Encounter Details Date Type Department Care Team (Late st Contact Info) Description 01/25/2003 Outpatient Historical [facility] Balwinder Hector MD [address] [facility] [address] [place] [address] JOINT PAIN-PELVIS (Primary Dx) Social History Tobacco Use Types Packs/Day Years Used Date Smoking Tobacco: Never Assessed Comments Unknown Sex and Gender Information Value Date Recorded Sex Assigned at Not on file Legal Sex Female 4:42 AM GRILL CHEF Gender Identity Not on file Sexual Orientation Not on file documented as of this encounter Plan of Treatment Upcoming Encounters Date Type Department Care Team (Late st Contact Info) Description 08/10/2025 2:15 PM GRILL CHEF Office Visit [facility] Rheumatology [place] [address] [place] [address] Ruddy Sánchez [place] [address] [place] [address] documented as of this encounter Visit Diagnoses Diagnosis Pain in joint, pelvic region and thigh- Primary documented in this encounter Care Teams Rn Security Relationship Specialty Start Date End Date Armando Johnson MD [address] [place] [address] PCP - General Internal Medicine 11/13/22 documented as of this encounter
--- OUTSIDE RECORDS SUMMARY | 2025-04-01 22:53 | XMS_ITS | Encounter Summary ---
Author Organization [facility] Address [address] [place] [address] Care Team Providers Care Remittance Clerk Name Role Phone Armando Johnson MD Primary Care Provider [phone] Encounter Details Date Type Department Care Team (Latest Contact Info) Description 10/28/2002 Outpatient Historical HIS [facility] PRUDENCE Rod, Josué [place] [address] [place] [address] SCREENING MAMM-MAILG NEOPL-OTHER (Primary Dx) Social History Tobacco Use Types Packs/Day Years Used Date Smoking Tobacco: Never Assessed Comments Unknown Sex and Gender Information Value Date Recorded Sex Assigned at Not on file Legal Sex Female 4:42 AM EXTENSION COURSE COUNSELOR Gender Identity Not on file Sexual Orientation Not on file documented as of this encounter Plan of Treatment Upcoming Encounters Date Type Department Care Team (Late st Contact Info) Description 08/10/2025 2:15 PM EXTENSION COURSE COUNSELOR Office Visit [facility] Rheumatology Enrique [place] [address] [place] [address] Ruddy Sánchez [place] [address] [place] [address] documented as of this encounter Visit Diagnoses Diagnosis Other screening mammogram- Primary documented in this encounter Care Teams Remittance Clerk Relationship Specialty Start Date End Date Armando Johnson MD [address] [place] [address] PCP - General Internal Medicine 11/13/22 documented as of this encounter
--- OUTSIDE RECORDS SUMMARY | 2025-04-01 22:53 | XMS_ITS | Encounter Summary ---
Author Organization [facility] Address [address] [place] [address] Care Team Providers Care Drag Out Worker Name Role Phone Armando Johnson MD Primary Care Provider [phone] Encounter Details Date Type Department Care Team (Late Contact Info) Description 12/10/2007 Outpatient Historical [facility] Internal Medicine Medical [place] [facility] [address] [facility] [address] [address] Gabriella Noel MD Riordan, Tracy M, MD [address] [place] [address] Social History Tobacco Use Types Packs/Day Years Used Date Smoking Tobacco: Never Assessed Comments Unknown Sex and Gender Information Value Date Recorded Sex Assigned at Not on file Legal Sex Female 4:42 AM OXIDATION OPERATOR Gender Identity Not on file Sexual Orientation Not on file documented as of this encounter Plan of Treatment Upcoming Encounters Date Type Department Care Team (Late st Contact Info) Description 08/10/2025 2:15 PM OXIDATION OPERATOR Office Visit [facility] Rheumatology [place] [address] [facility] [address] [place] [address] Ruddy Sánchez [place] [address] [place] [address] documented as of this encounter Visit Diagnoses Not on filedocumented in this encounter Care Teams Drag Out Worker Relationship Specialty Start Date End Date Armando Johnson MD [address] [place] [address] PCP - General Internal Medicine 11/13/22 documented as of this encounter
--- OUTSIDE RECORDS SUMMARY | 2025-04-01 22:53 | XMS_ITS | Encounter Summary ---
Author Organization [facility] Address [address] [place] [address] Care Team Providers Care Business Development Specialist Name Role Phone Armando Johnson MD Primary Care Provider [phone] Encounter Details Date Type Department Care Team (Late Contact Info) Description 11/03/2007 Outpatient Historical [facility] Internal Medicine Medical [place] A [facility] [address] [address] Wilma Starks MD [facility] [facility] [address] [place] [address] Social History Tobacco Use Types Packs/Day Years Used Date Smoking Tobacco: Never Assessed Comments Unknown Sex and Gender Information Value Date Recorded Sex Assigned at Not on file Legal Sex Female 4:42 AM SPORTS TEAM MANAGER Gender Identity Not on file Sexual Orientation Not on file documented as of this encounter Plan of Treatment Upcoming Encounters Date Type Department Care Team (Late st Contact Info) Description 08/10/2025 2:15 PM SPORTS TEAM MANAGER Office Visit [facility] Rheumatology [place] [address] [facility] [address] [place] [address] Ruddy Sánchez [place] [address] [place] [address] documented as of this encounter Visit Diagnoses Not on filedocumented in this encounter Care Teams Business Development Specialist Relationship Specialty Start Date End Date Armando Johnson MD [address] [place] [address] PCP - General Internal Medicine 11/13/22 documented as of this encounter
--- OUTSIDE RECORDS SUMMARY | 2025-04-01 22:53 | XMS_ITS | Encounter Summary ---
Author Organization [facility] Address [address] [place] [address] Care Team Providers Care Bunch Breaker Name Role Phone Armando Johnson MD Primary Care Provider [phone] Encounter Details Date Type Department Care Team (Late st Contact Info) Description 11/26/2007 Orders Only [facility] Internal Medicine Medical [place] [facility] [address] [facility] [address] [address] Balwinder Hector MD [address] [facility] [address] [place] [address] Social History Tobacco Use Types Packs/Day Years Used Date Smoking Tobacco: Never Assessed Comments Unknown Sex and Gender Information Value Date Recorded Sex Assigned at Not on file Legal Sex Female 4:42 AM COMMERCIAL PRODUCER Gender Identity Not on file Sexual Orientation Not on file documented as of this encounter Progress Notes * Cooper Hector MD - 02/19/2008 6:08 PM CDT TIME:02:14 pm PATIENT`S HOME PHONE: PATIENT`S WORK PHONE: PATIENT`S INSURANCE: [employer] WHO TOOK THE CALL: Talia Barry GENERAL INFORMATION ALTERNATIVE PHONE NUMBER: [phone] WHO CALLED: Patient called. CURRENT ALLERGY LIST: NONE PHARMACY NUMBER: [phone] SECTION 1: Pt is calling and still [...] Contact Info) Description 08/10/2025 2:15 PM COMMERCIAL PRODUCER Office Visit [facility] Rheumatology Enrique Sparks [address] [place] [address] Ruddy Sánchez [place] [address] [place] [address] documented as of this encounter Visit Diagnoses Not on filedocumented in this encounter Care Teams Bunch Breaker Relationship Specialty Start Date End Date Armando Johnson MD [address] [place] [address] PCP - General Internal Medicine 11/13/22 documented as of this encounter
--- OUTSIDE RECORDS SUMMARY | 2025-04-01 22:53 | XMS_ITS | Encounter Summary ---
Author Organization [facility] Address [address] [place] [address] Care Team Providers Care Brick Mason Name Role Phone Armando Johnson MD Primary Care Provider [phone] Encounter Details Date Type Department Care Team (Late st Contact Info) Description 10/07/2007 Outpatient Historical [facility] Internal Medicine Medical [place] A [facility] [address] [facility] [address] [address] Balwinder Hector MD [address] [facility] [address] [place] [address] Other and Unspecified Hyperlipidemia Social History Tobacco Use Types Packs/Day Years Used Date Smoking Tobacco: Never Assessed Comments Unknown Sex and Gender Information Value Date Recorded Sex Assigned at Not on file Legal Sex Female 4:42 AM FABRICATION INSPECTOR Gender Identity Not on file Sexual Orientation Not on file documented as of this encounter Plan of Treatment Upcoming Encounters Date Type Department Care Team (Late st Contact Info) Description 08/10/2025 2:15 PM FABRICATION INSPECTOR Office Visit [facility] Rheumatology [place] Spra[place] [address] [facility] [address] [place] [address] Ruddy Sánchez [place] [address] [place] [address] documented as of this encounter Procedures Procedure Name Priority Date/Time Associated Diagnosis Comments TSH WITH REFLEX FT4 AND FT3 Routine 10/07/2007 7:30 AM FABRICATION INSPECTOR T4 FREE Routine 10/07/2007 7:30 AM FABRICATION INSPECTOR LIPID PANEL Routine 10/07/2007 7:30 AM FABRICATION INSPECTOR COMPREHENSIVE METABOLIC PANEL Routine 10/07/2007 7:30 AM FABRICATION INSPECTOR documented in this encounter Results * T4 FREE (10/07/2007 7:30 AM FABRICATION INSPECTOR) FREE T4E,THYROID SCREEN 0.9 0.9 - 1.7 ng/dL INTERFACE SYSTEM 10/07/2007 7:30 AM FABRICATION INSPECTOR Balwinder Hector MD CHEMISTRY ORDERABLES Edited Performing Organization Address [facility] Phone Number INTERFACE SYSTEM Refer to clinic/hospital department * (ABNORMAL) TSH WITH REFLEX FT4 AND FT3 (10/07/2007 7:30 AM FABRICATION INSPECTOR) Pathologist [facility] TSH 7.70(H) 0.27 - 4.20 uU/mL INTERFACE SYSTEM 10/07/2007 7:30 AM FABRICATION INSPECTOR Balwinder Hector MD CHEMISTRY ORDERABLES Edited Performing Organization Address [facility] Phone Number INTERFACE SYSTEM Refer to clinic/hospital department * COMPREHENSIVE METABOLIC PANEL (10/07/2007 7:30 AM FABRICATION INSPECTOR) GLUCOSE 88 65 - 99 mg/dL INTERFACE [...] and non- Americans is available on the [facility] Intranet at: [email or web address] Select: Lab Policies and Procedures Select: Reference Ranges - GFR 10/07/2007 7:30 AM FABRICATION INSPECTOR Balwinder Hector MD CHEMISTRY ORDERABLES Edited Performing Organization Address [facility] Co de Phone Number INTERFACE SYSTEM Refer to clinic/hospital department * LIPID PANEL (10/07/2007 7:30 AM FABRICATION INSPECTOR) CHOLESTEROL 151 100 - 199 mg/dL INTERFACE SYSTEM TRIGLYCERIDE 81 10 - 149 mg/dL INTERFACE SYSTEM HDL 41 40 - 59 mg/dL INTERFACE SYSTEM CHOL/HDL RATIO 3.7 2.0 - 5.0 INTER FACE SYSTEM LDL CALCULATED 94 <=99 mg/dL INTERFACE SYSTEM LIPID PANEL COMMENT See Below INTERFACE SYSTEM Comment: The adult ATP and pediatric NCEP classifications for lipids are available on the [facility] Intranet at: [email or web address] Select: Lab Policies and Procedures,Current Select: Lipid Panel Interpretation 10/07/2007 7:30 AM FABRICATION INSPECTOR us Balwinder Hector MD CHEMISTRY ORDERABLES Edited Performing Organization Address City/[facility] Co de Phone Number INTERFACE SYSTEM Refer to clinic/hospital department documented in this encounter Visit Diagnoses Diagnosis Other and unspecified hyperlipidemia documented in this encounter Care Teams Brick Mason Relationship Specialty Start Date End Date Armando Johnson MD [address] [facility] [address] [place] [address] PCP - General Internal Medicine 11/13/22 documented as of this encounter
--- OUTSIDE RECORDS SUMMARY | 2025-04-01 22:53 | XMS_ITS | Encounter Summary ---
Author Organization [facility] Address [address] [place] [address] Care Team Providers Care Edge Grinder Name Role Phone Armando Johnson MD Primary Care Provider [phone] Encounter Details Date Type Department Care Team (Late st Contact Info) Description 11/03/2007 Orders Only [facility] Internal Medicine Medical [place] A [facility] [address] [facility] [address] [address] Wilma Starks MD [facility]5 [facility] [address] [place] [address] Social History Tobacco Use Types Packs/Day Years Used Date Smoking Tobacco: Never Assessed Comments Unknown Sex and Gender Information Value Date Recorded Sex Assigned at Not on file Legal Sex Female 4:42 AM VOICE PATHOLOGIST Gender Identity Not on file Sexual Orientation [...] AND STRAINS OF WRIST AND HAND V58.69 LONG-TERM USE OF OTHER MEDICATION(S) V70.0 ROUTINE GENERAL MEDICAL EXAMINATION CURRENT MEDICATION LIST: SYNTHROID ORAL TABLET 75 MCG, 1 Every Morning CURRENT ALLERGY LIST: NONE ASSESSMENT/PLAN: 682.6-OTHER CELLULITIS AND ABSCESS MEDICATIONS: AUGMENTIN ORAL TABLET 875-125 MG, 1 Two Times A Day, 14 Dispensed, status: NEW PRESCRIPTION, 11/03/2007. LAB ORDERS: Order number: [id number] Test Ordered: INJ-TDAP 11 YRS OR OLDER [id number] Order number: [id number] Test Ordered: IMMUNIZATION ADMIN SINGLE 16732 documented in this encounter Plan of Treatment Upcoming Encounters Date Type Department Care Team (Late st Contact Info) Description 08/10/2025 2:15 PM VOICE PATHOLOGIST Office Visit [facility] Rheumatology [place] [address] [place] [address] Ruddy Sánchez [place] [address] [place] [address] documented as of this encounter Visit Diagnoses Not on filedocumented in this encounter Care Teams Edge Grinder Relationship Specialty Start Date End Date Armando Johnson MD [address] [place] [address] PCP - General Internal Medicine 11/13/22 documented as of this encounter
--- OUTSIDE RECORDS SUMMARY | 2025-04-01 22:53 | XMS_ITS | Encounter Summary ---
Author Organization [facility] Address [address] [place] [address] Care Team Providers Care Wiring Technician Name Role Phone Armando Johnson MD Primary Care Provider [phone] Encounter Details Date Type Department Care Team (Late st Contact Info) Description 12/10/2007 Outpatient Historical [facility] Internal Medicine Medical [place] A [address] [address] Gabriella Noel MD Social History Tobacco Use Types Packs/Day Years Used Date Smoking Tobacco: Never Assessed Comments Unknown Sex and Gender Information Value Date Recorded Sex Assigned at Not on file Legal Sex Female 4:42 AM HEAD TELLER Gender Identity Not on file Sexual Orientation Not on file documented as of this encounter Plan of Treatment Upcoming Encounters Date Type Department Care Team (Late st Contact Info) Description 08/10/2025 2:15 PM HEAD TELLER Office Visit [facility] Rheumatology [place]ks [address] [facility] [facility] [address] [place] [address] Ruddy Sánchez [place] [address] [place] [address] documented as of this encounter Visit Diagnoses Not on filedocumented in this encounter Care Teams Wiring Technician Relationship Specialty Start Date End Date Armando Johnson MD [address] [place] [address] PCP - General Internal Medicine 11/13/22 documented as of this encounter
--- OUTSIDE RECORDS SUMMARY | 2025-04-01 22:53 | XMS_ITS | Encounter Summary ---
Author Organization [facility] Address [address] [place] [address] Care Team Providers Care Plum Packer Name Role Phone Armando Johnson MD Primary Care Provider [phone] Encounter Details Date Type Department Care Team (Late st Contact Info) Description 02/25/2003 Outpatient Historical [facility] DEPT Balwinder Hector MD [address] [facility] [address] [place] [address] JOINT PAIN-PELVIS (Primary Dx) Social History Tobacco Use Types Packs/Day Years Used Date Smoking Tobacco: Never Assessed Comments Unknown Sex and Gender Information Value Date Recorded Sex Assigned at Not on file Legal Sex Female 4:42 AM PHYSICIAN/ALLERGY/IMMUNOLOGY Gender Identity Not on file Sexual Orientation Not on file documented as of this encounter Plan of Treatment Upcoming Encounters Date Type Department Care Team (Late st Contact Info) Description 08/10/2025 2:15 PM PHYSICIAN/ALLERGY/IMMUNOLOGY Office Visit [facility] Rheumatology [place]ks [address] [place] [address] Ruddy Sánchez [place] [address] [place] [address] documented as of this encounter Visit Diagnoses Diagnosis Pain in joint, pelvic region and thigh- Primary documented in this encounter Care Teams Plum Packer Relationship Specialty Start Date End Date Armando Johnson MD [address] [place] [address] PCP - General Internal Medicine 11/13/22 documented as of this encounter
--- OUTSIDE RECORDS SUMMARY | 2025-04-01 22:53 | XMS_ITS | Encounter Summary ---
Author Organization Address [address] [place] [address] Care Team Providers Care Gun Fertilizer Name Role Phone Armando Johnson MD Primary Care Provider Encounter Details Date Type Department Care Team (Late st Contact Info) Description 08/25/2002 Outpatient Historical [facility] Support [facility]. ([facility]t Cardiology[facility]) [address] [place] [address] Gurvinder Townsend Social History Tobacco Use Types Packs/Day Years Used Date Smoking Tobacco: Never Assessed Comments Unknown Sex and Gender Information Value Date Recorded Sex Assigned at Not on file Legal Sex Female 4:42 AM TRANSFORMER STOCK CLERK Gender Identity Not on file Sexual Orientation Not on file documented as of this encounter Plan of Treatment Upcoming Encounters Date Type Department Care Team (Late Contact Info) Description 08/10/2025 2:15 PM TRANSFORMER STOCK CLERK Office Visit [facility] Rheumatology Freedom Sparks [address] [place] [address] Ruddy Sánchez [place] [address] [place] [address] documented as of this encounter Visit Diagnoses Not on filedocumented in this encounter Care Teams Gun Fertilizer Relationship Specialty Start Date End Date Armando Johnson MD [address] [place] [address] PCP - General Internal Medicine 11/13/22 documented as of this encounter
--- OUTSIDE RECORDS SUMMARY | 2025-04-01 22:53 | XMS_ITS | Encounter Summary ---
Author Organization [facility] Address [address] [place] [address] Care Team Providers Care Real Estate Analyst Name Role Phone Armando Johnson MD Primary Care Provider [phone] Encounter Details Date Type Department Care Team (Late st Contact Info) Description 09/11/2002 Outpatient Historical [facility] Nixon Perea MD [address] [facility] [address] [place], [place] [id number] Social History Tobacco Use Types Packs/Day Years Used Date Smoking Tobacco: Never Assessed Comments Unknown Sex and Gender Information Value Date Recorded Sex Assigned at Not on file Legal Sex Female 4:42 AM DESILVERIZER Gender Identity Not on file Sexual Orientation Not on file documented as of this encounter Plan of Treatment Upcoming Encounters Date Type Department Care Team (Late st Contact Info) Description 08/10/2025 2:15 PM DESILVERIZER Office Visit [facility] Rheumatology [place] [address] [place] [address] Ruddy Sán[place] [address] [place] [address] documented as of this encounter Visit Diagnoses Not on filedocumented in this encounter Care Teams Real Estate Analyst Relationship Specialty Start Date End Date Armando Johnson MD [address] [place] [address] PCP - General Internal Medicine 11/13/22 documented as of this encounter
--- OUTSIDE RECORDS SUMMARY | 2025-04-01 22:53 | XMS_ITS | Clinical Summary ---
Author Organization [facility] Address [address] [facility] [place] [address] Phone Care Team Providers Care Garment Worker Name Role Phone Armando Johnson MD Primary Care Provider [phone] Allergies Active Allergy Reactions Criticality Noted Date [...] Abstract 03/11/2025 3:30 PM CDT Office Visit [facility] Internal Medicine Medical [place] [facility] [address] [facility] [address] [address] Armando Johnson MD Obesity (BMI 35.0-39.9 without comorbidity) (Primary Dx); Severe obesity (BMI 35.0-39.9) with comorbidity (CMS/HCC); Hyperlipidemia, unspecified hyperlipidemia type; HTN (hypertension), benign; Hypothyroidism, unspecified type; Well woman exam with routine gynecological exam; Screening for colon cancer 02/17/2025 Refill [facility] Internal Medicine Medical [place] [address] [address] Armando Johnson MD 02/11/2025 Results Follow-Up [facility] [address] [facility] [address] [place] [address] Ruddy Sánchez MD COMPLEMENT C3/C4 PANEL, DNA AUTOABS DOUBLE STRANDED, CBC WITH DIFFERENTIAL, Additional followed-up results: 2 02/10/2025 3:15 PM CDT Office Visit [facility] [address] [facility] [address] [place] [address] Armando Johnson MD Hendin, Joshua O, MD Systemic lupus erythematosus, unspecified SLE type, unspecified organ involvement status (CMS/[facility]) (Primary Dx); Syrinx of spinal cord ([facility]) 02/03/2025 External Device Data STL ABSTRACTION Provider, Abstract 02/02/2025 External Device Data STL ABSTRACTION Provider, Abstract 01/06/2025 2:07 PM CDT - 01/06/2025 11:59 PM CDT Hospital Encounter [address] [facility] [address] [place] [address] Mike Eugene MD Discharge Disposition: Home or Self Care from Last 3 Months Immunizations Immunization Administration Dates Next Due (ADACEL/BOOSTRIX)(10 YR UP) TDAP VACCINE, 0.5ML, IM 01/02/2008 (PFIZER)(12 YR UP) COVID-19 VACCINE - EMERGENCY USE AUTHORIZATION, MRNA, [id number](PF) 30 MCG/0.3 ML IM SUSP 04/29/2021 (TENIVAC)(7 [...] on file Legal Sex Female 4:42 AM ROTATING EQUIPMENT SPECIALIST Gender Identity Not on file Sexual [...] st Contact Info) Description 08/10/2025 2:15 PM ROTATING EQUIPMENT SPECIALIST Office Visit [facility] Rheumatology [place] [address] [place] [address] Ruddy Sán[place] [address] [place] [address] Health Maintenance Due [...] nodule HEMOGLOBIN A1C Routine 11/21/2024 8:50 AM ROTATING EQUIPMENT SPECIALIST Screening for diabetes mellitus MAMMO 3D ZEYNEP SCREEN BILAT W OR WO CAD Routine 11/21/2024 8:27 AM ROTATING EQUIPMENT SPECIALIST Encounter for mammogram to establish baseline mammogram from Last 3 Months or Most Recently Relevant to Health Maintenance Results * URINALYSIS DIPSTICK ONLY (02/10/2025 4:30 PM CDT) COLOR UA YELLOW YELLOW [facility] CLARITY UA CLEAR CLEAR [facility] SPECIFIC GRAVITY UA 1.014 1.001 - 1.035 [facility] PH UA 5.5 5.0 - 8.0 [facility] Dominci GLUCOSE UA NEGATIVE NEGATIVE [facility] BILIRUBIN UA NEGATIVE NEGATIVE [facility] KETONES UA NEGATIVE NEGATIVE [facility] BLOOD UA NEGATIVE NEGATIVE [facility] PROTEIN UA NEGATIVE NEGATIVE [facility] NITRITE UA NEGATIVE NEGATIVE [facility] LEUKOCYTE ESTERASE UA NEGATIVE NEGATIVE [facility] Comment: FASTING:NO FASTING: NO Test Performed at: [facility] [address] [place] [address] Dez Feliciano 02/10/2025 4:30 PM CDT 02/10/2025 4:31 PM CDT Ruddy Sánchez MD URINE ORDERABLES Final Result [facility] [phone] [place] [address] [place] [address] * COMPLEMENT C3/C4 PANEL (02/10/2025 4:30 PM CDT) Pathologist [facility] COMPLEMENT C3 165 83 - 193 mg/dL [facility] COMPLEMENT C4 37 15 - 57 mg/dL [facility] Comment: FASTING:NO FASTING: NO Test Performed at: [facility] [address] [employer] [address] ZeinaMadeline Feliciano MD Blood 02/10/2025 4:30 PM CDT 02/10/2025 4:31 PM CDT Ruddy Sánchez MD CHEMISTRY ORDERABLES Final Re sult [facility] [phone] [facility] [address] [place] [address] * DNA AUTOABS DOUBLE STRANDED (02/10/2025 4:30 PM CDT) Pathologist [facility] DNA AUTOABS DOUBLE STRANDED 1 IU/mL [facility] Comment: IU/mL Interpretation < or = 4 Negative 5-9 Indeterminate > or = 10 Positive FASTING:NO FASTING: NO Test Performed at: [facility] [address] [employer] [address] ZeinaMadeline Feliciano MD Blood 02/10/2025 4:30 PM CDT 02/10/2025 4:31 PM CDT us Ruddy Sánchez MD CHEMISTRY ORDERABLES Final Re sult [facility] [phone] [facility] [address] [place] [address] * (ABNORMAL) CBC WITH DIFFERENTIAL (02/10/2025 4:30 PM CDT) Pathologist [facility] WBC 6.9 3.8 - 10.8 Thousand/ uL [...] Comment: FASTING:NO FASTING: NO Test Performed at: [facility] [address] [place] [address] [facility] Blood 02/10/2025 4:30 PM CDT 02/10/2025 4:31 PM CDT Ruddy Sánchez MD HEMATOLOGY ORDERABLES Final R esult Performing Organization Address City/[facility] Code Phone Number [facility] [phone] [facility] [place] [address] [place] [address] * (ABNORMAL) PROTEIN , RANDOM URINE (02/10/2025 [...] Comment: FASTING:NO FASTING: NO Test Performed at: [facility] [address] [place] [address] [facility] 02/10/2025 4:30 PM CDT 02/10/2025 4:31 PM CDT Ruddy Sánchez MD URINE ORDERABLES Final Result Performing Organization Address [facility] Code Phone Number [facility] [phone] [facility] [place] [address] [place] [address] * COMPREHENSIVE METABOLIC PANEL (02/10/2025 4:30 PM CDT) GLUCOSE 84 65 - 99 mg/dL [facility] Comment: Specimen hemolyzed. The test(s) ordered were performed. Hemolysis has been known to affect the results of the following analytes: potassium, glucose, inorganic phosphorus, lactate dehydrogenase and iron. Fasting reference interval BUN 17 7 - 25 mg/dL [facility] CREATININE 0.91 0.50 - 1.05 mg/dL [facility] GFR 72 > OR = 60 mL/min/1. 73m2 [facility] BUN/CREAT RATIO SEE NOTE: 6 - 22 (calc) [facility] Comment: Not Reported: BUN and Creatinine are within reference range. SODIUM 136 135 - 146 mmol/L [facility] [place] POTASSIUM 4.7 3.5 - 5.3 mmol/L [facility] ElianaAnkit Te[facility] CHLORIDE 100 98 - 110 mmol/L [facility] CO2 27 20 - 32 mmol/L [facility] CALCIUM 10.3 8.6 - 10.4 mg/dL [facility] TOTAL PROTEIN 7.7 6.1 - 8.1 g/dL [facility] ALBUMIN 4.9 3.6 - 5.1 g/dL [facility] [place] GLOBULIN 2.8 1.9 - 3.7 g/dL (calc) [facility] ALBUMIN/GLOBULIN RATIO 1.8 1.0 - 2.5 (calc) [facility] BILIRUBIN TOTAL 0.4 0.2 - 1.2 mg/dL [facility] ALKALINE PHOSPHATASE 89 37 - 153 U/L [facility] AST 28 10 - 35 U/L [facility] ALT 25 6 - 29 U/L [facility] Comment: Test Performed at: [facility] [place] [address] [place] [address] [facility] Blood 02/10/2025 4:30 PM CDT 02/10/2025 4:31 PM CDT us Ruddy Sánchez MD CHEMISTRY ORDERABLES Final Re sult [facility] [phone] [facility] [place] [address] [place] [address] * US HEAD NECK TISSUES (01/06/2025 2:38 PM CDT) Anatomical Region Laterality Modality Head Ultrasound 01/06/2025 2:39 PM CDT Impressions 01/06/2025 5:01 PM CDT IMPRESSION: 1. Stable bilateral TI-RADS 3 and TI-RADS 4 nodules for which continued follow-up is recommended. DICTATION LOCATION: Location 1 - [facility] ACR 2017 TI-RADS Recommendations Narrative 01/06/2025 5:01 PM CDT US HEAD NECK TISSUES DATE: 01/06/2025 2:38 PM HISTORY: 59-year-old female with thyroid nodule TECHNIQUE: Thyroid ultrasound performed by an tissue technologist in multiple projections. COMPARISON: Ultrasound 12/10/2023 [...] nodule TECHNIQUE: Thyroid ultrasound performed by an tissue technologist in multiple projections. COMPARISON: Ultrasound 12/10/2023 [...] is recommended. DICTATION LOCATION: Location 1 - [facility] ACR 2017 TI-RADS Recommendations Mike Eugene MD ORDERABLES Final Result * HEMOGLOBIN A1C (11/21/2024 8:50 AM ROTATING EQUIPMENT SPECIALIST) HEMOGLOBIN A1C 5.6 <5.7 % of total Hgb [facility] Comment: For the purpose of screening for the presence of diabetes: <5.7% Consistent with the absence of diabetes 5.7-6.4% Consistent with increased risk for diabetes (prediabetes) > or =6.5% Consistent with diabetes This assay result is consistent with a decreased risk of diabetes. Currently, no consensus exists regarding use of hemoglobin A1c for diagnosis of diabetes in children. According to [place] Diabetes Association (ADA) guidelines, hemoglobin A1c <7.0% represents optimal control in non- diabetic patients. Different metrics may apply to specific patient populations. Standards of Medical Care in Diabetes(ADA). ESTIMATED AVERAGE GLUCOSE (MG/DL) 114 mg/dL [facility] ESTIMATED AVERAGE GLUCOSE (MMOL/L) 6.3 mmol/L [facility] Comment: FASTING:YES FASTING: YES Test Performed at: [facility] [address] [place] [address] Dez Morse Vo Blood 11/21/2024 8:50 AM ROTATING EQUIPMENT SPECIALIST 11/21/2024 8:53 AM ROTATING EQUIPMENT SPECIALIST Farida Pastor NP CHEMISTRY ORDERABLE S Final Result [facility] [phone] [facility] [address] [place] [address] * MAMMO 3D ZEYNEP SCREEN BILAT W OR WO CAD (11/21/2024 8:27 AM ROTATING EQUIPMENT SPECIALIST) Anatomical Region Laterality Modality Breast Bilateral Mammography 11/21/2024 8:27 AM ROTATING EQUIPMENT SPECIALIST Impressions 11/21/2024 1:55 PM ROTATING EQUIPMENT SPECIALIST IMPRESSION: No mammographic evidence of malignancy in the bilateral breasts. Routine screening mammography is recommended in one year. OVERALL FINAL ASSESSMENT: BI-RADS CATEGORY 1 - Negative DICTATION LOCATION: [facility] Narrative 11/21/2024 1:55 PM ROTATING EQUIPMENT SPECIALIST EXAMINATION: BILATERAL SCREENING DIGITAL MAMMOGRAPHY WITH TOMOSYNTHESIS [...] Most Recently Relevant to Health Maintenance Insurance [employer] [facility] [id number] [employer] Commercial RX [employer] RX Member Subscriber Plan / Payer (Ef fective 2020-Present) Name:Longoria, Lupe Ribera Relation to Subscriber:Self Name:Longoria, Lupe Ribera Subscriber ID:Not on file Payer ID:Not on file Group ID:[id number] Type:RX Commercial Address: [place] [employer] [address] Advance Directives For more information, please contact: [phone] * Full Code (Latest Code Status on File) Date Activated Date Inactivated Comments 09/02/2015 10:50 PM 09/03/2015 6:20 PM * Full Code Date Activated Date Inactivated Comments 08/15/2015 10:37 AM 08/15/2015 2:26 PM * Full Code Date Activated Date Inactivated Comments 09/22/2010 9:50 AM 09/23/2010 3:06 PM * Full Code Date Activated Date Inactivated Comments 09/22/2010 5:34 AM 09/22/2010 9:50 AM Care Teams Garment Worker Relationship Specialty Start Date End Date Armando Johnson MD [address] [facility] [address] [facility] [address] [place] [address] PCP - General Internal Medicine 11/13/22
--- OUTSIDE RECORDS SUMMARY | 2025-04-01 22:53 | XMS_ITS | Encounter Summary ---
Author Organization [facility] Address [address] [facility] Attn: Epic Prel[place] [address] Care Team Providers Care Adult Family Home Program Manager Name Role Phone Armando Johnson MD Primary Care Provider Encounter Details Date Type Department Care Team (Latest Contact Info) Description 12/10/2007 Orders Only Gabriella Noel MD Social History Tobacco Use Types Packs/Day Years Used Date Smoking Tobacco: Never Assessed Comments Unknown Sex and Gender Information Value Date Recorded Sex Assigned at Not on file Legal Sex Female 4:42 AM PIECE GOODS PACKER Gender Identity Not on file Sexual Orientation Not on file documented as of this encounter Plan of Treatment Upcoming Encounters Date Type Department Care Team (Late st Contact Info) Description 08/10/2025 2:15 PM PIECE GOODS PACKER Office Visit [facility] Rheumatology [place] [address] [place] [address] Ruddy Sán[place] [address] [place] [address] documented as of this encounter Visit Diagnoses Not on filedocumented in this encounter Care Teams Adult Family Home Program Manager Relationship Specialty Start Date End Date Armando Jhonson MD [address] [place] [address] PCP - General Internal Medicine 11/13/22 documented as of this encounter
--- OUTSIDE RECORDS SUMMARY | 2025-04-01 22:53 | XMS_ITS | Encounter Summary ---
Author Organization [facility] Address [address] [place] [address] Care Team Providers Care Linoleum Layer Apprentice Name Role Phone Armando Johnson MD Primary Care Provider [phone] Encounter Details Date Type Department Care Team (Late st Contact Info) Description 10/01/2007 Outpatient Historical [facility] Internal Medicine Medical [place] [facility] [address] [facility] [address] Balwinder Hector MD [address] [facility] [address] [place] [address] Social History Tobacco Use Types Packs/Day Years Used Date Smoking Tobacco: Never Assessed Comments Unknown Sex and Gender Information Value Date Recorded Sex Assigned at Not on file Legal Sex Female 4:42 AM SENIOR PARTNER Gender Identity Not on file Sexual Orientation Not on file documented as of this encounter Last Filed Vital Signs Vital Sign Reading Time Taken Comments Blood Pressure 112/76 10/01/2007 3:30 PM SENIOR PARTNER Pulse 72 10/01/2007 3:30 PM SENIOR PARTNER Temperature 37.7 C (99.9 F) 10/01/2007 3:30 PM SENIOR PARTNER Respiratory Rate 16 10/01/2007 3:30 PM SENIOR PARTNER Oxygen Saturation - - Inhaled Oxygen Concentration - - Weight 91.6 kg (202 lb) 10/01/2007 3:30 PM SENIOR PARTNER Height - - Body Mass Index 29.83 08/20/2005 2:20 PM SENIOR PARTNER documented in this encounter Plan of Treatment Upcoming Encounters Date Type Department Care Team (Late st Contact Info) Description 08/10/2025 2:15 PM SENIOR PARTNER [facility] Rheumat[facility] [place] [address] [place] [address] Ruddy Sánchez [place] [address] [place] [address] documented as of this encounter Visit Diagnoses Not on filedocumented in this encounter Care Teams Linoleum Layer Apprentice Relationship Specialty Start Date End Date Armando Johnson MD [address] [place] [address] PCP - General Internal Medicine 11/13/22 documented as of this encounter
--- OUTSIDE RECORDS SUMMARY | 2025-04-01 22:53 | XMS_ITS | Encounter Summary ---
Author Organization [facility] Address [address] [place] [address] Care Team Providers Care Sheet Metal Erector Name Role Phone Armando Johnson MD Primary Care Provider [phone] Encounter Details Date Type Department Care Team (Late Contact Info) Description 02/09/2003 Outpatient Historical HIS [facility] Balwinder Ryder MD [address] [place] [address] JOINT PAIN-PELVIS (Primary Dx) Social History Tobacco Use Types Packs/Day Years Used Date Smoking Tobacco: Never Assessed Comments Unknown Sex and Gender Information Value Date Recorded Sex Assigned at Not on file Legal Sex Female 4:42 AM COAT AGENT Gender Identity Not on file Sexual Orientation Not on file documented as of this encounter Plan of Treatment Upcoming Encounters Date Type Department Care Team (Late Contact Info) Description 08/10/2025 2:15 PM COAT AGENT Office Visit [facility] Rheumatology [place] [address] [place] [address] Ruddy Sánchez [place] [address] [place] [address] documented as of this encounter Visit Diagnoses Diagnosis Pain in joint, pelvic region and thigh- Primary documented in this encounter Care Teams Sheet Metal Erector Relationship Specialty Start Date End Date Armando Johnson MD [address] [place] [address] PCP - General Internal Medicine 11/13/22 documented as of this encounter
--- OUTSIDE RECORDS SUMMARY | 2025-04-01 22:53 | XMS_ITS | Encounter Summary ---
Author Organization [facility] Address [address] [place] [address] Care Team Providers Care Spiritual Counselor Name Role Phone Armando Johnson MD Primary Care Provider [phone] Encounter Details Date Type Department Care Team (Late st Contact Info) Description 11/20/2007 Orders Only [facility] Internal Medicine Medical [place] A [facility] [address] [facility] [address] [address] Balwinder Hector MD [address] [facility] [address] [place] [address] Social History Tobacco Use Types Packs/Day Years Used Date Smoking Tobacco: Never Assessed Comments Unknown Sex and Gender Information Value Date Recorded Sex Assigned at Not on file Legal Sex Female 4:42 AM CREDIT RISK MANAGEMENT DIRECTOR Gender Identity Not on file Sexual Orientation Not on file documented as of this encounter Progress Notes * Cooper Hector MD - 02/19/2008 5:50 PM CDT TIME:09:16 am PATIENT`S HOME PHONE: PATIENT`S WORK PHONE: PATIENT`S INSURANCE: [employer] [facility] WHO TOOK THE CALL: Malgorzata Murphy R GENERAL INFORMATION ALTERNATIVE PHONE NUMBER: [phone] WHO CALLED: Patient called. CURRENT ALLERGY LIST: NONE PHARMACY NUMBER: [phone] PROBLEMS: has been taking wal-fed, amoxicillin...which has [...] Info) Description 08/10/2025 2:15 PM CREDIT RISK MANAGEMENT DIRECTOR Office Visit [facility] Rheumatology [place] [address] [place] [address] Ruddy Sánchez [place] [address] [place] [address] documented as of this encounter Visit Diagnoses Not on filedocumented in this encounter Care Teams Spiritual Counselor Relationship Specialty Start Date End Date Armando Johnson MD [address] [place] [address] PCP - General Internal Medicine 11/13/22 documented as of this encounter
--- OUTSIDE RECORDS SUMMARY | 2025-04-01 22:53 | XMS_ITS | Encounter Summary ---
Author Organization [facility] Address [address] [place] [address] Care Team Providers Care Tactical Debriefer Officer Name Role Phone Armando Johnson MD Primary Care Provider [phone] Encounter Details Date Type Department Care Team (Late Contact Info) Description 11/03/[address] [facility] Internal Medicine Medical Transfer A [facility] [address] [facility] [address] [address] Wilma Starks MD [facility] [facility] [address] [place] [address] Social History Tobacco Use Types Packs/Day Years Used Date Smoking Tobacco: Never Assessed Comments Unknown Sex and Gender Information Value Date Recorded Sex Assigned at Not on file Legal Sex Female 4:42 AM ZIPPER MEASURER Gender Identity Not on file Sexual Orientation Not on file documented as of this encounter Plan of Treatment Upcoming Encounters Date Type Department Care Team (Late st Contact Info) Description 08/10/2025 2:15 PM ZIPPER MEASURER Office Visit [facility] Rheumatology [place] [address] [facility] [address] [place] [address] Ruddy Sánchez [place] [address] [place] [address] documented as of this encounter Visit Diagnoses Not on filedocumented in this encounter Care Teams Tactical Debriefer Officer Relationship Specialty Start Date End Date Armando Johnson MD [address] [facility] [address] [place] [address] PCP - General Internal Medicine 11/13/22 documented as of this encounter
--- OUTSIDE RECORDS SUMMARY | 2025-04-01 22:53 | XMS_ITS | Encounter Summary ---
Author Organization [facility] Address [address] [place] [address] Care Team Providers Care Radiology Rn Name Role Phone Armando Johnson MD Primary Care Provider [phone] Encounter Details Date Type Department Care Team (Late Contact Info) Description 12/10/2007 Outpatient Historical [facility] Internal Medicine Medical [place] [facility] [address] [address] [address] Balwinder Hector MD [address] [place] [address] Unspecified Hypothyroidism Social History Tobacco Use Types Packs/Day Years Used Date Smoking Tobacco: Never Assessed Comments Unknown Sex and Gender Information Value Date Recorded Sex Assigned at Not on file Legal Sex Female 4:42 AM SAS SQL DEVELOPER Gender Identity Not on file Sexual Orientation Not on file documented as of this encounter Plan of Treatment Upcoming Encounters Date Type Department Care Team (Late st Contact Info) Description 08/10/2025 2:15 PM SAS SQL DEVELOPER Office Visit [facility] Rheumatology [place] [address] [facility] [address] [place] [address] Ruddy Sán[place] [address] [place] [address] documented as of this encounter Procedures Procedure Name Priority Date/Time Associated Diagnosis Comments T3 FREE Routine 12/10/2007 4:34 PM CDT TSH Routine 12/10/2007 4:34 PM CDT T4 FREE Routine 12/10/2007 4:34 PM CDT documented in this encounter Results * TSH (12/10/2007 4:34 PM CDT) TSH 2.47 0.27 - 4.20 uU/mL [facility] Blood specimen (specimen) 12/10/2007 4:34 PM CDT 12/10/2007 5:03 PM CDT us Balwinder Hector MD CHEMISTRY ORDERABLES Final Resu lt Performing Organization Address [facility] Co de Phone Number [facility] [address] [place] [address] * T3 FREE (12/10/2007 4:34 PM CDT) T3 FREE 2.8 2.5 - 4.4 pg/mL [facility] Blood specimen (specimen) 12/10/2007 4:34 PM CDT 12/10/2007 5:03 PM CDT us Balwinder Hector MD CHEMISTRY ORDERABLES Final Resu lt Performing Organization Address [facility] Co de Phone Number [facility] [address] [facility] [place] [address] * T4 FREE (12/10/2007 4:34 PM CDT) T4 FREE 1.1 0.9 - 1.7 ng/dL [facility] Blood specimen (specimen) 12/10/2007 4:34 PM CDT 12/10/2007 5:03 PM CDT us Balwinder Hector MD CHEMISTRY ORDERABLES Final Resu lt Performing Organization Address City/[facility]/ZIP Co de Phone Number [facility] [address] [place] [address] documented in this encounter Visit Diagnoses Diagnosis Unspecified hypothyroidism documented in this encounter Care Teams Radiology Rn Relationship Specialty Start Date End Date Armando Johnson MD [address] [place] [address] PCP - General Internal Medicine 11/13/22 documented as of this encounter
--- OUTSIDE RECORDS SUMMARY | 2025-04-01 22:53 | XMS_ITS | Encounter Summary ---
Author Organization [facility] Address [address] [place] [address] Care Team Providers Care Associate Pathologist Name Role Phone Armando Johnson MD Primary Care Provider [phone] Encounter Details Date Type Department Care Team (Late Contact Info) Description 10/12/2007 Orders Only [facility] Internal Medicine Medical [place] A [facility] [address] [facility] [address] [phone] Balwinder Hector MD [address] [facility] [address] [place] [address] Social History Tobacco Use Types Packs/Day Years Used Date Smoking Tobacco: Never Assessed Comments Unknown Sex and Gender Information Value Date Recorded Sex Assigned at Not on file Legal Sex Female 4:42 AM CHANGE MANAGEMENT FACILITATOR Gender Identity Not on file Sexual Orientation Not on file documented as of this encounter Plan of Treatment Upcoming Encounters Date Type Department Care Team (Late st Contact Info) Description 08/10/2025 2:15 PM CHANGE MANAGEMENT FACILITATOR Office [facility] Rheumatology [place] [address] [facility] [address] [place] [address] Ruddy Sánchez [place] [address] [place] [address] documented as of this encounter Visit Diagnoses Not on filedocumented in this encounter Care Teams Associate Pathologist Relationship Specialty Start Date End Date Armando Johnson MD [address] [facility] [place] [address] PCP - General Internal Medicine 11/13/22 documented as of this encounter
--- OUTSIDE RECORDS SUMMARY | 2025-04-01 22:53 | XMS_ITS | Encounter Summary ---
Author Organization [facility] Address [address] [place] [address] Care Team Providers Care Display Artist Name Role Phone Armando Johnson MD Primary Care Provider [phone] Encounter Details Date Type Department Care Team (Late st Contact Info) Description 12/25/2002 Outpatient Historical [facility] Balwinder Ryder MD [address] [facility] [address] [facility] [address] [place] [address] JOINT SYMPT NEC-UNSP JOINT (Primary Dx) Social History Tobacco Use Types Packs/Day Years Used Date Smoking Tobacco: Never Assessed Comments Unknown Sex and Gender Information Value Date Recorded Sex Assigned at Not on file Legal Sex Female 4:42 AM CLOUD AUTOMATION TESTER Gender Identity Not on file Sexual Orientation Not on file documented as of this encounter Plan of Treatment Upcoming Encounters Date Type Department Care Team (Late Contact Info) Description 08/10/2025 2:15 PM CLOUD AUTOMATION TESTER Office Visit [facility] Rheumatology [place] [address] [place] [address] Ruddy Sán[place] [address] [place] [address] documented as of this encounter Visit Diagnoses Diagnosis Other symptoms referable to joint, site unspecified- Primary documented in this encounter Care Teams Display Artist Relationship Specialty Start Date End Date Armando Johnson MD [address] [facility] [address] [place] [address] PCP - General Internal Medicine 11/13/22 documented as of this encounter
--- OUTSIDE RECORDS SUMMARY | 2025-04-01 22:53 | XMS_ITS | Encounter Summary ---
Author Organization [facility] Address [address] [place] [address] Care Team Providers Care Screw Cutter Name Role Phone Armando Johnson MD Primary Care Provider [phone] Encounter Details Date Type Department Care Team (Late st Contact Info) Description 11/11/2007 Orders Only [facility] Internal Medicine Medical [place] [facility] [address] [facility] [address] [address] Balwinder Hector MD [address] [facility] [address] [place] [address] Social History Tobacco Use Types Packs/Day Years Used Date Smoking Tobacco: Never Assessed Comments Unknown Sex and Gender Information Value Date Recorded Sex Assigned at Not on file 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 CURRENT ALLERGY LIST: NONE PHARMACY NUMBER: [phone] PROBLEMS: has taken sudafed, tylenol, cough drops... [...] st Contact Info) Description 08/10/2025 2:15 PM PHOTOGRAPHIC RESTORER Office Visit [facility] Rheumatology [place] [address] [facility] [address] [place] [address] Ruddy Sánchez [place] [address] [place] [address] documented as of this encounter Visit Diagnoses Not on filedocumented in this encounter Care Teams Screw Cutter Relationship Specialty Start Date End Date Armando Johnson MD [address] [place] [address] PCP - General Internal Medicine 11/13/22 documented as of this encounter
--- OUTSIDE RECORDS SUMMARY | 2025-04-01 22:53 | XMS_ITS | Referral Summary ---
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 Gender Identity Not on file Sexual Orientation Not on file Last Filed Vital Signs Vital Sign Reading Time Taken Comments Blood Pressure 126/76 08/28/2022 10:20 AM TECHNICIAN TELECOMMUNICATION SYSTEMS Pulse 77 08/28/2022 10:20 AM TECHNICIAN TELECOMMUNICATION SYSTEMS Temperature 37.2 C (99 F) 08/28/2022 10:20 AM TECHNICIAN TELECOMMUNICATION SYSTEMS Respiratory Rate 18 08/28/2022 10:20 AM TECHNICIAN TELECOMMUNICATION SYSTEMS Oxygen Saturation 98% 08/28/2022 10:20 AM TECHNICIAN TELECOMMUNICATION SYSTEMS Inhaled Oxygen Concentration - - Weight 105.7 kg (233 lb) 08/28/2022 10:20 AM TECHNICIAN TELECOMMUNICATION SYSTEMS Height 175.3 cm (5' 9) 08/28/2022 10:20 AM TECHNICIAN TELECOMMUNICATION SYSTEMS Body Mass Index 34.41 08/28/2022 10:20 AM TECHNICIAN TELECOMMUNICATION SYSTEMS Plan of Treatment Not on file Insurance [facility] CHOICE PLUS [facility] HMO/PPO Address: [facility] [address] [place] [address] Care Teams Community Outreach Director Relationship Specialty Start Date End Date Unknown, Notinfile PCP - General 08/28/22
--- OUTSIDE RECORDS SUMMARY | 2025-04-01 22:53 | XMS_ITS | Encounter Summary ---
Author Organization [facility] Address [address] [place] [address] Care Team Providers Care Hat Stock Laminating Machine Operator Name Role Phone Armando Johnson MD Primary Care Provider [phone] Encounter Details Date Type Department Care Team (Late Contact Info) Description 11/03/2007 Outpatient Historical [facility] Internal Medicine Medical [place] [facility] [address] [facility] [address] [address] Wilma Starks MD [facility] [facility] [address] [place] [address] Social History Tobacco Use Types Packs/Day Years Used Date Smoking Tobacco: Never Assessed Comments Unknown Sex and Gender Information Value Date Recorded Sex Assigned at Not on file 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 Gender Identity Not on file Sexual Orientation Not on file documented as of this encounter Plan of Treatment Upcoming Encounters Date Type Department Care Team (Late st Contact Info) Description 08/10/2025 2:15 PM HOME VISIT FIELD CARE MANAGER Office Visit [facility] Rheumatology [place] [address] [facility] [address] [place] [address] Ruddy Sánchez [place] [address] [place] [address] documented as of this encounter Visit Diagnoses Not on filedocumented in this encounter Care Teams Hat Stock Laminating Machine Operator Relationship Specialty Start Date End Date Armando Johnson MD [address] [facility] [address] [place] [address] PCP - General Internal Medicine 11/13/22 documented as of this encounter
--- OUTSIDE RECORDS SUMMARY | 2025-04-01 22:53 | XMS_ITS | Clinical Summary ---
Author Organization [facility] Address [address] [place] [address] Phone [email or web address] Care Team Providers Care Electric Motor Tester Assembler Name Role Phone Unavailable Primary Care Provider [...]
== END 2025-04-01 21:43 | disposition left against medical advice (07) ==
LOC: ANHED 22:50
PROVIDERS: Emergency Provider Emergency Medicine
DX: R07.89 Other chest pain (principal)
CPT/HCPCS: 36415; 71046; 80053; 83690; 84484; 85025; 85610; 85730; 93005; 99199